=== PATIENT | female | born 1960 | race American Indian/Alaskan Native ===

== ENCOUNTER 2016-11-16 16:51 | Emergency (ER) | payer OTHER ==
--- NOTE | 2016-11-17 00:22 | Emergency Department Report ---
Chief Complaint: Neck Pain/Injury Stated Complaint: NECK PAIN Time Seen by Provider: 11/17/16 00:21 - HPI History of Present Illness: Patient here complaining of right-sided neck pain does radiate into the top of her head since then the. She said she took some Tylenol and she got some relief. Denies any nausea vomiting. She said when she woke up on Wednesday she noticed that her neck was hurting. Denies any visual disturbances. Patient said the pain is worse with movement. She said the pain in her right neck is 10 out of 10 and is radiating up to her right side of her head. She said if she does not move her neck there is no pain there. Denies any fever or chills. Denies any injury. Patient denies any medical problems. - ROS Review of Systems: All systems are negative unless stated in HPI above - Exam Vital Signs: Vital Signs 11/16/16 11/16/16 17:32 23:17 Temperature 97.4 F L 98.6 F Pulse Rate 100 H 109 H Respiratory 22 26 H Rate Blood Pressure 122/77 Blood Pressure 115/78 [Left] O2 Sat by Pulse 100 99 Oximetry Vital Signs 11/16/16 11/16/16 11/17/16 17:32 23:17 00:25 Temperature 97.4 F L 98.6 F Pulse Rate 100 H 109 H 84 Respiratory 22 26 H Rate Blood Pressure 122/77 Blood Pressure 115/78 [Left] O2 Sat by Pulse 100 99 Oximetry Physical Exam: General: This is a 55-year-old female, well-nourished well-developed in no acute distress. She is nontoxic in appearance. Head: Normocephalic atraumatic Mouth: Moist, no pharyngeal exudate or erythema. Uvula is midline and oral airway is patent. No gingival enlargement or dental tenderness. No facial swelling. No peritonsillar abscesses. Neck: Supple, no C-spine tenderness, no tracheal deviation. tender to palpate left neck muscle.. no adenopathy. Swelling noted to neck. Patient with full range of motion to neck. She reports pain on the left side when she moves her neck. Ears: Bilateral TMs pearly jack . .bilateral EAC without any redness swelling or drainage Eyes: Bilateral pupils equal and reactive to light, bilateral EOM intact. Bilateral sclera and conjunctiva without injection. Normal accommodation Nose: Normal mucosa. maxillary and frontal sinus non-tender to palpate. Lungs: Clear to auscultate bilaterally no rhonchi wheezes or rales. Normal work of breathing extremity; No CCE. +2 pulses. No neurovascular compromise Cardiovascular: S1-S2, regular rate rhythm. No murmurs. Skin: clean Dry and intact no rash no lesions Psych: Normal mood and behavior MSE screening note: Focused history and physical exam performed. Due to findings the following was ordered:TBD ED Disposition for MSE Condition: Stable
[2016-11-17] MEDS ORDERED: FLEXERIL PO ONE (00:43)
[2016-11-17] MEDS ORDERED: NORCO 5/325 PO ONE (00:43)
--- NOTE | 2016-11-17 01:35 | Emergency Department Report ---
ED Neck Pain/Injury HPI - General Chief Complaint: Neck Pain/Injury Stated Complaint: Neck Pain Time Seen by Provider: 11/17/16 00:21 Source: patient, family Mode of arrival: Ambulatory Limitations: No Limitations - History of Present Illness Initial Comments: Patient here complaining of right-sided neck pain does radiate into the top of her head since then the. She said she took some Tylenol and she got some relief. Denies any nausea vomiting. She said when she woke up on Wednesday she noticed that her neck was hurting. Denies any visual disturbances. Patient said the pain is worse with movement. She said the pain in her right neck is 10 out of 10 and is radiating up to her right side of her head. She said if she does not move her neck there is no pain there. Denies any fever or chills. Denies any injury. Patient denies any medical problems. MD Complaint: neck pain Onset/Timin -: days(s) Place: home Radiation: left lateral, head Severity: severe Severity scale (0 -10): 10 Quality: aching Consistency: intermittent Improves With: medication OTC/prescribe Worsens With: movement of neck Context: unknown Associated Symptoms: headache. denies: fever, numbness, tingling, weakness, vertigo, difficulty walking, swollen glands, difficulty swallowing, nausea, vomiting Treatments Prior to Arrival: Acetaminophen - Related Data Previous Rx's Medication Instructions Recorded Last Taken Type Cyclobenzaprine [Flexeril] 10 mg PO TID PRN #15 tablet 11/17/16 Unknown Rx Ibuprofen [Motrin] 600 mg PO Q8H PRN #15 tablet 11/17/16 Unknown Rx Allergies Allergy/AdvReac Type Severity Reaction Status Date / Time No Known Allergies Allergy Unverified 11/16/16 17:37 ED Review of Systems ROS: Stated complaint: SEVERE HEADACHE Other details as noted in HPI Comment: All other systems reviewed and negative Constitutional: denies: chills, fever Eyes: denies: eye pain, vision change ENT: denies: ear pain, throat pain, hearing loss, epistaxis, congestion Respiratory: no symptoms reported Cardiovascular: denies: chest pain, palpitations, edema, syncope Gastrointestinal: denies: abdominal pain, nausea, vomiting Musculoskeletal: arthralgia. denies: back pain, joint swelling Skin: denies: rash Neurological: headache. denies: weakness, numbness, paresthesias, confusion, abnormal gait, vertigo ED Past Medical Hx - Past Medical History Previous Medical History?: No - Surgical History Past Surgical History?: Yes Additional Surgical History: LEFT KNEE - Family History Family history: no significant - Social History Smoking Status: Never Smoker Substance Use Type: None - Medications Home Medications: Home Medications Medication Instructions Recorded Confirmed Last Taken Type Cyclobenzaprine [Flexeril] 10 mg PO TID PRN #15 tablet 11/17/16 Unknown Rx Ibuprofen [Motrin] 600 mg PO Q8H PRN #15 tablet 11/17/16 Unknown Rx ED Physical Exam - General Limitations: No Limitations General appearance: alert, in no apparent distress - Head Head exam: Present: atraumatic, normocephalic, normal inspection - Eye Eye exam: Present: normal appearance, PERRL, EOMI. Absent: nystagmus, periorbital swelling, periorbital tenderness Pupils: Present: normal accommodation - ENT ENT exam: Present: normal exam, normal orophraynx, mucous membranes moist, TM's normal bilaterally, normal external ear exam - Neck Neck exam: Present: normal inspection, full ROM. Absent: tenderness, lymphadenopathy - Expanded Neck Exam Expanded Neck exam: Absent: tenderness, midline deformity, anterior neck swelling, tracheal deviation - Respiratory Respiratory exam: Present: normal lung sounds bilaterally. Absent: respiratory distress, chest wall tenderness - Cardiovascular Cardiovascular Exam: Present: regular rate, normal rhythm, normal heart sounds - Extremities Exam Extremities exam: Present: normal inspection, full ROM, normal capillary refill. Absent: pedal edema - Back Exam Back exam: Present: normal inspection, full ROM. Absent: tenderness, CVA tenderness (R), CVA tenderness (L), muscle spasm, paraspinal tenderness, vertebral tenderness - Neurological Exam Neurological exam: Present: alert, oriented X3, normal gait - Psychiatric Psychiatric exam: Present: normal affect, normal mood - Skin Skin exam: Present: warm, dry, intact, normal color. Absent: rash ED Course Vital Signs 11/16/16 11/16/16 11/17/16 17:32 23:17 00:25 Temperature 97.4 F L 98.6 F Pulse Rate 100 H 109 H 84 Respiratory 22 26 H Rate Blood Pressure 122/77 Blood Pressure 115/78 [Left] O2 Sat by Pulse 100 99 Oximetry 11/17/16 00:55 Temperature Pulse Rate Respiratory 20 Rate Blood Pressure Blood Pressure [Left] O2 Sat by Pulse Oximetry - Reevaluation(s) Reevaluation #1: 11/17/16 01:42 Patient given Flexeril 10 mg and [place] 5/325 one tablet in emergency room and she voiced relief of her neck pain. ED Medical Decision Making - Medical Decision Making ED course: I discussed the patient based on my physical finding she has neck muscle strain. I discussed follow-up and treatment plan with her and she voiced understanding. Patient discharged home with discharge instruction for neck muscle strain and given prescription for Flexeril and Motrin Critical care attestation.: If time is entered above; I have spent that time in minutes in the direct care of this critically ill patient, excluding procedure time. ED Disposition Clinical Impression: Neck muscle strain Qualifiers: Encounter type: initial encounter Qualified Code(s): S16.1XXA - Strain of muscle, fascia and tendon at neck level, initial encounter Headache Qualifiers: Headache type: unspecified Headache chronicity pattern: acute headache Intractability: not intractable Qualified Code(s): R51 - Headache Disposition: DISCHARGED TO HOME OR SELFCARE Is pt being admited?: No Does the pt Need Aspirin: No Condition: Stable Instructions: Muscle Strain (ED), Acute Headache (ED) Prescriptions: Cyclobenzaprine [Flexeril] 10 mg PO TID PRN #15 tablet PRN Reason: Muscle Spasm Ibuprofen [Motrin] 600 mg PO Q8H PRN #15 tablet PRN Reason: Pain Referrals: [facility] [Outside] - 11/19/16 Forms: Accompanied Note, Work/School Release Form(ED)
[2016-11-17 01:55] VITALS: BP 120/77
== END 2016-11-17 02:01 | disposition home or self-care (01) ==
LOC: ED 16:51
DX: S16.1XXA Strain of muscle, fascia and tendon at neck level, initial encounter (principal); R51 Headache; X58.XXXA Exposure to other specified factors, initial encounter; Y93.89 Activity, other specified; Y99.9 Unspecified external cause status; Y92.89 Other specified places as the place of occurrence of the external cause
CPT/HCPCS: 99282

== ENCOUNTER 2016-11-20 06:41 | Inpatient (IN) | payer OTHER ==
--- NOTE | 2016-11-20 08:09 | Cat Scan Report ---
CT HEAD WITHOUT CONTRAST INDICATION: Headache. COMPARISON: None similar at this institution. FINDINGS: Noncontrast head CT demonstrates approximately 4 x 2 cm hypodense left frontal lobe white matter edema, axial image 27, series 2 around an approximately 2.5 cm possible mass as on axial image 30. Mild effacement/mass effect upon the left frontal horn also noted as on axial image 28, amongst others. Additional similar hypodense edema along the woodruff radiata extending to the vertex also noted bilaterally as on axial images 35-52 with subtle bilateral masses suspected as approximately 2 cm in the high left frontal lobe on image 45 and approximately 1.7 cm on the right, axial image 46, series 2. No significant midline shift or hydrocephalus. Minimal benign basal ganglia calcifications. No definite acute infarct or significant hemorrhage. No abnormal extra-axial masses or fluid collections. Normal posterior fossa with preserved basilar cisterns. Unremarkable eye globes. Clear paranasal sinuses and mastoid air cells. Normal calvarium and scalp. CONCLUSION: Multiple intracranial masses suspected metastatic with bilateral hypodense edema evident on CT, as detailed above. No significant midline shift. Further evaluation with MRI utilizing contrast recommended. I phoned the above results to Dr. Swain in the ER, 8 AM, 11/20/2016. Thank you for the opportunity to participate in this patient's care.
[2016-11-20 09:05] LABS: Anion Gap 17 mmol/L; Blood Urea Nitrogen 9 mg/dL (7-17); Calcium 8.9 mg/dL (8.4-10.2); Carbon Dioxide 23 mmol/L (22-30); Chloride 99.1 mmol/L (98-107); Glucose 91 mg/dL (65-100); Potassium 3.8 mmol/L (3.6-5.0); Sodium 135 mmol/L (137-145)
[2016-11-20 09:26] LABS: Hematocrit 31.2 % (30.3-42.9); Hemoglobin 9.8 gm/dl (10.1-14.3); Mean Corpuscular HGB Conc 31 % (30-34); Red Blood Count 4.97 M/mm3 (3.65-5.03); White Blood Count 4.6 K/mm3 (4.5-11.0)
--- NOTE | 2016-11-20 09:27 | Emergency Department Report ---
HPI - General Chief Complaint: Headache Time Seen by Provider: 11/20/16 08:29 - HPI HPI: Chief complaint: Headache HPI: Patient is a 55-year-old female with no previous medical history who states she's had a headache for the last week. Patient describes it as sharp and all over her entire head. Patient moved here from [facility] and July of last year and has been doing well. Patient denies any history of cancer or any weight loss. Patient was seen here several days ago and given medications for her headache and neck spasms which have not helped her so she has returned. Mode of arrival: private car Source: Patient and family member Began: One week ago Duration: Continuous Context: No previous history of this type of headache or any head trauma Quality: Sharp Severity: 10 out of 10 Improved with: Nothing Worsened with: Nothing Associated signs and symptoms: Denies fever, cough, cold, nausea, vomiting or diarrhea. ED Past Medical Hx - Past Medical History Previous Medical History?: No - Surgical History Past Surgical History?: Yes Additional Surgical History: LEFT KNEE - Social History Smoking Status: Never Smoker Substance Use Type: None - Medications Home Medications: Home Medications Medication Instructions Recorded Confirmed Last Taken Type Cyclobenzaprine [Flexeril] 10 mg PO TID PRN #15 tablet 11/17/16 Unknown Rx Ibuprofen [Motrin] 600 mg PO Q8H PRN #15 tablet 11/17/16 Unknown Rx ED Review of Systems ROS: Stated complaint: HEAD PAIN Other details as noted in HPI ROS Constitutional: No fever ENT: No uri symptoms Cardiovascular: No chest pain Respiratory: No sob or cough GI: No nausea vomiting or diarrhea : No dysuria frequency or urgency, Skin: No rash Neuro: No focal weakness or numbness Psych: No depression Kilo/lymph: No edema Physical Exam - Physical Exam Vital Signs: Vital Signs 11/20/16 06:45 Temperature 97.9 F Pulse Rate 91 H Respiratory 24 Rate Blood Pressure 112/70 O2 Sat by Pulse 99 Oximetry Physical Exam: GENERAL: The patient is well-developed well-nourished . HEENT: Normocephalic. Atraumatic. Extraocular motions are intact. Patient has moist mucous membranes. NECK: Supple. No meningitic signs are noted. There is no adenopathy noted. CHEST/LUNGS: Clear to auscultation. There is no respiratory distress noted. HEART/CARDIOVASCULAR: Regular. There is no tachycardia. There is no gallop rub or murmur. ABDOMEN: Abdomen is soft, nontender. Patient has normal bowel sounds. There is no abdominal distention. SKIN: There is no rash. There is no edema. There is no diaphoresis. NEURO: The patient is awake, alert, and oriented. The patient is cooperative. The patient has no focal neurologic deficits. The patient has normal speech. MUSCULOSKELETAL: There is no tenderness or deformity. There is no limitation range of motion. There is no evidence of acute injury. ED Course Vital Signs 11/20/16 06:45 Temperature 97.9 F Pulse Rate 91 H Respiratory 24 Rate Blood Pressure 112/70 O2 Sat by Pulse 99 Oximetry - Reevaluation(s) Reevaluation #1: 11/20/16 Patient medicated with morphine and Zofran and will be admitted to the hospitalist. ED Medical Decision Making - Lab Data Result diagrams: 11/20/16 08:37 11/20/16 08:37 - Radiology Data Radiology results: report reviewed (CT scan is sent with metastatic lesions. MR is also consistent with metastatic lesions.) Critical care attestation.: If time is entered above; I have spent that time in minutes in the direct care of this critically ill patient, excluding procedure time. ED Disposition Clinical Impression: Brain metastases Disposition: OP ADMITTED IP TO THIS HOSP Is pt being admited?: Yes Does the pt Need Aspirin: No Condition: Fair Time of Disposition: 12:44 (admitted to the hospitalist)
[2016-11-20] MEDS ORDERED: ZOFRAN IV ONE (09:30)
[2016-11-20] MEDS ORDERED: MORPHINE IV ONE (09:30)
[2016-11-20 09:31] LABS: Mean Corpuscular Hemoglobin 20 pg (28-32); Mean Corpuscular Volume 63 fl (79-97)
[2016-11-20 10:06] LABS: Basophils % (Manual) 0 % (0.0-1.8); Blastocytes % (Manual) 0 %
[2016-11-20 10:07] LABS: Hypochromasia 2+; Microcytosis 2+; Tear Drop Cells 1+
[2016-11-20 10:08] LABS: Anisocytosis 1+; Diff Status Complete; Ovalocytes 1+
[2016-11-20 10:09] LABS: Platelet Count 295 K/mm3 (140-440)
--- NOTE | 2016-11-20 12:20 | Magnetic Resonance Report ---
MRI BRAIN WITH AND WITHOUT CONTRAST: INDICATION: Headache. Abnormal head CT. COMPARISON: Head CT from earlier today. FINDINGS: Pre- and post contrast multiplanar and multisequence MRI of the brain performed utilizing 12 mL MultiHance intravenously. Multiple bilateral peripheral/rim enhancing mass lesions identified, as follows: 1. Multiple aggregated or lobulated lesions in the left frontal lobe anteriorly approximately 2.8 x 1.9 x 2.5 cm, axial image 19, series 12. 2. Another left posterior frontal lobe lesion at the vertex is approximately 1.2 x 1.4 x 1.9 cm, axial image 24, series 2. 3. Similar cluster of multiple peripherally enhancing lesions in the high right parietal lobe superiorly near the vertex as also some extending into the posterior aspect of the right frontal lobe measure approximately 4 x 3 x 3.6 cm in aggregate, axial image 22, series 12. Edema surrounding the above white matter lesions also noted, similar to the CT appearance with slight effacement/mass effect upon the left frontal horn. Above lesions also demonstrate restricted diffusion. Ventricles and sulci otherwise within normal limits. Mild periventricular and few white matter FLAIR and T2 weighted hyperintensities. No abnormal extra-axial masses or fluid collections. Normal major intracranial vascular flow voids. No significant midline shift. Approximately 9 mm hyperintense focus to the right of the fourth ventricle, axial image 9, series 12 felt related to coursing artifact, not confirmed on the coronal images or on other axial sequences. Preserved basilar cisterns. Symmetric seventh and eighth nerve complexes. Unremarkable eye globes. Mild maxillary sinus mucosal thickening inferiorly, left more than right. Slight bilateral ethmoid sinusitis as well. Clear remainder imaged paranasal sinuses and mastoid air cells. Approximately 2.5 x 1 cm adenoids may be directly visualized. Normal remainder midline structures without evidence of Chiari malformation. CONCLUSION: 1. Bilateral cerebral enhancing metastatic lesions with associated vasogenic edema, as detailed above. No significant midline shift at this time. 2. Few other incidental findings, including mild sinusitis. Thank you for the opportunity to participate in this patient's care.
--- NOTE | 2016-11-20 14:04 | Admit Criteria Form ---
Admission Criteria Documentation: HEADACHES Clinical Indications for Admission to Inpatient Care (Place 'X' for any and all applicable criteria): Admission is indicated for ANY ONE of the following(1)(2)(3)(4): [X]I. Inpatient admission required rather than observational care (Also use Headaches: Observation Care as appropriate) because of ANY ONE of the following: [X]a) Severe pain requiring acute inpatient management [ ]b) Altered mental status that is severe or persistent [ ]c) Vomiting or dehydration that is severe or persistent [ ]d) New-onset focal neurologic deficit that is severe or persistent [ ]e) Hypertension requiring inpatient treatment [ ]f) Severe (new) neurologic findings requiring inpatient care as indicated by ANY ONE of following(9)(10): [ ]1) Papilledema [ ]2) Cerebral edema [X]3) Mass effect on CT scan [ ]4) Cerebral bleeding, ischemia, or vasospasm(16) [ ]5) Hydrocephalus(17) [ ]6) Uncontrolled seizures [ ]g) IV infusion of anticoagulation, platelet inhibitors vasoactive, or antiarrhythmic medication. [ ]h) Cerebral bleeding, hydrocephalus, or vasospasm monitoring (16) [ ]i) Increased intracranial pressure or cerebral edema monitoring (17) [ ]j) Other condition, treatment or monitoring requiring inpatient admission [ ]II. Unruptured but threatening aneurysm or vascular malformation [ ]III. Venous sinus thrombosis [ ]IV. Increased intracranial pressure [ ]V. Cerebral spinal fluid leak with decreased intracranial pressure [ ]. Medication-overuse headache that has failed all outpatient management options [ ]VII. Vasculitis (eg, giant cell (temporal) arteritis, central nervous system vasculitis) requiring IV corticosteroids, IV antithrombotic therapy, or inpatient monitoring (eg, visual symptoms or findings, other ischemic manifestations)[A](10)(11) Extended stay beyond goal length of stay may be needed for (27): [ ]a) Intractable migraine [ ]b) Subarachnoid or intracranial hemorrhage [ ]c) Malignant hypertension [ ]d) Detoxification from drug withdrawal in medication-overuse headache (29) The original [facility] [employer] content created by [facility] [employer] has been revised. The portions of the content which have been revised are identified through the use of italic text or in bold, and [employer] has neither reviewed nor approved the modified material.All other unmodified content is copyright [facility]. Please see references footnoted in the original [facility] edition 2016 Admission Criteria Met: Yes
[2016-11-20] MEDS ORDERED: MILK OF MAGNESIA PO PRN (14:17)
[2016-11-20] MEDS ORDERED: DULCOLAX PR PRN (14:17)
[2016-11-20] MEDS ORDERED: TYLENOL PO PRN (14:17)
[2016-11-20] MEDS ORDERED: ZOFRAN IV PRN (14:17)
[2016-11-20] MEDS: DILAUDID IV PRN ×3 (15:25→23:11)
[2016-11-20] MEDS: D5/0.45NS 1,000 ML IV SCH (16:00)
--- NOTE | 2016-11-20 16:53 | Event Note ---
Date: 11/20/16 Severe Headache Brain Metastases
--- NOTE | 2016-11-20 20:09 | History and Physical Report ---
CHIEF COMPLAINT: Headache for 1 week. HISTORY OF PRESENT ILLNESS: A 55-year-old female, -Citizen Of [place], recently immigrated from [facility] comes in for severe headache of one week duration. The patient moved here from [facility] in July of last year and has been doing well. No history of any cancer. No fever. No chills. No weight loss. PAST MEDICAL HISTORY: None. PAST SURGICAL HISTORY: Has left knee surgery. SOCIAL HISTORY: Does not smoke. No alcohol, no recreational drugs. Lives with children. FAMILY HISTORY: No significant family history. CURRENT MEDICATIONS: Cyclobenzaprine and ibuprofen. REVIEW OF SYSTEMS: Significant for; CONSTITUTIONAL: No fever, no chills. No weight loss, no weight gain. HEENT: Severe headache, bitemporal. NECK: No neck stiffness or neck pain. CARDIOVASCULAR AND RESPIRATORY: No chest pain, no shortness of breath. No diaphoresis. No cough. GASTROINTESTINAL: No nausea, no vomiting, no diarrhea. GENITOURINARY: No dysuria. No flank pain. MUSCULOSKELETAL: No joint pains. No muscle pains. CENTRAL NERVOUS SYSTEM: No focal weakness or numbness. No seizures. No syncope. SKIN: No rashes. PSYCHIATRIC: No depression. HEMATOLOGY AND LYMPHATIC: No edema. PHYSICAL EXAMINATION: GENERAL: Middle-aged female lying in bed. Language barrier present. Daughter at bedside, who can communicate. VITAL SIGNS: Blood pressure is 112/70, temperature is 97.9, pulse is 91, respirations are 24, sats are 99%. HEENT: Unremarkable. Pupils equal and reactive. NECK: Supple, no lymphadenopathy, no thyromegaly. LUNGS: Clear to auscultation and percussion. Good air entry. CARDIOVASCULAR: S1, S2 heard. No gallop, no murmur, no rub. Apical impulse in left fifth intercostal space and midclavicular line. ABDOMEN: Soft and benign. No hepatosplenomegaly. No guarding, no rigidity. Hernial orifices are normal. EXTREMITIES: Good pedal pulses. No pedal edema. CENTRAL NERVOUS SYSTEM: Alert and oriented x 4. NEUROLOGIC: Nonfocal exam. SKIN: Normal. LABORATORY DATA: Reviewed. White count is 4600, H and H is 9.8 and 31.2, platelet count is 295,000. Sodium is 135, potassium is 3.8, chloride is 99, bicarbonate is 23, BUN and creatinine is 9 and 0.6, glucose is 91, calcium is 8.9. CT of the head shows multiple intracranial masses, suspected metastatic with bilateral hypodense edema. There is a 4 x 2 cm hypodense left frontal lobe white matter edema. Also, 2.5 cm possible mass on axial image. MRI shows multiple aggregated or lobulated lesions in the left frontal lobe anteriorly, approximately 2.8 x 1.9 x 2.5 cm. Also, anterior left posterior frontal lobe lesion approximately 1.2 x 1.4 x 1.9 cm. Similar cluster of multiple peripherally enhancing lesions in the right parietal lobe superiorly. Edema surrounding the above white matter lesions, consistent with bilateral cerebral enhancing metastatic lesions. ASSESSMENT AND PLAN: 1. Brain metastasis. The patient to be given IV Decadron for reducing the cerebral edema. Oncology consulted. Primary to be worked up. CT abdomen and pelvis and CT chest with contrast ordered for tomorrow morning. Oncology to follow. 2. Headache, symptomatic treatment. Headache probably secondary to the brain metastasis. Primary possibly from colon or lungs. Breasts examination was normal. DISCHARGE PLANNING ISSUES: The patient can be discharged once she is symptomatically better. Hopefully, Oncology to follow up as outpatient and treat appropriately as necessary. If not, the patient may have to be sent to a territory center. PROGNOSIS: Fair to poor. Discussed with the daughter about the diagnosis of brain metastasis and unknown primary. JOB# [id number] HILTON/JONATHON DOMINIQUE
[2016-11-20] MEDS ORDERED: DECADRON IV ONE (21:16)
[2016-11-20] MEDS ORDERED: NACL 0.9% IV ONE (21:16)
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
[2016-11-21 03:12] LABS: HIV-1 Antigen p24 Non React (Non React); HIVR-1/2 Ab Reactive (Non React)
[2016-11-21] MEDS: DECADRON IV SCH ×4 (03:49→22:50)
[2016-11-21] MEDS: DILAUDID IM PRN ×2 (03:49→13:30)
[2016-11-21] MEDS: D5/0.45NS 1,000 ML IV SCH ×2 (05:30→17:35)
[2016-11-21 05:50] LABS: Eosinophils % (Auto) 1.8 % (0.0-4.3); Hematocrit 28.4 % (30.3-42.9); Hemoglobin 8.8 gm/dl (10.1-14.3); Mean Corpuscular HGB Conc 31 % (30-34); Red Blood Count 4.45 M/mm3 (3.65-5.03); White Blood Count 4.6 K/mm3 (4.5-11.0)
[2016-11-21 06:06] LABS: Mean Corpuscular Hemoglobin 20 pg (28-32); Mean Corpuscular Volume 64 fl (79-97); Red Cell Distribution Width 20.1 % (13.2-15.2)
[2016-11-21 06:10] LABS: Alanine Aminotransferase 30 units/L (7-56); Albumin 3.7 g/dL (3.9-5); Albumin/Globulin Ratio 0.7 %; Alkaline Phosphatase 154 units/L (35-129); Bilirubin,Total 0.3 mg/dL (0.1-1.2); Blood Urea Nitrogen 10 mg/dL (7-17); Calcium 8.9 mg/dL (8.4-10.2); Carbon Dioxide 22 mmol/L (22-30); Chloride 99.2 mmol/L (98-107); Glucose 138 mg/dL (65-100); Potassium 4.3 mmol/L (3.6-5.0); Sodium 136 mmol/L (137-145); Total Protein 8.9 g/dL (6.3-8.2)
[2016-11-21 06:13] LABS: Anion Gap 19 mmol/L
[2016-11-21 07:58] LABS: Platelet Count 248 K/mm3 (140-440)
--- NOTE | 2016-11-21 09:40 | Progress Note ---
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 Right lower lobe hilar node metastasis Supportive care, pulmonary evaluation, oncology following --Headache; Secondary to brain metastasis, supportive care --[employer] metastases with vasogenic edema Continue IV steroids, supportive care, possible palliative radiation --HIV positive status ID evaluation, we'll order viral load CD4 count, hepatitis panel --DVT prophylaxis with Lovenox Closely monitor the patient and adjust management as needed History Interval history: Patient seen and evaluated medical records reviewed No new events reported by the nursing staff Multiple family members at the bedside admitted with metastatic brain lesions, workup is in progress Patient denies any chest pain shortness of breath, complains of mild headache Hospitalist Physical - Constitutional Vitals: Temp Pulse Resp BP Pulse Ox 98.9 F 75 18 108/65 97 11/21/16 07:45 11/21/16 07:45 11/21/16 07:45 11/21/16 07:45 11/21/16 07:45 General appearance: Present: no acute distress, well-nourished - EENT Eyes: Present: PERRL, EOM intact - Neck Neck: Present: supple, normal ROM - Respiratory Respiratory effort: normal Respiratory: bilateral: diminished, negative: rales, rhonchi, wheezing - Cardiovascular Rhythm: regular Heart Sounds: Present: S1 & S2 - Extremities Extremities: no ischemia, pulses intact, pulses symmetrical Peripheral Pulses: within normal limits - Abdominal General gastrointestinal: soft, non-tender, non-distended, normal bowel sounds - Integumentary Integumentary: Present: clear, warm - Psychiatric Psychiatric: appropriate mood/affect, cooperative - Neurologic Neurologic: CNII-XII intact, moves all extremities Results - Labs CBC & Chem 7: 11/21/16 05:04 11/21/16 05:04 Labs: Laboratory Last Values WBC 4.6 K/mm3 (4.5-11.0) 11/21/16 05:04 RBC 4.45 M/mm3 (3.65-5.03) 11/21/16 05:04 Hgb 8.8 gm/dl (10.1-14.3) L 11/21/16 05:04 Hct 28.4 % (30.3-42.9) L 11/21/16 05:04 MCV 64 fl (79-97) L 11/21/16 05:04 MCH 20 pg (28-32) L 11/21/16 05:04 MCHC 31 % (30-34) 11/21/16 05:04 RDW 20.1 % (13.2-15.2) H 11/21/16 05:04 Plt Count 248 K/mm3 (140-440) 11/21/16 05:04 Lymph % (Auto) 9.1 % (13.4-35.0) L 11/21/16 05:04 [place] % (Auto) 2.4 % (0.0-7.3) 11/21/16 05:04 Eos % (Auto) 1.8 % (0.0-4.3) 11/21/16 05:04 Baso % (Auto) 0.0 % (0.0-1.8) 11/21/16 05:04 Lymph # 0.4 K/mm3 (1.2-5.4) L 11/21/16 05:04 [place] # 0.1 K/mm3 (0.0-0.8) 11/21/16 05:04 Eos # 0.1 K/mm3 (0.0-0.4) 11/21/16 05:04 Baso # 0.0 K/mm3 (0.0-0.1) 11/21/16 05:04 Add Manual Diff Complete 11/20/16 08:37 Total Counted 100 11/20/16 08:37 Seg Neutrophils % 86.7 % (40.0-70.0) H 11/21/16 05:04 Seg Neuts % (Manual) 77.0 % (40.0-70.0) H 11/20/16 08:37 Band Neutrophils % 0 % 11/20/16 08:37 Lymphocytes % (Manual) 5.0 % (13.4-35.0) L 11/20/16 08:37 Reactive Lymphs % (Man) 0 % 11/20/16 08:37 Monocytes % (Manual) 8.0 % (0.0-7.3) H 11/20/16 08:37 Eosinophils % (Manual) 10.0 % (0.0-4.3) H 11/20/16 08:37 Basophils % (Manual) 0 % (0.0-1.8) 11/20/16 08:37 Metamyelocytes % 0 % 11/20/16 08:37 Myelocytes % 0 % 11/20/16 08:37 Promyelocytes % 0 % 11/20/16 08:37 Blast Cells % 0 % 11/20/16 08:37 Nucleated RBC % Not Reportable 11/20/16 08:37 Seg Neutrophils # 4.0 K/mm3 (1.8-7.7) 11/21/16 05:04 Seg Neutrophils # Man 3.5 K/mm3 (1.8-7.7) 11/20/16 08:37 Band Neutrophils # 0.0 K/mm3 11/20/16 08:37 Lymphocytes # (Manual) 0.2 K/mm3 (1.2-5.4) L 11/20/16 08:37 Abs React Lymphs (Man) 0.0 K/mm3 11/20/16 08:37 Monocytes # (Manual) 0.4 K/mm3 (0.0-0.8) 11/20/16 08:37 Eosinophils # (Manual) 0.5 K/mm3 (0.0-0.4) H 11/20/16 08:37 Basophils # (Manual) 0.0 K/mm3 (0.0-0.1) 11/20/16 08:37 Metamyelocytes # 0.0 K/mm3 11/20/16 08:37 Myelocytes # 0.0 K/mm3 11/20/16 08:37 Promyelocytes # 0.0 K/mm3 11/20/16 08:37 Blast Cells # 0.0 K/mm3 11/20/16 08:37 WBC Morphology Not Reportable 11/20/16 08:37 Hypersegmented Neuts Not Reportable 11/20/16 08:37 Hyposegmented Neuts Not Reportable 11/20/16 08:37 Hypogranular Neuts Not Reportable 11/20/16 08:37 Smudge Cells Not Reportable 11/20/16 08:37 Toxic Granulation Not Reportable 11/20/16 08:37 Toxic Vacuolation Not Reportable 11/20/16 08:37 Dohle Bodies Not Reportable 11/20/16 08:37 Pelger-Huet Anomaly Not Reportable 11/20/16 08:37 Jeremy Rods Not Reportable 11/20/16 08:37 Platelet Estimate Appears normal 11/20/16 08:37 Clumped Platelets Not Reportable 11/20/16 08:37 Plt Clumps, EDTA Not Reportable 11/20/16 08:37 Large Platelets Not Reportable 11/20/16 08:37 Giant Platelets Not Reportable 11/20/16 08:37 Platelet Satelliting Not Reportable 11/20/16 08:37 Plt Morphology Comment Not Reportable 11/20/16 08:37 RBC Morphology Not Reportable 11/20/16 08:37 Dimorphic RBCs Not Reportable 11/20/16 08:37 Polychromasia Not Reportable 11/20/16 08:37 Hypochromasia 2+ 11/20/16 08:37 Poikilocytosis Not Reportable 11/20/16 08:37 Anisocytosis 1+ 11/20/16 08:37 Microcytosis 2+ 11/20/16 08:37 Macrocytosis Not Reportable 11/20/16 08:37 Spherocytes Not Reportable 11/20/16 08:37 Pappenheimer Bodies Not Reportable 11/20/16 08:37 Sickle Cells Not Reportable 11/20/16 08:37 Target Cells Not Reportable 11/20/16 08:37 Tear Drop Cells 1+ 11/20/16 08:37 Ovalocytes 1+ 11/20/16 08:37 Helmet Cells Not Reportable 11/20/16 08:37 Polanco-[place] Bodies Not Reportable 11/20/16 08:37 [place] Rings Not Reportable 11/20/16 08:37 [place] Cells Not Reportable 11/20/16 08:37 Bite Cells Not Reportable 11/20/16 08:37 Crenated Cell Not Reportable 11/20/16 08:37 Elliptocytes Not Reportable 11/20/16 08:37 Acanthocytes (Spur) Not Reportable 11/20/16 08:37 Rouleaux Not Reportable 11/20/16 08:37 Hemoglobin C Crystals Not Reportable 11/20/16 08:37 Schistocytes Not Reportable 11/20/16 08:37 Malaria parasites Not Reportable 11/20/16 08:37 Douglas Bodies Not Reportable 11/20/16 08:37 Hem Pathologist Commnt No 11/20/16 08:37 Sodium 136 mmol/L (137-145) L 11/21/16 05:04 Potassium 4.3 mmol/L (3.6-5.0) 11/21/16 05:04 Chloride 99.2 mmol/L (98-107) 11/21/16 05:04 Carbon Dioxide 22 mmol/L (22-30) 11/21/16 05:04 Anion Gap 19 mmol/L 11/21/16 05:04 BUN 10 mg/dL (7-17) 11/21/16 05:04 Creatinine 0.5 mg/dL (0.7-1.2) L 11/21/16 05:04 Estimated GFR > 60 ml/min 11/21/16 05:04 BUN/Creatinine Ratio 20.00 % 11/21/16 05:04 Glucose 138 mg/dL (65-100) H 11/21/16 05:04 Calcium 8.9 mg/dL (8.4-10.2) 11/21/16 05:04 Total Bilirubin 0.3 mg/dL (0.1-1.2) 11/21/16 05:04 AST 48 units/L (5-40) H 11/21/16 05:04 ALT 30 units/L (7-56) 11/21/16 05:04 Alkaline Phosphatase 154 units/L (35-129) H 11/21/16 05:04 Total Protein 8.9 g/dL (6.3-8.2) H 11/21/16 05:04 Albumin 3.7 g/dL (3.9-5) L 11/21/16 05:04 Albumin/Globulin Ratio 0.7 % 11/21/16 05:04 HIV 1&2 Antibody Rapid Reactive (Non React) 11/21/16 00:48 HIV P24 Antigen Non react (Non React) 11/21/16 00:48
[2016-11-21] MEDS ORDERED: FLUARIX QUAD 2016-2017(36 MOS+) IM ONE (12:00)
[2016-11-21] MEDS ORDERED: NACL ONE (12:02)
--- NOTE | 2016-11-21 13:50 | Cat Scan Report ---
CT CHEST, ABDOMEN AND PELVIS WITH CONTRAST: 11/20/16 12:45:00 CLINICAL: Brain metastasis. COMPARISON: None. TECHNIQUE: Volumetric acquisition and 1.25 millimeter scan reconstructions after the uneventful intravenous injection of 100 cc of Omnipaque 300. Consent was obtained prior to the administration of the contrast. Oral contrast was also given. FINDINGS: Chest: An irregular right lower lobe superior segment lung mass contiguous to the pleura measures 2.6 x 1.6 x 2.0 cm. No other lung nodule or mass. However, a right hilar lymph node measures 2.3 x 2.0 cm. Additional smaller right hilar lymph nodes encase the right inferior pulmonary vein. No pleural effusion. No mediastinal lymphadenopathy. However, a 1 cm suspicious right subclavicular lymph node. Numerous bilateral axillary lymph nodes have central fat and benign morphology. The largest is on the right and measures 1.7 cm. Normal aorta, heart and pulmonary arteries. Normal esophagus and trachea. Abdomen: The liver is large with the right lobe measuring 19 cm in length. The portal veins are large. The intrahepatic IVC is normal but no hepatic veins are identified. No evidence of portal venous or hepatic venous thrombosis. Normal bladder and bile ducts. No liver mass identified. The stomach is relatively large and filled with contrast and air. Normal duodenum. The spleen is enlarged and measures 13.8 cm in length. Numerous splenic varices are identified. Normal aorta and inferior vena cava. Normal adrenal glands and kidneys. The renal collecting systems and ureters are nondilated. A celiac lymph node measures 1.7 x 1.4 cm. No para-aortic or pericaval lymphadenopathy. No ascites.Normal small bowel. Mild nonspecific wall thickening of the ascending colon. Normal transverse and descending colon. Normal appendix. Pelvis: Enlarged fibroid uterus with a dominant right-sided fibroid measuring 6.7 x 5.7 cm. Normal urinary bladder and rectum.Ovaries are not identified.. Bone windows demonstrate no suspicious bone lesion. IMPRESSION:1. 2.6 cm right lower lobe superior segment lung mass this is for primary bronchogenic carcinoma. 2. Right lower lobe hilar jamie metastasis. 3. Hepatosplenomegaly. 4. No evidence of hepatic metastasis. 5. 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 6. A single celiac lymph node suspicious for metastasis. 7. Large fibroid uterus.
--- NOTE | 2016-11-21 14:33 | Progress Note ---
Assessment and Plan - Patient Problems (1) Brain metastases Current Visit: Yes Status: Acute Plan to address problem: Imaging c/w lung primary, most likely adenocarcinoma. Patient is on dexamethasone and narcotics. Will consult Rad Onc. (2) HIV antibody positive Current Visit: Yes Status: Acute Plan to address problem: New finding. Recommend ID consult. Will request CD4, HIV viral load and genotyping. (3) Microcytic anemia Current Visit: Yes Status: Chronic Plan to address problem: Most likely iron deficiency in this woman with fibroids, r/o GI bleeding from portal HTN, r/o hemoglobinopathy. Will check Fe, TIBC, ferritin, OBS, Hgb electrophoresis. Subjective Date of service: 11/21/16 Interval history: Feels poorly. Unable to sit up or stand without assistance. Still having headaches. Denies N/V. Complains of constipation. CT chest shows right lung nodule and R hilar adenopathy c/w primary lung cancer. There is hepatosplenomegaly with non visualization of hepatic veins and with portal hypertension c/w Budd Chiari syndrome. HIV screen positive. CBC shows moderate microcytic anemia with high RDW. Objective - Constitutional Vitals: Vital Signs - 12hr 11/21/16 07:45 Temperature 98.9 F Pulse Rate [ 75 From Monitor] Respiratory 18 Rate Blood Pressure 108/65 [Right Arm] O2 Sat by Pulse 97 Oximetry General appearance: Present: mild distress, cachectic - EENT Eyes: PERRL, EOM intact ENT: clear oral mucosa - Neck Neck: supple, no masses or JVD - Respiratory Respiratory effort: normal Respiratory: bilateral: CTA - Cardiovascular Rhythm: regular Heart Sounds: Present: S1 & S2. Absent: gallop Extremities: pulses intact, No edema - Gastrointestinal General gastrointestinal: Present: soft, tender (RUQ), non-distended, normal bowel sounds, hepatomegaly Localized gastrointestinal: tender: RUQ - Musculoskeletal Musculoskeletal: generalized weakness - Labs CBC & Chem 7: 11/21/16 05:04 11/21/16 05:04 Labs: Abnormal lab results 11/21/16 11/21/16 Range/Units 05:04 05:04 Hgb 8.8 L (10.1-14.3) gm/dl Hct 28.4 L (30.3-42.9) % MCV 64 L (79-97) fl MCH 20 L (28-32) pg RDW 20.1 H (13.2-15.2) % Lymph % (Auto) 9.1 L (13.4-35.0) % Lymph # 0.4 L (1.2-5.4) K/mm3 Seg Neutrophils % 86.7 H (40.0-70.0) % Sodium 136 L (137-145) mmol/L Creatinine 0.5 L (0.7-1.2) mg/dL Glucose 138 H (65-100) mg/dL AST 48 H (5-40) units/L Alkaline Phosphatase 154 H (35-129) units/L Total Protein 8.9 H (6.3-8.2) g/dL Albumin 3.7 L (3.9-5) g/dL - Imaging and cardiology CT scan - abdomen: report reviewed CT scan - chest: report reviewed CT Scan - head: report reviewed MRI - head: report reviewed
[2016-11-21 16:25] LABS: Reticulocyte % 1.29 % (0.78-2.58)
[2016-11-21 16:31] LABS: Iron 21 ug/dL (37-170); Total Iron Binding Capacity 386 mcg/dL (250-450)
[2016-11-21] MEDS: PROTONIX PO SCH (17:35)
[2016-11-22] MEDS: DECADRON IV SCH ×4 (04:22→21:19)
[2016-11-22 09:03] LABS: Hematocrit 29.5 % (30.3-42.9); Hemoglobin 9.5 gm/dl (10.1-14.3); Mean Corpuscular HGB Conc 32 % (30-34); Mean Corpuscular Hemoglobin 20 pg (28-32); Mean Corpuscular Volume 63 fl (79-97); Red Blood Count 4.67 M/mm3 (3.65-5.03); Red Cell Distribution Width 19.9 % (13.2-15.2); White Blood Count 4.7 K/mm3 (4.5-11.0)
[2016-11-22 09:12] LABS: Blood Urea Nitrogen 11 mg/dL (7-17); Calcium 9.3 mg/dL (8.4-10.2); Carbon Dioxide 22 mmol/L (22-30); Chloride 98.7 mmol/L (98-107); Glucose 133 mg/dL (65-100); Potassium 3.9 mmol/L (3.6-5.0); Sodium 137 mmol/L (137-145)
[2016-11-22 09:21] LABS: Anion Gap 20 mmol/L
--- NOTE | 2016-11-22 09:43 | Progress Note ---
Assessment and Plan - Patient Problems (1) Brain metastases Current Visit: Yes Status: Acute Plan to address problem: Patient being followed by hematology oncology. The brain metastasis appears to come from the lung cancer is the primary. Awaiting further management per hematology oncology and radiation oncology. Continue steroids and narcotics (2) HIV antibody positive Current Visit: Yes Status: Acute Plan to address problem: Patient was found to be HIV positive. We will get infectious disease consult (3) Microcytic anemia Current Visit: Yes Status: Chronic Plan to address problem: H&H improved. We'll continue to follow it (4) Headache Current Visit: No Status: Acute Qualifiers: Headache type: unspecified Headache chronicity pattern: acute headache Intractability: not intractable Qualified Code(s): R51 - Headache Plan to address problem: Headaches as secondary to brain metastasis. Continue dexamethasone and narcotics (5) Lung cancer Current Visit: Yes Status: Acute Plan to address problem: Oncologist felt that the lung cancer is the primary source with metastasis to the brain History Interval history: Patient sitting in bed with daughter at bedside. Explained the diagnosis to them in detail Hospitalist Physical - Constitutional Vitals: Temp Pulse Resp BP Pulse Ox 97.5 F L 75 16 113/69 100 11/22/16 08:00 11/22/16 08:00 11/22/16 08:00 11/22/16 08:00 11/22/16 08:00 General appearance: Present: no acute distress, well-nourished - EENT Eyes: Present: PERRL, EOM intact ENT: hearing intact, clear oral mucosa - Neck Neck: Present: supple, normal ROM - Respiratory Respiratory effort: normal Respiratory: bilateral: rhonchi - Cardiovascular Rhythm: regular Heart Sounds: Present: S1 & S2 - Abdominal General gastrointestinal: soft, non-tender, non-distended, normal bowel sounds - Psychiatric Psychiatric: appropriate mood/affect, intact judgment & insight - Neurologic Neurologic: CNII-XII intact, moves all extremities Results - Labs CBC & Chem 7: 11/22/16 08:28 11/22/16 08:28 Labs: Laboratory Last Values WBC 4.7 K/mm3 (4.5-11.0) 11/22/16 08:28 RBC 4.67 M/mm3 (3.65-5.03) 11/22/16 08:28 Hgb 9.5 gm/dl (10.1-14.3) L 11/22/16 08:28 Hct 29.5 % (30.3-42.9) L 11/22/16 08:28 MCV 63 fl (79-97) L 11/22/16 08:28 MCH 20 pg (28-32) L 11/22/16 08:28 MCHC 32 % (30-34) 11/22/16 08:28 RDW 19.9 % (13.2-15.2) H 11/22/16 08:28 Plt Count 248 K/mm3 (140-440) 11/21/16 05:04 Lymph % (Auto) Product Architect 11/22/16 08:28 [place] % (Auto) Product Architect 11/22/16 08:28 Eos % (Auto) Product Architect 11/22/16 08:28 Baso % (Auto) Product Architect 11/22/16 08:28 Lymph # Product Architect 11/22/16 08:28 [place] # Product Architect 11/22/16 08:28 Eos # Product Architect 11/22/16 08:28 Baso # Product Architect 11/22/16 08:28 Add Manual Diff Complete 11/20/16 08:37 Total Counted 100 11/20/16 08:37 Seg Neutrophils % Product Architect 11/22/16 08:28 Seg Neuts % (Manual) 77.0 % (40.0-70.0) H 11/20/16 08:37 Band Neutrophils % 0 % 11/20/16 08:37 Lymphocytes % (Manual) 5.0 % (13.4-35.0) L 11/20/16 08:37 Reactive Lymphs % (Man) 0 % 11/20/16 08:37 Monocytes % (Manual) 8.0 % (0.0-7.3) H 11/20/16 08:37 Eosinophils % (Manual) 10.0 % (0.0-4.3) H 11/20/16 08:37 Basophils % (Manual) 0 % (0.0-1.8) 11/20/16 08:37 Metamyelocytes % 0 % 11/20/16 08:37 Myelocytes % 0 % 11/20/16 08:37 Promyelocytes % 0 % 11/20/16 08:37 Blast Cells % 0 % 11/20/16 08:37 Nucleated RBC % Not Reportable 11/20/16 08:37 Seg Neutrophils # Product Architect 11/22/16 08:28 Seg Neutrophils # Man 3.5 K/mm3 (1.8-7.7) 11/20/16 08:37 Band Neutrophils # 0.0 K/mm3 11/20/16 08:37 Lymphocytes # (Manual) 0.2 K/mm3 (1.2-5.4) L 11/20/16 08:37 Abs React Lymphs (Man) 0.0 K/mm3 11/20/16 08:37 Monocytes # (Manual) 0.4 K/mm3 (0.0-0.8) 11/20/16 08:37 Eosinophils # (Manual) 0.5 K/mm3 (0.0-0.4) H 11/20/16 08:37 Basophils # (Manual) 0.0 K/mm3 (0.0-0.1) 11/20/16 08:37 Metamyelocytes # 0.0 K/mm3 11/20/16 08:37 Myelocytes # 0.0 K/mm3 11/20/16 08:37 Promyelocytes # 0.0 K/mm3 11/20/16 08:37 Blast Cells # 0.0 K/mm3 11/20/16 08:37 WBC Morphology Not Reportable 11/20/16 08:37 Hypersegmented Neuts Not Reportable 11/20/16 08:37 Hyposegmented Neuts Not Reportable 11/20/16 08:37 Hypogranular Neuts Not Reportable 11/20/16 08:37 Smudge Cells Not Reportable 11/20/16 08:37 Toxic Granulation Not Reportable 11/20/16 08:37 Toxic Vacuolation Not Reportable 11/20/16 08:37 Dohle Bodies Not Reportable 11/20/16 08:37 Pelger-Huet Anomaly Not Reportable 11/20/16 08:37 Jeremy Rods Not Reportable 11/20/16 08:37 Platelet Estimate Appears normal 11/20/16 08:37 Clumped Platelets Not Reportable 11/20/16 08:37 Plt Clumps, EDTA Not Reportable 11/20/16 08:37 Large Platelets Not Reportable 11/20/16 08:37 Giant Platelets Not Reportable 11/20/16 08:37 Platelet Satelliting Not Reportable 11/20/16 08:37 Plt Morphology Comment Not Reportable 11/20/16 08:37 RBC Morphology Not Reportable 11/20/16 08:37 Dimorphic RBCs Not Reportable 11/20/16 08:37 Polychromasia Not Reportable 11/20/16 08:37 Hypochromasia 2+ 11/20/16 08:37 Poikilocytosis Not Reportable 11/20/16 08:37 Anisocytosis 1+ 11/20/16 08:37 Microcytosis 2+ 11/20/16 08:37 Macrocytosis Not Reportable 11/20/16 08:37 Spherocytes Not Reportable 11/20/16 08:37 Pappenheimer Bodies Not Reportable 11/20/16 08:37 Sickle Cells Not Reportable 11/20/16 08:37 Target Cells Not Reportable 11/20/16 08:37 Tear Drop Cells 1+ 11/20/16 08:37 Ovalocytes 1+ 11/20/16 08:37 Helmet Cells Not Reportable 11/20/16 08:37 Polanco-[place] Bodies Not Reportable 11/20/16 08:37 [place] Rings Not Reportable 11/20/16 08:37 [place] Cells Not Reportable 11/20/16 08:37 Bite Cells Not Reportable 11/20/16 08:37 Crenated Cell Not Reportable 11/20/16 08:37 Elliptocytes Not Reportable 11/20/16 08:37 Acanthocytes (Spur) Not Reportable 11/20/16 08:37 Rouleaux Not Reportable 11/20/16 08:37 Hemoglobin C Crystals Not Reportable 11/20/16 08:37 Schistocytes Not Reportable 11/20/16 08:37 Malaria parasites Not Reportable 11/20/16 08:37 Percent Retic 1.29 % (0.78-2.58) 11/21/16 15:46 [place] Bodies Not Reportable 11/20/16 08:37 Hem Pathologist Commnt No 11/20/16 08:37 Sodium 137 mmol/L (137-145) 11/22/16 08:28 Potassium 3.9 mmol/L (3.6-5.0) 11/22/16 08:28 Chloride 98.7 mmol/L (98-107) 11/22/16 08:28 Carbon Dioxide 22 mmol/L (22-30) 11/22/16 08:28 Anion Gap 20 mmol/L 11/22/16 08:28 BUN 11 mg/dL (7-17) 11/22/16 08:28 Creatinine 0.5 mg/dL (0.7-1.2) L 11/22/16 08:28 Estimated GFR > 60 ml/min 11/22/16 08:28 BUN/Creatinine Ratio 22.00 % 11/22/16 08:28 Glucose 133 mg/dL (65-100) H 11/22/16 08:28 Calcium 9.3 mg/dL (8.4-10.2) 11/22/16 08:28 Iron 21 ug/dL (37-170) L 11/21/16 15:46 TIBC 386 mcg/dL (250-450) 11/21/16 15:46 Ferritin 8.8 ng/mL (13.0-400.0) L 11/21/16 15:46 Total Bilirubin 0.3 mg/dL (0.1-1.2) 11/21/16 05:04 AST 48 units/L (5-40) H 11/21/16 05:04 ALT 30 units/L (7-56) 11/21/16 05:04 Alkaline Phosphatase 154 units/L (35-129) H 11/21/16 05:04 Total Protein 8.9 g/dL (6.3-8.2) H 11/21/16 05:04 Albumin 3.7 g/dL (3.9-5) L 11/21/16 05:04 Albumin/Globulin Ratio 0.7 % 11/21/16 05:04 Hepatitis A IgM Ab -1 (NonReactive) 11/21/16 17:50 Hep Bs Antigen Non-reactive (Negative) 11/21/16 17:50 Hep B Core IgM Ab Non-reactive (NonReactive) 11/21/16 17:50 Hepatitis C Antibody Non-reactive (NonReactive) 11/21/16 17:50 HIV 1&2 Antibody Rapid Reactive (Non React) 11/21/16 00:48 HIV P24 Antigen Non react (Non React) 11/21/16 00:48
[2016-11-22 10:45] LABS: Anisocytosis 1+; Basophils % (Manual) 0 % (0.0-1.8); Blastocytes % (Manual) 0 %; Diff Status Complete; Eosinophils % (Manual) 0 % (0.0-4.3); Platelet Estimate Consistent w Auto
[2016-11-22 10:49] LABS: Platelet Count 304 K/mm3 (140-440)
[2016-11-22] MEDS: PROTONIX PO SCH (12:36)
[2016-11-22] MEDS: D5/0.45NS 1,000 ML IV SCH (12:37)
--- NOTE | 2016-11-22 14:53 | Progress Note ---
Assessment and Plan - Patient Problems (1) Brain metastases Current Visit: Yes Status: Acute Plan to address problem: Imaging c/w lung primary, most likely adenocarcinoma. Patient is on dexamethasone and narcotics. Will consult Rad Onc. I called Rad Onc answering service 24 hs ago; patient has not been seen yet. Hopefully they will come tomorrow I explained percutaneous lung biopsy to patient and . We need to know the cell type and whether the cancer have actionable mutations, since those tumors are both more responsive to treatment and treatable with oral medications instead of IV chemo. Patient and daughter expressed understanding and verbalized consent. (2) HIV antibody positive Current Visit: Yes Status: Acute Plan to address problem: New finding. Recommend ID consult. Will request CD4, HIV viral load and genotyping. Awaiting above reports and ID consult (3) Microcytic anemia Current Visit: Yes Status: Chronic Plan to address problem: Most likely iron deficiency in this woman with fibroids, r/o GI bleeding from portal HTN, r/o hemoglobinopathy. Will check Fe, TIBC, ferritin, OBS, Hgb electrophoresis. Work up confirms iron deficiency. Hg EP pending. Start Fe supplementation (4) Physical deconditioning Current Visit: Yes Status: Chronic Plan to address problem: Start PT/OT. Subjective Date of service: 11/22/16 Interval history: Feels better, able to stand without assistance. Wants to walk. Decreased headaches. Denies N/V. Constipation ongoing. CT chest shows right lung nodule and R hilar adenopathy c/w primary lung cancer. CBC shows moderate microcytic anemia with high RDW. Iron studies consistent with iron deficiency. Objective - Constitutional Vitals: Vital Signs - 12hr 11/22/16 08:00 Temperature 97.5 F L Pulse Rate [ 75 Right Radial] Respiratory 16 Rate Blood Pressure 113/69 [Right Arm] O2 Sat by Pulse 100 Oximetry General appearance: Present: no acute distress, other (emaciated, chronically ill looking) - EENT Eyes: PERRL, no scleral icterus - Respiratory Respiratory: bilateral: CTA - Cardiovascular Rhythm: regular Heart Sounds: Present: S1 & S2. Absent: gallop Extremities: No edema - Gastrointestinal General gastrointestinal: Present: soft, non-distended, normal bowel sounds, hepatomegaly. Absent: splenomegaly Localized gastrointestinal: tender: RUQ - Musculoskeletal Musculoskeletal: generalized weakness - Labs CBC & Chem 7: 11/22/16 08:28 11/22/16 08:28 Labs: Abnormal lab results 11/21/16 11/21/16 11/22/16 Range/Units 15:46 15:46 08:28 Hgb 9.5 L (10.1-14.3) gm/dl Hct 29.5 L (30.3-42.9) % MCV 63 L (79-97) fl MCH 20 L (28-32) pg RDW 19.9 H (13.2-15.2) % Seg Neuts % (Manual) 81.0 H (40.0-70.0) % Lymphocytes # (Manual) 0.7 L (1.2-5.4) K/mm3 Creatinine (0.7-1.2) mg/dL Glucose (65-100) mg/dL Iron 21 L (37-170) ug/dL Ferritin 8.8 L (13.0-400.0) ng/mL 11/22/16 Range/Units 08:28 Hgb (10.1-14.3) gm/dl Hct (30.3-42.9) % MCV (79-97) fl MCH (28-32) pg RDW (13.2-15.2) % Seg Neuts % (Manual) (40.0-70.0) % Lymphocytes # (Manual) (1.2-5.4) K/mm3 Creatinine 0.5 L (0.7-1.2) mg/dL Glucose 133 H (65-100) mg/dL Iron (37-170) ug/dL Ferritin (13.0-400.0) ng/mL
[2016-11-22] MEDS: MIRALAX 3350 PO SCH (17:31)
--- NOTE | 2016-11-22 18:59 | Consultation ---
History of Present Illness Consult date: 11/22/16 Requesting physician: TAMMY CHAMBERS Reason for consult: lung mass History of present illness: 55 yo presents with headache, found to have brain and lung masses. Also HIV +. No chest pain, SOB, hemoptysis, wheezing. Has a dry cough. Nonsmoker. Active Medications Acetaminophen (Tylenol) 650 mg PO Q4H PRN PRN Reason: Pain MILD(1-3)/Fever >100.5/PEREZ Bisacodyl (Dulcolax) 10 mg [place] QDAY PRN PRN Reason: Constipation unrelieved by MOM Dexamethasone (Decadron) 4 mg IV Q6H [facility] Last Admin: 11/22/16 17:30 Dose: 4 mg Hydromorphone HCl (Dilaudid) 1 mg IM Q4H PRN PRN Reason: Pain , Severe (7-10) Last Admin: 11/21/16 13:30 Dose: 1 mg Dextrose/Sodium Chloride (D5/0.45ns) 1,000 mls @ 75 mls/hr IV DIRECT [facility] Last Admin: 11/22/16 12:37 Dose: 75 mls/hr Magnesium Hydroxide (Milk Of Magnesia) 30 ml PO Q4H PRN PRN Reason: Constipation Ondansetron HCl (Zofran) 4 mg IV Q3H PRN PRN Reason: N/V unrelieved by Reglan Oxycodone/Acetaminophen (Percocet 5/325) 1 tab PO Q6H PRN PRN Reason: Pain, Moderate (4-6) Pantoprazole (Protonix) 40 mg PO QDAY [facility] Last Admin: 11/22/16 12:36 Dose: 40 mg Polyethylene Glycol (Miralax 3350) 17 gm PO QDAY [facility] Last Admin: 11/22/16 17:31 Dose: 17 gm Past History Past Medical History: other (None) Social history: full code. denies: smoking, alcohol abuse, prescription drug abuse, IV drug use Family history: other (No pulm issues reported) Medications and Allergies Allergies Allergy/AdvReac Type Severity Reaction Status Date / Time No Known Allergies Allergy Unverified 11/16/16 17:37 Home Medications Medication Instructions Recorded Confirmed Last Taken Type Cyclobenzaprine [Flexeril] 10 mg PO TID PRN #15 tablet 11/17/16 11/20/16 Unknown Rx Ibuprofen [Motrin] 600 mg PO Q8H PRN #15 tablet 11/17/16 11/20/16 Unknown Rx Active Meds: Active Medications Acetaminophen (Tylenol) 650 mg PO Q4H PRN PRN Reason: Pain MILD(1-3)/Fever >100.5/PEREZ Bisacodyl (Dulcolax) 10 mg FL QDAY PRN PRN Reason: Constipation unrelieved by MOM Dexamethasone (Decadron) 4 mg IV Q6H [facility] Last Admin: 11/22/16 17:30 Dose: 4 mg Hydromorphone HCl (Dilaudid) 1 mg IM Q4H PRN PRN Reason: Pain , Severe (7-10) Last Admin: 11/21/16 13:30 Dose: 1 mg Dextrose/Sodium Chloride (D5/0.45ns) 1,000 mls @ 75 mls/hr IV DIRECT [facility] Last Admin: 11/22/16 12:37 Dose: 75 mls/hr Magnesium Hydroxide (Milk Of Magnesia) 30 ml PO Q4H PRN PRN Reason: Constipation Ondansetron HCl (Zofran) 4 mg IV Q3H PRN PRN Reason: N/V unrelieved by Reglan Oxycodone/Acetaminophen (Percocet 5/325) 1 tab PO Q6H PRN PRN Reason: Pain, Moderate (4-6) Pantoprazole (Protonix) 40 mg PO QDAY [facility] Last Admin: 11/22/16 12:36 Dose: 40 mg Polyethylene Glycol (Miralax 3350) 17 gm PO QDAY [facility] Last Admin: 11/22/16 17:31 Dose: 17 gm Review of Systems All systems: negative Physical Examination Vital signs: Vital Signs Temp Pulse Resp BP Pulse Ox 97.9 F 91 H 24 112/70 99 11/20/16 06:45 11/20/16 06:45 11/20/16 06:45 11/20/16 06:45 11/20/16 06:45 General appearance: no acute distress, alert Eyes: non-icteric Neck: supple Effort: normal Ascultation: Bilateral: clear Cardiovascular: regular rate and rhythm (no mrg) Gastrointestinal: normoactive bowel sounds, soft, non-tender, non-distended Integumentary: normal Extremities: no cyanosis, no edema, pink and warm Musculoskeletal: no deformities normal mental status, non-focal exam, pupils equal and round, CN II-XII normal mood appropriate, affect normal Results - Laboratory Findings CBC and BMP: 11/22/16 08:28 11/22/16 08:28 Abnormal lab findings: Abnormal Labs 11/21/16 11/21/16 11/21/16 05:04 05:04 15:46 Hgb 8.8 L Hct 28.4 L MCV 64 L MCH 20 L RDW 20.1 H Lymph % (Auto) 9.1 L Lymph # 0.4 L Seg Neutrophils % 86.7 H Seg Neuts % (Manual) Lymphocytes # (Manual) Sodium 136 L Creatinine 0.5 L Glucose 138 H Iron 21 L Ferritin AST 48 H Alkaline Phosphatase 154 H Total Protein 8.9 H Albumin 3.7 L 11/21/16 11/22/16 11/22/16 15:46 08:28 08:28 Hgb 9.5 L Hct 29.5 L MCV 63 L MCH 20 L RDW 19.9 H Lymph % (Auto) Lymph # Seg Neutrophils % Seg Neuts % (Manual) 81.0 H Lymphocytes # (Manual) 0.7 L Sodium Creatinine 0.5 L Glucose 133 H Iron Ferritin 8.8 L AST Alkaline Phosphatase Total Protein Albumin - Diagnostic Findings Chest x-ray: report reviewed, image reviewed CT scan - chest: report reviewed, image reviewed Assessment and Plan Imp: 1. Lung mass, likely NSCLC (risk for this is increased in HIV patients) 2. Brain mass, likely mets 3. Headache 2/2 #2 4. HIV disease Rec: 1. Agree w/ CT guided biopsy, already ordered by oncology 2. Will follow Plan of care reviewed w/ patient/family, they understand/agree Thanks for the consult. Will follow closely.
--- NOTE | 2016-11-22 19:24 | Consultation ---
History of Present Illness - Reason for Consult Consult date: 11/22/16 + HIV; metastatic cancer Requesting physician: REYNA GALINDO - History of Present Illness Alicia Pang is a 55-year-old female who moved to the [place] from [facility] in 07/2016 and was admitted to [facility] on 11/20/16 with a severe headache. MRI shows multiple brain lesions consistent with metastatic disease. Rapid HIV test is positive. She states that she had been tested and [facility] and was always told that she was "negative." The only infection she is unaware of having had in the past is typhoid fever. She is unsure whether she has any risk factors for HIV infection. According to her and her family she has not lost significant weight over the last several months. Review of systems General: No fevers or chills, no change in appetite, no weight change HEENT: no odynophagia, no dysphagia, no oral lesions, no vision changes CV: no chest pain, no palpitations Chest: no dyspnea, no cough GI: no abdominal pain, no N/V, no diarrhea : no change in urinary frequency, no dysuria, no hematuria Skin: no rashes; Ext: No muscle or joint pain , No edema Neuro: See HPI Endocrine: No history of diabetes. Psych: no anxiety, no depression Infectious diseases: No HIV risk factors, No history of STDs, No significant travel or animal contact history. Past History Past Medical History: other (None) Social history: full code. denies: smoking, alcohol abuse, prescription drug abuse, IV drug use Family history: other (No pulm issues reported) Medications and Allergies Allergies Allergy/AdvReac Type Severity Reaction Status Date / Time No Known Allergies Allergy Unverified 11/16/16 17:37 Home Medications Medication Instructions Recorded Confirmed Last Taken Type Cyclobenzaprine [Flexeril] 10 mg PO TID PRN #15 tablet 11/17/16 11/20/16 Unknown Rx Ibuprofen [Motrin] 600 mg PO Q8H PRN #15 tablet 11/17/16 11/20/16 Unknown Rx Active Meds: Active Medications Acetaminophen (Tylenol) 650 mg PO Q4H PRN PRN Reason: Pain MILD(1-3)/Fever >100.5/PEREZ Bisacodyl (Dulcolax) 10 mg [place] QDAY PRN PRN Reason: Constipation unrelieved by MOM Dexamethasone (Decadron) 4 mg IV Q6H [facility] Last Admin: 11/22/16 17:30 Dose: 4 mg Hydromorphone HCl (Dilaudid) 1 mg IM Q4H PRN PRN Reason: Pain , Severe (7-10) Last Admin: 11/21/16 13:30 Dose: 1 mg Dextrose/Sodium Chloride (D5/0.45ns) 1,000 mls @ 75 mls/hr IV DIRECT [facility] Last Admin: 11/22/16 12:37 Dose: 75 mls/hr Magnesium Hydroxide (Milk Of Magnesia) 30 ml PO Q4H PRN PRN Reason: Constipation Ondansetron HCl (Zofran) 4 mg IV Q3H PRN PRN Reason: N/V unrelieved by Reglan Oxycodone/Acetaminophen (Percocet 5/325) 1 tab PO Q6H PRN PRN Reason: Pain, Moderate (4-6) Pantoprazole (Protonix) 40 mg PO QDAY [facility] Last Admin: 11/22/16 12:36 Dose: 40 mg Polyethylene Glycol (Miralax 3350) 17 gm PO QDAY [facility] Last Admin: 11/22/16 17:31 Dose: 17 gm Physical Examination - Physical Exam Narrative exam: GENERAL: Well-developed, thin somewhat chronically ill appearing female who is alert and in no acute distress. HEAD: Normocephalic. No lesions seen. EYES: Pupils are equal reactive to light and accommodation. There is no scleral icterus. Optic fundi are not examined. EARS: External ears are normal. THROAT: Oropharynx is normal with no evidence of oral candidiasis or pharyngitis. NECK: Supple. No enlargement of the thyroid gland. No significant cervical lymphadenopathy. No jugular venous distention at 30. LUNGS: Clear with no adventitious sounds. HEART: Regular rate. S1 and S2 are normal. There are no murmurs, gallops, clicks or rubs heard. ABDOMEN: Soft and nontender. Liver edge is felt approximately 2 cm below the right costal margin and is smooth and nontender. Spleen tip is palpable with deep inspiration just under the left upper costal margin. No other palpable masses. No clinical ascites. Bowel sounds are normoactive. EXTREMITIES: No rash, peripheral lymphadenopathy, clubbing or edema. : Not examined NEUROLOGIC: No focal findings. - Constitutional Vitals: Vital Signs Temp Pulse Resp BP Pulse Ox 98.6 F 85 18 116/66 99 11/22/16 15:35 11/22/16 15:35 11/22/16 15:35 11/22/16 15:35 11/22/16 15:35 Temperature -Last 24 Hours Temperature 98.6 F Temperature 97.5 F Temperature 98.2 F Results - Labs CBC & Chem 7: 11/22/16 08:28 11/22/16 08:28 Labs: Abnormal lab results Laboratory Tests 11/21/16 11/21/16 00:48 17:50 Hep Bs Antigen Non-reactive Hep B Core IgM Ab Non-reactive Hepatitis C Antibody Non-reactive HIV 1&2 Antibody Rapid Reactive HIV P24 Antigen Non react Laboratory Tests 11/21/16 05:04 Alkaline Phosphatase 154 H Total Protein 8.9 H Imagin/28: Chest CT: 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 Right lower lobe hilar jamie metastasis. Hepatosplenomegaly. No evidence of hepatic metastases. 11/20: MRI brain: Lateral cerebral enhancing metastatic lesions with associated vasogenic edema. Assessment and Plan Current antibiotics: None Corticosteroids: Dexamethasone 10 mg IV 1 followed by 4 mg IV every 6 hours 11/20 --> ASSESSMENT: Alicia Pang is a 55-year-old female who moved to the [place] from [facility] in 07/2016 and was admitted to [facility] on 11/20/16 with a severe headache. MRI shows multiple brain lesions consistent with metastatic disease. Rapid HIV test is positive. Problem list: 1. Positive HIV rapid screen -Unclear whether confirmatory testing is being done as there is currently no one in the laboratory that can answer that question -Elevated total protein suggest that this may be a true positive 2. MRI showing multiple brain lesions consistent with metastatic disease -No radiologist is currently available to go over the studies but to my eyes the amount of surrounding edema is against this being cerebral toxoplasmosis -CT of the chest suggests that this may be metastatic lung cancer 3. Right-sided lung mass -Probable cancer 4. Elevated alkaline phosphatase 5. Hypochromic, normocytic anemia PLAN: 1. Will check with a laboratory in the morning to see if confirmatory HIV testing is in progress. If not will obtain. 2. Will review MRI with the radiologist 3. If this turns out to be a true acid of HIV Will obtain CD4 and viral load 4. Cancer workup as is being done. Thank you for this consultation. We will follow with you. Rom Hough MD [facility] Office: [phone]
[2016-11-22] MEDS: DILAUDID IM PRN (20:43)
[2016-11-23] MEDS: DECADRON IV SCH ×4 (04:25→22:07)
[2016-11-23] MEDS: D5/0.45NS 1,000 ML IV SCH (04:29)
[2016-11-23 05:53] LABS: Hematocrit 27.5 % (30.3-42.9); Hemoglobin 8.7 gm/dl (10.1-14.3); Mean Corpuscular HGB Conc 32 % (30-34); White Blood Count 5.3 K/mm3 (4.5-11.0)
[2016-11-23 05:56] LABS: Mean Corpuscular Hemoglobin 20 pg (28-32); Mean Corpuscular Volume 63 fl (79-97); Platelet Count 277 K/mm3 (140-440)
[2016-11-23 06:15] LABS: Alanine Aminotransferase 43 units/L (7-56); Albumin 3.4 g/dL (3.9-5); Albumin/Globulin Ratio 0.7 %; Alkaline Phosphatase 134 units/L (35-129); Anion Gap 18 mmol/L; Bilirubin,Total 0.3 mg/dL (0.1-1.2); Blood Urea Nitrogen 15 mg/dL (7-17); Calcium 8.8 mg/dL (8.4-10.2); Carbon Dioxide 23 mmol/L (22-30); Chloride 99.9 mmol/L (98-107); Glucose 111 mg/dL (65-100); Potassium 3.9 mmol/L (3.6-5.0); Sodium 137 mmol/L (137-145); Total Protein 8.5 g/dL (6.3-8.2)
[2016-11-23 06:47] LABS: Basophils % (Manual) 0 % (0.0-1.8); Blastocytes % (Manual) 0 %; Eosinophils % (Manual) 0 % (0.0-4.3)
[2016-11-23 06:48] LABS: Anisocytosis 1+; Elliptocytes Few; Hypochromasia 1+
[2016-11-23 06:49] LABS: Diff Status Complete; Platelet Estimate Consistent w Auto; Target Cells Few
--- NOTE | 2016-11-23 09:34 | Progress Note ---
Assessment and Plan Antibiotics: none Immunosuppressants: Decadron 4 mg IV every 6 hours Imp: 1. Lung mass, likely NSCLC (risk for this is increased in HIV patients) 2. Brain mass, likely mets 3. Headache 2/ #2 4. HIV disease Rec: 1. Await CT guided lung biopsy. 2. HIV studies pending 3. Discussed otherwise with patient's daughter. Subjective Date of service: 11/23/16 Interval history: No specific complaints. Awaits lung biopsy. Objective - Exam Narrative Exam: Thin female. No distress. HEENT: Pupils are equal reactive to light and accommodation. Conjunctiva clear. Oropharynx is normal with no evidence of oral candidiasis or pharyngitis. NECK: Supple. No enlargement of the thyroid gland. No significant cervical lymphadenopathy. No jugular venous distention at 30. LUNGS: Clear with no adventitious sounds. HEART: Regular rate. S1 and S2 are normal. There are no murmurs, gallops, clicks or rubs heard. ABDOMEN: Soft and nontender. Liver and spleen are not palpably enlarged or tender. No palpable masses. Bowel sounds are normoactive. EXTREMITIES: No rash, peripheral lymphadenopathy, clubbing or edema. SKIN: No other rash, ulcers or wounds. NEUROLOGIC: No focal findings. - Constitutional Vitals: Vital Signs Temp Pulse Resp BP Pulse Ox 98.3 F 73 14 108/67 99 11/23/16 08:25 11/23/16 08:25 11/23/16 08:25 11/23/16 08:25 11/23/16 08:25 Temperature -Last 24 Hours Temperature 98.3 F Temperature 97.5 F Temperature 98.6 F - Labs CBC & Chem 7: 11/23/16 05:04 11/23/16 05:04 Labs: Abnormal lab results 11/22/16 11/23/16 11/23/16 Range/Units 08:28 05:04 05:04 Hgb 8.7 L (10.1-14.3) gm/dl Hct 27.5 L (30.3-42.9) % MCV 63 L (79-97) fl MCH 20 L (28-32) pg RDW 20.0 H (13.2-15.2) % Seg Neuts % (Manual) 81.0 H 83.0 H (40.0-70.0) % Lymphocytes % (Manual) 8.0 L (13.4-35.0) % Lymphocytes # (Manual) 0.7 L 0.4 L (1.2-5.4) K/mm3 Creatinine 0.5 L (0.7-1.2) mg/dL Glucose 111 H (65-100) mg/dL AST 46 H (5-40) units/L Alkaline Phosphatase 134 H (35-129) units/L Total Protein 8.5 H (6.3-8.2) g/dL Albumin 3.4 L (3.9-5) g/dL
--- NOTE | 2016-11-23 09:43 | Progress Note ---
Assessment and Plan - Patient Problems (1) Brain metastases Current Visit: Yes Status: Acute Plan to address problem: Patient being followed by hematology oncology. The brain metastasis appears to come from the lung cancer is the primary. Awaiting further management per hematology oncology and radiation oncology. Continue steroids and narcotics (2) HIV antibody positive Current Visit: Yes Status: Acute Plan to address problem: Patient was found to be HIV positive. We will get infectious disease consult (3) Microcytic anemia Current Visit: Yes Status: Chronic Plan to address problem: H&H improved. We'll continue to follow it (4) Headache Current Visit: No Status: Acute Qualifiers: Headache type: unspecified Headache chronicity pattern: acute headache Intractability: not intractable Qualified Code(s): R51 - Headache Plan to address problem: Headaches as secondary to brain metastasis. Continue dexamethasone and narcotics (5) Lung cancer Current Visit: Yes Status: Acute Plan to address problem: Oncologist felt that the lung cancer is the primary source with metastasis to the brain History Interval history: Patient sitting in bed with daughter at bedside. Explained the diagnosis to them in detail Hospitalist Physical - Constitutional Vitals: Temp Pulse Resp BP Pulse Ox 98.3 F 73 14 108/67 99 11/23/16 08:25 11/23/16 08:25 11/23/16 08:25 11/23/16 08:25 11/23/16 08:25 General appearance: Present: no acute distress, other (emaciated, chronically ill looking) - EENT Eyes: Present: PERRL, EOM intact ENT: hearing intact, clear oral mucosa - Neck Neck: Present: supple, normal ROM - Respiratory Respiratory effort: normal Respiratory: bilateral: CTA - Cardiovascular Rhythm: regular Heart Sounds: Present: S1 & S2 - Abdominal General gastrointestinal: soft, non-tender, non-distended, normal bowel sounds - Psychiatric Psychiatric: appropriate mood/affect, intact judgment & insight - Neurologic Neurologic: CNII-XII intact, moves all extremities Results - Labs CBC & Chem 7: 11/23/16 05:04 11/23/16 05:04 Labs: Laboratory Last Values WBC 5.3 K/mm3 (4.5-11.0) 11/23/16 05:04 RBC 4.40 M/mm3 (3.65-5.03) 11/23/16 05:04 Hgb 8.7 gm/dl (10.1-14.3) L 11/23/16 05:04 Hct 27.5 % (30.3-42.9) L 11/23/16 05:04 MCV 63 fl (79-97) L 11/23/16 05:04 MCH 20 pg (28-32) L 11/23/16 05:04 MCHC 32 % (30-34) 11/23/16 05:04 RDW 20.0 % (13.2-15.2) H 11/23/16 05:04 Plt Count 277 K/mm3 (140-440) 11/23/16 05:04 Lymph % (Auto) Wax Molder 11/22/16 08:28 [place] % (Auto) Wax Molder 11/22/16 08:28 Eos % (Auto) Wax Molder 11/22/16 08:28 Baso % (Auto) Wax Molder 11/22/16 08:28 Lymph # Wax Molder 11/22/16 08:28 [place] # Wax Molder 11/22/16 08:28 Eos # Wax Molder 11/22/16 08:28 Baso # Wax Molder 11/22/16 08:28 Add Manual Diff Complete 11/23/16 05:04 Total Counted 100 11/23/16 05:04 Seg Neutrophils % Wax Molder 11/22/16 08:28 Seg Neuts % (Manual) 83.0 % (40.0-70.0) H 11/23/16 05:04 Band Neutrophils % 1.0 % 11/23/16 05:04 Lymphocytes % (Manual) 8.0 % (13.4-35.0) L 11/23/16 05:04 Reactive Lymphs % (Man) 0 % 11/23/16 05:04 Monocytes % (Manual) 6.0 % (0.0-7.3) 11/23/16 05:04 Eosinophils % (Manual) 0 % (0.0-4.3) 11/23/16 05:04 Basophils % (Manual) 0 % (0.0-1.8) 11/23/16 05:04 Metamyelocytes % 2.0 % 11/23/16 05:04 Myelocytes % 0 % 11/23/16 05:04 Promyelocytes % 0 % 11/23/16 05:04 Blast Cells % 0 % 11/23/16 05:04 Nucleated RBC % Not Reportable 11/23/16 05:04 Seg Neutrophils # Wax Molder 11/22/16 08:28 Seg Neutrophils # Man 4.4 K/mm3 (1.8-7.7) 11/23/16 05:04 Band Neutrophils # 0.1 K/mm3 11/23/16 05:04 Lymphocytes # (Manual) 0.4 K/mm3 (1.2-5.4) L 11/23/16 05:04 Abs React Lymphs (Man) 0.0 K/mm3 11/23/16 05:04 Monocytes # (Manual) 0.3 K/mm3 (0.0-0.8) 11/23/16 05:04 Eosinophils # (Manual) 0.0 K/mm3 (0.0-0.4) 11/23/16 05:04 Basophils # (Manual) 0.0 K/mm3 (0.0-0.1) 11/23/16 05:04 Metamyelocytes # 0.1 K/mm3 11/23/16 05:04 Myelocytes # 0.0 K/mm3 11/23/16 05:04 Promyelocytes # 0.0 K/mm3 11/23/16 05:04 Blast Cells # 0.0 K/mm3 11/23/16 05:04 WBC Morphology Not Reportable 11/23/16 05:04 Hypersegmented Neuts Not Reportable 11/23/16 05:04 Hyposegmented Neuts Not Reportable 11/23/16 05:04 Hypogranular Neuts Not Reportable 11/23/16 05:04 Smudge Cells Not Reportable 11/23/16 05:04 Toxic Granulation Not Reportable 11/23/16 05:04 Toxic Vacuolation Not Reportable 11/23/16 05:04 Dohle Bodies Not Reportable 11/23/16 05:04 Pelger-Huet Anomaly Not Reportable 11/23/16 05:04 Jeremy Rods Not Reportable 11/23/16 05:04 Platelet Estimate Consistent w auto 11/23/16 05:04 Clumped Platelets Not Reportable 11/23/16 05:04 Plt Clumps, EDTA Not Reportable 11/23/16 05:04 Large Platelets Not Reportable 11/23/16 05:04 Giant Platelets Not Reportable 11/23/16 05:04 Platelet Satelliting Not Reportable 11/23/16 05:04 Plt Morphology Comment Not Reportable 11/23/16 05:04 RBC Morphology Not Reportable 11/23/16 05:04 Dimorphic RBCs Not Reportable 11/23/16 05:04 Polychromasia Not Reportable 11/23/16 05:04 Hypochromasia 1+ 11/23/16 05:04 Poikilocytosis Not Reportable 11/23/16 05:04 Anisocytosis 1+ 11/23/16 05:04 Microcytosis Not Reportable 11/23/16 05:04 Macrocytosis Not Reportable 11/23/16 05:04 Spherocytes Not Reportable 11/23/16 05:04 Pappenheimer Bodies Not Reportable 11/23/16 05:04 Sickle Cells Not Reportable 11/23/16 05:04 Target Cells Few 11/23/16 05:04 Tear Drop Cells Not Reportable 11/23/16 05:04 Ovalocytes Not Reportable 11/23/16 05:04 Helmet Cells Not Reportable 11/23/16 05:04 [place] Bodies Not Reportable 11/23/16 05:04 [place] Rings Not Reportable 11/23/16 05:04 [place] Cells Not Reportable 11/23/16 05:04 Bite Cells Not Reportable 11/23/16 05:04 Crenated Cell Not Reportable 11/23/16 05:04 Elliptocytes Few 11/23/16 05:04 Acanthocytes (Spur) Not Reportable 11/23/16 05:04 Rouleaux Not Reportable 11/23/16 05:04 Hemoglobin C Crystals Not Reportable 11/23/16 05:04 Schistocytes Not Reportable 11/23/16 05:04 Malaria parasites Not Reportable 11/23/16 05:04 Percent Retic 1.29 % (0.78-2.58) 11/21/16 15:46 [place] Bodies Not Reportable 11/23/16 05:04 Hem Pathologist Commnt No 11/23/16 05:04 Sodium 137 mmol/L (137-145) 11/23/16 05:04 Potassium 3.9 mmol/L (3.6-5.0) 11/23/16 05:04 Chloride 99.9 mmol/L (98-107) 11/23/16 05:04 Carbon Dioxide 23 mmol/L (22-30) 11/23/16 05:04 Anion Gap 18 mmol/L 11/23/16 05:04 BUN 15 mg/dL (7-17) 11/23/16 05:04 Creatinine 0.5 mg/dL (0.7-1.2) L 11/23/16 05:04 Estimated GFR > 60 ml/min 11/23/16 05:04 BUN/Creatinine Ratio 30.00 % 11/23/16 05:04 Glucose 111 mg/dL (65-100) H 11/23/16 05:04 Calcium 8.8 mg/dL (8.4-10.2) 11/23/16 05:04 Iron 21 ug/dL (37-170) L 11/21/16 15:46 TIBC 386 mcg/dL (250-450) 11/21/16 15:46 Ferritin 8.8 ng/mL (13.0-400.0) L 11/21/16 15:46 Total Bilirubin 0.3 mg/dL (0.1-1.2) 11/23/16 05:04 AST 46 units/L (5-40) H 11/23/16 05:04 ALT 43 units/L (7-56) 11/23/16 05:04 Alkaline Phosphatase 134 units/L (35-129) H 11/23/16 05:04 Total Protein 8.5 g/dL (6.3-8.2) H 11/23/16 05:04 Albumin 3.4 g/dL (3.9-5) L 11/23/16 05:04 Albumin/Globulin Ratio 0.7 % 11/23/16 05:04 Hepatitis A IgM Ab -1 (NonReactive) 11/21/16 17:50 Hep Bs Antigen Non-reactive (Negative) 11/21/16 17:50 Hep B Core IgM Ab Non-reactive (NonReactive) 11/21/16 17:50 Hepatitis C Antibody Non-reactive (NonReactive) 11/21/16 17:50 HIV 1&2 Antibody Rapid Reactive (Non React) 11/21/16 00:48 HIV P24 Antigen Non react (Non React) 11/21/16 00:48
--- NOTE | 2016-11-23 11:06 | Consultation ---
CHIEF COMPLAINT: " PROFILE: This is a 55-year-old woman from [facility] presenting with probable metastatic disease to the brain, referred for whole brain radiation therapy. CONCLUSIONS: 1. Diagnosis having probable stage 4 metastatic lung cancer with multiple brain metastases, diagnosed on 11/20/2016. 2. History of human immunodeficiency virus positivity. 3. History of 20-pound weight loss over last 6 months. RECOMMENDATION: We agree with recommendation to proceed forward with bronchoscopy. A tissue diagnosis is made of malignancy. We will proceed forward with whole brain radiation therapy to a dose of 30 jack in 10 fractions using negative voltage radiation. ASSESSMENT: A very pleasant 55-year-old woman from [facility] who moved to [facility] in 07/2016, presented to [facility] with severe headaches. An MRI of the brain confirmed multiple brain lesions consistent with metastatic disease. These were involving the bilateral cerebral hemispheres. They were enhancing with associated vasogenic edema. No significant midline shift was noted. A CT scan of the chest, abdomen, and pelvis did reveal a 2.6 x 2 cm mass in the right lower lobe. There was a 2.3 x 2 cm right hilar lymph node that was suspicious. A 1 cm right supraclavicular lymph node was seen. This was suspicious for primary lung malignancy. There was no evidence of metastatic disease to the upper abdomen including the liver, adrenal glands. She is scheduled for bronchoscopy today, is now referred for whole brain radiation therapy. Clinically, the patient is doing reasonably well. She states her headaches have improved. She denies any visual changes, balance problems, expressive or receptive aphasia, or weakness. She denies any chest pain, hemoptysis, dyspnea. She does note 20 pound weight loss. PAST MEDICAL HISTORY: History of HIV positivity. SOCIAL HISTORY: Denies any smoking or alcohol. FAMILY HISTORY: Denies any cancer. MEDICATIONS: She is on Decadron, Flexeril, Dilaudid, oxycodone. ALLERGIES: None known. REVIEW OF SYSTEMS: CONSTITUTIONAL: A 20-pound weight loss, poor appetite. Denies any fever or chills. HEENT: Recent diagnosis of a probable brain metastasis. Denies any visual changes, hoarseness, otalgia, pharyngitis. RESPIRATORY: Denies any progressive cough, dyspnea, or hemoptysis. CARDIOVASCULAR: Denies any chest pain, angina, orthopnea. GASTROINTESTINAL: Denies any constipation, nausea, vomiting, diarrhea, rectal bleeding. GENITOURINARY: Denies any stress incontinence, dysuria, or hematuria. NEUROLOGIC: History of brain mets, probable. PHYSICAL EXAMINATION: GENERAL: She is anxious appearing woman in no acute distress. VITAL SIGNS: Blood pressure 128/89, pulse is 85, respirations 18, afebrile, pulse ox is 99. ECOG equals 1, pain equals 0/10. HEENT: Normocephalic, atraumatic. Eyes were clear. NECK: Supple. No adenopathy. No supraclavicular adenopathy appreciated. LUNGS: Show decreased breath sounds both lung [place]. No spinal or CVA tenderness. CARDIOVASCULAR: Regular rate and rhythm. No murmur, gallop, or bruit. ABDOMEN: Flat. No palpable masses or hepatosplenomegaly. Groin negative. EXTREMITIES: No clubbing, cyanosis, or edema. NEUROLOGIC: Her motor, sensory, and cerebellar exam are intact. Her speech is normal. She answers questions appropriately. Cranial nerves 2-12 are grossly intact. SKIN: No petechia, rashes, or ecchymosis. DISCUSSION: A very pleasant 55-year-old -[place] woman from [facility], who has multiple suspicious enhancing lesions on brain MRI with surrounding vasogenic edema. She also has a right lower lung mass on CT scan of the chest. We agree with recommendation to proceed forward with bronchoscopy to obtain a tissue diagnosis. If diagnosis is made of malignancy, we will proceed forward with whole brain radiation therapy. We will plan to deliver a dose of 30 Gy in 10 fractions using megavoltage radiation. Risks of radiation including fatigue, hair loss, cortical atrophy, memory changes, tinnitus was discussed with the patient and her daughter. A total of 62 minutes was spent in consultation with this very pleasant woman. We will follow up with her bronchoscopy findings and will keep you informed. JOB# [id number] GET/JONATHON DOMINIQUE
[2016-11-23] MEDS ORDERED: VERSED IV ONE ×2 (13:58→14:00)
[2016-11-23] MEDS ORDERED: SUBLIMAZE IV ONE (13:58)
[2016-11-23] MEDS ORDERED: SUBLIMAZE ONE (14:00)
[2016-11-23] MEDS: MIRALAX 3350 PO SCH (15:24)
[2016-11-23] MEDS: PERCOCET 5/325 PO PRN (15:25)
[2016-11-23] MEDS: PROTONIX PO SCH (15:25)
[2016-11-24 01:42] LABS: INR 1.11 (0.87-1.13)
[2016-11-24] MEDS: DECADRON IV SCH ×4 (04:08→22:08)
[2016-11-24 06:00] LABS: Basophils % (Auto) 0.3 % (0.0-1.8); Eosinophils % (Auto) 3.2 % (0.0-4.3); Hematocrit 31.6 % (30.3-42.9); Hemoglobin 9.8 gm/dl (10.1-14.3); Mean Corpuscular HGB Conc 31 % (30-34); Red Blood Count 4.99 M/mm3 (3.65-5.03); Red Cell Distribution Width 19.8 % (13.2-15.2); White Blood Count 6.2 K/mm3 (4.5-11.0)
[2016-11-24 06:02] LABS: Mean Corpuscular Hemoglobin 20 pg (28-32); Mean Corpuscular Volume 63 fl (79-97); Platelet Count 296 K/mm3 (140-440)
[2016-11-24 06:21] LABS: Alanine Aminotransferase 68 units/L (7-56); Albumin 3.6 g/dL (3.9-5); Albumin/Globulin Ratio 0.7 %; Alkaline Phosphatase 137 units/L (35-129); Anion Gap 17 mmol/L; Bilirubin,Total 0.4 mg/dL (0.1-1.2); Blood Urea Nitrogen 12 mg/dL (7-17); Calcium 8.9 mg/dL (8.4-10.2); Carbon Dioxide 24 mmol/L (22-30); Chloride 97.6 mmol/L (98-107); Glucose 83 mg/dL (65-100); Potassium 3.7 mmol/L (3.6-5.0); Sodium 135 mmol/L (137-145)
[2016-11-24] MEDS: DILAUDID IM PRN (09:07)
--- NOTE | 2016-11-24 09:53 | Progress Note ---
Assessment and Plan Assessment and Plan Antibiotics: none Immunosuppressants: Decadron 4 mg IV every 6 hours Imp: 1. Lung mass, likely NSCLC (risk for this is increased in HIV patients) 2. Brain mass, likely mets. R/O opportunistic infection 3. Headache / #2 4. HIV/AIDS Rec: 1. Await CT guided lung biopsy. 2. HIV studies pending to include lymphocyte count and HIV viral load as well as genotype. 3. CT scans reviewed and patient now ordered for toxoplasma antibodies, cryptococcal serum antigen and TB QuantiFERON assay 4. Discussed otherwise with patient's daughter. If we are not able to make a diagnosis with the present studies may need to consider a brain biopsy. Subjective Date of service: 11/24/16 Interval history: Patient complaining of generalized headache. Awaits CT-guided lung biopsy. Objective - Exam Narrative Exam: Thin female. No distress. HEENT: Pupils are equal reactive to light and accommodation. Conjunctiva clear. Oropharynx is normal with no evidence of oral candidiasis or pharyngitis. NECK: Supple. No enlargement of the thyroid gland. No significant cervical lymphadenopathy. No jugular venous distention at 30. LUNGS: Clear with no adventitious sounds. HEART: Regular rate. S1 and S2 are normal. There are no murmurs, gallops, clicks or rubs heard. ABDOMEN: Soft and nontender. Liver and spleen are not palpably enlarged or tender. No palpable masses. Bowel sounds are normoactive. EXTREMITIES: No rash, peripheral lymphadenopathy, clubbing or edema. SKIN: No other rash, ulcers or wounds. NEUROLOGIC: No focal findings. - Constitutional Vitals: Vital Signs Temp Pulse Resp BP Pulse Ox 98.1 F 83 18 97/63 98 11/24/16 07:30 11/24/16 07:30 11/24/16 07:30 11/24/16 07:30 11/24/16 08:41 Temperature -Last 24 Hours Temperature 98.1 F Temperature 98.3 F - Labs CBC & Chem 7: 11/24/16 05:23 11/24/16 05:23 Labs: Abnormal lab results 11/24/16 11/24/16 Range/Units 05:23 05:23 Hgb 9.8 L (10.1-14.3) gm/dl MCV 63 L (79-97) fl MCH 20 L (28-32) pg RDW 19.8 H (13.2-15.2) % Lymph % (Auto) 13.3 L (13.4-35.0) % [place] % (Auto) 10.4 H (0.0-7.3) % Lymph # 0.8 L (1.2-5.4) K/mm3 Seg Neutrophils % 72.8 H (40.0-70.0) % Sodium 135 L (137-145) mmol/L Chloride 97.6 L (98-107) mmol/L Creatinine 0.6 L (0.7-1.2) mg/dL AST 63 H (5-40) units/L ALT 68 H (7-56) units/L Alkaline Phosphatase 137 H (35-129) units/L Total Protein 9.0 H (6.3-8.2) g/dL Albumin 3.6 L (3.9-5) g/dL
[2016-11-24] MEDS: MIRALAX 3350 PO SCH (10:00)
[2016-11-24] MEDS: PROTONIX PO SCH (10:00)
--- NOTE | 2016-11-24 12:36 | Hem/Onc Progress Note ---
Assessment and Plan - Patient Problems (1) Brain metastases Current Visit: Yes Status: Acute Plan to address problem: Awaiting tissue diagnosis of malignancy prior to starting whole brain radiation Continue seizure prophylaxis Continue Decadron, expect to taper off during radiation (2) HIV antibody positive Current Visit: Yes Status: Acute Plan to address problem: Per ID who will r/o HIV defining illness in brain vs met dz from a lung cancer (3) Microcytic anemia Current Visit: Yes Status: Chronic Plan to address problem: Transfuse PRBC's if hgb<7.5 Subjective Interval history: Patient gone for CT guided bx Objective - Constitutional Vitals: Last Vital Signs Temp 98.1 F 11/24/16 07:30 Pulse 83 11/24/16 07:30 Resp 18 11/24/16 07:30 BP 97/63 11/24/16 07:30 Pulse Ox 98 11/24/16 08:41 - Labs Lab Results: Laboratory Results - last 24 hr 11/21/16 11/24/16 11/24/16 00:48 00:52 05:23 WBC 6.2 RBC 4.99 Hgb 9.8 L Hct 31.6 MCV 63 L MCH 20 L MCHC 31 RDW 19.8 H Plt Count 296 Lymph % (Auto) 13.3 L [place] % (Auto) 10.4 H Eos % (Auto) 3.2 Baso % (Auto) 0.3 Lymph # 0.8 L [place] # 0.6 Eos # 0.2 Baso # 0.0 Seg Neutrophils % 72.8 H Seg Neutrophils # 4.5 PT 14.2 INR 1.11 Sodium Potassium Chloride Carbon Dioxide Anion Gap BUN Creatinine Estimated GFR BUN/Creatinine Ratio Glucose Calcium Total Bilirubin AST ALT Alkaline Phosphatase Total Protein Albumin Albumin/Globulin Ratio CA 27-29 32 11/24/16 05:23 WBC RBC Hgb Hct MCV MCH MCHC RDW Plt Count Lymph % (Auto) [place] % (Auto) Eos % (Auto) Baso % (Auto) Lymph # [place] # Eos # Baso # Seg Neutrophils % Seg Neutrophils # PT INR Sodium 135 L Potassium 3.7 Chloride 97.6 L Carbon Dioxide 24 Anion Gap 17 BUN 12 Creatinine 0.6 L Estimated GFR > 60 BUN/Creatinine Ratio 20.00 Glucose 83 Calcium 8.9 Total Bilirubin 0.4 AST 63 H ALT 68 H Alkaline Phosphatase 137 H Total Protein 9.0 H Albumin 3.6 L Albumin/Globulin Ratio 0.7 CA 27-29
--- NOTE | 2016-11-24 12:39 | Progress Note ---
Assessment and Plan Assessment and plan: 1. Lung mass with brain lesions- awaiting CT guided lung biopsy; the possibility of NSCLC is strong as the risk if this is increased in HIV postive patients; f/u oncology / pulmonary; continue IV steroids and narcotics; radiation oncologist consult appreciated- awaiting tissue diagnosis to confirm cancer before proceeding with whole brain radiation; f/u ID for work up to r/o opportunistic infection; start seizure prophylaxis with keppra; cotn IV steroids and start GI prophylaxis 2. HIV positive- newly diagnosed- f/u ID for further recommendations; f/u work up for opportunistic infections 3. Iron deficiency anemia- start iron supplementation 4. DVT prophylaxis- heparin History Interval history: f/u lung mass and brain mets; HIV Patient seen at the bedside; daughter present; patient has blue cross shield which should start December 23; awaiting CT guided lung biopsy; has headache Hospitalist Physical - Constitutional Vitals: Temp Pulse Resp BP Pulse Ox 98.1 F 83 18 97/63 98 11/24/16 07:30 11/24/16 07:30 11/24/16 07:30 11/24/16 07:30 11/24/16 08:41 General appearance: Present: no acute distress, cachectic, other (sleeping( was just medicated with pain meds )) - EENT Eyes: Present: PERRL, EOM intact. Absent: scleral icterus, conjunctival injection ENT: hearing intact, clear oral mucosa, no oropharyngeal erythema, no poor dentition - Neck Neck: Present: supple, normal ROM. Absent: enlarged thyroid, masses or JVD - Respiratory Respiratory effort: normal Respiratory: bilateral: diminished, negative: rales, rhonchi, wheezing - Cardiovascular Rhythm: regular Heart Sounds: Present: S1 & S2. Absent: gallop - Extremities Extremities: no ischemia, pulses intact, pulses symmetrical, No edema Peripheral Pulses: within normal limits - Abdominal General gastrointestinal: soft, non-tender, non-distended, normal bowel sounds - Integumentary Integumentary: Present: clear - Psychiatric Psychiatric: other (unable to assess fully; drowy after after pain medication) - Neurologic Neurologic: moves all extremities, other (PERTL) Results - Labs CBC & Chem 7: 11/24/16 05:23 11/24/16 05:23 Labs: Laboratory Last Values WBC 6.2 K/mm3 (4.5-11.0) 11/24/16 05:23 RBC 4.99 M/mm3 (3.65-5.03) 11/24/16 05:23 Hgb 9.8 gm/dl (10.1-14.3) L 11/24/16 05:23 Hct 31.6 % (30.3-42.9) 11/24/16 05:23 MCV 63 fl (79-97) L 11/24/16 05:23 MCH 20 pg (28-32) L 11/24/16 05:23 MCHC 31 % (30-34) 11/24/16 05:23 RDW 19.8 % (13.2-15.2) H 11/24/16 05:23 Plt Count 296 K/mm3 (140-440) 11/24/16 05:23 Lymph % (Auto) 13.3 % (13.4-35.0) L 11/24/16 05:23 [place] % (Auto) 10.4 % (0.0-7.3) H 11/24/16 05:23 Eos % (Auto) 3.2 % (0.0-4.3) 11/24/16 05:23 Baso % (Auto) 0.3 % (0.0-1.8) 11/24/16 05:23 Lymph # 0.8 K/mm3 (1.2-5.4) L 11/24/16 05:23 [place] # 0.6 K/mm3 (0.0-0.8) 11/24/16 05:23 Eos # 0.2 K/mm3 (0.0-0.4) 11/24/16 05:23 Baso # 0.0 K/mm3 (0.0-0.1) 11/24/16 05:23 Add Manual Diff Complete 11/23/16 05:04 Total Counted 100 11/23/16 05:04 Seg Neutrophils % 72.8 % (40.0-70.0) H 11/24/16 05:23 Seg Neuts % (Manual) 83.0 % (40.0-70.0) H 11/23/16 05:04 Band Neutrophils % 1.0 % 11/23/16 05:04 Lymphocytes % (Manual) 8.0 % (13.4-35.0) L 11/23/16 05:04 Reactive Lymphs % (Man) 0 % 11/23/16 05:04 Monocytes % (Manual) 6.0 % (0.0-7.3) 11/23/16 05:04 Eosinophils % (Manual) 0 % (0.0-4.3) 11/23/16 05:04 Basophils % (Manual) 0 % (0.0-1.8) 11/23/16 05:04 Metamyelocytes % 2.0 % 11/23/16 05:04 Myelocytes % 0 % 11/23/16 05:04 Promyelocytes % 0 % 11/23/16 05:04 Blast Cells % 0 % 11/23/16 05:04 Nucleated RBC % Not Reportable 11/23/16 05:04 Seg Neutrophils # 4.5 K/mm3 (1.8-7.7) 11/24/16 05:23 Seg Neutrophils # Man 4.4 K/mm3 (1.8-7.7) 11/23/16 05:04 Band Neutrophils # 0.1 K/mm3 11/23/16 05:04 Lymphocytes # (Manual) 0.4 K/mm3 (1.2-5.4) L 11/23/16 05:04 Abs React Lymphs (Man) 0.0 K/mm3 11/23/16 05:04 Monocytes # (Manual) 0.3 K/mm3 (0.0-0.8) 11/23/16 05:04 Eosinophils # (Manual) 0.0 K/mm3 (0.0-0.4) 11/23/16 05:04 Basophils # (Manual) 0.0 K/mm3 (0.0-0.1) 11/23/16 05:04 Metamyelocytes # 0.1 K/mm3 11/23/16 05:04 Myelocytes # 0.0 K/mm3 11/23/16 05:04 Promyelocytes # 0.0 K/mm3 11/23/16 05:04 Blast Cells # 0.0 K/mm3 11/23/16 05:04 WBC Morphology Not Reportable 11/23/16 05:04 Hypersegmented Neuts Not Reportable 11/23/16 05:04 Hyposegmented Neuts Not Reportable 11/23/16 05:04 Hypogranular Neuts Not Reportable 11/23/16 05:04 Smudge Cells Not Reportable 11/23/16 05:04 Toxic Granulation Not Reportable 11/23/16 05:04 Toxic Vacuolation Not Reportable 11/23/16 05:04 Dohle Bodies Not Reportable 11/23/16 05:04 Pelger-Huet Anomaly Not Reportable 11/23/16 05:04 Jeremy Rods Not Reportable 11/23/16 05:04 Platelet Estimate Consistent w auto 11/23/16 05:04 Clumped Platelets Not Reportable 11/23/16 05:04 Plt Clumps, EDTA Not Reportable 11/23/16 05:04 Large Platelets Not Reportable 11/23/16 05:04 Giant Platelets Not Reportable 11/23/16 05:04 Platelet Satelliting Not Reportable 11/23/16 05:04 Plt Morphology Comment Not Reportable 11/23/16 05:04 RBC Morphology Not Reportable 11/23/16 05:04 Dimorphic RBCs Not Reportable 11/23/16 05:04 Polychromasia Not Reportable 11/23/16 05:04 Hypochromasia 1+ 11/23/16 05:04 Poikilocytosis Not Reportable 11/23/16 05:04 Anisocytosis 1+ 11/23/16 05:04 Microcytosis Not Reportable 11/23/16 05:04 Macrocytosis Not Reportable 11/23/16 05:04 Spherocytes Not Reportable 11/23/16 05:04 Pappenheimer Bodies Not Reportable 11/23/16 05:04 Sickle Cells Not Reportable 11/23/16 05:04 Target Cells Few 11/23/16 05:04 Tear Drop Cells Not Reportable 11/23/16 05:04 Ovalocytes Not Reportable 11/23/16 05:04 Helmet Cells Not Reportable 11/23/16 05:04 [place] Bodies Not Reportable 11/23/16 05:04 [place] Rings Not Reportable 11/23/16 05:04 [place] Cells Not Reportable 11/23/16 05:04 Bite Cells Not Reportable 11/23/16 05:04 Crenated Cell Not Reportable 11/23/16 05:04 Elliptocytes Few 11/23/16 05:04 Acanthocytes (Spur) Not Reportable 11/23/16 05:04 Rouleaux Not Reportable 11/23/16 05:04 Hemoglobin C Crystals Not Reportable 11/23/16 05:04 Schistocytes Not Reportable 11/23/16 05:04 Malaria parasites Not Reportable 11/23/16 05:04 Percent Retic 1.29 % (0.78-2.58) 11/21/16 15:46 [place] Bodies Not Reportable 11/23/16 05:04 Hem Pathologist Commnt No 11/23/16 05:04 PT 14.2 Sec. (12.2-14.9) 11/24/16 00:52 INR 1.11 (0.87-1.13) 11/24/16 00:52 Sodium 135 mmol/L (137-145) L 11/24/16 05:23 Potassium 3.7 mmol/L (3.6-5.0) 11/24/16 05:23 Chloride 97.6 mmol/L (98-107) L 11/24/16 05:23 Carbon Dioxide 24 mmol/L (22-30) 11/24/16 05:23 Anion Gap 17 mmol/L 11/24/16 05:23 BUN 12 mg/dL (7-17) 11/24/16 05:23 Creatinine 0.6 mg/dL (0.7-1.2) L 11/24/16 05:23 Estimated GFR > 60 ml/min 11/24/16 05:23 BUN/Creatinine Ratio 20.00 % 11/24/16 05:23 Glucose 83 mg/dL (65-100) 11/24/16 05:23 Calcium 8.9 mg/dL (8.4-10.2) 11/24/16 05:23 Iron 21 ug/dL (37-170) L 11/21/16 15:46 TIBC 386 mcg/dL (250-450) 11/21/16 15:46 Ferritin 8.8 ng/mL (13.0-400.0) L 11/21/16 15:46 Total Bilirubin 0.4 mg/dL (0.1-1.2) 11/24/16 05:23 AST 63 units/L (5-40) H 11/24/16 05:23 ALT 68 units/L (7-56) H 11/24/16 05:23 Alkaline Phosphatase 137 units/L (35-129) H 11/24/16 05:23 Total Protein 9.0 g/dL (6.3-8.2) H 11/24/16 05:23 Albumin 3.6 g/dL (3.9-5) L 11/24/16 05:23 Albumin/Globulin Ratio 0.7 % 11/24/16 05:23 CA 27-29 32 U/mL (<38) 11/21/16 00:48 Hepatitis A IgM Ab -1 (NonReactive) 11/21/16 17:50 Hep Bs Antigen Non-reactive (Negative) 11/21/16 17:50 Hep B Core IgM Ab Non-reactive (NonReactive) 11/21/16 17:50 Hepatitis C Antibody Non-reactive (NonReactive) 11/21/16 17:50 HIV 1&2 Antibody Rapid Reactive (Non React) 11/21/16 00:48 HIV P24 Antigen Non react (Non React) 11/21/16 00:48 Microbiology 11/23/16 13:02 Peripheral/Venous Blood Fungal Culture - Preliminary Culture in Progress 11/23/16 13:02 Peripheral/Venous Blood Fungal Culture - Preliminary Culture in Progress 11/23/16 Unknown Serum Cryptococcal Antigen - Final
[2016-11-24] MEDS ORDERED: VERSED IV ONE (12:44)
[2016-11-24] MEDS ORDERED: SUBLIMAZE ONE (12:44)
[2016-11-24] MEDS ORDERED: XYLOCAINE 1% 20 mL ONE (12:55)
--- NOTE | 2016-11-24 14:25 | Cat Scan Report ---
EXAM: CT-GUIDED LUNG BIOPSY CLINICAL INDICATION: PATIENT WITH A HISTORY OF NEWLY DIAGNOSED HIV, A 1.5 CM PERIPHERALLY BASED PULMONARY MASS, RIGHT HILAR ADENOPATHY, NO SMOKING HISTORY AND MULTIPLE RING-ENHANCING BRAIN LESIONS DATE: 11/24/2016 PROCEDURE: Following an explanation of the risks, benefits and alternatives; written informed consent was obtained. The patient was brought to the CT suite and placed in prone position on the examination table. Initial green chain marker images the chest were performed an appropriate site was chosen along the posterior right chest wall. 1% lidocaine was used for anesthesia. Using intermittent CT guidance, a 3.5 cm 20-gauge trocar needle was advanced to the margin of the lesion in the posterior right chest wall. A total of 3 core biopsies were obtained and handed off to the pathologist in attendance. The pathologist determined that at least one of the samples contained viable cells, a second sample contain necrotic tissue and a third sample was placed in formalin for further evaluation. The needle was removed and hemostasis achieved at the skin surface using manual compression. A sterile dressing was then applied. Post biopsy imaging demonstrated no pneumothorax. A post procedure chest x-ray was ordered 2 hours following the biopsy. The patient tolerated the procedure well. There were no immediate post procedure complications. Gentle sedation was performed under the guidance of radiologic nursing. Continuous cardiopulmonary monitoring was utilized. IMPRESSION: 1) CT-guided biopsy of right posterior pulmonary mass with 3 core samples obtained and handed off to pathologist in attendance.
[2016-11-24] MEDS: PERCOCET 5/325 PO PRN (14:50)
--- NOTE | 2016-11-24 16:35 | XRay Report ---
Single view chest: History: Post right lung biopsy. Findings: Normal cardiac mediastinal silhouette. Lung mass right inferior hilum. No pneumothorax identified. No consolidation. Impression: No evidence of pneumothorax.
[2016-11-24 18:09] LABS: HIV-1 RNA QN PCR 4.61 Log cps/mL (<1.30)
[2016-11-24] MEDS: LOVENOX SUB-Q SCH (18:20)
[2016-11-24] MEDS: KEPPRA PO SCH ×2 (18:20→22:07)
[2016-11-25] MEDS: DECADRON IV SCH ×4 (03:11→22:08)
--- NOTE | 2016-11-25 13:38 | Progress Note ---
Assessment and Plan - Patient Problems (1) Brain metastases Current Visit: Yes Status: Acute Plan to address problem: Still awaiting Rad Onc consult. Will call them today. Continue dexamethasone (2) HIV antibody positive Current Visit: Yes Status: Acute Plan to address problem: ID notes reviewed and appreciated. CD4 count 80. Management per ID (3) Microcytic anemia Current Visit: Yes Status: Chronic Plan to address problem: Start iron supplementation for anemia of iron deficiency (4) Physical deconditioning Current Visit: Yes Status: Chronic Subjective Date of service: 11/25/16 Interval history: Patient underwent CT guided core biopsy of lung mass yesterday. Path pending. No complications. No new events. No documentation of Rad Onc consult so far. Objective - Constitutional General appearance: Present: no acute distress - EENT Eyes: PERRL, no scleral icterus - Respiratory Respiratory effort: normal Respiratory: bilateral: CTA - Cardiovascular Rhythm: regular Heart Sounds: Present: S1 & S2. Absent: gallop - Gastrointestinal General gastrointestinal: Present: soft, non-tender, non-distended, normal bowel sounds. Absent: hepatomegaly, splenomegaly - Labs CBC & Chem 7: 11/24/16 05:23 11/24/16 05:23 Labs: Abnormal lab results 11/21/16 11/21/16 Range/Units 15:46 17:50 Abs Lymphs (Manual) 477 L (850-3900) cells/uL Lymph Enumerat CD4/CD8 0.26 L (0.86-5.00) Absolute CD3 Count 355 L (840-3060) cells/uL % CD4 Cells 16 L (30-61) % Absolute CD4 Count 80 L (490-1740) cells/uL % CD8 Cells 61 H (12-42) % Absolute CD19 Count 80 L (110-660) cells/uL HIV-1 RNA PCR copies/ml 60042 H (<20) copies/mL HIV-1 RNA (PCR) log 4.61 H (<1.30) Log cps/mL
[2016-11-25] MEDS: KEPPRA PO SCH ×2 (14:08→22:08)
[2016-11-25] MEDS: LOVENOX SUB-Q SCH (14:08)
[2016-11-25] MEDS: MIRALAX 3350 PO SCH (14:09)
[2016-11-25] MEDS: PROTONIX PO SCH (14:09)
[2016-11-25] MEDS: FEOSOL PO SCH (14:15)
--- NOTE | 2016-11-25 14:30 | Event Note ---
Date: 11/25/16 see progress note in paper chart; EMR was down
[2016-11-25] MEDS: DILAUDID IM PRN (18:29)
[2016-11-26] MEDS: DECADRON IV SCH ×4 (05:10→22:27)
[2016-11-26] MEDS: PROTONIX PO SCH (09:37)
[2016-11-26] MEDS: KEPPRA PO SCH ×2 (09:37→22:28)
[2016-11-26] MEDS: FEOSOL PO SCH (09:37)
[2016-11-26] MEDS: LOVENOX SUB-Q SCH (09:37)
[2016-11-26] MEDS: MIRALAX 3350 PO SCH (09:37)
--- NOTE | 2016-11-26 10:49 | Progress Note ---
Assessment and Plan Antibiotics: none Immunosuppressants: Decadron 4 mg IV every 6 hours Imp: 1. Lung mass, likely NSCLC (risk for this is increased in HIV patients) - Thin needle biopsy reported negative for Ca. Further studies pending ( cryptococcal antigen negative) 2. Brain mass, likely mets. R/O opportunistic infection 3. Headache 11/26 #2 4. HIV/AIDS Rec: 1. Await completion of lung biopsy findings.. 2. HIV studies pending to include lymphocyte count and HIV viral load as well as genotype. 3. Studies to include toxoplasma antibodies, and TB QuantiFERON assay pending. 4. Discussed otherwise with patient's daughter. If we are not able to make a diagnosis with the present studies may need to consider a brain biopsy. Subjective Date of service: 11/26/16 Interval history: More alert and interactive today. Denies headache, blurred vision, nausea or chest pain. Objective - Exam Narrative Exam: Thin female. No distress. HEENT: Pupils are equal reactive to light and accommodation. Conjunctiva clear. Oropharynx is normal with no evidence of oral candidiasis or pharyngitis. NECK: Supple. No enlargement of the thyroid gland. No significant cervical lymphadenopathy. No jugular venous distention at 30. LUNGS: Clear with no adventitious sounds. HEART: Regular rate. S1 and S2 are normal. There are no murmurs, gallops, clicks or rubs heard. ABDOMEN: Soft and nontender. Liver and spleen are not palpably enlarged or tender. No palpable masses. Bowel sounds are normoactive. EXTREMITIES: No rash, peripheral lymphadenopathy, clubbing or edema. SKIN: No other rash, ulcers or wounds. NEUROLOGIC: No focal findings. - Constitutional Vitals: Vital Signs Temp Pulse Resp BP Pulse Ox 98.5 F 75 18 115/71 98 11/26/16 07:35 11/26/16 07:35 11/26/16 07:35 11/26/16 07:35 11/26/16 07:35 Temperature -Last 24 Hours Temperature 98.5 F Temperature 98.3 F Temperature 98.3 F - Labs CBC & Chem 7: 11/24/16 05:23 11/24/16 05:23 Labs: Abnormal lab results 11/21/16 Range/Units 17:50 HIV-1 RNA PCR copies/ml 78314 H (<20) copies/mL HIV-1 RNA (PCR) log 4.61 H (<1.30) Log cps/mL
--- NOTE | 2016-11-26 11:26 | Progress Note ---
Assessment and Plan Assessment and plan: 1. Lung mass with brain lesions- awaiting CT guided lung biopsy result- ID follow up appreciated-no evidence of cancer so far but the specimen was small ; the possibility of NSCLC is strong as the risk if this is increased in HIV postive patients; f/u oncology / pulmonary; continue IV steroids and narcotics; radiation oncologist consult appreciated- awaiting tissue diagnosis to confirm cancer before proceeding with whole brain radiation; f/u ID for work up to r/o opportunistic infection; cont seizure prophylaxis with keppra; cotn IV steroids and GI prophylaxis; will consult Dr. Rm Feliciano for evaluation for brain biopsy 2. HIV positive- newly diagnosed- f/u ID for further recommendations; f/u work up for opportunistic infections 3. Iron deficiency anemia- iron supplementation 4. DVT prophylaxis- heparin family updated at the bedside History Interval history: f/u lung mass and brain mets; HIV Patient seen at the bedside; daughter present; no headache; eating well today Hospitalist Physical - Constitutional Vitals: Temp Pulse Resp BP Pulse Ox 98.5 F 75 18 115/71 98 11/26/16 07:35 11/26/16 07:35 11/26/16 07:35 11/26/16 07:35 11/26/16 07:35 General appearance: Present: no acute distress - EENT Eyes: Present: PERRL, EOM intact. Absent: scleral icterus, conjunctival injection ENT: hearing intact, clear oral mucosa, no oropharyngeal erythema, no poor dentition - Neck Neck: Present: supple, normal ROM. Absent: enlarged thyroid, masses or JVD - Respiratory Respiratory effort: normal Respiratory: bilateral: diminished, negative: rales, rhonchi, wheezing - Cardiovascular Rhythm: regular Heart Sounds: Present: S1 & S2. Absent: gallop - Extremities Extremities: no ischemia, pulses intact, pulses symmetrical, No edema, normal temperature Peripheral Pulses: within normal limits - Abdominal General gastrointestinal: soft, non-tender, non-distended - Integumentary Integumentary: Present: clear - Psychiatric Psychiatric: appropriate mood/affect, intact judgment & insight, cooperative - Neurologic Neurologic: CNII-XII intact, moves all extremities Results - Labs CBC & Chem 7: 11/24/16 05:23 11/24/16 05:23 Labs: Laboratory Last Values WBC 6.2 K/mm3 (4.5-11.0) 11/24/16 05:23 RBC 4.99 M/mm3 (3.65-5.03) 11/24/16 05:23 Hgb 9.8 gm/dl (10.1-14.3) L 11/24/16 05:23 Hct 31.6 % (30.3-42.9) 11/24/16 05:23 MCV 63 fl (79-97) L 11/24/16 05:23 MCH 20 pg (28-32) L 11/24/16 05:23 MCHC 31 % (30-34) 11/24/16 05:23 RDW 19.8 % (13.2-15.2) H 11/24/16 05:23 Plt Count 296 K/mm3 (140-440) 11/24/16 05:23 Lymph % (Auto) 13.3 % (13.4-35.0) L 11/24/16 05:23 [place] % (Auto) 10.4 % (0.0-7.3) H 11/24/16 05:23 Eos % (Auto) 3.2 % (0.0-4.3) 11/24/16 05:23 Baso % (Auto) 0.3 % (0.0-1.8) 11/24/16 05:23 Lymph # 0.8 K/mm3 (1.2-5.4) L 11/24/16 05:23 [place] # 0.6 K/mm3 (0.0-0.8) 11/24/16 05:23 Eos # 0.2 K/mm3 (0.0-0.4) 11/24/16 05:23 Baso # 0.0 K/mm3 (0.0-0.1) 11/24/16 05:23 Add Manual Diff Complete 11/23/16 05:04 Total Counted 100 11/23/16 05:04 Seg Neutrophils % 72.8 % (40.0-70.0) H 11/24/16 05:23 Seg Neuts % (Manual) 83.0 % (40.0-70.0) H 11/23/16 05:04 Band Neutrophils % 1.0 % 11/23/16 05:04 Lymphocytes % (Manual) 8.0 % (13.4-35.0) L 11/23/16 05:04 Reactive Lymphs % (Man) 0 % 11/23/16 05:04 Monocytes % (Manual) 6.0 % (0.0-7.3) 11/23/16 05:04 Eosinophils % (Manual) 0 % (0.0-4.3) 11/23/16 05:04 Basophils % (Manual) 0 % (0.0-1.8) 11/23/16 05:04 Metamyelocytes % 2.0 % 11/23/16 05:04 Myelocytes % 0 % 11/23/16 05:04 Promyelocytes % 0 % 11/23/16 05:04 Blast Cells % 0 % 11/23/16 05:04 Nucleated RBC % Not Reportable 11/23/16 05:04 Seg Neutrophils # 4.5 K/mm3 (1.8-7.7) 11/24/16 05:23 Seg Neutrophils # Man 4.4 K/mm3 (1.8-7.7) 11/23/16 05:04 Band Neutrophils # 0.1 K/mm3 11/23/16 05:04 Abs Lymphs (Manual) 477 cells/uL (850-3900) L 11/21/16 15:46 Lymphocytes # (Manual) 0.4 K/mm3 (1.2-5.4) L 11/23/16 05:04 Abs React Lymphs (Man) 0.0 K/mm3 11/23/16 05:04 Monocytes # (Manual) 0.3 K/mm3 (0.0-0.8) 11/23/16 05:04 Eosinophils # (Manual) 0.0 K/mm3 (0.0-0.4) 11/23/16 05:04 Basophils # (Manual) 0.0 K/mm3 (0.0-0.1) 11/23/16 05:04 Metamyelocytes # 0.1 K/mm3 11/23/16 05:04 Myelocytes # 0.0 K/mm3 11/23/16 05:04 Promyelocytes # 0.0 K/mm3 11/23/16 05:04 Blast Cells # 0.0 K/mm3 11/23/16 05:04 WBC Morphology Not Reportable 11/23/16 05:04 Hypersegmented Neuts Not Reportable 11/23/16 05:04 Hyposegmented Neuts Not Reportable 11/23/16 05:04 Hypogranular Neuts Not Reportable 11/23/16 05:04 Smudge Cells Not Reportable 11/23/16 05:04 Toxic Granulation Not Reportable 11/23/16 05:04 Toxic Vacuolation Not Reportable 11/23/16 05:04 Dohle Bodies Not Reportable 11/23/16 05:04 Pelger-Huet Anomaly Not Reportable 11/23/16 05:04 Jeremy Rods Not Reportable 11/23/16 05:04 Platelet Estimate Consistent w auto 11/23/16 05:04 Clumped Platelets Not Reportable 11/23/16 05:04 Plt Clumps, EDTA Not Reportable 11/23/16 05:04 Large Platelets Not Reportable 11/23/16 05:04 Giant Platelets Not Reportable 11/23/16 05:04 Platelet Satelliting Not Reportable 11/23/16 05:04 Plt Morphology Comment Not Reportable 11/23/16 05:04 RBC Morphology Not Reportable 11/23/16 05:04 Dimorphic RBCs Not Reportable 11/23/16 05:04 Polychromasia Not Reportable 11/23/16 05:04 Hypochromasia 1+ 11/23/16 05:04 Poikilocytosis Not Reportable 11/23/16 05:04 Anisocytosis 1+ 11/23/16 05:04 Microcytosis Not Reportable 11/23/16 05:04 Macrocytosis Not Reportable 11/23/16 05:04 Spherocytes Not Reportable 11/23/16 05:04 Pappenheimer Bodies Not Reportable 11/23/16 05:04 Sickle Cells Not Reportable 11/23/16 05:04 Target Cells Few 11/23/16 05:04 Tear Drop Cells Not Reportable 11/23/16 05:04 Ovalocytes Not Reportable 11/23/16 05:04 Helmet Cells Not Reportable 11/23/16 05:04 Polanco-Slaughters Bodies Not Reportable 11/23/16 05:04 [place] Rings Not Reportable 11/23/16 05:04 [place] Cells Not Reportable 11/23/16 05:04 Bite Cells Not Reportable 11/23/16 05:04 Crenated Cell Not Reportable 11/23/16 05:04 Elliptocytes Few 11/23/16 05:04 Acanthocytes (Spur) Not Reportable 11/23/16 05:04 Rouleaux Not Reportable 11/23/16 05:04 Hemoglobin C Crystals Not Reportable 11/23/16 05:04 Schistocytes Not Reportable 11/23/16 05:04 Malaria parasites Not Reportable 11/23/16 05:04 Percent Retic 1.29 % (0.78-2.58) 11/21/16 15:46 Douglas Bodies Not Reportable 11/23/16 05:04 Hem Pathologist Commnt No 11/23/16 05:04 PT 14.2 Sec. (12.2-14.9) 11/24/16 00:52 INR 1.11 (0.87-1.13) 11/24/16 00:52 Sodium 135 mmol/L (137-145) L 11/24/16 05:23 Potassium 3.7 mmol/L (3.6-5.0) 11/24/16 05:23 Chloride 97.6 mmol/L (98-107) L 11/24/16 05:23 Carbon Dioxide 24 mmol/L (22-30) 11/24/16 05:23 Anion Gap 17 mmol/L 11/24/16 05:23 BUN 12 mg/dL (7-17) 11/24/16 05:23 Creatinine 0.6 mg/dL (0.7-1.2) L 11/24/16 05:23 Estimated GFR > 60 ml/min 11/24/16 05:23 BUN/Creatinine Ratio 20.00 % 11/24/16 05:23 Glucose 83 mg/dL (65-100) 11/24/16 05:23 Calcium 8.9 mg/dL (8.4-10.2) 11/24/16 05:23 Iron 21 ug/dL (37-170) L 11/21/16 15:46 TIBC 386 mcg/dL (250-450) 11/21/16 15:46 Ferritin 8.8 ng/mL (13.0-400.0) L 11/21/16 15:46 Total Bilirubin 0.4 mg/dL (0.1-1.2) 11/24/16 05:23 AST 63 units/L (5-40) H 11/24/16 05:23 ALT 68 units/L (7-56) H 11/24/16 05:23 Alkaline Phosphatase 137 units/L (35-129) H 11/24/16 05:23 Total Protein 9.0 g/dL (6.3-8.2) H 11/24/16 05:23 Albumin 3.6 g/dL (3.9-5) L 11/24/16 05:23 Albumin/Globulin Ratio 0.7 % 11/24/16 05:23 CA 27-29 32 U/mL (<38) 11/21/16 00:48 Lymph Enumerat CD4/CD8 0.26 (0.86-5.00) L 11/21/16 15:46 % CD3 Cells 74 % (57-85) 11/21/16 15:46 Absolute CD3 Count 355 cells/uL (840-3060) L 11/21/16 15:46 % CD4 Cells 16 % (30-61) L 11/21/16 15:46 Absolute CD4 Count 80 cells/uL (490-1740) L 11/21/16 15:46 % CD8 Cells 61 % (12-42) H 11/21/16 15:46 Absolute CD8 Count 304 cells/uL (180-1170) 11/21/16 15:46 % CD19 Cells 18 % (6-29) 11/21/16 15:46 Absolute CD19 Count 80 cells/uL (110-660) L 11/21/16 15:46 Hepatitis A IgM Ab -1 (NonReactive) 11/21/16 17:50 Hep Bs Antigen Non-reactive (Negative) 11/21/16 17:50 Hep B Core IgM Ab Non-reactive (NonReactive) 11/21/16 17:50 Hepatitis C Antibody Non-reactive (NonReactive) 11/21/16 17:50 HIV-1 RNA PCR copies/ml 47226 copies/mL (<20) H 11/21/16 17:50 HIV-1 RNA (PCR) log 4.61 Log cps/mL (<1.30) H 11/21/16 17:50 HIV 1&2 Antibody Rapid Reactive (Non React) 11/21/16 00:48 HIV P24 Antigen Non react (Non React) 11/21/16 00:48
[2016-11-26] MEDS: DILAUDID IM PRN ×2 (13:30→22:36)
--- NOTE | 2016-11-27 00:26 | Physician Progress Note ---
SUBJECTIVE: The patient has no new complaints at the time of visit. She appears calm, talked to the nurse, she has just been given pain medication. She complains of no headache or pain at that moment. She did have a recent lung biopsy, results still pending. She continued to be on steroid for her suspected brain metastatic disease. She had no fever or chills at this moment. OBJECTIVE: GENERAL: The patient sitting in bed, appears comfortable, not in apparent pain. Respond appropriately. SKIN: No new bruises. No petechiae. HEENT: Pale conjunctivae. NECK: No adenopathy. CHEST: Normal breathing pattern. LUNGS: Clinically clear. No rales. No wheezing. HEART: Regular rate and rhythm. No S3 gallop. ABDOMEN: Soft, nontender. No palpable masses. EXTREMITIES: No calves tenderness. CENTRAL NERVOUS: No new acute CUTTER HELPER deficits. LABORATORY DATA: Most recent CBC, 11/24/2016, her hemoglobin 9.8, hematocrit 31.6. Lung biopsy done recently on 11/24/2016 results still pending. Most recent metabolic profile on 11/24/2016, BUN is 12, creatinine 0.6. AST 653, . Bilirubin 0.8. Known HIV, HIV-1 RNA PCR 4152. HIV RNA log 4.61. ASSESSMENT: 1. Recent CT scan of the chest, a 2.6 cm right lower lobe superior segment lung mass. This is consistent with primary bronchogenic carcinoma. Right lower lobe hilar jamie metastasis. Hepatosplenomegaly. No evidence of hepatitic metastasis. 2. Recent MRI of the brain, multiple lesions, consistent with metastatic disease, currently on steroid. 3. Post-lung biopsy, , results pending. 4. HIV antibody positive, followed by ID, management by ID. 5. Recent history of iron deficiency, started on iron supplement. PLAN: Review results of biopsy, further recommendations to follow depending on finding. JOB# [id number] ASA/NTS MTDD
[2016-11-27] MEDS: DECADRON IV SCH ×4 (07:31→22:26)
[2016-11-27] MEDS: DILAUDID IM PRN (09:40)
[2016-11-27] MEDS: MIRALAX 3350 PO SCH (09:49)
[2016-11-27] MEDS: KEPPRA PO SCH ×2 (09:50→22:26)
[2016-11-27] MEDS: LOVENOX SUB-Q SCH (09:51)
[2016-11-27] MEDS: FEOSOL PO SCH (09:51)
[2016-11-27] MEDS: PROTONIX PO SCH (09:55)
--- NOTE | 2016-11-27 10:31 | Progress Note ---
Assessment and Plan Antibiotics: none Immunosuppressants: Decadron 4 mg IV every 6 hours Imp: 1. Lung mass- ? Etiology - Thin needle biopsy reported negative for Ca. Further studies pending ( cryptococcal antigen negative) 2. Brain mass, R/O mets. R/O opportunistic infection 3. Headache 2/ #2 4. HIV/AIDS - CD4 Ct. 80; HIV VL 41,052 5. Toxoplasma IgG positive; await IgM. Rec: 1. Await completion of lung biopsy findings. 2. Studies to include toxoplasma IgM antibodies, and TB QuantiFERON assay pending. If toxoplasma IgM antibodies are positive then would initiate empiric toxo treatment with subsequent CT brain follow-up. 3. Suggest continued titration off steroids. 4. Start patient on prophylaxis for pneumocystis ( by mouth Bactrim), and MIKE ( weekly Azithromycin) 5. Initiation of HAART therapy will require determination of further HIV follow -up. 6. Discussed otherwise with patient's daughter. If we are not able to make a diagnosis with the present studies may need to consider a brain biopsy. Subjective Date of service: 11/27/16 Interval history: Presently headache is controlled with pain medication. Discussed with the patient's daughter issues regarding underlying HIV. The patient has marked immunosuppression with a CD4 count of 80. HIV viral load is 41,052. Still await final pathology reading in regards to recent lung biopsy. Objective - Exam Narrative Exam: Thin female. No distress. HEENT: Pupils are equal reactive to light and accommodation. Conjunctiva clear. Oropharynx is normal with no evidence of oral candidiasis or pharyngitis. NECK: Supple. No enlargement of the thyroid gland. No significant cervical lymphadenopathy. No jugular venous distention at 30. LUNGS: Clear with no adventitious sounds. HEART: Regular rate. S1 and S2 are normal. There are no murmurs, gallops, clicks or rubs heard. ABDOMEN: Soft and nontender. Liver and spleen are not palpably enlarged or tender. No palpable masses. Bowel sounds are normoactive. EXTREMITIES: No rash, peripheral lymphadenopathy, clubbing or edema. SKIN: No other rash, ulcers or wounds. NEUROLOGIC: No focal findings. - Constitutional Vitals: Vital Signs Temp Pulse Resp BP Pulse Ox 98.0 F 65 20 117/69 96 11/27/16 08:00 11/27/16 08:00 11/27/16 08:00 11/27/16 08:00 11/27/16 08:00 Temperature -Last 24 Hours Temperature 98.0 F Temperature 98.0 F Temperature 98.0 F - Labs CBC & Chem 7: 11/24/16 05:23 11/24/16 05:23 Labs: Abnormal lab results 11/24/16 Range/Units 10:03 Toxoplasma IgG Ab 2.25 H (<=0.90)
--- NOTE | 2016-11-27 11:50 | Hem/Onc Progress Note ---
Assessment and Plan - Patient Problems (1) Lesion of brain Current Visit: Yes Status: Acute Plan to address problem: Telcon with Dr. Casiano, Pathologist, regarding biopsy of lung - reactive, sclerosed cells. Appears to be acute bronchial reaction. Small core biopsy as lesion was small. CD56 negative for SCLC. No adenocarcinoma noted. Dr. Casiano will test for AFB (she doubts as no granulomas seen) and fungus. Informed her that pt is Toxo IgG pos. Telcon with Dr. Levi Quiroz, Rad Onc. Simulation for WBRT held until we have additional information regarding Toxo IgM and additional path tests. Appears to be opportunistic infection at this time.Will wean down decadron as suggested by ID. Await eval by Neurosurgery regarding possible brain biopsy. (2) HIV antibody positive Current Visit: Yes Status: Acute Plan to address problem: ID following. Await Toxo IgM. Supportive. Subjective Date of service: 11/27/16 Interval history: Patient denies headaches, dizziness. No pain at lung biopsy site. No abdominal pain. Objective - Constitutional Vitals: Last Vital Signs Temp 98.0 F 11/27/16 08:00 Pulse 65 11/27/16 08:00 Resp 20 11/27/16 08:00 BP 117/69 11/27/16 08:00 Pulse Ox 96 11/27/16 08:00 Pain Intensity (0-10): denies any pain General appearance: no acute distress Performance status: 3-limited selfcare - EENT Eyes: PERRL ENT: hearing intact - Neck Neck: supple - Respiratory Respiratory effort: Positive: normal Respiratory: bilateral: CTA - Cardiovascular Rhythm: regular Heart Sounds: Present: S1 & S2 Extremities: no ischemia, pulses intact, pulses symmetrical, No edema, normal temperature, normal color, Full ROM - Gastrointestinal General gastrointestinal: Present: soft, non-tender, normal bowel sounds Rectal Exam: deferred - Genitourinary Female genitourinary: Present: deferred - Integumentary Integumentary: clear, warm, dry - Musculoskeletal Musculoskeletal: strength equal bilaterally - Neurologic Neurologic: moves all extremities - Psychiatric Psychiatric: cooperative - Labs Lab Results: Laboratory Results - last 24 hr 11/24/16 10:03 Toxoplasma IgG Ab 2.25 H
[2016-11-27] MEDS: BACTRIM DS PO SCH (13:28)
--- NOTE | 2016-11-27 13:30 | Progress Note ---
Assessment and Plan Assessment and plan: 1. Lung mass with brain lesions- -pathology from lung biopsy reactive, sclerosed cells. Appears to be acute bronchial reaction. Small core biopsy as lesion was small. CD56 negative for SCLC. No adenocarcinoma; continue to taper IV steroids as per oncology; f/u ID for work up to r/o opportunistic infection-toxo IgG positive. Awaiting IgM; cont seizure prophylaxis with keppra ; awaiting consult with Dr. Rm Feliciano for evaluation for brain biopsy 2. HIV positive- newly diagnosed- f/u ID for further recommendations; f/u work up for opportunistic infections 3. Iron deficiency anemia- iron supplementation 4. DVT prophylaxis- heparin family updated at the bedside History Interval history: f/u lung mass and brain mets; HIV Patient seen at the bedside; daughter present; has headache when pain medication wears off Hospitalist Physical - Constitutional Vitals: Temp Pulse Resp BP Pulse Ox 98.0 F 65 20 117/69 96 11/27/16 08:00 11/27/16 08:00 11/27/16 08:00 11/27/16 08:00 11/27/16 08:00 General appearance: Present: no acute distress, cachectic - EENT Eyes: Present: PERRL, EOM intact. Absent: scleral icterus, conjunctival injection ENT: hearing intact, no oropharyngeal erythema, no poor dentition - Neck Neck: Present: supple, normal ROM. Absent: enlarged thyroid, masses or JVD - Respiratory Respiratory effort: normal Respiratory: negative: diminished, rales, rhonchi, wheezing - Cardiovascular Rhythm: regular Heart Sounds: Present: S1 & S2. Absent: gallop - Extremities Extremities: no ischemia, pulses intact, pulses symmetrical, No edema Peripheral Pulses: within normal limits - Abdominal General gastrointestinal: soft, non-tender, non-distended - Psychiatric Psychiatric: appropriate mood/affect, intact judgment & insight - Neurologic Neurologic: CNII-XII intact, moves all extremities Results - Labs CBC & Chem 7: 11/24/16 05:23 11/24/16 05:23 Labs: Laboratory Last Values WBC 6.2 K/mm3 (4.5-11.0) 11/24/16 05:23 RBC 4.99 M/mm3 (3.65-5.03) 11/24/16 05:23 Hgb 9.8 gm/dl (10.1-14.3) L 11/24/16 05:23 Hct 31.6 % (30.3-42.9) 11/24/16 05:23 MCV 63 fl (79-97) L 11/24/16 05:23 MCH 20 pg (28-32) L 11/24/16 05:23 MCHC 31 % (30-34) 11/24/16 05:23 RDW 19.8 % (13.2-15.2) H 11/24/16 05:23 Plt Count 296 K/mm3 (140-440) 11/24/16 05:23 Lymph % (Auto) 13.3 % (13.4-35.0) L 11/24/16 05:23 [place] % (Auto) 10.4 % (0.0-7.3) H 11/24/16 05:23 Eos % (Auto) 3.2 % (0.0-4.3) 11/24/16 05:23 Baso % (Auto) 0.3 % (0.0-1.8) 11/24/16 05:23 Lymph # 0.8 K/mm3 (1.2-5.4) L 11/24/16 05:23 [place] # 0.6 K/mm3 (0.0-0.8) 11/24/16 05:23 Eos # 0.2 K/mm3 (0.0-0.4) 11/24/16 05:23 Baso # 0.0 K/mm3 (0.0-0.1) 11/24/16 05:23 Add Manual Diff Complete 11/23/16 05:04 Total Counted 100 11/23/16 05:04 Seg Neutrophils % 72.8 % (40.0-70.0) H 11/24/16 05:23 Seg Neuts % (Manual) 83.0 % (40.0-70.0) H 11/23/16 05:04 Band Neutrophils % 1.0 % 11/23/16 05:04 Lymphocytes % (Manual) 8.0 % (13.4-35.0) L 11/23/16 05:04 Reactive Lymphs % (Man) 0 % 11/23/16 05:04 Monocytes % (Manual) 6.0 % (0.0-7.3) 11/23/16 05:04 Eosinophils % (Manual) 0 % (0.0-4.3) 11/23/16 05:04 Basophils % (Manual) 0 % (0.0-1.8) 11/23/16 05:04 Metamyelocytes % 2.0 % 11/23/16 05:04 Myelocytes % 0 % 11/23/16 05:04 Promyelocytes % 0 % 11/23/16 05:04 Blast Cells % 0 % 11/23/16 05:04 Nucleated RBC % Not Reportable 11/23/16 05:04 Seg Neutrophils # 4.5 K/mm3 (1.8-7.7) 11/24/16 05:23 Seg Neutrophils # Man 4.4 K/mm3 (1.8-7.7) 11/23/16 05:04 Band Neutrophils # 0.1 K/mm3 11/23/16 05:04 Abs Lymphs (Manual) 477 cells/uL (850-3900) L 11/21/16 15:46 Lymphocytes # (Manual) 0.4 K/mm3 (1.2-5.4) L 11/23/16 05:04 Abs React Lymphs (Man) 0.0 K/mm3 11/23/16 05:04 Monocytes # (Manual) 0.3 K/mm3 (0.0-0.8) 11/23/16 05:04 Eosinophils # (Manual) 0.0 K/mm3 (0.0-0.4) 11/23/16 05:04 Basophils # (Manual) 0.0 K/mm3 (0.0-0.1) 11/23/16 05:04 Metamyelocytes # 0.1 K/mm3 11/23/16 05:04 Myelocytes # 0.0 K/mm3 11/23/16 05:04 Promyelocytes # 0.0 K/mm3 11/23/16 05:04 Blast Cells # 0.0 K/mm3 11/23/16 05:04 WBC Morphology Not Reportable 11/23/16 05:04 Hypersegmented Neuts Not Reportable 11/23/16 05:04 Hyposegmented Neuts Not Reportable 11/23/16 05:04 Hypogranular Neuts Not Reportable 11/23/16 05:04 Smudge Cells Not Reportable 11/23/16 05:04 Toxic Granulation Not Reportable 11/23/16 05:04 Toxic Vacuolation Not Reportable 11/23/16 05:04 Dohle Bodies Not Reportable 11/23/16 05:04 Pelger-Huet Anomaly Not Reportable 11/23/16 05:04 Jeremy Rods Not Reportable 11/23/16 05:04 Platelet Estimate Consistent w auto 11/23/16 05:04 Clumped Platelets Not Reportable 11/23/16 05:04 Plt Clumps, EDTA Not Reportable 11/23/16 05:04 Large Platelets Not Reportable 11/23/16 05:04 Giant Platelets Not Reportable 11/23/16 05:04 Platelet Satelliting Not Reportable 11/23/16 05:04 Plt Morphology Comment Not Reportable 11/23/16 05:04 RBC Morphology Not Reportable 11/23/16 05:04 Dimorphic RBCs Not Reportable 11/23/16 05:04 Polychromasia Not Reportable 11/23/16 05:04 Hypochromasia 1+ 11/23/16 05:04 Poikilocytosis Not Reportable 11/23/16 05:04 Anisocytosis 1+ 11/23/16 05:04 Microcytosis Not Reportable 11/23/16 05:04 Macrocytosis Not Reportable 11/23/16 05:04 Spherocytes Not Reportable 11/23/16 05:04 Pappenheimer Bodies Not Reportable 11/23/16 05:04 Sickle Cells Not Reportable 11/23/16 05:04 Target Cells Few 11/23/16 05:04 Tear Drop Cells Not Reportable 11/23/16 05:04 Ovalocytes Not Reportable 11/23/16 05:04 Helmet Cells Not Reportable 11/23/16 05:04 Polanco-Cogdell Bodies Not Reportable 11/23/16 05:04 [place] Rings Not Reportable 11/23/16 05:04 [place] Cells Not Reportable 11/23/16 05:04 Bite Cells Not Reportable 11/23/16 05:04 Crenated Cell Not Reportable 11/23/16 05:04 Elliptocytes Few 11/23/16 05:04 Acanthocytes (Spur) Not Reportable 11/23/16 05:04 Rouleaux Not Reportable 11/23/16 05:04 Hemoglobin C Crystals Not Reportable 11/23/16 05:04 Schistocytes Not Reportable 11/23/16 05:04 Malaria parasites Not Reportable 11/23/16 05:04 Percent Retic 1.29 % (0.78-2.58) 11/21/16 15:46 Douglas Bodies Not Reportable 11/23/16 05:04 Hem Pathologist Commnt No 11/23/16 05:04 PT 14.2 Sec. (12.2-14.9) 11/24/16 00:52 INR 1.11 (0.87-1.13) 11/24/16 00:52 Sodium 135 mmol/L (137-145) L 11/24/16 05:23 Potassium 3.7 mmol/L (3.6-5.0) 11/24/16 05:23 Chloride 97.6 mmol/L (98-107) L 11/24/16 05:23 Carbon Dioxide 24 mmol/L (22-30) 11/24/16 05:23 Anion Gap 17 mmol/L 11/24/16 05:23 BUN 12 mg/dL (7-17) 11/24/16 05:23 Creatinine 0.6 mg/dL (0.7-1.2) L 11/24/16 05:23 Estimated GFR > 60 ml/min 11/24/16 05:23 BUN/Creatinine Ratio 20.00 % 11/24/16 05:23 Glucose 83 mg/dL (65-100) 11/24/16 05:23 Calcium 8.9 mg/dL (8.4-10.2) 11/24/16 05:23 Iron 21 ug/dL (37-170) L 11/21/16 15:46 TIBC 386 mcg/dL (250-450) 11/21/16 15:46 Ferritin 8.8 ng/mL (13.0-400.0) L 11/21/16 15:46 Total Bilirubin 0.4 mg/dL (0.1-1.2) 11/24/16 05:23 AST 63 units/L (5-40) H 11/24/16 05:23 ALT 68 units/L (7-56) H 11/24/16 05:23 Alkaline Phosphatase 137 units/L (35-129) H 11/24/16 05:23 Total Protein 9.0 g/dL (6.3-8.2) H 11/24/16 05:23 Albumin 3.6 g/dL (3.9-5) L 11/24/16 05:23 Albumin/Globulin Ratio 0.7 % 11/24/16 05:23 CA 27-29 32 U/mL (<38) 11/21/16 00:48 Lymph Enumerat CD4/CD8 0.26 (0.86-5.00) L 11/21/16 15:46 % CD3 Cells 74 % (57-85) 11/21/16 15:46 Absolute CD3 Count 355 cells/uL (840-3060) L 11/21/16 15:46 % CD4 Cells 16 % (30-61) L 11/21/16 15:46 Absolute CD4 Count 80 cells/uL (490-1740) L 11/21/16 15:46 % CD8 Cells 61 % (12-42) H 11/21/16 15:46 Absolute CD8 Count 304 cells/uL (180-1170) 11/21/16 15:46 % CD19 Cells 18 % (6-29) 11/21/16 15:46 Absolute CD19 Count 80 cells/uL (110-660) L 11/21/16 15:46 Hepatitis A IgM Ab -1 (NonReactive) 11/21/16 17:50 Hep Bs Antigen Non-reactive (Negative) 11/21/16 17:50 Hep B Core IgM Ab Non-reactive (NonReactive) 11/21/16 17:50 Hepatitis C Antibody Non-reactive (NonReactive) 11/21/16 17:50 HIV-1 RNA PCR copies/ml 34472 copies/mL (<20) H 11/21/16 17:50 HIV-1 RNA (PCR) log 4.61 Log cps/mL (<1.30) H 11/21/16 17:50 HIV 1&2 Antibody Rapid Reactive (Non React) 11/21/16 00:48 HIV P24 Antigen Non react (Non React) 11/21/16 00:48 Toxoplasma IgG Ab 2.25 (<=0.90) H 11/24/16 10:03
[2016-11-27] MEDS: ZITHROMAX PO SCH (13:36)
[2016-11-27] MEDS: PERCOCET 5/325 PO PRN (22:27)
[2016-11-28] MEDS: DECADRON IV SCH ×2 (05:40→21:29)
[2016-11-28] MEDS: PERCOCET 5/325 PO PRN ×2 (05:48→20:05)
[2016-11-28] MEDS: MIRALAX 3350 PO SCH (10:44)
[2016-11-28] MEDS: LOVENOX SUB-Q SCH (10:45)
[2016-11-28] MEDS: PROTONIX PO SCH (10:46)
[2016-11-28] MEDS: FEOSOL PO SCH (10:46)
[2016-11-28] MEDS: KEPPRA PO SCH ×2 (10:46→21:29)
[2016-11-28] MEDS: BACTRIM DS PO SCH (10:46)
[2016-11-28] MEDS: DILAUDID IM PRN (10:46)
--- NOTE | 2016-11-28 12:23 | Progress Note ---
Assessment and Plan Assessment and plan: 1. Brain lesions- -continue to taper IV steroids as per oncology; f/u ID for work up to r/o opportunistic infection-toxo IgG positive, IgM-negative; cont seizure prophylaxis with keppra; awaiting consult with Dr. Rm Feliciano for evaluation for brain biopsy 2. HIV positive- newly diagnosed- f/u ID for further recommendations; f/u work up for opportunistic infections 3. Iron deficiency anemia- iron supplementation 4. DVT prophylaxis- heparin family updated at the bedside History Interval history: f/u lung mass and brain mets; HIV Patient seen at the bedside; daughter present; no new complaints today Hospitalist Physical - Constitutional Vitals: Temp Pulse Resp BP Pulse Ox 98.7 F 76 16 110/74 98 11/28/16 00:00 11/28/16 00:00 11/28/16 00:00 11/28/16 00:00 11/28/16 00:00 General appearance: Present: no acute distress, cachectic - EENT Eyes: Present: PERRL, EOM intact. Absent: scleral icterus, conjunctival injection ENT: hearing intact, clear oral mucosa, no oropharyngeal erythema, no poor dentition - Neck Neck: Present: supple, normal ROM. Absent: enlarged thyroid, masses or JVD - Respiratory Respiratory effort: normal Respiratory: negative: diminished, rales, rhonchi, wheezing - Cardiovascular Rhythm: regular Heart Sounds: Present: S1 & S2. Absent: gallop - Extremities Extremities: no ischemia, pulses intact, pulses symmetrical, No edema Peripheral Pulses: within normal limits - Abdominal General gastrointestinal: soft, non-tender, non-distended, normal bowel sounds - Integumentary Integumentary: Present: clear - Psychiatric Psychiatric: appropriate mood/affect, cooperative - Neurologic Neurologic: CNII-XII intact, moves all extremities Results - Labs CBC & Chem 7: 11/24/16 05:23 11/24/16 05:23 Labs: Laboratory Last Values WBC 6.2 K/mm3 (4.5-11.0) 11/24/16 05:23 RBC 4.99 M/mm3 (3.65-5.03) 11/24/16 05:23 Hgb 9.8 gm/dl (10.1-14.3) L 11/24/16 05:23 Hct 31.6 % (30.3-42.9) 11/24/16 05:23 MCV 63 fl (79-97) L 11/24/16 05:23 MCH 20 pg (28-32) L 11/24/16 05:23 MCHC 31 % (30-34) 11/24/16 05:23 RDW 19.8 % (13.2-15.2) H 11/24/16 05:23 Plt Count 296 K/mm3 (140-440) 11/24/16 05:23 Lymph % (Auto) 13.3 % (13.4-35.0) L 11/24/16 05:23 [place] % (Auto) 10.4 % (0.0-7.3) H 11/24/16 05:23 Eos % (Auto) 3.2 % (0.0-4.3) 11/24/16 05:23 Baso % (Auto) 0.3 % (0.0-1.8) 11/24/16 05:23 Lymph # 0.8 K/mm3 (1.2-5.4) L 11/24/16 05:23 [place] # 0.6 K/mm3 (0.0-0.8) 11/24/16 05:23 Eos # 0.2 K/mm3 (0.0-0.4) 11/24/16 05:23 Baso # 0.0 K/mm3 (0.0-0.1) 11/24/16 05:23 Add Manual Diff Complete 11/23/16 05:04 Total Counted 100 11/23/16 05:04 Seg Neutrophils % 72.8 % (40.0-70.0) H 11/24/16 05:23 Seg Neuts % (Manual) 83.0 % (40.0-70.0) H 11/23/16 05:04 Band Neutrophils % 1.0 % 11/23/16 05:04 Lymphocytes % (Manual) 8.0 % (13.4-35.0) L 11/23/16 05:04 Reactive Lymphs % (Man) 0 % 11/23/16 05:04 Monocytes % (Manual) 6.0 % (0.0-7.3) 11/23/16 05:04 Eosinophils % (Manual) 0 % (0.0-4.3) 11/23/16 05:04 Basophils % (Manual) 0 % (0.0-1.8) 11/23/16 05:04 Metamyelocytes % 2.0 % 11/23/16 05:04 Myelocytes % 0 % 11/23/16 05:04 Promyelocytes % 0 % 11/23/16 05:04 Blast Cells % 0 % 11/23/16 05:04 Nucleated RBC % Not Reportable 11/23/16 05:04 Seg Neutrophils # 4.5 K/mm3 (1.8-7.7) 11/24/16 05:23 Seg Neutrophils # Man 4.4 K/mm3 (1.8-7.7) 11/23/16 05:04 Band Neutrophils # 0.1 K/mm3 11/23/16 05:04 Abs Lymphs (Manual) 477 cells/uL (850-3900) L 11/21/16 15:46 Lymphocytes # (Manual) 0.4 K/mm3 (1.2-5.4) L 11/23/16 05:04 Abs React Lymphs (Man) 0.0 K/mm3 11/23/16 05:04 Monocytes # (Manual) 0.3 K/mm3 (0.0-0.8) 11/23/16 05:04 Eosinophils # (Manual) 0.0 K/mm3 (0.0-0.4) 11/23/16 05:04 Basophils # (Manual) 0.0 K/mm3 (0.0-0.1) 11/23/16 05:04 Metamyelocytes # 0.1 K/mm3 11/23/16 05:04 Myelocytes # 0.0 K/mm3 11/23/16 05:04 Promyelocytes # 0.0 K/mm3 11/23/16 05:04 Blast Cells # 0.0 K/mm3 11/23/16 05:04 WBC Morphology Not Reportable 11/23/16 05:04 Hypersegmented Neuts Not Reportable 11/23/16 05:04 Hyposegmented Neuts Not Reportable 11/23/16 05:04 Hypogranular Neuts Not Reportable 11/23/16 05:04 Smudge Cells Not Reportable 11/23/16 05:04 Toxic Granulation Not Reportable 11/23/16 05:04 Toxic Vacuolation Not Reportable 11/23/16 05:04 Dohle Bodies Not Reportable 11/23/16 05:04 Pelger-Huet Anomaly Not Reportable 11/23/16 05:04 Jeremy Rods Not Reportable 11/23/16 05:04 Platelet Estimate Consistent w auto 11/23/16 05:04 Clumped Platelets Not Reportable 11/23/16 05:04 Plt Clumps, EDTA Not Reportable 11/23/16 05:04 Large Platelets Not Reportable 11/23/16 05:04 Giant Platelets Not Reportable 11/23/16 05:04 Platelet Satelliting Not Reportable 11/23/16 05:04 Plt Morphology Comment Not Reportable 11/23/16 05:04 RBC Morphology Not Reportable 11/23/16 05:04 Dimorphic RBCs Not Reportable 11/23/16 05:04 Polychromasia Not Reportable 11/23/16 05:04 Hypochromasia 1+ 11/23/16 05:04 Poikilocytosis Not Reportable 11/23/16 05:04 Anisocytosis 1+ 11/23/16 05:04 Microcytosis Not Reportable 11/23/16 05:04 Macrocytosis Not Reportable 11/23/16 05:04 Spherocytes Not Reportable 11/23/16 05:04 Pappenheimer Bodies Not Reportable 11/23/16 05:04 Sickle Cells Not Reportable 11/23/16 05:04 Target Cells Few 11/23/16 05:04 Tear Drop Cells Not Reportable 11/23/16 05:04 Ovalocytes Not Reportable 11/23/16 05:04 Helmet Cells Not Reportable 11/23/16 05:04 Polanco-[place] Bodies Not Reportable 11/23/16 05:04 [place] Rings Not Reportable 11/23/16 05:04 [place] Cells Not Reportable 11/23/16 05:04 Bite Cells Not Reportable 11/23/16 05:04 Crenated Cell Not Reportable 11/23/16 05:04 Elliptocytes Few 11/23/16 05:04 Acanthocytes (Spur) Not Reportable 11/23/16 05:04 Rouleaux Not Reportable 11/23/16 05:04 Hemoglobin C Crystals Not Reportable 11/23/16 05:04 Schistocytes Not Reportable 11/23/16 05:04 Malaria parasites Not Reportable 11/23/16 05:04 Percent Retic 1.29 % (0.78-2.58) 11/21/16 15:46 Douglas Bodies Not Reportable 11/23/16 05:04 Hem Pathologist Commnt No 11/23/16 05:04 PT 14.2 Sec. (12.2-14.9) 11/24/16 00:52 INR 1.11 (0.87-1.13) 11/24/16 00:52 Sodium 135 mmol/L (137-145) L 11/24/16 05:23 Potassium 3.7 mmol/L (3.6-5.0) 11/24/16 05:23 Chloride 97.6 mmol/L (98-107) L 11/24/16 05:23 Carbon Dioxide 24 mmol/L (22-30) 11/24/16 05:23 Anion Gap 17 mmol/L 11/24/16 05:23 BUN 12 mg/dL (7-17) 11/24/16 05:23 Creatinine 0.6 mg/dL (0.7-1.2) L 11/24/16 05:23 Estimated GFR > 60 ml/min 11/24/16 05:23 BUN/Creatinine Ratio 20.00 % 11/24/16 05:23 Glucose 83 mg/dL (65-100) 11/24/16 05:23 Calcium 8.9 mg/dL (8.4-10.2) 11/24/16 05:23 Iron 21 ug/dL (37-170) L 11/21/16 15:46 TIBC 386 mcg/dL (250-450) 11/21/16 15:46 Ferritin 8.8 ng/mL (13.0-400.0) L 11/21/16 15:46 Total Bilirubin 0.4 mg/dL (0.1-1.2) 11/24/16 05:23 AST 63 units/L (5-40) H 11/24/16 05:23 ALT 68 units/L (7-56) H 11/24/16 05:23 Alkaline Phosphatase 137 units/L (35-129) H 11/24/16 05:23 Total Protein 9.0 g/dL (6.3-8.2) H 11/24/16 05:23 Albumin 3.6 g/dL (3.9-5) L 11/24/16 05:23 Albumin/Globulin Ratio 0.7 % 11/24/16 05:23 CA 27-29 32 U/mL (<38) 11/21/16 00:48 Lymph Enumerat CD4/CD8 0.26 (0.86-5.00) L 11/21/16 15:46 % CD3 Cells 74 % (57-85) 11/21/16 15:46 Absolute CD3 Count 355 cells/uL (840-3060) L 11/21/16 15:46 % CD4 Cells 16 % (30-61) L 11/21/16 15:46 Absolute CD4 Count 80 cells/uL (490-1740) L 11/21/16 15:46 % CD8 Cells 61 % (12-42) H 11/21/16 15:46 Absolute CD8 Count 304 cells/uL (180-1170) 11/21/16 15:46 % CD19 Cells 18 % (6-29) 11/21/16 15:46 Absolute CD19 Count 80 cells/uL (110-660) L 11/21/16 15:46 Hepatitis A IgM Ab -1 (NonReactive) 11/21/16 17:50 Hep Bs Antigen Non-reactive (Negative) 11/21/16 17:50 Hep B Core IgM Ab Non-reactive (NonReactive) 11/21/16 17:50 Hepatitis C Antibody Non-reactive (NonReactive) 11/21/16 17:50 HIV-1 RNA PCR copies/ml 46106 copies/mL (<20) H 11/21/16 17:50 HIV-1 RNA (PCR) log 4.61 Log cps/mL (<1.30) H 11/21/16 17:50 HIV 1&2 Antibody Rapid Reactive (Non React) 11/21/16 00:48 HIV P24 Antigen Non react (Non React) 11/21/16 00:48 Toxoplasma IgG Ab 2.25 (<=0.90) H 11/24/16 10:03 Toxoplasma IgM Ab Negative (Negative) 11/24/16 10:03 TB (QFT) Gold In Tube Negative (Negative) 11/25/16 04:26 TB Test (QFT) Nil 0.07 IU/mL 11/25/16 04:26 TB Test Mitogen - Nil 1.83 IU/mL 11/25/16 04:26 TB Test Antigen - Nil <0.00 IU/mL 11/25/16 04:26 Microbiology 11/23/16 13:02 Peripheral/Venous Blood Fungal Culture - Preliminary Culture in Progress 11/23/16 13:02 Peripheral/Venous Blood Fungal Culture - Preliminary Culture in Progress 11/23/16 Unknown Serum Cryptococcal Antigen - Final
--- NOTE | 2016-11-28 13:06 | Progress Note ---
Subjective Date of service: 11/28/16 Interval history: Patient Name: IZABELA VEALRDE Date of : 58 Patient Status: Inpatient Attending Provider: FELICITA ANGEL Date: 11/28/16 13.02 Initialization Date: 11/28/16 12:21 [place] cancer- Oncology note Assessment and Plan 1. Brain lesions- -path reviewed . lung bx reactive. no malinancy per pathology. so Infectious? drug induced? autoimmune? Others? continue to taper IV steroids ; f/u ID for work up to r/o opportunistic infection- cont seizure prophylaxis with keppra; Awaiting consult with Dr. Rm Feliciano for evaluation for brain biopsy. still malignancy such as lymphoma not completely ruled out 2. HIV newly diagnosed- CD4- 80. Poor risk. f/u ID for further recommendations ; f/u work up for opportunistic infections 3. Iron deficiency anemia- iron supplementation to be continued,.ferritn 8. tolerating ok. hgb 8.7. if intolerant or ineffective will consider IV iron. no hemolysis noted 4. DVT prophylaxis- heparin to be continued History Interval history: f/u lung mass and brain mets; HIV Patient seen at the bedside . fatigue+ no emesis. no diarrhea. no melena. no headache. Physical - Constitutional Vitals: Temp Pulse Resp BP Pulse Ox 98.7 F 76 16 110/74 98 11/28/16 00:00 11/28/16 00:00 11/28/16 00:00 11/28/16 00:00 11/28/16 00:00 General appearance: Present: no acute distress, cachectic - EENT Eyes: Present: PERRL, EOM intact. Absent: scleral icterus, conjunctival injection ENT: hearing intact, clear oral mucosa, no oropharyngeal erythema, no poor dentition - Neck Neck: Present: supple, normal ROM. Absent: enlarged thyroid, masses or JVD - Respiratory Respiratory effort: normal Respiratory: negative: diminished, rales, rhonchi, wheezing - Cardiovascular Rhythm: regular Heart Sounds: Present: S1 & S2. Absent: gallop - Extremities Extremities: no ischemia, pulses intact, pulses symmetrical, No edema Peripheral Pulses: within normal limits - Abdominal General gastrointestinal: soft, non-tender, non-distended, normal bowel sounds - Integumentary Integumentary: Present: clear - Psychiatric Psychiatric: appropriate mood/affect, cooperative - Neurologic Neurologic: CNII-XII intact, moves all extremities Results - Labs CBC & Chem 7: 11/24/16 05:23 11/24/16 05:23 Labs: Laboratory Last Values WBC 6.2 K/mm3 (4.5-11.0) 11/24/16 05:23 RBC 4.99 M/mm3 (3.65-5.03) 11/24/16 05:23 Hgb 9.8 gm/dl (10.1-14.3) L 11/24/16 05:23 Hct 31.6 % (30.3-42.9) 11/24/16 05:23 MCV 63 fl (79-97) L 11/24/16 05:23 MCH 20 pg (28-32) L 11/24/16 05:23 MCHC 31 % (30-34) 11/24/16 05:23 RDW 19.8 % (13.2-15.2) H 11/24/16 05:23 Plt Count 296 K/mm3 (140-440) 11/24/16 05:23 Lymph % (Auto) 13.3 % (13.4-35.0) L 11/24/16 05:23 [place] % (Auto) 10.4 % (0.0-7.3) H 11/24/16 05:23 Eos % (Auto) 3.2 % (0.0-4.3) 11/24/16 05:23 Baso % (Auto) 0.3 % (0.0-1.8) 11/24/16 05:23 Lymph # 0.8 K/mm3 (1.2-5.4) L 11/24/16 05:23 [place] # 0.6 K/mm3 (0.0-0.8) 11/24/16 05:23 Eos # 0.2 K/mm3 (0.0-0.4) 11/24/16 05:23 Baso # 0.0 K/mm3 (0.0-0.1) 11/24/16 05:23 Add Manual Diff Complete 11/23/16 05:04 Total Counted 100 11/23/16 05:04 Seg Neutrophils % 72.8 % (40.0-70.0) H 11/24/16 05:23 Seg Neuts % (Manual) 83.0 % (40.0-70.0) H 11/23/16 05:04 Band Neutrophils % 1.0 % 11/23/16 05:04 Lymphocytes % (Manual) 8.0 % (13.4-35.0) L 11/23/16 05:04 Reactive Lymphs % (Man) 0 % 11/23/16 05:04 Monocytes % (Manual) 6.0 % (0.0-7.3) 11/23/16 05:04 Eosinophils % (Manual) 0 % (0.0-4.3) 11/23/16 05:04 Basophils % (Manual) 0 % (0.0-1.8) 11/23/16 05:04 Metamyelocytes % 2.0 % 11/23/16 05:04 Myelocytes % 0 % 11/23/16 05:04 Promyelocytes % 0 % 11/23/16 05:04 Blast Cells % 0 % 11/23/16 05:04 Nucleated RBC % Not Reportable 11/23/16 05:04 Seg Neutrophils # 4.5 K/mm3 (1.8-7.7) 11/24/16 05:23 Seg Neutrophils # Man 4.4 K/mm3 (1.8-7.7) 11/23/16 05:04 Band Neutrophils # 0.1 K/mm3 11/23/16 05:04 Abs Lymphs (Manual) 477 cells/uL (850-3900) L 11/21/16 15:46 Lymphocytes # (Manual) 0.4 K/mm3 (1.2-5.4) L 11/23/16 05:04 Abs React Lymphs (Man) 0.0 K/mm3 11/23/16 05:04 Monocytes # (Manual) 0.3 K/mm3 (0.0-0.8) 11/23/16 05:04 Eosinophils # (Manual) 0.0 K/mm3 (0.0-0.4) 11/23/16 05:04 Basophils # (Manual) 0.0 K/mm3 (0.0-0.1) 11/23/16 05:04 Metamyelocytes # 0.1 K/mm3 11/23/16 05:04 Myelocytes # 0.0 K/mm3 11/23/16 05:04 Promyelocytes # 0.0 K/mm3 11/23/16 05:04 Blast Cells # 0.0 K/mm3 11/23/16 05:04 WBC Morphology Not Reportable 11/23/16 05:04 Hypersegmented Neuts Not Reportable 11/23/16 05:04 Hyposegmented Neuts Not Reportable 11/23/16 05:04 Hypogranular Neuts Not Reportable 11/23/16 05:04 Smudge Cells Not Reportable 11/23/16 05:04 Toxic Granulation Not Reportable 11/23/16 05:04 Toxic Vacuolation Not Reportable 11/23/16 05:04 Dohle Bodies Not Reportable 11/23/16 05:04 Pelger-Huet Anomaly Not Reportable 11/23/16 05:04 Jeremy Rods Not Reportable 11/23/16 05:04 Platelet Estimate Consistent w auto 11/23/16 05:04 Clumped Platelets Not Reportable 11/23/16 05:04 Plt Clumps, EDTA Not Reportable 11/23/16 05:04 Large Platelets Not Reportable 11/23/16 05:04 Giant Platelets Not Reportable 11/23/16 05:04 Platelet Satelliting Not Reportable 11/23/16 05:04 Plt Morphology Comment Not Reportable 11/23/16 05:04 RBC Morphology Not Reportable 11/23/16 05:04 Dimorphic RBCs Not Reportable 11/23/16 05:04 Polychromasia Not Reportable 11/23/16 05:04 Hypochromasia 1+ 11/23/16 05:04 Poikilocytosis Not Reportable 11/23/16 05:04 Anisocytosis 1+ 11/23/16 05:04 Microcytosis Not Reportable 11/23/16 05:04 Macrocytosis Not Reportable 11/23/16 05:04 Spherocytes Not Reportable 11/23/16 05:04 Pappenheimer Bodies Not Reportable 11/23/16 05:04 Sickle Cells Not Reportable 11/23/16 05:04 Target Cells Few 11/23/16 05:04 Tear Drop Cells Not Reportable 11/23/16 05:04 Ovalocytes Not Reportable 11/23/16 05:04 Helmet Cells Not Reportable 11/23/16 05:04 Polanco-[place] Bodies Not Reportable 11/23/16 05:04 [place] Rings Not Reportable 11/23/16 05:04 [place] Cells Not Reportable 11/23/16 05:04 Bite Cells Not Reportable 11/23/16 05:04 Crenated Cell Not Reportable 11/23/16 05:04 Elliptocytes Few 11/23/16 05:04 Acanthocytes (Spur) Not Reportable 11/23/16 05:04 Rouleaux Not Reportable 11/23/16 05:04 Hemoglobin C Crystals Not Reportable 11/23/16 05:04 Schistocytes Not Reportable 11/23/16 05:04 Malaria parasites Not Reportable 11/23/16 05:04 Percent Retic 1.29 % (0.78-2.58) 11/21/16 15:46 Douglas Bodies Not Reportable 11/23/16 05:04 Hem Pathologist Commnt No 11/23/16 05:04 PT 14.2 Sec. (12.2-14.9) 11/24/16 00:52 INR 1.11 (0.87-1.13) 11/24/16 00:52 Sodium 135 mmol/L (137-145) L 11/24/16 05:23 Potassium 3.7 mmol/L (3.6-5.0) 11/24/16 05:23 Chloride 97.6 mmol/L (98-107) L 11/24/16 05:23 Carbon Dioxide 24 mmol/L (22-30) 11/24/16 05:23 Anion Gap 17 mmol/L 11/24/16 05:23 BUN 12 mg/dL (7-17) 11/24/16 05:23 Creatinine 0.6 mg/dL (0.7-1.2) L 11/24/16 05:23 Estimated GFR > 60 ml/min 11/24/16 05:23 BUN/Creatinine Ratio 20.00 % 11/24/16 05:23 Glucose 83 mg/dL (65-100) 11/24/16 05:23 Calcium 8.9 mg/dL (8.4-10.2) 11/24/16 05:23 Iron 21 ug/dL (37-170) L 11/21/16 15:46 TIBC 386 mcg/dL (250-450) 11/21/16 15:46 Ferritin 8.8 ng/mL (13.0-400.0) L 11/21/16 15:46 Total Bilirubin 0.4 mg/dL (0.1-1.2) 11/24/16 05:23 AST 63 units/L (5-40) H 11/24/16 05:23 ALT 68 units/L (7-56) H 11/24/16 05:23 Alkaline Phosphatase 137 units/L (35-129) H 11/24/16 05:23 Total Protein 9.0 g/dL (6.3-8.2) H 11/24/16 05:23 Albumin 3.6 g/dL (3.9-5) L 11/24/16 05:23 Albumin/Globulin Ratio 0.7 % 11/24/16 05:23 CA 27-29 32 U/mL (<38) 11/21/16 00:48 Lymph Enumerat CD4/CD8 0.26 (0.86-5.00) L 11/21/16 15:46 % CD3 Cells 74 % (57-85) 11/21/16 15:46 Absolute CD3 Count 355 cells/uL (840-3060) L 11/21/16 15:46 % CD4 Cells 16 % (30-61) L 11/21/16 15:46 Absolute CD4 Count 80 cells/uL (490-1740) L 11/21/16 15:46 % CD8 Cells 61 % (12-42) H 11/21/16 15:46 Absolute CD8 Count 304 cells/uL (180-1170) 11/21/16 15:46 % CD19 Cells 18 % (6-29) 11/21/16 15:46 Absolute CD19 Count 80 cells/uL (110-660) L 11/21/16 15:46 Hepatitis A IgM Ab -1 (NonReactive) 11/21/16 17:50 Hep Bs Antigen Non-reactive (Negative) 11/21/16 17:50 Hep B Core IgM Ab Non-reactive (NonReactive) 11/21/16 17:50 Hepatitis C Antibody Non-reactive (NonReactive) 11/21/16 17:50 HIV-1 RNA PCR copies/ml 24922 copies/mL (<20) H 11/21/16 17:50 HIV-1 RNA (PCR) log 4.61 Log cps/mL (<1.30) H 11/21/16 17:50 HIV 1&2 Antibody Rapid Reactive (Non React) 11/21/16 00:48 HIV P24 Antigen Non react (Non React) 11/21/16 00:48 Toxoplasma IgG Ab 2.25 (<=0.90) H 11/24/16 10:03 Toxoplasma IgM Ab Negative (Negative) 11/24/16 10:03 TB (QFT) Gold In Tube Negative (Negative) 11/25/16 04:26 TB Test (QFT) Nil 0.07 IU/mL 11/25/16 04:26 TB Test Mitogen - Nil 1.83 IU/mL 11/25/16 04:26 TB Test Antigen - Nil <0.00 IU/mL 11/25/16 04:26 Microbiology 11/23/16 13:02 Peripheral/Venous Blood Fungal Culture - Preliminary Culture in Progress 11/23/16 13:02 Peripheral/Venous Blood Fungal Culture - Preliminary Culture in Progress 11/23/16 Unknown Serum Cryptococcal Antigen - Final Objective - Labs CBC & Chem 7: 11/24/16 05:23 11/24/16 05:23
[2016-11-29] MEDS: PERCOCET 5/325 PO PRN ×2 (05:23→16:38)
[2016-11-29] MEDS: BACTRIM DS PO SCH (09:49)
[2016-11-29] MEDS ORDERED: DIFLUCAN PO ONE ×2 (09:49→15:00)
[2016-11-29] MEDS: FEOSOL PO SCH (09:49)
[2016-11-29] MEDS: KEPPRA PO SCH ×2 (09:49→22:04)
[2016-11-29] MEDS: DECADRON IV SCH ×2 (09:50→22:04)
[2016-11-29] MEDS: MIRALAX 3350 PO SCH (09:50)
[2016-11-29] MEDS: PROTONIX PO SCH (09:50)
[2016-11-29] MEDS: LOVENOX SUB-Q SCH (09:50)
--- NOTE | 2016-11-29 10:34 | Progress Note ---
Assessment and Plan Assessment and plan: 1. Brain lesions- -continue to taper IV steroids; f/u ID for work up to r/o opportunistic infection-toxo IgG positive, IgM-negative; cont seizure prophylaxis with keppra; awaiting consult with Dr. Rm Feliciano for evaluation of brain lesions. If consult lites done today will attempt to transfer patient tomorrow to the facility where she can have a brain biopsy 2. HIV positive AIDS- newly diagnosed- f/u ID for further recommendations; f/ u work up for opportunistic infections; ED for count is 80,000 3. Iron deficiency anemia- iron supplementation 4. Oral candidiasis with possible esophageal candidiasis-we'll start fluconazole DVT prophylaxis- heparin family updated at the bedside History Interval history: f/u lung mass and brain mets; HIV Patient seen at the bedside; daughter present; to reports that she keeps holding saliva in her mouth patient reports some difficulty swallowing Hospitalist Physical - Constitutional Vitals: Temp Pulse Resp BP Pulse Ox 97.7 F 90 20 113/63 99 11/29/16 10:12 11/29/16 10:12 11/29/16 10:12 11/29/16 10:12 11/29/16 10:12 General appearance: Present: no acute distress, cachectic - EENT Eyes: Present: PERRL, EOM intact. Absent: scleral icterus, conjunctival injection, exopthalmos ENT: hearing intact, clear oral mucosa, other (oral thrush), no oropharyngeal erythema, no poor dentition - Neck Neck: Present: supple, normal ROM. Absent: enlarged thyroid, masses or JVD - Respiratory Respiratory effort: normal Respiratory: negative: diminished, rales, rhonchi - Cardiovascular Rhythm: regular Heart Sounds: Present: S1 & S2. Absent: gallop - Extremities Extremities: no ischemia, pulses intact, pulses symmetrical, No edema Peripheral Pulses: within normal limits - Abdominal General gastrointestinal: soft, non-tender, non-distended - Integumentary Integumentary: Present: clear - Psychiatric Psychiatric: appropriate mood/affect, intact judgment & insight, cooperative - Neurologic Neurologic: CNII-XII intact, moves all extremities Results - Labs CBC & Chem 7: 11/24/16 05:23 11/24/16 05:23 Labs: Laboratory Last Values WBC 6.2 K/mm3 (4.5-11.0) 11/24/16 05:23 RBC 4.99 M/mm3 (3.65-5.03) 11/24/16 05:23 Hgb 9.8 gm/dl (10.1-14.3) L 11/24/16 05:23 Hct 31.6 % (30.3-42.9) 11/24/16 05:23 MCV 63 fl (79-97) L 11/24/16 05:23 MCH 20 pg (28-32) L 11/24/16 05:23 MCHC 31 % (30-34) 11/24/16 05:23 RDW 19.8 % (13.2-15.2) H 11/24/16 05:23 Plt Count 296 K/mm3 (140-440) 11/24/16 05:23 Lymph % (Auto) 13.3 % (13.4-35.0) L 11/24/16 05:23 [place] % (Auto) 10.4 % (0.0-7.3) H 11/24/16 05:23 Eos % (Auto) 3.2 % (0.0-4.3) 11/24/16 05:23 Baso % (Auto) 0.3 % (0.0-1.8) 11/24/16 05:23 Lymph # 0.8 K/mm3 (1.2-5.4) L 11/24/16 05:23 Morris # 0.6 K/mm3 (0.0-0.8) 11/24/16 05:23 Eos # 0.2 K/mm3 (0.0-0.4) 11/24/16 05:23 Baso # 0.0 K/mm3 (0.0-0.1) 11/24/16 05:23 Add Manual Diff Complete 11/23/16 05:04 Total Counted 100 11/23/16 05:04 Seg Neutrophils % 72.8 % (40.0-70.0) H 11/24/16 05:23 Seg Neuts % (Manual) 83.0 % (40.0-70.0) H 11/23/16 05:04 Band Neutrophils % 1.0 % 11/23/16 05:04 Lymphocytes % (Manual) 8.0 % (13.4-35.0) L 11/23/16 05:04 Reactive Lymphs % (Man) 0 % 11/23/16 05:04 Monocytes % (Manual) 6.0 % (0.0-7.3) 11/23/16 05:04 Eosinophils % (Manual) 0 % (0.0-4.3) 11/23/16 05:04 Basophils % (Manual) 0 % (0.0-1.8) 11/23/16 05:04 Metamyelocytes % 2.0 % 11/23/16 05:04 Myelocytes % 0 % 11/23/16 05:04 Promyelocytes % 0 % 11/23/16 05:04 Blast Cells % 0 % 11/23/16 05:04 Nucleated RBC % Not Reportable 11/23/16 05:04 Seg Neutrophils # 4.5 K/mm3 (1.8-7.7) 11/24/16 05:23 Seg Neutrophils # Man 4.4 K/mm3 (1.8-7.7) 11/23/16 05:04 Band Neutrophils # 0.1 K/mm3 11/23/16 05:04 Abs Lymphs (Manual) 477 cells/uL (850-3900) L 11/21/16 15:46 Lymphocytes # (Manual) 0.4 K/mm3 (1.2-5.4) L 11/23/16 05:04 Abs React Lymphs (Man) 0.0 K/mm3 11/23/16 05:04 Monocytes # (Manual) 0.3 K/mm3 (0.0-0.8) 11/23/16 05:04 Eosinophils # (Manual) 0.0 K/mm3 (0.0-0.4) 11/23/16 05:04 Basophils # (Manual) 0.0 K/mm3 (0.0-0.1) 11/23/16 05:04 Metamyelocytes # 0.1 K/mm3 11/23/16 05:04 Myelocytes # 0.0 K/mm3 11/23/16 05:04 Promyelocytes # 0.0 K/mm3 11/23/16 05:04 Blast Cells # 0.0 K/mm3 11/23/16 05:04 WBC Morphology Not Reportable 11/23/16 05:04 Hypersegmented Neuts Not Reportable 11/23/16 05:04 Hyposegmented Neuts Not Reportable 11/23/16 05:04 Hypogranular Neuts Not Reportable 11/23/16 05:04 Smudge Cells Not Reportable 11/23/16 05:04 Toxic Granulation Not Reportable 11/23/16 05:04 Toxic Vacuolation Not Reportable 11/23/16 05:04 Dohle Bodies Not Reportable 11/23/16 05:04 Pelger-Huet Anomaly Not Reportable 11/23/16 05:04 Jeremy Rods Not Reportable 11/23/16 05:04 Platelet Estimate Consistent w auto 11/23/16 05:04 Clumped Platelets Not Reportable 11/23/16 05:04 Plt Clumps, EDTA Not Reportable 11/23/16 05:04 Large Platelets Not Reportable 11/23/16 05:04 Giant Platelets Not Reportable 11/23/16 05:04 Platelet Satelliting Not Reportable 11/23/16 05:04 Plt Morphology Comment Not Reportable 11/23/16 05:04 RBC Morphology Not Reportable 11/23/16 05:04 Dimorphic RBCs Not Reportable 11/23/16 05:04 Polychromasia Not Reportable 11/23/16 05:04 Hypochromasia 1+ 11/23/16 05:04 Poikilocytosis Not Reportable 11/23/16 05:04 Anisocytosis 1+ 11/23/16 05:04 Microcytosis Not Reportable 11/23/16 05:04 Macrocytosis Not Reportable 11/23/16 05:04 Spherocytes Not Reportable 11/23/16 05:04 Pappenheimer Bodies Not Reportable 11/23/16 05:04 Sickle Cells Not Reportable 11/23/16 05:04 Target Cells Few 11/23/16 05:04 Tear Drop Cells Not Reportable 11/23/16 05:04 Ovalocytes Not Reportable 11/23/16 05:04 Helmet Cells Not Reportable 11/23/16 05:04 Polanco-[place] Bodies Not Reportable 11/23/16 05:04 [place] Rings Not Reportable 11/23/16 05:04 [place] Cells Not Reportable 11/23/16 05:04 Bite Cells Not Reportable 11/23/16 05:04 Crenated Cell Not Reportable 11/23/16 05:04 Elliptocytes Few 11/23/16 05:04 Acanthocytes (Spur) Not Reportable 11/23/16 05:04 Rouleaux Not Reportable 11/23/16 05:04 Hemoglobin C Crystals Not Reportable 11/23/16 05:04 Schistocytes Not Reportable 11/23/16 05:04 Malaria parasites Not Reportable 11/23/16 05:04 Percent Retic 1.29 % (0.78-2.58) 11/21/16 15:46 Douglas Bodies Not Reportable 11/23/16 05:04 Hem Pathologist Commnt No 11/23/16 05:04 PT 14.2 Sec. (12.2-14.9) 11/24/16 00:52 INR 1.11 (0.87-1.13) 11/24/16 00:52 Sodium 135 mmol/L (137-145) L 11/24/16 05:23 Potassium 3.7 mmol/L (3.6-5.0) 11/24/16 05:23 Chloride 97.6 mmol/L (98-107) L 11/24/16 05:23 Carbon Dioxide 24 mmol/L (22-30) 11/24/16 05:23 Anion Gap 17 mmol/L 11/24/16 05:23 BUN 12 mg/dL (7-17) 11/24/16 05:23 Creatinine 0.6 mg/dL (0.7-1.2) L 11/24/16 05:23 Estimated GFR > 60 ml/min 11/24/16 05:23 BUN/Creatinine Ratio 20.00 % 11/24/16 05:23 Glucose 83 mg/dL (65-100) 11/24/16 05:23 Calcium 8.9 mg/dL (8.4-10.2) 11/24/16 05:23 Iron 21 ug/dL (37-170) L 11/21/16 15:46 TIBC 386 mcg/dL (250-450) 11/21/16 15:46 Ferritin 8.8 ng/mL (13.0-400.0) L 11/21/16 15:46 Total Bilirubin 0.4 mg/dL (0.1-1.2) 11/24/16 05:23 AST 63 units/L (5-40) H 11/24/16 05:23 ALT 68 units/L (7-56) H 11/24/16 05:23 Alkaline Phosphatase 137 units/L (35-129) H 11/24/16 05:23 Total Protein 9.0 g/dL (6.3-8.2) H 11/24/16 05:23 Albumin 3.6 g/dL (3.9-5) L 11/24/16 05:23 Albumin/Globulin Ratio 0.7 % 11/24/16 05:23 CA 27-29 32 U/mL (<38) 11/21/16 00:48 Lymph Enumerat CD4/CD8 0.26 (0.86-5.00) L 11/21/16 15:46 % CD3 Cells 74 % (57-85) 11/21/16 15:46 Absolute CD3 Count 355 cells/uL (840-3060) L 11/21/16 15:46 % CD4 Cells 16 % (30-61) L 11/21/16 15:46 Absolute CD4 Count 80 cells/uL (490-1740) L 11/21/16 15:46 % CD8 Cells 61 % (12-42) H 11/21/16 15:46 Absolute CD8 Count 304 cells/uL (180-1170) 11/21/16 15:46 % CD19 Cells 18 % (6-29) 11/21/16 15:46 Absolute CD19 Count 80 cells/uL (110-660) L 11/21/16 15:46 Hepatitis A IgM Ab -1 (NonReactive) 11/21/16 17:50 Hep Bs Antigen Non-reactive (Negative) 11/21/16 17:50 Hep B Core IgM Ab Non-reactive (NonReactive) 11/21/16 17:50 Hepatitis C Antibody Non-reactive (NonReactive) 11/21/16 17:50 HIV-1 RNA PCR copies/ml 46304 copies/mL (<20) H 11/21/16 17:50 HIV-1 RNA (PCR) log 4.61 Log cps/mL (<1.30) H 11/21/16 17:50 HIV 1&2 Antibody Rapid Reactive (Non React) 11/21/16 00:48 HIV P24 Antigen Non react (Non React) 11/21/16 00:48 Toxoplasma IgG Ab 2.25 (<=0.90) H 11/24/16 10:03 Toxoplasma IgM Ab Negative (Negative) 11/24/16 10:03 TB (QFT) Gold In Tube Negative (Negative) 11/25/16 04:26 TB Test (QFT) Nil 0.07 IU/mL 11/25/16 04:26 TB Test Mitogen - Nil 1.83 IU/mL 11/25/16 04:26 TB Test Antigen - Nil <0.00 IU/mL 11/25/16 04:26 Microbiology 11/23/16 13:02 Peripheral/Venous Blood Fungal Culture - Preliminary Culture in Progress 11/23/16 13:02 Peripheral/Venous Blood Fungal Culture - Preliminary Culture in Progress 11/23/16 Unknown Serum Cryptococcal Antigen - Final
--- NOTE | 2016-11-29 12:55 | Progress Note ---
Subjective Date of service: 11/29/16 Interval history: Assessment and Plan 1. Brain lesions- -continue to taper IV steroids; f/u ID for work up to r/o opportunistic infection-toxo IgG positive, IgM-negative; cont seizure prophylaxis with keppra; awaiting consult with Dr. Rm Feliciano for evaluation of brain lesions. transfer patient tomorrow to the facility where she can have a brain biopsy if neurosurgeon not available here tomorrow. 2. HIV positive AIDS- newly diagnosed- f/u ID for further recommendations; f/ u work up for opportunistic infections; CD4 for count is 80,000 3. Iron deficiency anemia- iron supplementation to continue 4. Oral candidiasis with possible esophageal candidiasis- fluconazole. if no response then EGD /GI consult DVT prophylaxis- heparin 5) lung lesion bx benign- infectious? will need repeat CT chest in 6-8 weeks family updated at the bedside History Interval history: fatigue+. no melena. discussed the lung path results- test limitations and next steps etc questions answered f/u lung mass and brain mets; HIV Patient seen at the bedside; daughter present; to reports that she keeps holding saliva in her mouth patient reports some difficulty swallowing Hospitalist Physical - Constitutional Vitals: Temp Pulse Resp BP Pulse Ox 97.7 F 90 20 113/63 99 11/29/16 10:12 11/29/16 10:12 11/29/16 10:12 11/29/16 10:12 11/29/16 10:12 General appearance: Present: no acute distress, cachectic - EENT Eyes: Present: PERRL, EOM intact. Absent: scleral icterus, conjunctival injection, exopthalmos ENT: hearing intact, clear oral mucosa, other (oral thrush), no oropharyngeal erythema, no poor dentition - Neck Neck: Present: supple, normal ROM. Absent: enlarged thyroid, masses or JVD - Respiratory Respiratory effort: normal Respiratory: negative: diminished, rales, rhonchi - Cardiovascular Rhythm: regular Heart Sounds: Present: S1 & S2. Absent: gallop - Extremities Extremities: no ischemia, pulses intact, pulses symmetrical, No edema Peripheral Pulses: within normal limits - Abdominal General gastrointestinal: soft, non-tender, non-distended - Integumentary Integumentary: Present: clear - Psychiatric Psychiatric: appropriate mood/affect, intact judgment & insight, cooperative - Neurologic Neurologic: CNII-XII intact, moves all extremities Results - Labs CBC & Chem 7: 11/24/16 05:23 11/24/16 05:23 Labs: Laboratory Last Values WBC 6.2 K/mm3 (4.5-11.0) 11/24/16 05:23 RBC 4.99 M/mm3 (3.65-5.03) 11/24/16 05:23 Hgb 9.8 gm/dl (10.1-14.3) L 11/24/16 05:23 Hct 31.6 % (30.3-42.9) 11/24/16 05:23 MCV 63 fl (79-97) L 11/24/16 05:23 MCH 20 pg (28-32) L 11/24/16 05:23 MCHC 31 % (30-34) 11/24/16 05:23 RDW 19.8 % (13.2-15.2) H 11/24/16 05:23 Plt Count 296 K/mm3 (140-440) 11/24/16 05:23 Lymph % (Auto) 13.3 % (13.4-35.0) L 11/24/16 05:23 [place] % (Auto) 10.4 % (0.0-7.3) H 11/24/16 05:23 Eos % (Auto) 3.2 % (0.0-4.3) 11/24/16 05:23 Baso % (Auto) 0.3 % (0.0-1.8) 11/24/16 05:23 Lymph # 0.8 K/mm3 (1.2-5.4) L 11/24/16 05:23 [place] # 0.6 K/mm3 (0.0-0.8) 11/24/16 05:23 Eos # 0.2 K/mm3 (0.0-0.4) 11/24/16 05:23 Baso # 0.0 K/mm3 (0.0-0.1) 11/24/16 05:23 Add Manual Diff Complete 11/23/16 05:04 Total Counted 100 11/23/16 05:04 Seg Neutrophils % 72.8 % (40.0-70.0) H 11/24/16 05:23 Seg Neuts % (Manual) 83.0 % (40.0-70.0) H 11/23/16 05:04 Band Neutrophils % 1.0 % 11/23/16 05:04 Lymphocytes % (Manual) 8.0 % (13.4-35.0) L 11/23/16 05:04 Reactive Lymphs % (Man) 0 % 11/23/16 05:04 Monocytes % (Manual) 6.0 % (0.0-7.3) 11/23/16 05:04 Eosinophils % (Manual) 0 % (0.0-4.3) 11/23/16 05:04 Basophils % (Manual) 0 % (0.0-1.8) 11/23/16 05:04 Metamyelocytes % 2.0 % 11/23/16 05:04 Myelocytes % 0 % 11/23/16 05:04 Promyelocytes % 0 % 11/23/16 05:04 Blast Cells % 0 % 11/23/16 05:04 Nucleated RBC % Not Reportable 11/23/16 05:04 Seg Neutrophils # 4.5 K/mm3 (1.8-7.7) 11/24/16 05:23 Seg Neutrophils # Man 4.4 K/mm3 (1.8-7.7) 11/23/16 05:04 Band Neutrophils # 0.1 K/mm3 11/23/16 05:04 Abs Lymphs (Manual) 477 cells/uL (850-3900) L 11/21/16 15:46 Lymphocytes # (Manual) 0.4 K/mm3 (1.2-5.4) L 11/23/16 05:04 Abs React Lymphs (Man) 0.0 K/mm3 11/23/16 05:04 Monocytes # (Manual) 0.3 K/mm3 (0.0-0.8) 11/23/16 05:04 Eosinophils # (Manual) 0.0 K/mm3 (0.0-0.4) 11/23/16 05:04 Basophils # (Manual) 0.0 K/mm3 (0.0-0.1) 11/23/16 05:04 Metamyelocytes # 0.1 K/mm3 11/23/16 05:04 Myelocytes # 0.0 K/mm3 11/23/16 05:04 Promyelocytes # 0.0 K/mm3 11/23/16 05:04 Blast Cells # 0.0 K/mm3 11/23/16 05:04 WBC Morphology Not Reportable 11/23/16 05:04 Hypersegmented Neuts Not Reportable 11/23/16 05:04 Hyposegmented Neuts Not Reportable 11/23/16 05:04 Hypogranular Neuts Not Reportable 11/23/16 05:04 Smudge Cells Not Reportable 11/23/16 05:04 Toxic Granulation Not Reportable 11/23/16 05:04 Toxic Vacuolation Not Reportable 11/23/16 05:04 Dohle Bodies Not Reportable 11/23/16 05:04 Pelger-Huet Anomaly Not Reportable 11/23/16 05:04 Jeremy Rods Not Reportable 11/23/16 05:04 Platelet Estimate Consistent w auto 11/23/16 05:04 Clumped Platelets Not Reportable 11/23/16 05:04 Plt Clumps, EDTA Not Reportable 11/23/16 05:04 Large Platelets Not Reportable 11/23/16 05:04 Giant Platelets Not Reportable 11/23/16 05:04 Platelet Satelliting Not Reportable 11/23/16 05:04 Plt Morphology Comment Not Reportable 11/23/16 05:04 RBC Morphology Not Reportable 11/23/16 05:04 Dimorphic RBCs Not Reportable 11/23/16 05:04 Polychromasia Not Reportable 11/23/16 05:04 Hypochromasia 1+ 11/23/16 05:04 Poikilocytosis Not Reportable 11/23/16 05:04 Anisocytosis 1+ 11/23/16 05:04 Microcytosis Not Reportable 11/23/16 05:04 Macrocytosis Not Reportable 11/23/16 05:04 Spherocytes Not Reportable 11/23/16 05:04 Pappenheimer Bodies Not Reportable 11/23/16 05:04 Sickle Cells Not Reportable 11/23/16 05:04 Target Cells Few 11/23/16 05:04 Tear Drop Cells Not Reportable 11/23/16 05:04 Ovalocytes Not Reportable 11/23/16 05:04 Helmet Cells Not Reportable 11/23/16 05:04 Polanco-[place] Bodies Not Reportable 11/23/16 05:04 [place] Rings Not Reportable 11/23/16 05:04 [place] Cells Not Reportable 11/23/16 05:04 Bite Cells Not Reportable 11/23/16 05:04 Crenated Cell Not Reportable 11/23/16 05:04 Elliptocytes Few 11/23/16 05:04 Acanthocytes (Spur) Not Reportable 11/23/16 05:04 Rouleaux Not Reportable 11/23/16 05:04 Hemoglobin C Crystals Not Reportable 11/23/16 05:04 Schistocytes Not Reportable 11/23/16 05:04 Malaria parasites Not Reportable 11/23/16 05:04 Percent Retic 1.29 % (0.78-2.58) 11/21/16 15:46 Douglas Bodies Not Reportable 11/23/16 05:04 Hem Pathologist Commnt No 11/23/16 05:04 PT 14.2 Sec. (12.2-14.9) 11/24/16 00:52 INR 1.11 (0.87-1.13) 11/24/16 00:52 Sodium 135 mmol/L (137-145) L 11/24/16 05:23 Potassium 3.7 mmol/L (3.6-5.0) 11/24/16 05:23 Chloride 97.6 mmol/L (98-107) L 11/24/16 05:23 Carbon Dioxide 24 mmol/L (22-30) 11/24/16 05:23 Anion Gap 17 mmol/L 11/24/16 05:23 BUN 12 mg/dL (7-17) 11/24/16 05:23 Creatinine 0.6 mg/dL (0.7-1.2) L 11/24/16 05:23 Estimated GFR > 60 ml/min 11/24/16 05:23 BUN/Creatinine Ratio 20.00 % 11/24/16 05:23 Glucose 83 mg/dL (65-100) 11/24/16 05:23 Calcium 8.9 mg/dL (8.4-10.2) 11/24/16 05:23 Iron 21 ug/dL (37-170) L 11/21/16 15:46 TIBC 386 mcg/dL (250-450) 11/21/16 15:46 Ferritin 8.8 ng/mL (13.0-400.0) L 11/21/16 15:46 Total Bilirubin 0.4 mg/dL (0.1-1.2) 11/24/16 05:23 AST 63 units/L (5-40) H 11/24/16 05:23 ALT 68 units/L (7-56) H 11/24/16 05:23 Alkaline Phosphatase 137 units/L (35-129) H 11/24/16 05:23 Total Protein 9.0 g/dL (6.3-8.2) H 11/24/16 05:23 Albumin 3.6 g/dL (3.9-5) L 11/24/16 05:23 Albumin/Globulin Ratio 0.7 % 11/24/16 05:23 CA 27-29 32 U/mL (<38) 11/21/16 00:48 Lymph Enumerat CD4/CD8 0.26 (0.86-5.00) L 11/21/16 15:46 % CD3 Cells 74 % (57-85) 11/21/16 15:46 Absolute CD3 Count 355 cells/uL (840-3060) L 11/21/16 15:46 % CD4 Cells 16 % (30-61) L 11/21/16 15:46 Absolute CD4 Count 80 cells/uL (490-1740) L 11/21/16 15:46 % CD8 Cells 61 % (12-42) H 11/21/16 15:46 Absolute CD8 Count 304 cells/uL (180-1170) 11/21/16 15:46 % CD19 Cells 18 % (6-29) 11/21/16 15:46 Absolute CD19 Count 80 cells/uL (110-660) L 11/21/16 15:46 Hepatitis A IgM Ab -1 (NonReactive) 11/21/16 17:50 Hep Bs Antigen Non-reactive (Negative) 11/21/16 17:50 Hep B Core IgM Ab Non-reactive (NonReactive) 11/21/16 17:50 Hepatitis C Antibody Non-reactive (NonReactive) 11/21/16 17:50 HIV-1 RNA PCR copies/ml 97230 copies/mL (<20) H 11/21/16 17:50 HIV-1 RNA (PCR) log 4.61 Log cps/mL (<1.30) H 11/21/16 17:50 HIV 1&2 Antibody Rapid Reactive (Non React) 11/21/16 00:48 HIV P24 Antigen Non react (Non React) 11/21/16 00:48 Toxoplasma IgG Ab 2.25 (<=0.90) H 11/24/16 10:03 Toxoplasma IgM Ab Negative (Negative) 11/24/16 10:03 TB (QFT) Gold In Tube Negative (Negative) 11/25/16 04:26 TB Test (QFT) Nil 0.07 IU/mL 11/25/16 04:26 TB Test Mitogen - Nil 1.83 IU/mL 11/25/16 04:26 TB Test Antigen - Nil <0.00 IU/mL 11/25/16 04:26 Microbiology 11/23/16 13:02 Peripheral/Venous Blood Fungal Culture - Preliminary Culture in Progress 11/23/16 13:02 Peripheral/Venous Blood Fungal Culture - Preliminary Culture in Progress 11/23/16 Unknown Serum Cryptococcal Antigen - Final Objective - Constitutional Vitals: Vital Signs - 12hr 11/29/16 11/29/16 11/29/16 05:23 07:15 10:12 Temperature 97.7 F Pulse Rate [ 90 Right] Respiratory 18 16 20 Rate Blood Pressure 113/63 [Right Arm] O2 Sat by Pulse 99 Oximetry - Labs CBC & Chem 7: 11/24/16 05:23 11/24/16 05:23
--- NOTE | 2016-11-29 15:46 | Progress Note ---
Assessment and Plan Antibiotics: none Prophylaxis: 1) bactrim DS daily 2) zithromax 1200mg Qweek 3) fluconazole 150mg daily Immunosuppressants: Decadron 4 mg IV every 6 hours Imp: 1. Lung mass- ? Etiology - Thin needle biopsy reported negative for Ca. Further studies pending ( cryptococcal antigen negative) -the clinical picture of lung mass with brain lesions is suspicious of malignancy. I believe the lung biopsy might not have been adequate -Patient will need a definitive diagnosis, I am inclined to believe this is a malignant process in an immunocompromised patient 2. Brain mass, R/O mets. R/O opportunistic infection --toxoplasma Igm negative, IGG only indicates old exposure -obtain histoplasma and blastomyces antibodies -doubt nocardia, patient would be clinically ill 3. Headache 2/ #2 4. HIV/AIDS - CD4 Ct. 80; HIV VL 41,052 Rec: 1. obtain histoplasma and blastomyces serology 2. Will need to consider brain biopsy, lung biopsy not helpful 3. continue bactrim, zithromax prophylaxis 4. reconstitution of immune-system will be important in this patient, 5) Hiv genotype if not done already Subjective Date of service: 11/29/16 Principal diagnosis: HIV, lung mass, brain mets Interval history: Patient complains of headaches. Nurse noted that patient has ataxic gait Objective - Constitutional Vitals: Selected Entries 11/29/16 10:12 Temperature 97.7 F Pulse Rate [ 90 Right] Respiratory 20 Rate O2 Sat by Pulse 99 Oximetry Blood Pressure 113/63 [Right Arm] Blood Pressure 79 Mean [Right Arm ] General appearance: Present: no acute distress, cachectic - EENT Eyes: PERRL, EOM intact, no scleral icterus, no conjunctival injection ENT: hearing intact, clear oral mucosa, poor dentition - Neck Neck: supple, normal ROM, no enlarged thyroid, no masses or JVD - Respiratory Respiratory effort: normal Respiratory: bilateral: CTA - Breasts Breasts: deferred - Cardiovascular Rhythm: regular Heart Sounds: Present: S1 & S2 Extremities: no ischemia, normal temperature - Gastrointestinal General gastrointestinal: Present: soft, non-tender, normal bowel sounds Rectal Exam: deferred - Genitourinary Female genitourinary: deferred - Integumentary Integumentary: clear, warm, dry - Musculoskeletal Musculoskeletal: left sided weakness, generalized weakness - Psychiatric Psychiatric: cooperative, other (flat affect) - Labs CBC & Chem 7: 11/24/16 05:23 11/24/16 05:23 Labs: Microbiology 11/23/16 Unknown Serum Cryptococcal Antigen - Final 11/23/16 13:02 Peripheral/Venous Blood Fungal Culture - Preliminary Culture in Progress Laboratory Tests 11/21/16 11/21/16 11/24/16 15:46 17:50 05:23 WBC 6.2 Plt Count 296 Creatinine AST ALT Alkaline Phosphatase Absolute CD4 Count 80 L HIV-1 RNA PCR copies/ml 22307 H HIV-1 RNA (PCR) log 4.61 H Toxoplasma IgG Ab Toxoplasma IgM Ab 11/24/16 11/24/16 11/24/16 05:23 10:03 10:03 WBC Plt Count Creatinine 0.6 L AST 63 H ALT 68 H Alkaline Phosphatase 137 H Absolute CD4 Count HIV-1 RNA PCR copies/ml HIV-1 RNA (PCR) log Toxoplasma IgG Ab 2.25 H Toxoplasma IgM Ab Negative
[2016-11-29] MEDS: DILAUDID IM PRN (22:08)
[2016-11-30] MEDS: MIRALAX 3350 PO SCH (10:31)
[2016-11-30] MEDS: DECADRON IV SCH ×2 (10:32→23:49)
[2016-11-30] MEDS: PROTONIX PO SCH (10:32)
[2016-11-30] MEDS: DIFLUCAN PO SCH (10:32)
[2016-11-30] MEDS: KEPPRA PO SCH ×2 (10:32→23:49)
[2016-11-30] MEDS: FEOSOL PO SCH (10:32)
[2016-11-30] MEDS: BACTRIM DS PO SCH (10:32)
[2016-11-30] MEDS: LOVENOX SUB-Q SCH (10:33)
--- NOTE | 2016-11-30 10:41 | Progress Note ---
Assessment and Plan Antibiotics: none Prophylaxis: 1) bactrim DS daily 2) zithromax 1200mg Qweek 3) fluconazole 150mg daily Immunosuppressants: Decadron 4 mg IV every 6 hours Imp: 1. Lung mass- ? Etiology - Thin needle biopsy reported negative for Ca. Further studies pending ( cryptococcal antigen negative) -the clinical picture of lung mass with brain lesions is suspicious of malignancy. I believe the lung biopsy might not have been adequate -Patient will need a definitive diagnosis, I am inclined to believe this is a malignant process in an immunocompromised patient -need tissue, the lung tissue did not provide adequate data, possibly need a second biopsy or brain biopsy 2. Brain mass, R/O mets. R/O opportunistic infection --toxoplasma Igm negative, IGG only indicates old exposure -obtain histoplasma and blastomyces antibodies -doubt nocardia, patient would be clinically ill -need tissue to guide treatment 3. Headache 2/ #2 4. HIV/AIDS - CD4 Ct. 80; HIV VL 41,052 Rec: 1. follow up fungal serologies 2. Will need to consider brain biopsy, lung biopsy not helpful 3. continue bactrim, zithromax prophylaxis 4. reconstitution of immune-system will be important in this patient, 5) follow up HIV genotype 6) if biopsy can't be done here for adequate tissue, please transfer patient to a facility that can obtain adequate tissue for diagnosis Subjective Date of service: 11/30/16 Principal diagnosis: HIV, lung mass, brain mets Interval history: Patient seen in bed comfortable, she does complain of Objective - Exam Narrative Exam: Selected Entries 11/30/16 08:25 Temperature 97.7 F Pulse Rate [ 86 Right] Respiratory 20 Rate O2 Sat by Pulse 97 Oximetry Blood Pressure 119/80 [Right Arm] Blood Pressure 93 Mean [Right Arm ] - Constitutional General appearance: Present: no acute distress, cachectic - EENT Eyes: PERRL, EOM intact, no scleral icterus, no conjunctival injection - Neck Neck: supple, normal ROM, no enlarged thyroid, no masses or JVD - Respiratory Respiratory: bilateral: CTA - Breasts Breasts: deferred - Cardiovascular Rhythm: regular Heart Sounds: Present: S1 & S2 Extremities: no ischemia, No edema - Gastrointestinal General gastrointestinal: Present: soft, non-tender, normal bowel sounds - Musculoskeletal Musculoskeletal: left sided weakness - Neurologic Neurologic: moves all extremities - Psychiatric Psychiatric: cooperative - Labs CBC & Chem 7: 11/24/16 05:23 11/24/16 05:23
--- NOTE | 2016-11-30 10:41 | Progress Note ---
Assessment and Plan Assessment and plan: 1. Brain lesions- -continue to taper IV steroids; f/u ID for work up to r/o opportunistic infection-toxo IgG positive, IgM-negative; cont seizure prophylaxis with keppra; Contacted [facility] for possible transfer- I was told that they will called the floor to get the face sheet and will give me a call back. 2. HIV positive AIDS- newly diagnosed- f/u ID for further recommendations; f/ u work up for opportunistic infections; CD4 count 80,000 3. Iron deficiency anemia- iron supplementation 4. Oral candidiasis with possible esophageal candidiasis-cotn fluconazole 5.DVT prophylaxis- heparin History Interval history: f/u lung mass and brain mets; HIV Patient seen at the bedside; no complaints today, headache persists Hospitalist Physical - Constitutional Vitals: Temp Pulse Resp BP Pulse Ox 97.7 F 86 20 119/80 97 11/30/16 08:25 11/30/16 08:25 11/30/16 08:25 11/30/16 08:25 11/30/16 08:25 General appearance: Present: no acute distress, cachectic - EENT Eyes: Present: PERRL, EOM intact. Absent: scleral icterus, conjunctival injection ENT: hearing intact, thrush, other (oral thrush) - Neck Neck: Present: supple, normal ROM. Absent: enlarged thyroid, masses or JVD - Respiratory Respiratory effort: normal Respiratory: bilateral: diminished, negative: rales, rhonchi, wheezing - Cardiovascular Rhythm: regular Heart Sounds: Present: S1 & S2. Absent: gallop - Extremities Extremities: no ischemia, pulses intact, pulses symmetrical, No edema Peripheral Pulses: within normal limits - Abdominal General gastrointestinal: soft, non-tender, non-distended, normal bowel sounds - Integumentary Integumentary: Present: clear - Psychiatric Psychiatric: appropriate mood/affect, intact judgment & insight, cooperative Results - Labs CBC & Chem 7: 11/24/16 05:23 11/24/16 05:23 Labs: Laboratory Last Values WBC 6.2 K/mm3 (4.5-11.0) 11/24/16 05:23 RBC 4.99 M/mm3 (3.65-5.03) 11/24/16 05:23 Hgb 9.8 gm/dl (10.1-14.3) L 11/24/16 05:23 Hct 31.6 % (30.3-42.9) 11/24/16 05:23 MCV 63 fl (79-97) L 11/24/16 05:23 MCH 20 pg (28-32) L 11/24/16 05:23 MCHC 31 % (30-34) 11/24/16 05:23 RDW 19.8 % (13.2-15.2) H 11/24/16 05:23 Plt Count 296 K/mm3 (140-440) 11/24/16 05:23 Lymph % (Auto) 13.3 % (13.4-35.0) L 11/24/16 05:23 [place] % (Auto) 10.4 % (0.0-7.3) H 11/24/16 05:23 Eos % (Auto) 3.2 % (0.0-4.3) 11/24/16 05:23 Baso % (Auto) 0.3 % (0.0-1.8) 11/24/16 05:23 Lymph # 0.8 K/mm3 (1.2-5.4) L 11/24/16 05:23 [place] # 0.6 K/mm3 (0.0-0.8) 11/24/16 05:23 Eos # 0.2 K/mm3 (0.0-0.4) 11/24/16 05:23 Baso # 0.0 K/mm3 (0.0-0.1) 11/24/16 05:23 Add Manual Diff Complete 11/23/16 05:04 Total Counted 100 11/23/16 05:04 Seg Neutrophils % 72.8 % (40.0-70.0) H 11/24/16 05:23 Seg Neuts % (Manual) 83.0 % (40.0-70.0) H 11/23/16 05:04 Band Neutrophils % 1.0 % 11/23/16 05:04 Lymphocytes % (Manual) 8.0 % (13.4-35.0) L 11/23/16 05:04 Reactive Lymphs % (Man) 0 % 11/23/16 05:04 Monocytes % (Manual) 6.0 % (0.0-7.3) 11/23/16 05:04 Eosinophils % (Manual) 0 % (0.0-4.3) 11/23/16 05:04 Basophils % (Manual) 0 % (0.0-1.8) 11/23/16 05:04 Metamyelocytes % 2.0 % 11/23/16 05:04 Myelocytes % 0 % 11/23/16 05:04 Promyelocytes % 0 % 11/23/16 05:04 Blast Cells % 0 % 11/23/16 05:04 Nucleated RBC % Not Reportable 11/23/16 05:04 Seg Neutrophils # 4.5 K/mm3 (1.8-7.7) 11/24/16 05:23 Seg Neutrophils # Man 4.4 K/mm3 (1.8-7.7) 11/23/16 05:04 Band Neutrophils # 0.1 K/mm3 11/23/16 05:04 Abs Lymphs (Manual) 477 cells/uL (850-3900) L 11/21/16 15:46 Lymphocytes # (Manual) 0.4 K/mm3 (1.2-5.4) L 11/23/16 05:04 Abs React Lymphs (Man) 0.0 K/mm3 11/23/16 05:04 Monocytes # (Manual) 0.3 K/mm3 (0.0-0.8) 11/23/16 05:04 Eosinophils # (Manual) 0.0 K/mm3 (0.0-0.4) 11/23/16 05:04 Basophils # (Manual) 0.0 K/mm3 (0.0-0.1) 11/23/16 05:04 Metamyelocytes # 0.1 K/mm3 11/23/16 05:04 Myelocytes # 0.0 K/mm3 11/23/16 05:04 Promyelocytes # 0.0 K/mm3 11/23/16 05:04 Blast Cells # 0.0 K/mm3 11/23/16 05:04 WBC Morphology Not Reportable 11/23/16 05:04 Hypersegmented Neuts Not Reportable 11/23/16 05:04 Hyposegmented Neuts Not Reportable 11/23/16 05:04 Hypogranular Neuts Not Reportable 11/23/16 05:04 Smudge Cells Not Reportable 11/23/16 05:04 Toxic Granulation Not Reportable 11/23/16 05:04 Toxic Vacuolation Not Reportable 11/23/16 05:04 Dohle Bodies Not Reportable 11/23/16 05:04 Pelger-Huet Anomaly Not Reportable 11/23/16 05:04 Jeremy Rods Not Reportable 11/23/16 05:04 Platelet Estimate Consistent w auto 11/23/16 05:04 Clumped Platelets Not Reportable 11/23/16 05:04 Plt Clumps, EDTA Not Reportable 11/23/16 05:04 Large Platelets Not Reportable 11/23/16 05:04 Giant Platelets Not Reportable 11/23/16 05:04 Platelet Satelliting Not Reportable 11/23/16 05:04 Plt Morphology Comment Not Reportable 11/23/16 05:04 RBC Morphology Not Reportable 11/23/16 05:04 Dimorphic RBCs Not Reportable 11/23/16 05:04 Polychromasia Not Reportable 11/23/16 05:04 Hypochromasia 1+ 11/23/16 05:04 Poikilocytosis Not Reportable 11/23/16 05:04 Anisocytosis 1+ 11/23/16 05:04 Microcytosis Not Reportable 11/23/16 05:04 Macrocytosis Not Reportable 11/23/16 05:04 Spherocytes Not Reportable 11/23/16 05:04 Pappenheimer Bodies Not Reportable 11/23/16 05:04 Sickle Cells Not Reportable 11/23/16 05:04 Target Cells Few 11/23/16 05:04 Tear Drop Cells Not Reportable 11/23/16 05:04 Ovalocytes Not Reportable 11/23/16 05:04 Helmet Cells Not Reportable 11/23/16 05:04 [place] Bodies Not Reportable 11/23/16 05:04 [place] Rings Not Reportable 11/23/16 05:04 [place] Cells Not Reportable 11/23/16 05:04 Bite Cells Not Reportable 11/23/16 05:04 Crenated Cell Not Reportable 11/23/16 05:04 Elliptocytes Few 11/23/16 05:04 Acanthocytes (Spur) Not Reportable 11/23/16 05:04 Rouleaux Not Reportable 11/23/16 05:04 Hemoglobin C Crystals Not Reportable 11/23/16 05:04 Schistocytes Not Reportable 11/23/16 05:04 Malaria parasites Not Reportable 11/23/16 05:04 Percent Retic 1.29 % (0.78-2.58) 11/21/16 15:46 Douglas Bodies Not Reportable 11/23/16 05:04 Hem Pathologist Commnt No 11/23/16 05:04 PT 14.2 Sec. (12.2-14.9) 11/24/16 00:52 INR 1.11 (0.87-1.13) 11/24/16 00:52 Sodium 135 mmol/L (137-145) L 11/24/16 05:23 Potassium 3.7 mmol/L (3.6-5.0) 11/24/16 05:23 Chloride 97.6 mmol/L (98-107) L 11/24/16 05:23 Carbon Dioxide 24 mmol/L (22-30) 11/24/16 05:23 Anion Gap 17 mmol/L 11/24/16 05:23 BUN 12 mg/dL (7-17) 11/24/16 05:23 Creatinine 0.6 mg/dL (0.7-1.2) L 11/24/16 05:23 Estimated GFR > 60 ml/min 11/24/16 05:23 BUN/Creatinine Ratio 20.00 % 11/24/16 05:23 Glucose 83 mg/dL (65-100) 11/24/16 05:23 Calcium 8.9 mg/dL (8.4-10.2) 11/24/16 05:23 Iron 21 ug/dL (37-170) L 11/21/16 15:46 TIBC 386 mcg/dL (250-450) 11/21/16 15:46 Ferritin 8.8 ng/mL (13.0-400.0) L 11/21/16 15:46 Total Bilirubin 0.4 mg/dL (0.1-1.2) 11/24/16 05:23 AST 63 units/L (5-40) H 11/24/16 05:23 ALT 68 units/L (7-56) H 11/24/16 05:23 Alkaline Phosphatase 137 units/L (35-129) H 11/24/16 05:23 Total Protein 9.0 g/dL (6.3-8.2) H 11/24/16 05:23 Albumin 3.6 g/dL (3.9-5) L 11/24/16 05:23 Albumin/Globulin Ratio 0.7 % 11/24/16 05:23 CA 27-29 32 U/mL (<38) 11/21/16 00:48 Lymph Enumerat CD4/CD8 0.26 (0.86-5.00) L 11/21/16 15:46 % CD3 Cells 74 % (57-85) 11/21/16 15:46 Absolute CD3 Count 355 cells/uL (840-3060) L 11/21/16 15:46 % CD4 Cells 16 % (30-61) L 11/21/16 15:46 Absolute CD4 Count 80 cells/uL (490-1740) L 11/21/16 15:46 % CD8 Cells 61 % (12-42) H 11/21/16 15:46 Absolute CD8 Count 304 cells/uL (180-1170) 11/21/16 15:46 % CD19 Cells 18 % (6-29) 11/21/16 15:46 Absolute CD19 Count 80 cells/uL (110-660) L 11/21/16 15:46 Hepatitis A IgM Ab -1 (NonReactive) 11/21/16 17:50 Hep Bs Antigen Non-reactive (Negative) 11/21/16 17:50 Hep B Core IgM Ab Non-reactive (NonReactive) 11/21/16 17:50 Hepatitis C Antibody Non-reactive (NonReactive) 11/21/16 17:50 HIV-1 RNA PCR copies/ml 87954 copies/mL (<20) H 11/21/16 17:50 HIV-1 RNA (PCR) log 4.61 Log cps/mL (<1.30) H 11/21/16 17:50 HIV 1&2 Antibody Rapid Reactive (Non React) 11/21/16 00:48 HIV P24 Antigen Non react (Non React) 11/21/16 00:48 Toxoplasma IgG Ab 2.25 (<=0.90) H 11/24/16 10:03 Toxoplasma IgM Ab Negative (Negative) 11/24/16 10:03 TB (QFT) Gold In Tube Negative (Negative) 11/25/16 04:26 TB Test (QFT) Nil 0.07 IU/mL 11/25/16 04:26 TB Test Mitogen - Nil 1.83 IU/mL 11/25/16 04:26 TB Test Antigen - Nil <0.00 IU/mL 11/25/16 04:26
[2016-11-30] MEDS: DILAUDID IM PRN ×2 (17:23→23:44)
--- NOTE | 2016-11-30 18:15 | Event Note ---
Date: 11/30/16 Patient not accepted by [facility]; spoke with neurosx at [facility] who recommended getting a large volume LP and sending it for flow cytometry; if this does not offer any diagnosis then he will be willing to accept her at [facility]; /wed with Dr. Mata - he is agreeable with the LP and he will order the exact tests that need to be done on the fluid; will consult IR for LP in the a.m; check coags
[2016-12-01 06:08] LABS: Basophils % (Auto) 0.2 % (0.0-1.8); Eosinophils % (Auto) 0.4 % (0.0-4.3); Hematocrit 33.6 % (30.3-42.9); Hemoglobin 10.8 gm/dl (10.1-14.3); Mean Corpuscular HGB Conc 32 % (30-34); Red Blood Count 5.37 M/mm3 (3.65-5.03); White Blood Count 8.5 K/mm3 (4.5-11.0)
[2016-12-01 06:18] LABS: INR 1.01 (0.87-1.13); Mean Corpuscular Hemoglobin 20 pg (28-32); Mean Corpuscular Volume 63 fl (79-97); Platelet Count 372 K/mm3 (140-440); Red Cell Distribution Width 20.5 % (13.2-15.2)
[2016-12-01 07:21] LABS: Anion Gap 20 mmol/L; Blood Urea Nitrogen 14 mg/dL (7-17); Calcium 9.3 mg/dL (8.4-10.2); Carbon Dioxide 22 mmol/L (22-30); Chloride 93.1 mmol/L (98-107); Glucose 134 mg/dL (65-100); Potassium 4.7 mmol/L (3.6-5.0); Sodium 130 mmol/L (137-145)
--- NOTE | 2016-12-01 09:57 | Progress Note ---
Assessment and Plan Antibiotics: none Prophylaxis: 1) bactrim DS daily 2) zithromax 1200mg Qweek 3) fluconazole 150mg daily Immunosuppressants: Decadron 4 mg IV every 6 hours Imp: 1. Lung mass- ? Etiology - Thin needle biopsy reported negative for Ca. Further studies pending ( cryptococcal antigen negative) -the clinical picture of lung mass with brain lesions is suspicious of malignancy. I believe the lung biopsy might not have been adequate -Patient will need a definitive diagnosis, I am inclined to believe this is a malignant process in an immunocompromised patient -need tissue --lumbar puncture was performed in an effort to obtain diagnosis 2. Brain mass, R/O mets. R/O opportunistic infection --toxoplasma Igm negative, IGG only indicates old exposure -obtain histoplasma and blastomyces antibodies -doubt nocardia, patient would be clinically ill -need tissue to guide treatment --lumbar puncture done today 3. Headache / #2 4. HIV/AIDS - CD4 Ct. 80; HIV VL [id number] Rec: 1. follow up fungal serologies 2. lumbar puncture done: Cell count, total protein, glucose, LDH, ADA ( adenosine deaminase),crypt antigen, AFB smear and culture, Ryland virus DNA PCR, and cytology 3. continue bactrim, zithromax prophylaxis 4. reconstitution of immune-system will be important in this patient, 5) follow up HIV genotype 6) If CSF is not diagnostic will need to get a biopsy Subjective Date of service: 12/01/16 Principal diagnosis: HIV, lung mass, brain mets Interval history: Patient seen in bed, she roports that she is feeling better. Her headache is improving Objective - Constitutional Vitals: Selected Entries 12/01/16 08:00 Temperature 98.1 F Pulse Rate [ 76 Right] Respiratory 18 Rate O2 Sat by Pulse 100 Oximetry General appearance: Present: no acute distress, well-nourished - EENT Eyes: PERRL, EOM intact, no scleral icterus, no conjunctival injection ENT: hearing intact, clear oral mucosa - Neck Neck: supple, normal ROM, no enlarged thyroid, no masses or JVD - Respiratory Respiratory effort: normal Respiratory: bilateral: CTA - Breasts Breasts: deferred - Cardiovascular Rhythm: regular Extremities: no ischemia, pulses intact, No edema, normal temperature - Gastrointestinal General gastrointestinal: Present: deferred Rectal Exam: deferred - Genitourinary Female genitourinary: deferred - Integumentary Integumentary: clear, warm, dry, no jaundice, no rash - Musculoskeletal Musculoskeletal: strength equal bilaterally - Psychiatric Psychiatric: depressed - Labs CBC & Chem 7: 12/01/16 05:53 12/01/16 05:53 Labs: Microbiology 11/23/16 Unknown Serum Cryptococcal Antigen - Final 11/23/16 13:02 Peripheral/Venous Blood Fungal Culture - Final 11/23/16 13:02 Peripheral/Venous Blood Fungal Culture - Preliminary No Fungus Isolated At 1 week Laboratory Tests 11/21/16 11/21/16 11/24/16 15:46 17:50 10:03 WBC Plt Count Creatinine Estimated GFR Absolute CD4 Count 80 L HIV-1 RNA PCR copies/ml 17395 H HIV-1 RNA (PCR) log 4.61 H Toxoplasma IgG Ab 2.25 H 12/01/16 12/01/16 05:53 05:53 WBC 8.5 Plt Count 372 Creatinine 0.5 L Estimated GFR > 60 Absolute CD4 Count HIV-1 RNA PCR copies/ml HIV-1 RNA (PCR) log Toxoplasma IgG Ab
[2016-12-01 10:09] LABS: Appearance,CSF Clear; White Blood Cell,CSF 35 /mm3 (1-10)
[2016-12-01 10:12] LABS: Basophils CSF 0 %
[2016-12-01] MEDS: KEPPRA PO SCH ×2 (10:30→22:35)
[2016-12-01] MEDS: DIFLUCAN PO SCH (10:30)
[2016-12-01] MEDS: BACTRIM DS PO SCH (10:30)
[2016-12-01] MEDS: PROTONIX PO SCH (10:30)
[2016-12-01] MEDS: FEOSOL PO SCH (10:30)
[2016-12-01] MEDS: MIRALAX 3350 PO SCH (10:31)
[2016-12-01] MEDS: DECADRON IV SCH ×2 (10:31→22:35)
[2016-12-01] MEDS: LOVENOX SUB-Q SCH (10:31)
[2016-12-01 11:20] LABS: LDH,Body Fluid 118
[2016-12-01 12:14] LABS: Glucose,CSF 77 mg/dL
--- NOTE | 2016-12-01 15:59 | Progress Note ---
Assessment and Plan Assessment and plan: Patient is a 55-year-old female who moved to the [facility] from [facility] in 07/2016 and was admitted to [facility] on 11/20/16 with a severe headache. MRI shows multiple brain lesions consistent with metastatic disease. Rapid HIV test is positive. She states that she had been tested and [facility] and was always told that she was "negative." The only infection she is unaware of having had in the past is typhoid fever. She is unsure whether she has any risk factors for HIV infection. According to her and her family she has not lost significant weight over the last several months. * Multiple brain lesions concerning for metastatic disease * Lung mass * HIV/AIDS * Hyponatremia * Oral candidiasis with possible esophageal candidiasis * Headache secondary to brain mass Plan * Multiple attempts to transfer the patient was unsuccessful as the plan and process for possible [place] transfer but they are requesting CSF studies done first. This has been done today, results pending including cytology * Continue seizure prophylaxis with Keppra * ID input appreciated. Her IgG was positive but IgM is negative * Continue fluconazole, , Bactrim DS, Zithromax Decadron 4 mg IV every 6 hours * The patient possibly will need a repeat biopsy possible VATS study get better sample of the long lesion but before this will repeat the chest CT to ensure this is not atalectasis * Incentive spirometer * Monitor sodium level * Discussed with Nursing staff about ambulating patient. * Blood cultures are negative so far. * dvt/gi prophy History Interval history: f/u lung mass and brain mets; HIV Patient seen and examined this morning in no acute distress except for reported headache, otherwise weak and lethargic appearing Denies any chest pain, nausea, vomiting, diarrhea No fever noted blood pressure controlled No adverse events reported to me by nursing staff Hospitalist Physical - Physical exam Narrative exam: VITAL SIGNS: Reviewed. GENERAL: The patient appeared well nourished and normally developed. Vital signs as documented. HEAD: No signs of head trauma. EYES: Pupils are equal. Extraocular motions intact. EARS: Hearing grossly intact. MOUTH: Oropharynx is normal. NECK: No adenopathy, no JVD. CHEST: Chest with clear breath sounds bilaterally. No wheezes, rales, or rhonchi. CARDIAC: Regular rate and rhythm. S1 and S2, without murmurs, gallops, or rubs. VASCULAR: No Edema. Peripheral pulses normal and equal in all extremities. ABDOMEN: Soft, without detectable tenderness. No sign of distention. No rebound or guarding, and no masses palpated. Bowel Sounds normal. MUSCULOSKELETAL: Left-sided weakness with decreased muscle strength. Otherwise good range of motion of all major joints. Extremities without clubbing, cyanosis or edema. NEUROLOGIC EXAM: Alert and oriented x 3. Left-sided weakness. Speech normal. Follows commands. PSYCHIATRIC: Mood normal. SKIN: No rash or lesions. - Constitutional Vitals: Temp Pulse Resp BP Pulse Ox 98.1 F 76 18 124/74 100 12/01/16 08:00 12/01/16 08:00 12/01/16 08:00 11/30/16 23:55 12/01/16 08:00 General appearance: Present: no acute distress, well-nourished Results - Labs CBC & Chem 7: 12/01/16 05:53 12/01/16 05:53 Labs: Laboratory Last Values WBC 8.5 K/mm3 (4.5-11.0) 12/01/16 05:53 RBC 5.37 M/mm3 (3.65-5.03) H 12/01/16 05:53 Hgb 10.8 gm/dl (10.1-14.3) 12/01/16 05:53 Hct 33.6 % (30.3-42.9) 12/01/16 05:53 MCV 63 fl (79-97) L 12/01/16 05:53 MCH 20 pg (28-32) L 12/01/16 05:53 MCHC 32 % (30-34) 12/01/16 05:53 RDW 20.5 % (13.2-15.2) H 12/01/16 05:53 Plt Count 372 K/mm3 (140-440) 12/01/16 05:53 Lymph % (Auto) 8.6 % (13.4-35.0) L 12/01/16 05:53 [place]bert % (Auto) 4.1 % (0.0-7.3) 12/01/16 05:53 Eos % (Auto) 0.4 % (0.0-4.3) 12/01/16 05:53 Baso % (Auto) 0.2 % (0.0-1.8) 12/01/16 05:53 Lymph # 0.7 K/mm3 (1.2-5.4) L 12/01/16 05:53 [place]bert # 0.3 K/mm3 (0.0-0.8) 12/01/16 05:53 Eos # 0.0 K/mm3 (0.0-0.4) 12/01/16 05:53 Baso # 0.0 K/mm3 (0.0-0.1) 12/01/16 05:53 Add Manual Diff Complete 11/23/16 05:04 Total Counted 100 11/23/16 05:04 Seg Neutrophils % 86.7 % (40.0-70.0) H 12/01/16 05:53 Seg Neuts % (Manual) 83.0 % (40.0-70.0) H 11/23/16 05:04 Band Neutrophils % 1.0 % 11/23/16 05:04 Lymphocytes % (Manual) 8.0 % (13.4-35.0) L 11/23/16 05:04 Reactive Lymphs % (Man) 0 % 11/23/16 05:04 Monocytes % (Manual) 6.0 % (0.0-7.3) 11/23/16 05:04 Eosinophils % (Manual) 0 % (0.0-4.3) 11/23/16 05:04 Basophils % (Manual) 0 % (0.0-1.8) 11/23/16 05:04 Metamyelocytes % 2.0 % 11/23/16 05:04 Myelocytes % 0 % 11/23/16 05:04 Promyelocytes % 0 % 11/23/16 05:04 Blast Cells % 0 % 11/23/16 05:04 Nucleated RBC % Not Reportable 11/23/16 05:04 Seg Neutrophils # 7.3 K/mm3 (1.8-7.7) 12/01/16 05:53 Seg Neutrophils # Man 4.4 K/mm3 (1.8-7.7) 11/23/16 05:04 Band Neutrophils # 0.1 K/mm3 11/23/16 05:04 Abs Lymphs (Manual) 477 cells/uL (850-3900) L 11/21/16 15:46 Lymphocytes # (Manual) 0.4 K/mm3 (1.2-5.4) L 11/23/16 05:04 Abs React Lymphs (Man) 0.0 K/mm3 11/23/16 05:04 Monocytes # (Manual) 0.3 K/mm3 (0.0-0.8) 11/23/16 05:04 Eosinophils # (Manual) 0.0 K/mm3 (0.0-0.4) 11/23/16 05:04 Basophils # (Manual) 0.0 K/mm3 (0.0-0.1) 11/23/16 05:04 Metamyelocytes # 0.1 K/mm3 11/23/16 05:04 Myelocytes # 0.0 K/mm3 11/23/16 05:04 Promyelocytes # 0.0 K/mm3 11/23/16 05:04 Blast Cells # 0.0 K/mm3 11/23/16 05:04 WBC Morphology Not Reportable 11/23/16 05:04 Hypersegmented Neuts Not Reportable 11/23/16 05:04 Hyposegmented Neuts Not Reportable 11/23/16 05:04 Hypogranular Neuts Not Reportable 11/23/16 05:04 Smudge Cells Not Reportable 11/23/16 05:04 Toxic Granulation Not Reportable 11/23/16 05:04 Toxic Vacuolation Not Reportable 11/23/16 05:04 Dohle Bodies Not Reportable 11/23/16 05:04 Pelger-Huet Anomaly Not Reportable 11/23/16 05:04 Jeremy Rods Not Reportable 11/23/16 05:04 Platelet Estimate Consistent w auto 11/23/16 05:04 Clumped Platelets Not Reportable 11/23/16 05:04 Plt Clumps, EDTA Not Reportable 11/23/16 05:04 Large Platelets Not Reportable 11/23/16 05:04 Giant Platelets Not Reportable 11/23/16 05:04 Platelet Satelliting Not Reportable 11/23/16 05:04 Plt Morphology Comment Not Reportable 11/23/16 05:04 RBC Morphology Not Reportable 11/23/16 05:04 Dimorphic RBCs Not Reportable 11/23/16 05:04 Polychromasia Not Reportable 11/23/16 05:04 Hypochromasia 1+ 11/23/16 05:04 Poikilocytosis Not Reportable 11/23/16 05:04 Anisocytosis 1+ 11/23/16 05:04 Microcytosis Not Reportable 11/23/16 05:04 Macrocytosis Not Reportable 11/23/16 05:04 Spherocytes Not Reportable 11/23/16 05:04 Pappenheimer Bodies Not Reportable 11/23/16 05:04 Sickle Cells Not Reportable 11/23/16 05:04 Target Cells Few 11/23/16 05:04 Tear Drop Cells Not Reportable 11/23/16 05:04 Ovalocytes Not Reportable 11/23/16 05:04 Helmet Cells Not Reportable 11/23/16 05:04 Polanco-[place] Bodies Not Reportable 11/23/16 05:04 [place] Rings Not Reportable 11/23/16 05:04 [place] Cells Not Reportable 11/23/16 05:04 Bite Cells Not Reportable 11/23/16 05:04 Crenated Cell Not Reportable 11/23/16 05:04 Elliptocytes Few 11/23/16 05:04 Acanthocytes (Spur) Not Reportable 11/23/16 05:04 Rouleaux Not Reportable 11/23/16 05:04 Hemoglobin C Crystals Not Reportable 11/23/16 05:04 Schistocytes Not Reportable 11/23/16 05:04 Malaria parasites Not Reportable 11/23/16 05:04 Percent Retic 1.29 % (0.78-2.58) 11/21/16 15:46 Douglas Bodies Not Reportable 11/23/16 05:04 Hem Pathologist Commnt No 11/23/16 05:04 PT 13.2 Sec. (12.2-14.9) 12/01/16 05:53 INR 1.01 (0.87-1.13) 12/01/16 05:53 APTT 31.0 Sec. (24.2-36.6) 12/01/16 05:53 Sodium 130 mmol/L (137-145) L 12/01/16 05:53 Potassium 4.7 mmol/L (3.6-5.0) 12/01/16 05:53 Chloride 93.1 mmol/L (98-107) L 12/01/16 05:53 Carbon Dioxide 22 mmol/L (22-30) 12/01/16 05:53 Anion Gap 20 mmol/L 12/01/16 05:53 BUN 14 mg/dL (7-17) 12/01/16 05:53 Creatinine 0.5 mg/dL (0.7-1.2) L 12/01/16 05:53 Estimated GFR > 60 ml/min 12/01/16 05:53 BUN/Creatinine Ratio 28.00 % 12/01/16 05:53 Glucose 134 mg/dL (65-100) H 12/01/16 05:53 Calcium 9.3 mg/dL (8.4-10.2) 12/01/16 05:53 Iron 21 ug/dL (37-170) L 11/21/16 15:46 TIBC 386 mcg/dL (250-450) 11/21/16 15:46 Ferritin 8.8 ng/mL (13.0-400.0) L 11/21/16 15:46 Total Bilirubin 0.4 mg/dL (0.1-1.2) 11/24/16 05:23 AST 63 units/L (5-40) H 11/24/16 05:23 ALT 68 units/L (7-56) H 11/24/16 05:23 Alkaline Phosphatase 137 units/L (35-129) H 11/24/16 05:23 Lactate Dehydrogenase 118 units/L (91-180) 12/01/16 05:50 Total Protein 9.0 g/dL (6.3-8.2) H 11/24/16 05:23 Albumin 3.6 g/dL (3.9-5) L 11/24/16 05:23 Albumin/Globulin Ratio 0.7 % 11/24/16 05:23 CA 27-29 32 U/mL (<38) 11/21/16 00:48 Fluid LDH 118 12/01/16 08:45 CSF Appearance Clear 12/01/16 08:45 CSF Color Colorless 12/01/16 08:45 CSF WBC 35 /mm3 (1-10) 12/01/16 08:45 CSF RBC 3 /mm3 (0-0) 12/01/16 08:45 CSF Seg Neutrophils 0 % (0-6) 12/01/16 08:45 CSF Lymphocytes % 90.0 % (40-80) 12/01/16 08:45 CSF Reactive Lymphs 2.0 % 12/01/16 08:45 CSF Monocytes % 8.0 % (15-45) 12/01/16 08:45 CSF Eosinophils % 0 % 12/01/16 08:45 CSF Basophils 0 % 12/01/16 08:45 CSF Comment See add'l comments 12/01/16 08:45 CSF Pathologist Review 12/01/16 08:45 CSF Glucose 77 mg/dL 12/01/16 08:45 CSF Total Protein 32 mg/dL 12/01/16 08:45 Lymph Enumerat CD4/CD8 0.26 (0.86-5.00) L 11/21/16 15:46 % CD3 Cells 74 % (57-85) 11/21/16 15:46 Absolute CD3 Count 355 cells/uL (840-3060) L 11/21/16 15:46 % CD4 Cells 16 % (30-61) L 11/21/16 15:46 Absolute CD4 Count 80 cells/uL (490-1740) L 11/21/16 15:46 % CD8 Cells 61 % (12-42) H 11/21/16 15:46 Absolute CD8 Count 304 cells/uL (180-1170) 11/21/16 15:46 % CD19 Cells 18 % (6-29) 11/21/16 15:46 Absolute CD19 Count 80 cells/uL (110-660) L 11/21/16 15:46 Hepatitis A IgM Ab -1 (NonReactive) 11/21/16 17:50 Hep Bs Antigen Non-reactive (Negative) 11/21/16 17:50 Hep B Core IgM Ab Non-reactive (NonReactive) 11/21/16 17:50 Hepatitis C Antibody Non-reactive (NonReactive) 11/21/16 17:50 HIV-1 RNA PCR copies/ml 95707 copies/mL (<20) H 11/21/16 17:50 HIV-1 RNA (PCR) log 4.61 Log cps/mL (<1.30) H 11/21/16 17:50 HIV-1 Genotyping see below 11/21/16 15:46 HIV 1&2 Antibody Rapid Reactive (Non React) 11/21/16 00:48 HIV P24 Antigen Non react (Non React) 11/21/16 00:48 Toxoplasma IgG Ab 2.25 (<=0.90) H 11/24/16 10:03 Toxoplasma IgM Ab Negative (Negative) 11/24/16 10:03 TB (QFT) Gold In Tube Negative (Negative) 11/25/16 04:26 TB Test (QFT) Nil 0.07 IU/mL 11/25/16 04: TB Test Mitogen - Nil 1.83 IU/mL 11/25/16 04: TB Test Antigen - Nil <0.00 IU/mL 11/25/16 04:26 Lumbar puncture CSF fluid was reviewed
[2016-12-01] MEDS: DILAUDID IM PRN (19:04)
[2016-12-02] MEDS: PERCOCET 5/325 PO PRN ×2 (08:23→14:11)
--- NOTE | 2016-12-02 08:30 | Fluoroscopy Report ---
FLUOROSCOPY LUMBAR PUNCTURE: HISTORY: Brain lesions, HIV. DESCRIPTION OF PROCEDURE: Informed consent was obtained. Sterile technique was utilized. 1% lidocaine for skin anesthesia. Using fluoroscopy guidance, a spinal needle was advanced into the L3-4 interspace. There was spontaneous return of clear CSF. Approximately 6 cc of CSF fluid was collected in 4 tubes. The samples were sent to the laboratory for analysis per the ordering physician's request. No complications. IMPRESSION: Successful lumbar puncture at L3-4, as described.
--- NOTE | 2016-12-02 09:23 | Progress Note ---
Assessment and Plan Antibiotics: none Prophylaxis: 1) bactrim DS daily 2) zithromax 1200mg Qweek 3) fluconazole 150mg daily Immunosuppressants: Decadron 4 mg IV every 6 hours Imp: 1. Lung mass- ? Etiology - Thin needle biopsy reported negative for Ca. Further studies pending ( cryptococcal antigen negative) -the clinical picture of lung mass with brain lesions is suspicious of malignancy. I believe the lung biopsy might not have been adequate -Patient will need a definitive diagnosis, I am inclined to believe this is a malignant process in an immunocompromised patient -lumbar punture cell count without significant findings, wbc 35 with 90% lymphs. --cytology was not done, I went to the laboratory and asked for the remaining sample to be submitted for cytolog 2. Brain mass, R/O mets. R/O opportunistic infection --toxoplasma Igm negative, IGG only indicates old exposure -obtain histoplasma and blastomyces antibodies -doubt nocardia, patient would be clinically ill -need tissue to guide treatment 3. Headache 2/ #2 4. HIV/AIDS - CD4 Ct. 80; HIV VL 41,052 -genotype without resistance, would like to start treatment but would like to know underlying diagnosis of lung and brain mass. Rec: 1. follow up fungal serologies 2. follow up cytology of CSF, discussed with lab today 3. follow up CSF AFB, ADA, RYAN virus 4. continue bactrim, zithromax prophylaxis 5. reconstitution of immune-system will be important in this patient, 6. will need biopsy (tissue) for diagnosis Subjective Date of service: 12/02/16 Principal diagnosis: HIV, lung mass, brain mets Interval history: Patient complains on continued headache, she does walk and drag her left side Objective - Constitutional Vitals: Selected Entries 12/01/16 12/01/16 16:00 23:16 Temperature 98.3 F Pulse Rate [ 78 From Monitor] Pulse Rate [ 95 H Right] Respiratory 18 Rate O2 Sat by Pulse 98 Oximetry Blood Pressure 116/77 [Left Arm] Blood Pressure 90 Mean [Left Arm] General appearance: Present: no acute distress, well-nourished - EENT Eyes: EOM intact, no scleral icterus, no conjunctival injection ENT: hearing intact, clear oral mucosa, poor dentition - Neck Neck: supple, normal ROM, no enlarged thyroid, no masses or JVD - Respiratory Respiratory effort: normal Respiratory: bilateral: CTA - Breasts Breasts: deferred - Cardiovascular Rhythm: regular Heart Sounds: Present: S1 & S2 Extremities: no ischemia, No edema - Gastrointestinal General gastrointestinal: Present: soft, non-tender Rectal Exam: deferred - Genitourinary Female genitourinary: deferred - Integumentary Integumentary: clear, warm, dry, no jaundice, no rash - Musculoskeletal Musculoskeletal: strength equal bilaterally (upper extremities), left sided weakness (lower extremity) - Neurologic Neurologic: other (abnormal gait, patient walk and drag her left leg) - Labs CBC & Chem 7: 12/01/16 05:53 12/01/16 05:53 Labs: Microbiology 12/01/16 Unknown Cerebral Spinal Fluid Cryptococcal Antigen - Final Laboratory Tests 11/25/16 12/01/16 12/01/16 04:26 05:53 08:45 WBC 8.5 Plt Count 372 CSF WBC 35 CSF RBC 3 CSF Lymphocytes % 90.0 CSF Glucose CSF Total Protein TB (QFT) Gold In Tube Negative 12/01/16 08:45 WBC Plt Count CSF WBC CSF RBC CSF Lymphocytes % CSF Glucose 77 CSF Total Protein 32 TB (QFT) Gold In Tube
--- NOTE | 2016-12-02 10:38 | Procedure Note ---
Date of procedure: 12/01/16 Pre-op diagnosis: altered mental status, brain mass vs infection Post-op diagnosis: same Procedure: Lumbar puncture under flouroscopy Anesthesia: local Surgeon: MARY JANE KAPADIA Estimated blood loss: none Pathology: list (4 tubes of CSF) Specimen disposition: to lab Condition: stable Disposition: floor
[2016-12-02] MEDS: FEOSOL PO SCH (11:32)
[2016-12-02] MEDS: DIFLUCAN PO SCH (11:32)
[2016-12-02] MEDS: KEPPRA PO SCH ×2 (11:32→21:55)
[2016-12-02] MEDS: ZITHROMAX PO SCH (11:32)
[2016-12-02] MEDS: DECADRON IV SCH ×2 (11:32→21:55)
[2016-12-02] MEDS: LOVENOX SUB-Q SCH (11:33)
[2016-12-02] MEDS: MIRALAX 3350 PO SCH (11:33)
[2016-12-02] MEDS: PROTONIX PO SCH (11:34)
--- NOTE | 2016-12-02 13:12 | Progress Note ---
Assessment and Plan Assessment and plan: Patient is a 55-year-old female who moved to the [facility] from [facility] in 07/2016 and was admitted to [facility] on 11/20/16 with a severe headache. MRI shows multiple brain lesions consistent with metastatic disease. Rapid HIV test is positive. She states that she had been tested and [facility] and was always told that she was "negative." The only infection she is unaware of having had in the past is typhoid fever. She is unsure whether she has any risk factors for HIV infection. According to her and her family she has not lost significant weight over the last several months. * Multiple brain lesions concerning for metastatic disease * Lung mass * HIV/AIDS * Hyponatremia * Oral candidiasis with possible esophageal candidiasis * Headache secondary to brain mass * Left hemiparesis-requiring assistance with ambulation Plan * CSF fluids not diagnostic at this point. Of place the call Dr. Sunny Hylton for transfer for definitive biopsy and diagnosis. * Multiple attempts to transfer the patient was unsuccessful as the plan and process for possible Sunny transfer but they are requesting CSF studies done first. results pending including cytology * Continue seizure prophylaxis with Keppra * ID input appreciated. Her IgG was positive but IgM is negative * Continue fluconazole, , Bactrim DS, Zithromax Decadron 4 mg IV every 6 hours * The patient possibly will need a repeat biopsy possible VATS study get better sample of the long lesion but before this will repeat the chest CT to ensure this is not atalectasis * Incentive spirometer * Monitor sodium level * Continue daily physical therapy. * Blood cultures are negative so far. * dvt/gi prophy * Discussed case with Dr. Delarosa History Interval history: f/u lung mass and brain mets; HIV Patient seen and examined this morning in no acute distress except for reported headache, otherwise weak and lethargic appearing, still requiring assistance with ambulation Denies any chest pain, nausea, vomiting, diarrhea No fever noted blood pressure controlled No adverse events reported to me by nursing staff Hospitalist Physical - Physical exam Narrative exam: VITAL SIGNS: Reviewed. GENERAL: The patient appeared well nourished and normally developed. Vital signs as documented. HEAD: No signs of head trauma. EYES: Pupils are equal. Extraocular motions intact. EARS: Hearing grossly intact. MOUTH: Oropharynx is normal. NECK: No adenopathy, no JVD. CHEST: Chest with clear breath sounds bilaterally. No wheezes, rales, or rhonchi. CARDIAC: Regular rate and rhythm. S1 and S2, without murmurs, gallops, or rubs. VASCULAR: No Edema. Peripheral pulses normal and equal in all extremities. ABDOMEN: Soft, without detectable tenderness. No sign of distention. No rebound or guarding, and no masses palpated. Bowel Sounds normal. MUSCULOSKELETAL: Left-sided weakness with decreased muscle strength. Otherwise good range of motion of all major joints. Extremities without clubbing, cyanosis or edema. NEUROLOGIC EXAM: Alert and oriented x 3. Left-sided weakness. Speech normal. Follows commands. PSYCHIATRIC: Mood normal. SKIN: No rash or lesions. - Constitutional Vitals: Temp Pulse Resp BP Pulse Ox 98 F 80 20 121/76 98 12/02/16 07:20 12/02/16 07:20 12/02/16 07:20 12/02/16 07:20 12/02/16 07:20 General appearance: Present: no acute distress, well-nourished Results - Labs CBC & Chem 7: 12/01/16 05:53 12/01/16 05:53 Labs: Laboratory Last Values WBC 8.5 K/mm3 (4.5-11.0) 12/01/16 05:53 RBC 5.37 M/mm3 (3.65-5.03) H 12/01/16 05:53 Hgb 10.8 gm/dl (10.1-14.3) 12/01/16 05:53 Hct 33.6 % (30.3-42.9) 12/01/16 05:53 MCV 63 fl (79-97) L 12/01/16 05:53 MCH 20 pg (28-32) L 12/01/16 05:53 MCHC 32 % (30-34) 12/01/16 05:53 RDW 20.5 % (13.2-15.2) H 12/01/16 05:53 Plt Count 372 K/mm3 (140-440) 12/01/16 05:53 Lymph % (Auto) 8.6 % (13.4-35.0) L 12/01/16 05:53 Williams % (Auto) 4.1 % (0.0-7.3) 12/01/16 05:53 Eos % (Auto) 0.4 % (0.0-4.3) 12/01/16 05:53 Baso % (Auto) 0.2 % (0.0-1.8) 12/01/16 05:53 Lymph # 0.7 K/mm3 (1.2-5.4) L 12/01/16 05:53 Williams # 0.3 K/mm3 (0.0-0.8) 12/01/16 05:53 Eos # 0.0 K/mm3 (0.0-0.4) 12/01/16 05:53 Baso # 0.0 K/mm3 (0.0-0.1) 12/01/16 05:53 Add Manual Diff Complete 11/23/16 05:04 Total Counted 100 11/23/16 05:04 Seg Neutrophils % 86.7 % (40.0-70.0) H 12/01/16 05:53 Seg Neuts % (Manual) 83.0 % (40.0-70.0) H 11/23/16 05:04 Band Neutrophils % 1.0 % 11/23/16 05:04 Lymphocytes % (Manual) 8.0 % (13.4-35.0) L 11/23/16 05:04 Reactive Lymphs % (Man) 0 % 11/23/16 05:04 Monocytes % (Manual) 6.0 % (0.0-7.3) 11/23/16 05:04 Eosinophils % (Manual) 0 % (0.0-4.3) 11/23/16 05:04 Basophils % (Manual) 0 % (0.0-1.8) 11/23/16 05:04 Metamyelocytes % 2.0 % 11/23/16 05:04 Myelocytes % 0 % 11/23/16 05:04 Promyelocytes % 0 % 11/23/16 05:04 Blast Cells % 0 % 11/23/16 05:04 Nucleated RBC % Not Reportable 11/23/16 05:04 Seg Neutrophils # 7.3 K/mm3 (1.8-7.7) 12/01/16 05:53 Seg Neutrophils # Man 4.4 K/mm3 (1.8-7.7) 11/23/16 05:04 Band Neutrophils # 0.1 K/mm3 11/23/16 05:04 Abs Lymphs (Manual) 477 cells/uL (850-3900) L 11/21/16 15:46 Lymphocytes # (Manual) 0.4 K/mm3 (1.2-5.4) L 11/23/16 05:04 Abs React Lymphs (Man) 0.0 K/mm3 11/23/16 05:04 Monocytes # (Manual) 0.3 K/mm3 (0.0-0.8) 11/23/16 05:04 Eosinophils # (Manual) 0.0 K/mm3 (0.0-0.4) 11/23/16 05:04 Basophils # (Manual) 0.0 K/mm3 (0.0-0.1) 11/23/16 05:04 Metamyelocytes # 0.1 K/mm3 11/23/16 05:04 Myelocytes # 0.0 K/mm3 11/23/16 05:04 Promyelocytes # 0.0 K/mm3 11/23/16 05:04 Blast Cells # 0.0 K/mm3 11/23/16 05:04 WBC Morphology Not Reportable 11/23/16 05:04 Hypersegmented Neuts Not Reportable 11/23/16 05:04 Hyposegmented Neuts Not Reportable 11/23/16 05:04 Hypogranular Neuts Not Reportable 11/23/16 05:04 Smudge Cells Not Reportable 11/23/16 05:04 Toxic Granulation Not Reportable 11/23/16 05:04 Toxic Vacuolation Not Reportable 11/23/16 05:04 Dohle Bodies Not Reportable 11/23/16 05:04 Pelger-Huet Anomaly Not Reportable 11/23/16 05:04 Jeremy Rods Not Reportable 11/23/16 05:04 Platelet Estimate Consistent w auto 11/23/16 05:04 Clumped Platelets Not Reportable 11/23/16 05:04 Plt Clumps, EDTA Not Reportable 11/23/16 05:04 Large Platelets Not Reportable 11/23/16 05:04 Giant Platelets Not Reportable 11/23/16 05:04 Platelet Satelliting Not Reportable 11/23/16 05:04 Plt Morphology Comment Not Reportable 11/23/16 05:04 RBC Morphology Not Reportable 11/23/16 05:04 Dimorphic RBCs Not Reportable 11/23/16 05:04 Polychromasia Not Reportable 11/23/16 05:04 Hypochromasia 1+ 11/23/16 05:04 Poikilocytosis Not Reportable 11/23/16 05:04 Anisocytosis 1+ 11/23/16 05:04 Microcytosis Not Reportable 11/23/16 05:04 Macrocytosis Not Reportable 11/23/16 05:04 Spherocytes Not Reportable 11/23/16 05:04 Pappenheimer Bodies Not Reportable 11/23/16 05:04 Sickle Cells Not Reportable 11/23/16 05:04 Target Cells Few 11/23/16 05:04 Tear Drop Cells Not Reportable 11/23/16 05:04 Ovalocytes Not Reportable 11/23/16 05:04 Helmet Cells Not Reportable 11/23/16 05:04 Polanco-Robeline Bodies Not Reportable 11/23/16 05:04 [place] Rings Not Reportable 11/23/16 05:04 Dawson Cells Not Reportable 11/23/16 05:04 Bite Cells Not Reportable 11/23/16 05:04 Crenated Cell Not Reportable 11/23/16 05:04 Elliptocytes Few 11/23/16 05:04 Acanthocytes (Spur) Not Reportable 11/23/16 05:04 Rouleaux Not Reportable 11/23/16 05:04 Hemoglobin C Crystals Not Reportable 11/23/16 05:04 Schistocytes Not Reportable 11/23/16 05:04 Malaria parasites Not Reportable 11/23/16 05:04 Percent Retic 1.29 % (0.78-2.58) 11/21/16 15:46 Douglas Bodies Not Reportable 11/23/16 05:04 Hem Pathologist Commnt No 11/23/16 05:04 PT 13.2 Sec. (12.2-14.9) 12/01/16 05:53 INR 1.01 (0.87-1.13) 12/01/16 05:53 APTT 31.0 Sec. (24.2-36.6) 12/01/16 05:53 Sodium 130 mmol/L (137-145) L 12/01/16 05:53 Potassium 4.7 mmol/L (3.6-5.0) 12/01/16 05:53 Chloride 93.1 mmol/L (98-107) L 12/01/16 05:53 Carbon Dioxide 22 mmol/L (22-30) 12/01/16 05:53 Anion Gap 20 mmol/L 12/01/16 05:53 BUN 14 mg/dL (7-17) 12/01/16 05:53 Creatinine 0.5 mg/dL (0.7-1.2) L 12/01/16 05:53 Estimated GFR > 60 ml/min 12/01/16 05:53 BUN/Creatinine Ratio 28.00 % 12/01/16 05:53 Glucose 134 mg/dL (65-100) H 12/01/16 05:53 Calcium 9.3 mg/dL (8.4-10.2) 12/01/16 05:53 Iron 21 ug/dL (37-170) L 11/21/16 15:46 TIBC 386 mcg/dL (250-450) 11/21/16 15:46 Ferritin 8.8 ng/mL (13.0-400.0) L 11/21/16 15:46 Total Bilirubin 0.4 mg/dL (0.1-1.2) 11/24/16 05:23 AST 63 units/L (5-40) H 11/24/16 05:23 ALT 68 units/L (7-56) H 11/24/16 05:23 Alkaline Phosphatase 137 units/L (35-129) H 11/24/16 05:23 Lactate Dehydrogenase 118 units/L (91-180) 12/01/16 05:50 Total Protein 9.0 g/dL (6.3-8.2) H 11/24/16 05:23 Albumin 3.6 g/dL (3.9-5) L 11/24/16 05:23 Albumin/Globulin Ratio 0.7 % 11/24/16 05:23 CA 27-29 32 U/mL (<38) 11/21/16 00:48 Fluid LDH 118 12/01/16 08:45 CSF Appearance Clear 12/01/16 08:45 CSF Color Colorless 12/01/16 08:45 CSF WBC 35 /mm3 (1-10) 12/01/16 08:45 CSF RBC 3 /mm3 (0-0) 12/01/16 08:45 CSF Seg Neutrophils 0 % (0-6) 12/01/16 08:45 CSF Lymphocytes % 90.0 % (40-80) 12/01/16 08:45 CSF Reactive Lymphs 2.0 % 12/01/16 08:45 CSF Monocytes % 8.0 % (15-45) 12/01/16 08:45 CSF Eosinophils % 0 % 12/01/16 08:45 CSF Basophils 0 % 12/01/16 08:45 CSF Comment See add'l comments 12/01/16 08:45 CSF Pathologist Review 12/01/16 08:45 CSF Glucose 77 mg/dL 12/01/16 08:45 CSF Total Protein 32 mg/dL 12/01/16 08:45 Lymph Enumerat CD4/CD8 0.26 (0.86-5.00) L 11/21/16 15:46 % CD3 Cells 74 % (57-85) 11/21/16 15:46 Absolute CD3 Count 355 cells/uL (840-3060) L 11/21/16 15:46 % CD4 Cells 16 % (30-61) L 11/21/16 15:46 Absolute CD4 Count 80 cells/uL (490-1740) L 11/21/16 15:46 % CD8 Cells 61 % (12-42) H 11/21/16 15:46 Absolute CD8 Count 304 cells/uL (180-1170) 11/21/16 15:46 % CD19 Cells 18 % (6-29) 11/21/16 15:46 Absolute CD19 Count 80 cells/uL (110-660) L 11/21/16 15:46 Hepatitis A IgM Ab -1 (NonReactive) 11/21/16 17:50 Hep Bs Antigen Non-reactive (Negative) 11/21/16 17:50 Hep B Core IgM Ab Non-reactive (NonReactive) 11/21/16 17:50 Hepatitis C Antibody Non-reactive (NonReactive) 11/21/16 17:50 HIV-1 RNA PCR copies/ml 93222 copies/mL (<20) H 11/21/16 17:50 HIV-1 RNA (PCR) log 4.61 Log cps/mL (<1.30) H 11/21/16 17:50 HIV-1 Genotyping see below 11/21/16 15:46 HIV 1&2 Antibody Rapid Reactive (Non React) 11/21/16 00:48 HIV P24 Antigen Non react (Non React) 11/21/16 00:48 Toxoplasma IgG Ab 2.25 (<=0.90) H 11/24/16 10:03 Toxoplasma IgM Ab Negative (Negative) 11/24/16 10:03 TB (QFT) Gold In Tube Negative (Negative) 11/25/16 04:26 TB Test (QFT) Nil 0.07 IU/mL 11/25/16 04:26 TB Test Mitogen - Nil 1.83 IU/mL 11/25/16 04:26 TB Test Antigen - Nil <0.00 IU/mL 11/25/16 04:26
[2016-12-02] MEDS: BACTRIM DS PO SCH (14:11)
[2016-12-02] MEDS: DILAUDID IM PRN (19:43)
[2016-12-03 06:42] LABS: Anion Gap 20 mmol/L; Blood Urea Nitrogen 19 mg/dL (7-17); Calcium 8.9 mg/dL (8.4-10.2); Carbon Dioxide 23 mmol/L (22-30); Chloride 90.6 mmol/L (98-107); Glucose 116 mg/dL (65-100); Potassium 4.1 mmol/L (3.6-5.0); Sodium 129 mmol/L (137-145)
[2016-12-03] MEDS: PERCOCET 5/325 PO PRN ×2 (08:49→20:46)
[2016-12-03] MEDS: LOVENOX SUB-Q SCH (09:01)
[2016-12-03] MEDS: DIFLUCAN PO SCH (09:01)
[2016-12-03] MEDS: BACTRIM DS PO SCH (09:01)
[2016-12-03] MEDS: PROTONIX PO SCH (09:01)
[2016-12-03] MEDS: KEPPRA PO SCH ×2 (09:01→21:01)
[2016-12-03] MEDS: FEOSOL PO SCH (09:01)
[2016-12-03] MEDS: DECADRON IV SCH ×2 (09:01→21:01)
[2016-12-03] MEDS: MIRALAX 3350 PO SCH (09:02)
--- NOTE | 2016-12-03 10:03 | Progress Note ---
Assessment and Plan Antibiotics: none Prophylaxis: 1) bactrim DS daily 2) zithromax 1200mg Qweek 3) fluconazole 150mg daily Immunosuppressants: Decadron 4 mg IV every 6 hours Imp: 1. Lung mass- Etiology remains unclear - Thin needle biopsy reported negative for Cancer -the clinical picture of lung mass with brain lesions is suspicious of malignancy. I believe the lung biopsy might not have been adequate -Patient will need a definitive surgical procedure to obtain adequate tissue either from the brain lesions or lung -lumbar punture cell count without significant findings, wbc 35 with 90% lymphs. --csf cytology with atypical cell, discussed with pathology. More CSF fluid needed to do flow cytometry 2. Brain mass, R/O mets. R/O opportunistic infection --toxoplasma Igm negative, IGG only indicates old exposure - histoplasma and blastomyces antibodies sent -doubt nocardia, doesnt fit the clinical picture -need tissue to guide treatment 3. Headache secondary to #2 4. HIV/AIDS - CD4 Ct. 80; HIV VL 41,052 -genotype without resistance, would like to start treatment but would like to know underlying diagnosis of lung and brain lesions Rec: 1. follow up fungal serologies 2. No new results available to aid with diagnosis 3. follow up CSF AFB, ADA, RYAN virus 4. continue bactrim, zithromax prophylaxis 5. reconstitution of immune-system will be important in this patient, 6. will need biopsy (tissue) for diagnosis Subjective Date of service: 12/03/16 Principal diagnosis: HIV, lung mass, brain mets Interval history: Patient reports that her headache is better today, her speech remains slow. Objective - Constitutional Vitals: Selected Entries 12/03/16 12/03/16 00:13 08:49 Temperature 98.7 F Pulse Rate [ 70 Right] Respiratory 18 Rate O2 Sat by Pulse 98 Oximetry Blood Pressure 109/73 [Right Arm] Blood Pressure 85 Mean [Right Arm ] General appearance: Present: no acute distress, cachectic - EENT Eyes: PERRL, EOM intact, no scleral icterus, no conjunctival injection ENT: hearing intact, clear oral mucosa, poor dentition - Neck Neck: supple, normal ROM, no enlarged thyroid, no masses or JVD - Respiratory Respiratory effort: normal Respiratory: bilateral: CTA - Breasts Breasts: deferred - Cardiovascular Rhythm: regular Heart Sounds: Present: S1 & S2 Extremities: no ischemia, pulses intact, normal temperature - Gastrointestinal General gastrointestinal: Present: soft, non-tender, normal bowel sounds Rectal Exam: deferred - Genitourinary Female genitourinary: deferred - Integumentary Integumentary: clear, warm, dry, no jaundice, no rash - Musculoskeletal Musculoskeletal: left sided weakness - Neurologic Neurologic: moves all extremities - Psychiatric Psychiatric: depressed, other (flat affect, slow speech) - Labs CBC & Chem 7: 12/01/16 05:53 12/04/16 05:12 Labs: Abnormal lab results 12/03/16 Range/Units 05:33 Sodium 129 L (137-145) mmol/L Chloride 90.6 L (98-107) mmol/L BUN 19 H (7-17) mg/dL Creatinine 0.4 L (0.7-1.2) mg/dL Glucose 116 H (65-100) mg/dL
--- NOTE | 2016-12-03 16:05 | Discharge Summary ---
Providers - Providers Date of Admission: 11/20/16 12:45 Date of discharge: 12/05/16 Attending physician: JAGDEEP TOUSSAINT MD 11/20/16 14:17 Consult to Physician [CONS] Routine Consulting Provider: BRANDI SKINNER Reason For Exam: Brain mets Place consult to:: DR. SKINNER Notified:: OFFICE Phone number called:: [phone] Was contact made?: Yes If yes, spoke with:: YADIRA Time called:: 15:47 11/21/16 07:30 Consult to Physician [CONS] Urgent Consulting Provider: BRANDI SKINNER Reason For Exam: Brain mass Place consult to:: Gabriella Notified:: Answering service Phone number called:: [phone] Was contact made?: Yes If yes, spoke with:: Tolu Time called:: 07:38 11/21/16 17:08 Consult to Physician [CONS] Routine Consulting Provider: LUZ AUGUSTINE Reason For Exam: positive HIV test/metastatic lung cancer Place consult to:: er. escamilla Notified:: answering service Phone number called:: Was contact made?: Yes If yes, spoke with:: jose angel Time called:: 18:00 11/22/16 15:09 Occupational Therapy Evaluate and Treat [CONS] Routine Comment: Reason For Exam: muscular deconditioning Physical Therapy Evaluation and Treat [CONS] Routine Comment: Reason For Exam: muscular deconditioning 11/22/16 15:11 Consult to Interventional Radiology [CONS] Routine Consulting Provider: WESTON MARRERO Reason For Exam: Lung mass, brain metastases, needs lung biopsy. Place consult to:: dr. marrero Notified:: answering service Phone number called:: Was contact made?: Yes If yes, spoke with:: madisyn Time called:: 15:27 Comment:: spoke with dr. garza follow up 11/26/16 11:16 Consult to Physician [CONS] Routine Consulting Provider: LEX GIPSON Reason For Exam: multiple brain lesions Place consult to:: DR. GIPSON Notified:: OFFICE Phone number called:: [phone] Was contact made?: Yes If yes, spoke with:: FRANCHESKA Time called:: 12:04 Comment:: NADIR NOTIFIED Primary care physician: SYNTHETIC FILAMENT SPINNER Hospitalization Reason for admission: severe headache, left sided weakness Condition: Fair Hospital course: Patient is a 55-year-old female who moved to the [place] from [facility] in 07/2016 and was admitted to [facility] on 11/20/16 with a severe headache. MRI shows multiple brain lesions consistent with metastatic disease. Rapid HIV test is positive. She states that she had been tested and [facility] and was always told that she was "negative." The only infection she is unaware of having had in the past is typhoid fever. She is unsure whether she has any risk factors for HIV infection. According to her and her family she has not lost significant weight over the last several months. patient on imaging has multiple mass in the brain, Lumbar pucture was unremarkable, unfortunately not enough sample for cytology. We did speak with [facility] again today and they were willing to accept the patient for Neurosurgical eval. The patient has continued on antibiotics while in house. Patient continued to receive physical therapy but requires 2 people assist. will transfer once bed available. A repeat lumbar puncture was done and cytology is pending at this time. The thoracic surgery was consulted and they agreed not while the patient is high risk for VATS that this will probably give low yield and neurosurgical services should be pursued first. We did discuss possibility of toxoplasmosis with ID and he felt that the patient's MRI presentation did not correspond with toxoplasmosis. Patient has noted below was started on prophylactic treatment. Also due to concern about follow- up antiretrovirals were started at this time. patient transfered to [facility] for Neurosurgical evaluation. While at our facility continued with daily PT/OT. and antibiotics. Infectious disease input is as noted below. Imp: 1. Lung mass- Etiology remains unclear - Thin needle biopsy reported negative for Cancer -the clinical picture of lung mass with brain lesions is suspicious of malignancy. I believe the lung biopsy might not have been adequate -Patient will need a definitive surgical procedure to obtain adequate tissue either from the brain lesions or lung -lumbar punture cell count without significant findings, wbc 35 with 90% lymphs. --cytology without guidance 2. Brain mass, R/O mets. R/O opportunistic infection --toxoplasma Igm negative, IGG only indicates old exposure - histoplasma and blastomyces antibodies sent -doubt nocardia, doesnt fit the clinical picture -need tissue to guide treatment 3. Headache secondary to #2 4. HIV/AIDS - CD4 Ct. 80; HIV VL 41,052 -genotype without resistance, would like to start treatment but would like to know underlying diagnosis of lung and brain lesions Prophylaxis: 1) bactrim DS daily 2) zithromax 1200mg Qweek 3) fluconazole 150mg daily Immunosuppressants: Decadron 4 mg IV every 6 hours Pending studies follow up CSF AFB, ADA, RYAN virus Discharge diagnosis * Multiple brain lesions concerning for metastatic disease, r/o opportunistic infection * Lung mass * HIV/AIDS * Hyponatremia * Oral candidiasis with possible esophageal candidiasis * Intractable Headache secondary to brain mass * Left hemiparesis Disposition: DC/TX SHORT-TERM GEN HOSP INPT Time spent for discharge: 35 mins Core Measure Documentation - Palliative Care Palliative Care/ Comfort Measures: Not Applicable - Core Measures Any of the following diagnoses?: none - VTE Discharge Requirements Deep Vein Thrombosis/Pulmonary Embolism Present on Admission: No Exam - Physical Exam Narrative exam: VITAL SIGNS: Reviewed. GENERAL: The patient appeared well nourished and normally developed. Vital signs as documented. HEAD: No signs of head trauma. EYES: Pupils are equal. Extraocular motions intact. EARS: Hearing grossly intact. MOUTH: Oropharynx is normal. NECK: No adenopathy, no JVD. CHEST: Chest with clear breath sounds bilaterally. No wheezes, rales, or rhonchi. CARDIAC: Regular rate and rhythm. S1 and S2, without murmurs, gallops, or rubs. VASCULAR: No Edema. Peripheral pulses normal and equal in all extremities. ABDOMEN: Soft, without detectable tenderness. No sign of distention. No rebound or guarding, and no masses palpated. Bowel Sounds normal. MUSCULOSKELETAL: Left-sided weakness with decreased muscle strength. Otherwise good range of motion of all major joints. Extremities without clubbing, cyanosis or edema. NEUROLOGIC EXAM: Alert and oriented x 3. Left-sided weakness. Speech normal. Follows commands. PSYCHIATRIC: Mood normal. SKIN: No rash or lesions. - Constitutional Vitals: Temp Pulse Resp BP Pulse Ox 98 F 90 16 118/78 98 12/03/16 08:00 12/03/16 08:00 12/03/16 15:31 12/03/16 08:00 12/03/16 08:00 Plan Activity: advance as tolerated, fall precautions Diet: regular Additional Instructions: Continue current meds on transfer Follow up with: PRIMARY CARE, [Primary Care Provider] - 3-5 Days
--- NOTE | 2016-12-03 18:18 | Progress Note ---
Assessment and Plan Assessment and plan: Patient is a 55-year-old female who moved to the [facility] from [facility] in 07/2016 and was admitted to [facility] on 11/20/16 with a severe headache. MRI shows multiple brain lesions consistent with metastatic disease. Rapid HIV test is positive. She states that she had been tested and [facility] and was always told that she was "negative." The only infection she is unaware of having had in the past is typhoid fever. She is unsure whether she has any risk factors for HIV infection. According to her and her family she has not lost significant weight over the last several months. Patient since hospitalization has been started on antibiotics with prophylactic medications for HIV including Bactrim DS, Zithromax, Decadron for immunosuppression. Patient seems to be stable although still unable to ambulate. * Multiple brain lesions concerning for metastatic disease * Lung mass- Biopsy not diagnostic * HIV/AIDS * Hyponatremia * Oral candidiasis with possible esophageal candidiasis * Headache secondary to brain mass * Left hemiparesis-requiring assistance with ambulation Plan * CSF fluids not diagnostic at this point. We'll repeat lumbar puncture for cytology for diagnostic purposes. I have also called [facility] and [facility] for transfer for definitive biopsy and diagnosis both had accepting neursurgeon but claim to be on diversion and therefore no bed available. * Multiple attempts to transfer the patient was unsuccessful as the plan and process for possible [facility] transfer but they are requesting CSF studies done first. Results pending including cytology * Continue seizure prophylaxis with Keppra * ID input appreciated. Her IgG was positive but IgM is negative * Continue Fluconazole, Bactrim DS, Zithromax Decadron 4 mg IV every 6 hours * The patient possibly will need a repeat biopsy possible VATS study get better sample of the long lesion but before this will repeat the chest CT to ensure this is not Atalectasis * Incentive Spirometer * Monitor sodium level * Continue daily physical therapy. * Blood cultures are negative so far. * Dvt/Gi prophy * Discussed case with Dr. Mata History Interval history: f/u lung mass and brain mets; HIV Patient seen and examined this morning in no acute distress except for reported headache, otherwise weak and lethargic appearing, still requiring assistance with ambulation Denies any chest pain, nausea, vomiting, diarrhea No fever noted blood pressure controlled No adverse events reported to me by nursing staff Hospitalist Physical - Physical exam Narrative exam: VITAL SIGNS: Reviewed. GENERAL: The patient appeared well nourished and normally developed. Vital signs as documented. HEAD: No signs of head trauma. EYES: Pupils are equal. Extraocular motions intact. EARS: Hearing grossly intact. MOUTH: Oropharynx is normal. NECK: No adenopathy, no JVD. CHEST: Chest with clear breath sounds bilaterally. No wheezes, rales, or rhonchi. CARDIAC: Regular rate and rhythm. S1 and S2, without murmurs, gallops, or rubs. VASCULAR: No Edema. Peripheral pulses normal and equal in all extremities. ABDOMEN: Soft, without detectable tenderness. No sign of distention. No rebound or guarding, and no masses palpated. Bowel Sounds normal. MUSCULOSKELETAL: Left-sided weakness with decreased muscle strength. Otherwise good range of motion of all major joints. Extremities without clubbing, cyanosis or edema. NEUROLOGIC EXAM: Alert and oriented x 3. Left-sided weakness. Speech normal. Follows commands. PSYCHIATRIC: Mood normal. SKIN: No rash or lesions. - Constitutional Vitals: Temp Pulse Resp BP Pulse Ox 98.5 F 84 20 112/70 96 12/03/16 16:00 12/03/16 16:00 12/03/16 16:00 12/03/16 16:00 12/03/16 16:00 General appearance: Present: no acute distress, cachectic Results - Labs CBC & Chem 7: 12/01/16 05:53 12/03/16 05:33 Labs: Laboratory Last Values WBC 8.5 K/mm3 (4.5-11.0) 12/01/16 05:53 RBC 5.37 M/mm3 (3.65-5.03) H 12/01/16 05:53 Hgb 10.8 gm/dl (10.1-14.3) 12/01/16 05:53 Hct 33.6 % (30.3-42.9) 12/01/16 05:53 MCV 63 fl (79-97) L 12/01/16 05:53 MCH 20 pg (28-32) L 12/01/16 05:53 MCHC 32 % (30-34) 12/01/16 05:53 RDW 20.5 % (13.2-15.2) H 12/01/16 05:53 Plt Count 372 K/mm3 (140-440) 12/01/16 05:53 Lymph % (Auto) 8.6 % (13.4-35.0) L 12/01/16 05:53 Kerr % (Auto) 4.1 % (0.0-7.3) 12/01/16 05:53 Eos % (Auto) 0.4 % (0.0-4.3) 12/01/16 05:53 Baso % (Auto) 0.2 % (0.0-1.8) 12/01/16 05:53 Lymph # 0.7 K/mm3 (1.2-5.4) L 12/01/16 05:53 Kerr # 0.3 K/mm3 (0.0-0.8) 12/01/16 05:53 Eos # 0.0 K/mm3 (0.0-0.4) 12/01/16 05:53 Baso # 0.0 K/mm3 (0.0-0.1) 12/01/16 05:53 Add Manual Diff Complete 11/23/16 05:04 Total Counted 100 11/23/16 05:04 Seg Neutrophils % 86.7 % (40.0-70.0) H 12/01/16 05:53 Seg Neuts % (Manual) 83.0 % (40.0-70.0) H 11/23/16 05:04 Band Neutrophils % 1.0 % 11/23/16 05:04 Lymphocytes % (Manual) 8.0 % (13.4-35.0) L 11/23/16 05:04 Reactive Lymphs % (Man) 0 % 11/23/16 05:04 Monocytes % (Manual) 6.0 % (0.0-7.3) 11/23/16 05:04 Eosinophils % (Manual) 0 % (0.0-4.3) 11/23/16 05:04 Basophils % (Manual) 0 % (0.0-1.8) 11/23/16 05:04 Metamyelocytes % 2.0 % 11/23/16 05:04 Myelocytes % 0 % 11/23/16 05:04 Promyelocytes % 0 % 11/23/16 05:04 Blast Cells % 0 % 11/23/16 05:04 Nucleated RBC % Not Reportable 11/23/16 05:04 Seg Neutrophils # 7.3 K/mm3 (1.8-7.7) 12/01/16 05:53 Seg Neutrophils # Man 4.4 K/mm3 (1.8-7.7) 11/23/16 05:04 Band Neutrophils # 0.1 K/mm3 11/23/16 05:04 Abs Lymphs (Manual) 477 cells/uL (850-3900) L 11/21/16 15:46 Lymphocytes # (Manual) 0.4 K/mm3 (1.2-5.4) L 11/23/16 05:04 Abs React Lymphs (Man) 0.0 K/mm3 11/23/16 05:04 Monocytes # (Manual) 0.3 K/mm3 (0.0-0.8) 11/23/16 05:04 Eosinophils # (Manual) 0.0 K/mm3 (0.0-0.4) 11/23/16 05:04 Basophils # (Manual) 0.0 K/mm3 (0.0-0.1) 11/23/16 05:04 Metamyelocytes # 0.1 K/mm3 11/23/16 05:04 Myelocytes # 0.0 K/mm3 11/23/16 05:04 Promyelocytes # 0.0 K/mm3 11/23/16 05:04 Blast Cells # 0.0 K/mm3 11/23/16 05:04 WBC Morphology Not Reportable 11/23/16 05:04 Hypersegmented Neuts Not Reportable 11/23/16 05:04 Hyposegmented Neuts Not Reportable 11/23/16 05:04 Hypogranular Neuts Not Reportable 11/23/16 05:04 Smudge Cells Not Reportable 11/23/16 05:04 Toxic Granulation Not Reportable 11/23/16 05:04 Toxic Vacuolation Not Reportable 11/23/16 05:04 Dohle Bodies Not Reportable 11/23/16 05:04 Pelger-Huet Anomaly Not Reportable 11/23/16 05:04 Jeremy Rods Not Reportable 11/23/16 05:04 Platelet Estimate Consistent w auto 11/23/16 05:04 Clumped Platelets Not Reportable 11/23/16 05:04 Plt Clumps, EDTA Not Reportable 11/23/16 05:04 Large Platelets Not Reportable 11/23/16 05:04 Giant Platelets Not Reportable 11/23/16 05:04 Platelet Satelliting Not Reportable 11/23/16 05:04 Plt Morphology Comment Not Reportable 11/23/16 05:04 RBC Morphology Not Reportable 11/23/16 05:04 Dimorphic RBCs Not Reportable 11/23/16 05:04 Polychromasia Not Reportable 11/23/16 05:04 Hypochromasia 1+ 11/23/16 05:04 Poikilocytosis Not Reportable 11/23/16 05:04 Anisocytosis 1+ 11/23/16 05:04 Microcytosis Not Reportable 11/23/16 05:04 Macrocytosis Not Reportable 11/23/16 05:04 Spherocytes Not Reportable 11/23/16 05:04 Pappenheimer Bodies Not Reportable 11/23/16 05:04 Sickle Cells Not Reportable 11/23/16 05:04 Target Cells Few 11/23/16 05:04 Tear Drop Cells Not Reportable 11/23/16 05:04 Ovalocytes Not Reportable 11/23/16 05:04 Helmet Cells Not Reportable 11/23/16 05:04 Polanco-[place] Bodies Not Reportable 11/23/16 05:04 [place] Rings Not Reportable 11/23/16 05:04 Dawson Cells Not Reportable 11/23/16 05:04 Bite Cells Not Reportable 11/23/16 05:04 Crenated Cell Not Reportable 11/23/16 05:04 Elliptocytes Few 11/23/16 05:04 Acanthocytes (Spur) Not Reportable 11/23/16 05:04 Rouleaux Not Reportable 11/23/16 05:04 Hemoglobin C Crystals Not Reportable 11/23/16 05:04 Schistocytes Not Reportable 11/23/16 05:04 Malaria parasites Not Reportable 11/23/16 05:04 Percent Retic 1.29 % (0.78-2.58) 11/21/16 15:46 Douglas Bodies Not Reportable 11/23/16 05:04 Hem Pathologist Commnt No 11/23/16 05:04 PT 13.2 Sec. (12.2-14.9) 12/01/16 05:53 INR 1.01 (0.87-1.13) 12/01/16 05:53 APTT 31.0 Sec. (24.2-36.6) 12/01/16 05:53 Sodium 129 mmol/L (137-145) L 12/03/16 05:33 Potassium 4.1 mmol/L (3.6-5.0) 12/03/16 05:33 Chloride 90.6 mmol/L (98-107) L 12/03/16 05:33 Carbon Dioxide 23 mmol/L (22-30) 12/03/16 05:33 Anion Gap 20 mmol/L 12/03/16 05:33 BUN 19 mg/dL (7-17) H 12/03/16 05:33 Creatinine 0.4 mg/dL (0.7-1.2) L 12/03/16 05:33 Estimated GFR > 60 ml/min 12/03/16 05:33 BUN/Creatinine Ratio 47.50 % 12/03/16 05:33 Glucose 116 mg/dL (65-100) H 12/03/16 05:33 Calcium 8.9 mg/dL (8.4-10.2) 12/03/16 05:33 Iron 21 ug/dL (37-170) L 11/21/16 15:46 TIBC 386 mcg/dL (250-450) 11/21/16 15:46 Ferritin 8.8 ng/mL (13.0-400.0) L 11/21/16 15:46 Total Bilirubin 0.4 mg/dL (0.1-1.2) 11/24/16 05:23 AST 63 units/L (5-40) H 11/24/16 05:23 ALT 68 units/L (7-56) H 11/24/16 05:23 Alkaline Phosphatase 137 units/L (35-129) H 11/24/16 05:23 Lactate Dehydrogenase 118 units/L (91-180) 12/01/16 05:50 Total Protein 9.0 g/dL (6.3-8.2) H 11/24/16 05:23 Albumin 3.6 g/dL (3.9-5) L 11/24/16 05:23 Albumin/Globulin Ratio 0.7 % 11/24/16 05:23 CA 27-29 32 U/mL (<38) 11/21/16 00:48 Fluid LDH 118 12/01/16 08:45 CSF Appearance Clear 12/01/16 08:45 CSF Color Colorless 12/01/16 08:45 CSF WBC 35 /mm3 (1-10) 12/01/16 08:45 CSF RBC 3 /mm3 (0-0) 12/01/16 08:45 CSF Seg Neutrophils 0 % (0-6) 12/01/16 08:45 CSF Lymphocytes % 90.0 % (40-80) 12/01/16 08:45 CSF Reactive Lymphs 2.0 % 12/01/16 08:45 CSF Monocytes % 8.0 % (15-45) 12/01/16 08:45 CSF Eosinophils % 0 % 12/01/16 08:45 CSF Basophils 0 % 12/01/16 08:45 CSF Comment See add'l comments 12/01/16 08:45 CSF Pathologist Review 12/01/16 08:45 CSF Glucose 77 mg/dL 12/01/16 08:45 CSF Total Protein 32 mg/dL 12/01/16 08:45 Lymph Enumerat CD4/CD8 0.26 (0.86-5.00) L 11/21/16 15:46 % CD3 Cells 74 % (57-85) 11/21/16 15:46 Absolute CD3 Count 355 cells/uL (840-3060) L 11/21/16 15:46 % CD4 Cells 16 % (30-61) L 11/21/16 15:46 Absolute CD4 Count 80 cells/uL (490-1740) L 11/21/16 15:46 % CD8 Cells 61 % (12-42) H 11/21/16 15:46 Absolute CD8 Count 304 cells/uL (180-1170) 11/21/16 15:46 % CD19 Cells 18 % (6-29) 11/21/16 15:46 Absolute CD19 Count 80 cells/uL (110-660) L 11/21/16 15:46 Hepatitis A IgM Ab -1 (NonReactive) 11/21/16 17:50 Hep Bs Antigen Non-reactive (Negative) 11/21/16 17:50 Hep B Core IgM Ab Non-reactive (NonReactive) 11/21/16 17:50 Hepatitis C Antibody Non-reactive (NonReactive) 11/21/16 17:50 HIV DNA Qual (PCR) See scanned report 11/21/16 15:46 HIV-1 Antibody See scanned report 11/21/16 00:48 HIV-1 RNA PCR copies/ml 16707 copies/mL (<20) H 11/21/16 17:50 HIV-1 RNA (PCR) log 4.61 Log cps/mL (<1.30) H 11/21/16 17:50 HIV-1 Genotyping see below 11/21/16 15:46 HIV-2 Ab (Immunoblot) See scanned report 11/21/16 00:48 HIV 1&2 Antibody Rapid Reactive (Non React) 11/21/16 00:48 HIV P24 Antigen Non react (Non React) 11/21/16 00:48 Toxoplasma IgG Ab 2.25 (<=0.90) H 11/24/16 10:03 Toxoplasma IgM Ab Negative (Negative) 11/24/16 10:03 TB (QFT) Gold In Tube Negative (Negative) 11/25/16 04:26 TB Test (QFT) Nil 0.07 IU/mL 11/25/16 04:26 TB Test Mitogen - Nil 1.83 IU/mL 11/25/16 04:26 TB Test Antigen - Nil <0.00 IU/mL 11/25/16 04:26 Miscellaneous Test Flexitest 1 12/01/16 Unknown
[2016-12-04] MEDS: DILAUDID IM PRN ×2 (03:44→19:52)
--- NOTE | 2016-12-04 04:23 | Physician Progress Note ---
SUBJECTIVE: The patient has no new complaints. Continued intermittent headache, with pain management. Transfer to [place] is still pending. So far, workup is negative, lumbar puncture done, my understanding there is no definite evidence of malignant cells. As noted before, she has HIV infection. ID is following her. CNC findings could be related to HIV-associated malignancy versus infectious etiology. biopsy pending, transfer to [place]. OBJECTIVE: VITAL SIGNS: Temperature 98.6, blood pressure 109/73, pulse 85, respirations 20. GENERAL: The patient is alert, not in apparent distress. Nonetheless, she appears chronically ill or debilitated. SKIN: No bruise, no petechiae. HEENT: Pale conjunctivae. NECK: No adenopathy. CHEST: Normal breathing pattern. LUNGS: Clear. HEART: Regular rate and rhythm, no murmur heard. ABDOMEN: Soft. No palpable liver or spleen. CENTRAL NERVOUS SYSTEM: No new acute [employer] deficits/focal since admission. EXTREMITIES: No calves tenderness. LABORATORY DATA: On 12/01/2016, hemoglobin 10.8, hematocrit 33.6. Platelets 372. Recent evaluation, toxoplasma IgG positive, but IgM is negative. Spinal fluid 90% lymphocytes, 2% reactive lymphocytes, 8% monocytes, glucose 77, and protein 32. ASSESSMENT: 1. Brain mass, rule out metastasis versus opportunistic infection. As noted, IgM is negative, though IgG is positive. Plan for brain biopsy, transfer to [place] is pending. Recent lumbar puncture nondiagnostic. 2. Headaches, secondary to brain mass. 3. Lung mass, etiology remained unclear, recent biopsy reported to be negative. 4. Human immunodeficiency virus/acquired immunodeficiency syndrome, followed by ID. Genotype study, no evidence of resistance. 5. Recent history of iron deficiency, iron supplement to be continued. PLAN: Transfer to [facility] in progress. Meanwhile, continue supportive treatment and management for underlying disease. JOB# [id number] ASA/NTS MTDD
[2016-12-04 05:57] LABS: Anion Gap 17 mmol/L; Blood Urea Nitrogen 19 mg/dL (7-17); Calcium 8.9 mg/dL (8.4-10.2); Carbon Dioxide 25 mmol/L (22-30); Chloride 92.5 mmol/L (98-107); Glucose 126 mg/dL (65-100); Potassium 4.5 mmol/L (3.6-5.0); Sodium 130 mmol/L (137-145)
--- NOTE | 2016-12-04 10:08 | Consultation ---
History of Present Illness - Reason for Consult Consult date: 12/04/16 lung mass - History of Present Illness this is a very complex case, this is a 55 year old female recently relocated from [facility], who is HIV positive with a CD4 80 (AIDS), viral count 40k, with extensive masses/lesions on both sides of the brain, small right lower lobe lesion/ s/p CT bx which only revealed inflam changes, minimal hilar adenopathy with one hilar node adjacent to pulm artery which is not amenable to VATS, no real impressive adenopathy in peritracheal location amenable to cervical medianstinoscopy. Pt has Tox ab positive. She was [facility] with [facility] and can not walk or stand at present. Past History Past Medical History: other (None) Past Surgical History: No surgical history Social history: no significant social history, full code. denies: smoking, alcohol abuse, prescription drug abuse, IV drug use Family history: other (No pulm issues reported) Medications and Allergies Allergies Allergy/AdvReac Type Severity Reaction Status Date / Time No Known Allergies Allergy Unverified 11/16/16 17:37 Home Medications Medication Instructions Recorded Confirmed Last Taken Type Cyclobenzaprine [Flexeril] 10 mg PO TID PRN #15 tablet 11/17/16 11/20/16 Unknown Rx Ibuprofen [Motrin] 600 mg PO Q8H PRN #15 tablet 11/17/16 11/20/16 Unknown Rx Active Meds: Active Medications Acetaminophen (Tylenol) 650 mg PO Q4H PRN PRN Reason: Pain MILD(1-3)/Fever >100.5/PEREZ Azithromycin (Zithromax) 1,200 mg PO Fr@1000 [facility] Last Admin: 12/02/16 11:32 Dose: 1,200 mg Bisacodyl (Dulcolax) 10 mg [place] QDAY PRN PRN Reason: Constipation unrelieved by MOM Dexamethasone (Decadron) 4 mg IV Q12HR [facility] Last Admin: 12/03/16 21:01 Dose: 4 mg Enoxaparin Sodium (Lovenox) 40 mg SUB-Q DAILY [facility] Last Admin: 12/03/16 09:01 Dose: 40 mg Ferrous Sulfate (Feosol) 325 mg PO QDAY [facility] Last Admin: 12/03/16 09:01 Dose: 325 mg Fluconazole (Diflucan) 150 mg PO DAILY [facility] Last Admin: 12/03/16 09:01 Dose: 150 mg Hydromorphone HCl (Dilaudid) 1 mg IM Q4H PRN PRN Reason: Pain , Severe (7-10) Last Admin: 12/04/16 03:44 Dose: 1 mg Levetiracetam (Keppra) 500 mg PO BID [facility] Last Admin: 12/03/16 21:01 Dose: 500 mg Magnesium Hydroxide (Milk Of Magnesia) 30 ml PO Q4H PRN PRN Reason: Constipation Ondansetron HCl (Zofran) 4 mg IV Q3H PRN PRN Reason: N/V unrelieved by Reglan Last Admin: 12/04/16 03:44 Dose: 4 mg Oxycodone/Acetaminophen (Percocet 5/325) 1 tab PO Q6H PRN PRN Reason: Pain, Moderate (4-6) Last Admin: 12/03/16 20:46 Dose: 1 tab Pantoprazole (Protonix) 40 mg PO QDAY [facility] Last Admin: 12/03/16 09:01 Dose: 40 mg Polyethylene Glycol (Miralax 3350) 17 gm PO QDAY [facility] Last Admin: 12/03/16 09:02 Dose: 17 gm Trimethoprim/Sulfamethoxazole (Bactrim Ds) 1 each PO Q24HR [facility] Last Admin: 12/03/16 09:01 Dose: 1 each Review of Systems Constitutional: other (seizures, inability to stand or walk) Exam - Constitutional Vitals: Temp Pulse Resp BP Pulse Ox 98.0 F 70 14 103/67 97 12/04/16 07:59 12/04/16 07:59 12/04/16 07:59 12/04/16 07:59 12/04/16 07:59 General appearance: Present: no acute distress - EENT Eyes: Present: PERRL - Neck Neck: Present: supple, normal ROM - Respiratory Respiratory effort: normal - Cardiovascular Heart Sounds: Present: S1 & S2. Absent: rub, click - Extremities Extremities: no ischemia Peripheral Pulses: within normal limits - Abdominal General gastrointestinal: Present: soft, non-tender, non-distended, normal bowel sounds, splenomegaly - Neurologic Neurologic: other (unable to stand or walk, bedridden) Results - Labs CBC & Chem 7: 12/01/16 05:53 12/04/16 05:12 Labs: Abnormal lab results 12/04/16 Range/Units 05:12 Sodium 130 L (137-145) mmol/L Chloride 92.5 L (98-107) mmol/L BUN 19 H (7-17) mg/dL Creatinine 0.5 L (0.7-1.2) mg/dL Glucose 126 H (65-100) mg/dL Assessment and Plan This is a very complex case, The main issue are the extensive lesion on both sides of the brain, The lung lesion is small and has been biopsied which revealed imflammatory changes and no cancer.(CT BX) the hilar adenopathy is really not impressive and I can not access it with VATS. 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 The patient really needs Neurosurgical evaluation prior to any further Thoracic intervention. If this is not available at this institution then patient should be sent to a Facility where it is. The patient can be discharged home with outpatient follow up from a purely Thoracic standpoint. VATS can be offered but only after appropriate evaluation by Neurosurgery. The patient at present is very high risk for VATS with lung bx, and I think the yield is low given the patient's present clinical situation. Another option is to repeat the CT bx of the lung lesion. The final decision at to whether patient is transfered or discharged is up to the Hospitalist.
[2016-12-04] MEDS: ZITHROMAX PO SCH (11:04)
[2016-12-04] MEDS: PROTONIX PO SCH (11:04)
[2016-12-04] MEDS: LOVENOX SUB-Q SCH (11:04)
[2016-12-04] MEDS: BACTRIM DS PO SCH (11:04)
[2016-12-04] MEDS: MIRALAX 3350 PO SCH (11:05)
[2016-12-04] MEDS: FEOSOL PO SCH (11:05)
[2016-12-04] MEDS: DECADRON IV SCH ×2 (11:05→23:47)
[2016-12-04] MEDS: KEPPRA PO SCH ×2 (11:05→23:46)
[2016-12-04] MEDS: DIFLUCAN PO SCH (11:05)
--- NOTE | 2016-12-04 12:19 | Progress Note ---
Assessment and Plan Current antibiotics: None Prophylactic antibiotics: Bactrim DS 1 tab PO daily Azithromycin 1200mg PO q week Fluconazole 100 mg PO daily Immunosuppressants: Decadron 4 mg IV every 6 hours Corticosteroids: Dexamethasone 10 mg IV 1 followed by 4 mg IV every 6 hours 11/20 --> ASSESSMENT: Alicia Pang is a 55-year-old female who moved to the [facility] from [facility] in 07/2016 and was admitted to [facility] on 11/20/16 with a severe headache. MRI shows multiple brain lesions consistent with metastatic disease. Rapid HIV test is positive. Problem list: 1. Lung mass- Etiology remains unclear - Thin needle biopsy reported negative for Cancer -the clinical picture of lung mass with brain lesions is suspicious of malignancy. I believe the lung biopsy might not have been adequate -Patient will need a definitive surgical procedure to obtain adequate tissue either from the brain lesions or lung -lumbar punture cell count without significant findings, wbc 35 with 90% lymphs. --csf cytology with atypical cell, discussed with pathology. More CSF fluid needed to do flow cytometry 2. Brain mass, R/O mets. R/O opportunistic infection --toxoplasma Igm negative, IGG only indicates old exposure - histoplasma and blastomyces antibodies sent -doubt nocardia, doesnt fit the clinical picture -need tissue to guide treatment 3. Headache secondary to #2 4. HIV/AIDS - CD4 Ct. 80; HIV VL 41,052 -genotype without resistance, would like to start treatment but would like to know underlying diagnosis of lung and brain lesions Rec: 1. follow up fungal serologies 2. No new results available to aid with diagnosis 3. follow up CSF AFB, ADA, RYAN virus 4. continue bactrim, zithromax prophylaxis 5. reconstitution of immune-system will be important in this patient but will need to get to established clinic where ARVs can be supplied. 6. will need biopsy (tissue) for diagnosis Rom Hough MD [facility] Office: [phone] Subjective Date of service: 12/04/16 Principal diagnosis: HIV, lung mass, brain mets Interval history: No new complaints. Mild headache but "improved." Objective - Exam Narrative Exam: GENERAL: Well-developed, thin somewhat chronically ill appearing female who is alert and in no acute distress. HEAD: Normocephalic. No lesions seen. EYES: Pupils are equal reactive to light and accommodation. There is no scleral icterus. Optic fundi are not examined. EARS: External ears are normal. THROAT: Oropharynx is normal with no evidence of oral candidiasis or pharyngitis. NECK: Supple. No enlargement of the thyroid gland. No significant cervical lymphadenopathy. No jugular venous distention at 30. LUNGS: Clear with no adventitious sounds. HEART: Regular rate. S1 and S2 are normal. There are no murmurs, gallops, clicks or rubs heard. ABDOMEN: Soft and nontender. Liver edge is felt approximately 2 cm below the right costal margin and is smooth and nontender. Spleen tip is palpable with deep inspiration just under the left upper costal margin. No other palpable masses. No clinical ascites. Bowel sounds are normoactive. EXTREMITIES: No rash, peripheral lymphadenopathy, clubbing or edema. : Not examined NEUROLOGIC: No focal findings. - Constitutional Vitals: Vital Signs Temp Pulse Resp BP Pulse Ox 98.0 F 70 14 103/67 97 12/04/16 07:59 12/04/16 07:59 12/04/16 07:59 12/04/16 07:59 12/04/16 07:59 Temperature -Last 24 Hours Temperature 98.0 F Temperature 99.0 F Temperature 98.5 F Temperature 98.5 F - Labs CBC & Chem 7: 12/01/16 05:53 12/04/16 05:12 Labs: Abnormal lab results Microbiology 12/01/16 08:45 Cerebral Spinal Fluid CSF Culture - Final 12/01/16 Unknown Cerebral Spinal Fluid Cryptococcal Antigen - Negative 11/23/16 13:02 Peripheral/Venous Blood Fungal Culture - Preliminary No Fungus Isolated At 1 week 11/23/16 13:02 Peripheral/Venous Blood Fungal Culture - No growth 11/23/16 Unknown Serum Cryptococcal Antigen - Negative Laboratory Tests 11/21/16 11/21/16 11/21/16 15:46 17:50 17:50 % CD4 Cells 16 L Absolute CD4 Count 80 L Hep Bs Antigen Non-reactive Hep B Core IgM Ab Non-reactive Hepatitis C Antibody Non-reactive HIV-1 RNA PCR copies/ml 49413 H Toxoplasma IgG Ab Toxoplasma IgM Ab TB (QFT) Gold In Tube 11/24/16 11/24/16 11/25/16 10:03 10:03 04:26 % CD4 Cells Absolute CD4 Count Hep Bs Antigen Hep B Core IgM Ab Hepatitis C Antibody HIV-1 RNA PCR copies/ml Toxoplasma IgG Ab 2.25 H Toxoplasma IgM Ab Negative TB (QFT) Gold In Tube Negative
--- NOTE | 2016-12-04 13:44 | Fluoroscopy Report ---
LUMBAR PUNCTURE History: Brain masses, cancer. Description of procedure: Informed consent was obtained. Sterile technique was utilized. 1% lidocaine for skin anesthesia. Using fluoroscopy guidance, a spinal needle was advanced into the L3-4 interspace. There was spontaneous return of clear CSF. 12 cc of CSF fluid was collected for cytology. No complications. Impression: Successful fluoroscopy guided lumbar puncture.
--- NOTE | 2016-12-04 15:44 | Progress Note ---
Assessment and Plan Assessment and plan: Patient is a 55-year-old female who moved to the [facility] from [facility] in 07/2016 and was admitted to [facility] on 11/20/16 with a severe headache. MRI shows multiple brain lesions consistent with metastatic disease. Rapid HIV test is positive. She states that she had been tested and [facility] and was always told that she was "negative." The only infection she is unaware of having had in the past is typhoid fever. She is unsure whether she has any risk factors for HIV infection. According to her and her family she has not lost significant weight over the last several months. Patient since hospitalization has been started on antibiotics with prophylactic medications for HIV including Bactrim DS, Zithromax, Decadron for immunosuppression. Patient seems to be stable although still unable to ambulate. * Multiple brain lesions concerning for metastatic disease * Lung mass- Biopsy not diagnostic * HIV/AIDS * Hyponatremia * Oral candidiasis with possible esophageal candidiasis * Headache secondary to brain mass * Left hemiparesis-requiring assistance with ambulation Plan * CSF fluids not diagnostic at this point. We'll repeat lumbar puncture for cytology for diagnostic purposes. I have also called [facility] and [facility] for transfer for definitive biopsy and diagnosis both had accepting neursurgeon but claim to be on diversion and therefore no bed available. * Multiple attempts to transfer the patient was unsuccessful as the plan and process for possible [facility] transfer but they are requesting CSF studies done first. Results pending including cytology * Continue seizure prophylaxis with Keppra * Discussed again [facility] where gracious enough and accepted the patient and will take the patient was admitted as available * ID input appreciated. Her IgG was positive but IgM is negative * Continue Fluconazole, Bactrim DS, Zithromax Decadron 4 mg IV every 6 hours * The patient possibly will need a repeat biopsy possible VATS study get better sample of the long lesion but before this will repeat the chest CT to ensure this is not Atalectasis * Incentive Spirometer * Monitor sodium level * Continue daily physical therapy. * Blood cultures are negative so far. * Dvt/Gi prophy * Discussed case with ID * Discussed case with the daughter History Interval history: f/u lung mass and brain mets; HIV Patient seen and examined this morning in no acute distress except for reported headache, otherwise weak and lethargic appearing, still requiring assistance with ambulation Denies any chest pain, nausea, vomiting, diarrhea No fever noted blood pressure controlled No adverse events reported to me by nursing staff Hospitalist Physical - Physical exam Narrative exam: VITAL SIGNS: Reviewed. GENERAL: The patient appeared well nourished and normally developed. Vital signs as documented. HEAD: No signs of head trauma. EYES: Pupils are equal. Extraocular motions intact. EARS: Hearing grossly intact. MOUTH: Oropharynx is normal. NECK: No adenopathy, no JVD. CHEST: Chest with clear breath sounds bilaterally. No wheezes, rales, or rhonchi. CARDIAC: Regular rate and rhythm. S1 and S2, without murmurs, gallops, or rubs. VASCULAR: No Edema. Peripheral pulses normal and equal in all extremities. ABDOMEN: Soft, without detectable tenderness. No sign of distention. No rebound or guarding, and no masses palpated. Bowel Sounds normal. MUSCULOSKELETAL: Left-sided weakness with decreased muscle strength. Otherwise good range of motion of all major joints. Extremities without clubbing, cyanosis or edema. NEUROLOGIC EXAM: Alert and oriented x 3. Left-sided weakness. Speech normal. Follows commands. PSYCHIATRIC: Mood normal. SKIN: No rash or lesions. - Constitutional Vitals: Temp Pulse Resp BP Pulse Ox 98.0 F 70 14 103/67 97 12/04/16 07:59 12/04/16 07:59 12/04/16 07:59 12/04/16 07:59 12/04/16 07:59 General appearance: Present: no acute distress Results - Labs CBC & Chem 7: 12/01/16 05:53 12/04/16 05:12 Labs: Laboratory Last Values WBC 8.5 K/mm3 (4.5-11.0) 12/01/16 05:53 RBC 5.37 M/mm3 (3.65-5.03) H 12/01/16 05:53 Hgb 10.8 gm/dl (10.1-14.3) 12/01/16 05:53 Hct 33.6 % (30.3-42.9) 12/01/16 05:53 MCV 63 fl (79-97) L 12/01/16 05:53 MCH 20 pg (28-32) L 12/01/16 05:53 MCHC 32 % (30-34) 12/01/16 05:53 RDW 20.5 % (13.2-15.2) H 12/01/16 05:53 Plt Count 372 K/mm3 (140-440) 12/01/16 05:53 Lymph % (Auto) 8.6 % (13.4-35.0) L 12/01/16 05:53 Daniels % (Auto) 4.1 % (0.0-7.3) 12/01/16 05:53 Eos % (Auto) 0.4 % (0.0-4.3) 12/01/16 05:53 Baso % (Auto) 0.2 % (0.0-1.8) 12/01/16 05:53 Lymph # 0.7 K/mm3 (1.2-5.4) L 12/01/16 05:53 Daniels # 0.3 K/mm3 (0.0-0.8) 12/01/16 05:53 Eos # 0.0 K/mm3 (0.0-0.4) 12/01/16 05:53 Baso # 0.0 K/mm3 (0.0-0.1) 12/01/16 05:53 Add Manual Diff Complete 11/23/16 05:04 Total Counted 100 11/23/16 05:04 Seg Neutrophils % 86.7 % (40.0-70.0) H 12/01/16 05:53 Seg Neuts % (Manual) 83.0 % (40.0-70.0) H 11/23/16 05:04 Band Neutrophils % 1.0 % 11/23/16 05:04 Lymphocytes % (Manual) 8.0 % (13.4-35.0) L 11/23/16 05:04 Reactive Lymphs % (Man) 0 % 11/23/16 05:04 Monocytes % (Manual) 6.0 % (0.0-7.3) 11/23/16 05:04 Eosinophils % (Manual) 0 % (0.0-4.3) 11/23/16 05:04 Basophils % (Manual) 0 % (0.0-1.8) 11/23/16 05:04 Metamyelocytes % 2.0 % 11/23/16 05:04 Myelocytes % 0 % 11/23/16 05:04 Promyelocytes % 0 % 11/23/16 05:04 Blast Cells % 0 % 11/23/16 05:04 Nucleated RBC % Not Reportable 11/23/16 05:04 Seg Neutrophils # 7.3 K/mm3 (1.8-7.7) 12/01/16 05:53 Seg Neutrophils # Man 4.4 K/mm3 (1.8-7.7) 11/23/16 05:04 Band Neutrophils # 0.1 K/mm3 11/23/16 05:04 Abs Lymphs (Manual) 477 cells/uL (850-3900) L 11/21/16 15:46 Lymphocytes # (Manual) 0.4 K/mm3 (1.2-5.4) L 11/23/16 05:04 Abs React Lymphs (Man) 0.0 K/mm3 11/23/16 05:04 Monocytes # (Manual) 0.3 K/mm3 (0.0-0.8) 11/23/16 05:04 Eosinophils # (Manual) 0.0 K/mm3 (0.0-0.4) 11/23/16 05:04 Basophils # (Manual) 0.0 K/mm3 (0.0-0.1) 11/23/16 05:04 Metamyelocytes # 0.1 K/mm3 11/23/16 05:04 Myelocytes # 0.0 K/mm3 11/23/16 05:04 Promyelocytes # 0.0 K/mm3 11/23/16 05:04 Blast Cells # 0.0 K/mm3 11/23/16 05:04 WBC Morphology Not Reportable 11/23/16 05:04 Hypersegmented Neuts Not Reportable 11/23/16 05:04 Hyposegmented Neuts Not Reportable 11/23/16 05:04 Hypogranular Neuts Not Reportable 11/23/16 05:04 Smudge Cells Not Reportable 11/23/16 05:04 Toxic Granulation Not Reportable 11/23/16 05:04 Toxic Vacuolation Not Reportable 11/23/16 05:04 Dohle Bodies Not Reportable 11/23/16 05:04 Pelger-Huet Anomaly Not Reportable 11/23/16 05:04 Jeremy Rods Not Reportable 11/23/16 05:04 Platelet Estimate Consistent w auto 11/23/16 05:04 Clumped Platelets Not Reportable 11/23/16 05:04 Plt Clumps, EDTA Not Reportable 11/23/16 05:04 Large Platelets Not Reportable 11/23/16 05:04 Giant Platelets Not Reportable 11/23/16 05:04 Platelet Satelliting Not Reportable 11/23/16 05:04 Plt Morphology Comment Not Reportable 11/23/16 05:04 RBC Morphology Not Reportable 11/23/16 05:04 Dimorphic RBCs Not Reportable 11/23/16 05:04 Polychromasia Not Reportable 11/23/16 05:04 Hypochromasia 1+ 11/23/16 05:04 Poikilocytosis Not Reportable 11/23/16 05:04 Anisocytosis 1+ 11/23/16 05:04 Microcytosis Not Reportable 11/23/16 05:04 Macrocytosis Not Reportable 11/23/16 05:04 Spherocytes Not Reportable 11/23/16 05:04 Pappenheimer Bodies Not Reportable 11/23/16 05:04 Sickle Cells Not Reportable 11/23/16 05:04 Target Cells Few 11/23/16 05:04 Tear Drop Cells Not Reportable 11/23/16 05:04 Ovalocytes Not Reportable 11/23/16 05:04 Helmet Cells Not Reportable 11/23/16 05:04 Polanco-Iantha Bodies Not Reportable 11/23/16 05:04 [place] Rings Not Reportable 11/23/16 05:04 Dawson Cells Not Reportable 11/23/16 05:04 Bite Cells Not Reportable 11/23/16 05:04 Crenated Cell Not Reportable 11/23/16 05:04 Elliptocytes Few 11/23/16 05:04 Acanthocytes (Spur) Not Reportable 11/23/16 05:04 Rouleaux Not Reportable 11/23/16 05:04 Hemoglobin C Crystals Not Reportable 11/23/16 05:04 Schistocytes Not Reportable 11/23/16 05:04 Malaria parasites Not Reportable 11/23/16 05:04 Percent Retic 1.29 % (0.78-2.58) 11/21/16 15:46 Douglas Bodies Not Reportable 11/23/16 05:04 Hem Pathologist Commnt No 11/23/16 05:04 PT 13.2 Sec. (12.2-14.9) 12/01/16 05:53 INR 1.01 (0.87-1.13) 12/01/16 05:53 APTT 31.0 Sec. (24.2-36.6) 12/01/16 05:53 Sodium 130 mmol/L (137-145) L 12/04/16 05:12 Potassium 4.5 mmol/L (3.6-5.0) 12/04/16 05:12 Chloride 92.5 mmol/L (98-107) L 12/04/16 05:12 Carbon Dioxide 25 mmol/L (22-30) 12/04/16 05:12 Anion Gap 17 mmol/L 12/04/16 05:12 BUN 19 mg/dL (7-17) H 12/04/16 05:12 Creatinine 0.5 mg/dL (0.7-1.2) L 12/04/16 05:12 Estimated GFR > 60 ml/min 12/04/16 05:12 BUN/Creatinine Ratio 38.00 % 12/04/16 05:12 Glucose 126 mg/dL (65-100) H 12/04/16 05:12 Calcium 8.9 mg/dL (8.4-10.2) 12/04/16 05:12 Iron 21 ug/dL (37-170) L 11/21/16 15:46 TIBC 386 mcg/dL (250-450) 11/21/16 15:46 Ferritin 8.8 ng/mL (13.0-400.0) L 11/21/16 15:46 Total Bilirubin 0.4 mg/dL (0.1-1.2) 11/24/16 05:23 AST 63 units/L (5-40) H 11/24/16 05:23 ALT 68 units/L (7-56) H 11/24/16 05:23 Alkaline Phosphatase 137 units/L (35-129) H 11/24/16 05:23 Lactate Dehydrogenase 118 units/L (91-180) 12/01/16 05:50 Total Protein 9.0 g/dL (6.3-8.2) H 11/24/16 05:23 Albumin 3.6 g/dL (3.9-5) L 11/24/16 05:23 Albumin/Globulin Ratio 0.7 % 11/24/16 05:23 CA 27-29 32 U/mL (<38) 11/21/16 00:48 Fluid LDH 118 12/01/16 08:45 CSF Appearance Clear 12/01/16 08:45 CSF Color Colorless 12/01/16 08:45 CSF WBC 35 /mm3 (1-10) 12/01/16 08:45 CSF RBC 3 /mm3 (0-0) 12/01/16 08:45 CSF Seg Neutrophils 0 % (0-6) 12/01/16 08:45 CSF Lymphocytes % 90.0 % (40-80) 12/01/16 08:45 CSF Reactive Lymphs 2.0 % 12/01/16 08:45 CSF Monocytes % 8.0 % (15-45) 12/01/16 08:45 CSF Eosinophils % 0 % 12/01/16 08:45 CSF Basophils 0 % 12/01/16 08:45 CSF Comment See add'l comments 12/01/16 08:45 CSF Pathologist Review 12/01/16 08:45 CSF Glucose 77 mg/dL 12/01/16 08:45 CSF Total Protein 32 mg/dL 12/01/16 08:45 Lymph Enumerat CD4/CD8 0.26 (0.86-5.00) L 11/21/16 15:46 % CD3 Cells 74 % (57-85) 11/21/16 15:46 Absolute CD3 Count 355 cells/uL (840-3060) L 11/21/16 15:46 % CD4 Cells 16 % (30-61) L 11/21/16 15:46 Absolute CD4 Count 80 cells/uL (490-1740) L 11/21/16 15:46 % CD8 Cells 61 % (12-42) H 11/21/16 15:46 Absolute CD8 Count 304 cells/uL (180-1170) 11/21/16 15:46 % CD19 Cells 18 % (6-29) 11/21/16 15:46 Absolute CD19 Count 80 cells/uL (110-660) L 11/21/16 15:46 Hepatitis A IgM Ab -1 (NonReactive) 11/21/16 17:50 Hep Bs Antigen Non-reactive (Negative) 11/21/16 17:50 Hep B Core IgM Ab Non-reactive (NonReactive) 11/21/16 17:50 Hepatitis C Antibody Non-reactive (NonReactive) 11/21/16 17:50 HIV DNA Qual (PCR) See scanned report 11/21/16 15:46 HIV-1 Antibody See scanned report 11/21/16 00:48 HIV-1 RNA PCR copies/ml 69670 copies/mL (<20) H 11/21/16 17:50 HIV-1 RNA (PCR) log 4.61 Log cps/mL (<1.30) H 11/21/16 17:50 HIV-1 Genotyping see below 11/21/16 15:46 HIV-2 Ab (Immunoblot) See scanned report 11/21/16 00:48 HIV 1&2 Antibody Rapid Reactive (Non React) 11/21/16 00:48 HIV P24 Antigen Non react (Non React) 11/21/16 00:48 Toxoplasma IgG Ab 2.25 (<=0.90) H 11/24/16 10:03 Toxoplasma IgM Ab Negative (Negative) 11/24/16 10:03 TB (QFT) Gold In Tube Negative (Negative) 11/25/16 04:26 TB Test (QFT) Nil 0.07 IU/mL 11/25/16 04:26 TB Test Mitogen - Nil 1.83 IU/mL 11/25/16 04:26 TB Test Antigen - Nil <0.00 IU/mL 11/25/16 04:26 Miscellaneous Test Flexitest 1 12/01/16 Unknown
[2016-12-04] MEDS: PERCOCET 5/325 PO PRN ×2 (17:47→23:47)
--- NOTE | 2016-12-04 19:45 | Hem/Onc Progress Note ---
Assessment and Plan - Patient Problems (1) Lesion of brain Current Visit: Yes Status: Acute Plan to address problem: IgM negative for Toxo. ID concerned that lung biopsy which was negative for malignancy, may not be truly diagnostic. [facility] has accepted pt. Await transfer for brain biopsy. Continue Keppra. Presently on Decadron. Monitor for discomfort as patient rarely will ask for help. RNs say that patient appears to have given up. (2) HIV antibody positive Current Visit: Yes Status: Acute Plan to address problem: Continue Bactrim. Follow up with ID. Subjective Date of service: 12/04/16 Interval history: Severe headache 06/03. Last time she had pain med was in early AM. No family in room. Objective - Constitutional Vitals: Last Vital Signs Temp 98.3 F 12/04/16 16:26 Pulse 82 12/04/16 16:26 Resp 14 12/04/16 16:26 BP 103/68 12/04/16 16:26 Pulse Ox 99 12/04/16 16:26 Pain Intensity (0-10): 06/03 General appearance: severe distress Performance status: 4-completely disabled - Neck Neck: supple - Respiratory Respiratory: bilateral: CTA - Cardiovascular Rhythm: regular Heart Sounds: Present: S1 & S2 Extremities: no ischemia, normal temperature, normal color - Gastrointestinal General gastrointestinal: Present: soft, non-tender, non-distended, normal bowel sounds - Genitourinary Female genitourinary: Present: deferred - Integumentary Integumentary: clear, warm, dry - Musculoskeletal Musculoskeletal: generalized weakness - Labs Lab Results: Laboratory Results - last 24 hr 12/01/16 12/04/16 Unknown 05:12 Sodium 130 L Potassium 4.5 Chloride 92.5 L Carbon Dioxide 25 Anion Gap 17 BUN 19 H Creatinine 0.5 L Estimated GFR > 60 BUN/Creatinine Ratio 38.00 Glucose 126 H Calcium 8.9 Miscellaneous Test Flexitest 1
--- NOTE | 2016-12-05 07:17 | Event Note ---
Date: 12/05/16 Plans to transfer to [facility] noted, I will sign off, please reconsult me if needed.
--- NOTE | 2016-12-05 11:43 | Progress Note ---
Assessment and Plan Current antibiotics: None Prophylactic antibiotics: Bactrim DS 1 tab PO daily Azithromycin 1200mg PO q week Fluconazole 100 mg PO daily Immunosuppressants: Decadron 4 mg IV every 6 hours Corticosteroids: Dexamethasone 10 mg IV 1 followed by 4 mg IV every 6 hours 11/20 --> ASSESSMENT: Alicia Pang is a 55-year-old female who moved to the [facility] from [facility] in 07/2016 and was admitted to [facility] on 11/20/16 with a severe headache. MRI shows multiple brain lesions consistent with metastatic disease. Rapid HIV test is positive. Problem list: 1. Lung mass- Etiology remains unclear - Thin needle biopsy reported negative for Cancer -the clinical picture of lung mass with brain lesions is suspicious of malignancy. I believe the lung biopsy might not have been adequate -Patient will need a definitive surgical procedure to obtain adequate tissue either from the brain lesions or lung -lumbar punture cell count without significant findings, wbc 35 with 90% lymphs. --csf cytology with atypical cell, discussed with pathology. More CSF fluid needed to do flow cytometry 2. Brain mass, R/O mets. R/O opportunistic infection --toxoplasma Igm negative, IGG only indicates old exposure - histoplasma and blastomyces antibodies sent -doubt nocardia, doesnt fit the clinical picture -need tissue to guide treatment 3. Headache secondary to #2 4. HIV/AIDS - CD4 Ct. 80; HIV VL 41,052 -genotype without resistance, would like to start treatment but would like to know underlying diagnosis of lung and brain lesions Rec: 1. follow up fungal serologies 2. No new results available to aid with diagnosis 3. follow up CSF AFB, ADA, RYAN virus 4. continue bactrim, zithromax prophylaxis 5. reconstitution of immune-system will be important in this patient but will need to get to established clinic where ARVs can be supplied. 6. will need biopsy (tissue) for diagnosis 7. patient pending discharge to [place] Subjective Date of service: 12/05/16 Principal diagnosis: HIV, lung mass, brain mets Interval history: Patient found sitting up in chair in room complaining of a headache and neck pain. RN was notified. Patient appears to be in no distress sitting upright. Objective - Exam Narrative Exam: GENERAL: Well-developed, thin somewhat chronically ill appearing female who is alert and in no acute distress. Patient is sitting upright in chair HEAD: Normocephalic. No lesions seen. EYES: Pupils are equal reactive to light and accommodation. There is no scleral icterus. Optic fundi are not examined. EARS: No evidence of external drainage THROAT: Oropharynx is normal with no evidence of oral candidiasis or pharyngitis. NECK: Supple. No enlargement of the thyroid gland. No significant cervical lymphadenopathy. No jugular venous distention at 60. LUNGS: Clear with no adventitious sounds. HEART: Regular rate. S1 and S2 are normal. There are no murmurs, gallops, clicks or rubs heard. ABDOMEN: Soft and nontender. Full exam limited with patient sitting upright EXTREMITIES: No rash, peripheral lymphadenopathy, clubbing or edema. NEUROLOGIC: No focal findings. - Constitutional Vitals: Vital Signs Temp Pulse Resp BP Pulse Ox 98.1 F 80 18 116/72 99 12/05/16 01:36 12/05/16 01:36 12/05/16 01:36 12/05/16 01:36 12/05/16 01:36 Temperature -Last 24 Hours Temperature 98.1 F Temperature 98.1 F Temperature 98.3 F - Labs CBC & Chem 7: 12/01/16 05:53 12/04/16 05:12
[2016-12-05] MEDS: BACTRIM DS PO SCH (12:07)
[2016-12-05] MEDS: DIFLUCAN PO SCH (12:07)
[2016-12-05] MEDS: FEOSOL PO SCH (12:07)
[2016-12-05] MEDS: DECADRON IV SCH ×2 (12:08→22:41)
[2016-12-05] MEDS: KEPPRA PO SCH ×2 (12:08→22:41)
[2016-12-05] MEDS: MIRALAX 3350 PO SCH (12:08)
[2016-12-05] MEDS: PROTONIX PO SCH (12:08)
[2016-12-05] MEDS: LOVENOX SUB-Q SCH (12:08)
[2016-12-05] MEDS: PERCOCET 5/325 PO PRN (12:23)
--- NOTE | 2016-12-05 15:08 | Progress Note ---
Assessment and Plan Assessment and plan: Patient is a 55-year-old female who moved to the [facility] from [facility] in 07/2016 and was admitted to [facility] on 11/20/16 with a severe headache. MRI shows multiple brain lesions consistent with metastatic disease. Rapid HIV test is positive. She states that she had been tested and [facility] and was always told that she was "negative." The only infection she is unaware of having had in the past is typhoid fever. She is unsure whether she has any risk factors for HIV infection. According to her and her family she has not lost significant weight over the last several months. Patient since hospitalization has been started on antibiotics with prophylactic medications for HIV including Bactrim DS, Zithromax, Decadron for immunosuppression. Patient seems to be stable although still unable to ambulate. * Multiple brain lesions concerning for metastatic disease * Lung mass- Biopsy not diagnostic * HIV/AIDS * Hyponatremia * Oral candidiasis with possible esophageal candidiasis * Headache secondary to brain mass * Left hemiparesis-requiring assistance with ambulation Plan * CSF fluids not diagnostic at this point. awaiting repeat lumber pucture result for cytology. Patient accepted at [facility] pending bed availability * Multiple attempts to transfer the patient was unsuccessful as the plan and process for possible [facility] transfer but they are requesting CSF studies done first. Results pending including cytology * PT/OT EVAL * Continue seizure prophylaxis with Keppra * ID input appreciated. Her IgG was positive but IgM is negative * Continue Fluconazole, Bactrim DS, Zithromax Decadron 4 mg IV every 6 hours * The patient possibly will need a repeat biopsy possible VATS study get better sample of the long lesion but before this will repeat the chest CT to ensure this is not Atalectasis * Incentive Spirometer * Monitor sodium level * Continue daily physical therapy. * Blood cultures are negative so far. * Dvt/Gi prophy * Discussed case with ID * Discussed case with the daughter History Interval history: f/u lung mass and brain mets; HIV Patient seen and examined this morning in no acute distress, still with for reported headache, otherwise weak and lethargic appearing, still requiring assistance with ambulation Denies any chest pain, nausea, vomiting, diarrhea No fever noted blood pressure controlled No adverse events reported to me by nursing staff Hospitalist Physical - Physical exam Narrative exam: VITAL SIGNS: Reviewed. GENERAL: The patient appeared well nourished and normally developed. Vital signs as documented. HEAD: No signs of head trauma. EYES: Pupils are equal. Extraocular motions intact. EARS: Hearing grossly intact. MOUTH: Oropharynx is normal. NECK: No adenopathy, no JVD. CHEST: Chest with clear breath sounds bilaterally. No wheezes, rales, or rhonchi. CARDIAC: Regular rate and rhythm. S1 and S2, without murmurs, gallops, or rubs. VASCULAR: No Edema. Peripheral pulses normal and equal in all extremities. ABDOMEN: Soft, without detectable tenderness. No sign of distention. No rebound or guarding, and no masses palpated. Bowel Sounds normal. MUSCULOSKELETAL: Left-sided weakness with decreased muscle strength. Otherwise good range of motion of all major joints. Extremities without clubbing, cyanosis or edema. NEUROLOGIC EXAM: Alert and oriented x 3. Left-sided weakness. Speech normal. Follows commands. PSYCHIATRIC: Mood normal. SKIN: No rash or lesions. - Constitutional Vitals: Temp Pulse Resp BP Pulse Ox 98.1 F 80 18 116/72 99 12/05/16 01:36 12/05/16 01:36 12/05/16 01:36 12/05/16 01:36 12/05/16 01:36 General appearance: Present: no acute distress Results - Labs CBC & Chem 7: 12/01/16 05:53 12/04/16 05:12 Labs: Laboratory Last Values WBC 8.5 K/mm3 (4.5-11.0) 12/01/16 05:53 RBC 5.37 M/mm3 (3.65-5.03) H 12/01/16 05:53 Hgb 10.8 gm/dl (10.1-14.3) 12/01/16 05:53 Hct 33.6 % (30.3-42.9) 12/01/16 05:53 MCV 63 fl (79-97) L 12/01/16 05:53 MCH 20 pg (28-32) L 12/01/16 05:53 MCHC 32 % (30-34) 12/01/16 05:53 RDW 20.5 % (13.2-15.2) H 12/01/16 05:53 Plt Count 372 K/mm3 (140-440) 12/01/16 05:53 Lymph % (Auto) 8.6 % (13.4-35.0) L 12/01/16 05:53 Jasper % (Auto) 4.1 % (0.0-7.3) 12/01/16 05:53 Eos % (Auto) 0.4 % (0.0-4.3) 12/01/16 05:53 Baso % (Auto) 0.2 % (0.0-1.8) 12/01/16 05:53 Lymph # 0.7 K/mm3 (1.2-5.4) L 12/01/16 05:53 Jasper # 0.3 K/mm3 (0.0-0.8) 12/01/16 05:53 Eos # 0.0 K/mm3 (0.0-0.4) 12/01/16 05:53 Baso # 0.0 K/mm3 (0.0-0.1) 12/01/16 05:53 Add Manual Diff Complete 11/23/16 05:04 Total Counted 100 11/23/16 05:04 Seg Neutrophils % 86.7 % (40.0-70.0) H 12/01/16 05:53 Seg Neuts % (Manual) 83.0 % (40.0-70.0) H 11/23/16 05:04 Band Neutrophils % 1.0 % 11/23/16 05:04 Lymphocytes % (Manual) 8.0 % (13.4-35.0) L 11/23/16 05:04 Reactive Lymphs % (Man) 0 % 11/23/16 05:04 Monocytes % (Manual) 6.0 % (0.0-7.3) 11/23/16 05:04 Eosinophils % (Manual) 0 % (0.0-4.3) 11/23/16 05:04 Basophils % (Manual) 0 % (0.0-1.8) 11/23/16 05:04 Metamyelocytes % 2.0 % 11/23/16 05:04 Myelocytes % 0 % 11/23/16 05:04 Promyelocytes % 0 % 11/23/16 05:04 Blast Cells % 0 % 11/23/16 05:04 Nucleated RBC % Not Reportable 11/23/16 05:04 Seg Neutrophils # 7.3 K/mm3 (1.8-7.7) 12/01/16 05:53 Seg Neutrophils # Man 4.4 K/mm3 (1.8-7.7) 11/23/16 05:04 Band Neutrophils # 0.1 K/mm3 11/23/16 05:04 Abs Lymphs (Manual) 477 cells/uL (850-3900) L 11/21/16 15:46 Lymphocytes # (Manual) 0.4 K/mm3 (1.2-5.4) L 11/23/16 05:04 Abs React Lymphs (Man) 0.0 K/mm3 11/23/16 05:04 Monocytes # (Manual) 0.3 K/mm3 (0.0-0.8) 11/23/16 05:04 Eosinophils # (Manual) 0.0 K/mm3 (0.0-0.4) 11/23/16 05:04 Basophils # (Manual) 0.0 K/mm3 (0.0-0.1) 11/23/16 05:04 Metamyelocytes # 0.1 K/mm3 11/23/16 05:04 Myelocytes # 0.0 K/mm3 11/23/16 05:04 Promyelocytes # 0.0 K/mm3 11/23/16 05:04 Blast Cells # 0.0 K/mm3 11/23/16 05:04 WBC Morphology Not Reportable 11/23/16 05:04 Hypersegmented Neuts Not Reportable 11/23/16 05:04 Hyposegmented Neuts Not Reportable 11/23/16 05:04 Hypogranular Neuts Not Reportable 11/23/16 05:04 Smudge Cells Not Reportable 11/23/16 05:04 Toxic Granulation Not Reportable 11/23/16 05:04 Toxic Vacuolation Not Reportable 11/23/16 05:04 Dohle Bodies Not Reportable 11/23/16 05:04 Pelger-Huet Anomaly Not Reportable 11/23/16 05:04 Jeremy Rods Not Reportable 11/23/16 05:04 Platelet Estimate Consistent w auto 11/23/16 05:04 Clumped Platelets Not Reportable 11/23/16 05:04 Plt Clumps, EDTA Not Reportable 11/23/16 05:04 Large Platelets Not Reportable 11/23/16 05:04 Giant Platelets Not Reportable 11/23/16 05:04 Platelet Satelliting Not Reportable 11/23/16 05:04 Plt Morphology Comment Not Reportable 11/23/16 05:04 RBC Morphology Not Reportable 11/23/16 05:04 Dimorphic RBCs Not Reportable 11/23/16 05:04 Polychromasia Not Reportable 11/23/16 05:04 Hypochromasia 1+ 11/23/16 05:04 Poikilocytosis Not Reportable 11/23/16 05:04 Anisocytosis 1+ 11/23/16 05:04 Microcytosis Not Reportable 11/23/16 05:04 Macrocytosis Not Reportable 11/23/16 05:04 Spherocytes Not Reportable 11/23/16 05:04 Pappenheimer Bodies Not Reportable 11/23/16 05:04 Sickle Cells Not Reportable 11/23/16 05:04 Target Cells Few 11/23/16 05:04 Tear Drop Cells Not Reportable 11/23/16 05:04 Ovalocytes Not Reportable 11/23/16 05:04 Helmet Cells Not Reportable 11/23/16 05:04 Polanco-[place] Bodies Not Reportable 11/23/16 05:04 [place] Rings Not Reportable 11/23/16 05:04 Dawson Cells Not Reportable 11/23/16 05:04 Bite Cells Not Reportable 11/23/16 05:04 Crenated Cell Not Reportable 11/23/16 05:04 Elliptocytes Few 11/23/16 05:04 Acanthocytes (Spur) Not Reportable 11/23/16 05:04 Rouleaux Not Reportable 11/23/16 05:04 Hemoglobin C Crystals Not Reportable 11/23/16 05:04 Schistocytes Not Reportable 11/23/16 05:04 Malaria parasites Not Reportable 11/23/16 05:04 Percent Retic 1.29 % (0.78-2.58) 11/21/16 15:46 Douglas Bodies Not Reportable 11/23/16 05:04 Hem Pathologist Commnt No 11/23/16 05:04 PT 13.2 Sec. (12.2-14.9) 12/01/16 05:53 INR 1.01 (0.87-1.13) 12/01/16 05:53 APTT 31.0 Sec. (24.2-36.6) 12/01/16 05:53 Sodium 130 mmol/L (137-145) L 12/04/16 05:12 Potassium 4.5 mmol/L (3.6-5.0) 12/04/16 05:12 Chloride 92.5 mmol/L (98-107) L 12/04/16 05:12 Carbon Dioxide 25 mmol/L (22-30) 12/04/16 05:12 Anion Gap 17 mmol/L 12/04/16 05:12 BUN 19 mg/dL (7-17) H 12/04/16 05:12 Creatinine 0.5 mg/dL (0.7-1.2) L 12/04/16 05:12 Estimated GFR > 60 ml/min 12/04/16 05:12 BUN/Creatinine Ratio 38.00 % 12/04/16 05:12 Glucose 126 mg/dL (65-100) H 12/04/16 05:12 Calcium 8.9 mg/dL (8.4-10.2) 12/04/16 05:12 Iron 21 ug/dL (37-170) L 11/21/16 15:46 TIBC 386 mcg/dL (250-450) 11/21/16 15:46 Ferritin 8.8 ng/mL (13.0-400.0) L 11/21/16 15:46 Total Bilirubin 0.4 mg/dL (0.1-1.2) 11/24/16 05:23 AST 63 units/L (5-40) H 11/24/16 05:23 ALT 68 units/L (7-56) H 11/24/16 05:23 Alkaline Phosphatase 137 units/L (35-129) H 11/24/16 05:23 Lactate Dehydrogenase 118 units/L (91-180) 12/01/16 05:50 Total Protein 9.0 g/dL (6.3-8.2) H 11/24/16 05:23 Albumin 3.6 g/dL (3.9-5) L 11/24/16 05:23 Albumin/Globulin Ratio 0.7 % 11/24/16 05:23 CA 27-29 32 U/mL (<38) 11/21/16 00:48 Fluid LDH 118 12/01/16 08:45 CSF Appearance Clear 12/01/16 08:45 CSF Color Colorless 12/01/16 08:45 CSF WBC 35 /mm3 (1-10) 12/01/16 08:45 CSF RBC 3 /mm3 (0-0) 12/01/16 08:45 CSF Seg Neutrophils 0 % (0-6) 12/01/16 08:45 CSF Lymphocytes % 90.0 % (40-80) 12/01/16 08:45 CSF Reactive Lymphs 2.0 % 12/01/16 08:45 CSF Monocytes % 8.0 % (15-45) 12/01/16 08:45 CSF Eosinophils % 0 % 12/01/16 08:45 CSF Basophils 0 % 12/01/16 08:45 CSF Comment See add'l comments 12/01/16 08:45 CSF Pathologist Review 12/01/16 08:45 CSF Glucose 77 mg/dL 12/01/16 08:45 CSF Total Protein 32 mg/dL 12/01/16 08:45 Lymph Enumerat CD4/CD8 0.26 (0.86-5.00) L 11/21/16 15:46 % CD3 Cells 74 % (57-85) 11/21/16 15:46 Absolute CD3 Count 355 cells/uL (840-3060) L 11/21/16 15:46 % CD4 Cells 16 % (30-61) L 11/21/16 15:46 Absolute CD4 Count 80 cells/uL (490-1740) L 11/21/16 15:46 % CD8 Cells 61 % (12-42) H 11/21/16 15:46 Absolute CD8 Count 304 cells/uL (180-1170) 11/21/16 15:46 % CD19 Cells 18 % (6-29) 11/21/16 15:46 Absolute CD19 Count 80 cells/uL (110-660) L 11/21/16 15:46 Hepatitis A IgM Ab -1 (NonReactive) 11/21/16 17:50 Hep Bs Antigen Non-reactive (Negative) 11/21/16 17:50 Hep B Core IgM Ab Non-reactive (NonReactive) 11/21/16 17:50 Hepatitis C Antibody Non-reactive (NonReactive) 11/21/16 17:50 HIV DNA Qual (PCR) See scanned report 11/21/16 15:46 HIV-1 Antibody See scanned report 11/21/16 00:48 HIV-1 RNA PCR copies/ml 14672 copies/mL (<20) H 11/21/16 17:50 HIV-1 RNA (PCR) log 4.61 Log cps/mL (<1.30) H 11/21/16 17:50 HIV-1 Genotyping see below 11/21/16 15:46 HIV-2 Ab (Immunoblot) See scanned report 11/21/16 00:48 HIV 1&2 Antibody Rapid Reactive (Non React) 11/21/16 00:48 HIV P24 Antigen Non react (Non React) 11/21/16 00:48 Toxoplasma IgG Ab 2.25 (<=0.90) H 11/24/16 10:03 Toxoplasma IgM Ab Negative (Negative) 11/24/16 10:03 TB (QFT) Gold In Tube Negative (Negative) 11/25/16 04:26 TB Test (QFT) Nil 0.07 IU/mL 11/25/16 04:26 TB Test Mitogen - Nil 1.83 IU/mL 11/25/16 04:26 TB Test Antigen - Nil <0.00 IU/mL 11/25/16 04:26 Miscellaneous Test Flexitest 1 12/01/16 Unknown
[2016-12-05] MEDS: DILAUDID IM PRN (16:07)
--- NOTE | 2016-12-06 08:40 | Physician Progress Note ---
SUBJECTIVE: The patient has no new complaints today. She continues to have headache, intermittently, and receives analgesics as needed. Her daughter is at bedside. Talking to the nurse,stated, [facility] has accepted the patient , and they called to take her. Then, they thought she was in isolation, the nurse told them no, she is not in isolation, they said they will call back and take the patient. This is work in progress. No fever, no chills. No other complaints presented by the patient. OBJECTIVE: VITAL SIGNS: Temperature 98.1, blood pressure 116/72, pulse 80, respirations 18. GENERAL: The patient in bed, appears comfortable, not in acute distress. Frail, appears to have lost significant amount of weight. SKIN: No new bruises, no petechiae. No evidence of recent fall or body trauma. HEENT: Normal sclera color. Pale conjunctivae. NECK: No neuropathy. CHEST: Normal breathing pattern. LUNGS: Clinically clear. No rales. No wheezing. HEART: Regular rate. No murmur. ABDOMEN: Soft, nontender. No palpable liver or spleen. CENTRAL NERVOUS SYSTEM: In spite of brain lesions, no acute focal PATROL COMMANDER deficits. EXTREMITIES: No calves tenderness. LABORATORY DATA: Followup CMP on 12/04/2016, yesterday, BUN 19, creatinine 0.5. ASSESSMENT: 1. Brain lesion. As noted before, IgM negative for toxoplasmosis. The patient has recent lung biopsy. It was negative for malignancy ?. The patient has been accepted at [facility] for brain biopsy. Transfer process in progress. As noted above, I talked to the nurse today, [facility] called, accepting the patient to be transferred today, last minute the nurse in [facility] in-charge of transfer, was under the impression the patient in isolation and she was told, no, the patient is in regular room. She stated she will call back. This is still pending. 2. Human immunodeficiency virus antibody positive, seen by Infectious Disease and followed by Infectious Disease. 3. Headaches secondary to brain mass, on analgesics as needed. 4. Lung mass. Etiology remains unclear, as stated above recent biopsy nondiagnostic. PLAN: As noted, the patient has been accepted to [facility]. Transfer expected ? today (see above). From a Oncology point of view, pending brain biopsy results, at this moment there is nothing to add. We will sign off. If the patient stays in the hospital and there is additional input required from Oncology, please do not hesitate to call, we will be glad to see the patient again. JOB# [id number] ASA/NTS CATINA
[2016-12-06] MEDS: PERCOCET 5/325 PO PRN ×2 (08:45→17:09)
[2016-12-06] MEDS: FEOSOL PO SCH (10:20)
[2016-12-06] MEDS: BACTRIM DS PO SCH (10:21)
[2016-12-06] MEDS: KEPPRA PO SCH ×2 (10:21→23:29)
[2016-12-06] MEDS: LOVENOX SUB-Q SCH (10:21)
[2016-12-06] MEDS: PROTONIX PO SCH (10:21)
[2016-12-06] MEDS: DECADRON IV SCH ×2 (10:21→23:29)
[2016-12-06] MEDS: MIRALAX 3350 PO SCH (10:24)
[2016-12-06] MEDS: DIFLUCAN PO SCH (10:24)
--- NOTE | 2016-12-06 12:03 | Progress Note ---
Assessment and Plan Assessment and plan: Patient is a 55-year-old female who moved to the [facility] from [facility] in 07/2016 and was admitted to [facility] on 11/20/16 with a severe headache. MRI shows multiple brain lesions consistent with metastatic disease. Rapid HIV test is positive. She states that she had been tested and [facility] and was always told that she was "negative." The only infection she is unaware of having had in the past is typhoid fever. She is unsure whether she has any risk factors for HIV infection. According to her and her family she has not lost significant weight over the last several months. Patient since hospitalization has been started on antibiotics with prophylactic medications for HIV including Bactrim DS, Zithromax, Decadron for immunosuppression. Patient seems to be stable although still unable to ambulate. * Multiple brain lesions concerning for metastatic disease * Lung mass- Biopsy not diagnostic * HIV/AIDS * Hyponatremia * Oral candidiasis with possible esophageal candidiasis * Headache secondary to brain mass * Left hemiparesis-requiring assistance with ambulation Plan * CSF fluids not diagnostic at this point. awaiting repeat lumber pucture result for cytology. Patient accepted at [facility] pending bed availability * Multiple attempts to transfer the patient was unsuccessful as the plan and process for possible [facility] transfer but they are requesting CSF studies done first. Results pending including cytology * PT/OT EVAL * Continue seizure prophylaxis with Keppra * ID input appreciated. Her IgG was positive but IgM is negative * Continue Fluconazole, Bactrim DS, Zithromax Decadron 4 mg IV every 6 hours * The patient possibly will need a repeat biopsy possible VATS study get better sample of the long lesion but before this will repeat the chest CT to ensure this is not Atalectasis * Incentive Spirometer * Monitor sodium level * Continue daily physical therapy. * Blood cultures are negative so far. * Dvt/Gi prophy * Discussed case with ID * Discussed case with the daughter * Per nursing staff, [facility] had called yesterday and said they will call back. History Interval history: f/u lung mass and brain mets; HIV Patient seen and examined this morning in no acute distress, reports improvement in headache but still weak and lethargic appearing, still requiring assistance with ambulation Denies any chest pain, nausea, vomiting, diarrhea No fever noted blood pressure controlled No adverse events reported to me by nursing staff Hospitalist Physical - Physical exam Narrative exam: VITAL SIGNS: Reviewed. GENERAL: The patient appeared well nourished and normally developed. Vital signs as documented. HEAD: No signs of head trauma. EYES: Pupils are equal. Extraocular motions intact. EARS: Hearing grossly intact. MOUTH: Oropharynx is normal. NECK: No adenopathy, no JVD. CHEST: Chest with clear breath sounds bilaterally. No wheezes, rales, or rhonchi. CARDIAC: Regular rate and rhythm. S1 and S2, without murmurs, gallops, or rubs. VASCULAR: No Edema. Peripheral pulses normal and equal in all extremities. ABDOMEN: Soft, without detectable tenderness. No sign of distention. No rebound or guarding, and no masses palpated. Bowel Sounds normal. MUSCULOSKELETAL: Left-sided weakness with decreased muscle strength. Otherwise good range of motion of all major joints. Extremities without clubbing, cyanosis or edema. NEUROLOGIC EXAM: Alert and oriented x 3. Left-sided weakness. Speech normal. Follows commands. PSYCHIATRIC: Mood normal. SKIN: No rash or lesions. - Constitutional Vitals: Temp Pulse Resp BP Pulse Ox 97.8 F 76 20 110/74 99 12/06/16 08:54 12/06/16 08:54 12/06/16 08:54 12/06/16 08:54 12/06/16 08:54 General appearance: Present: no acute distress Results - Labs CBC & Chem 7: 12/01/16 05:53 12/04/16 05:12 Labs: Laboratory Last Values WBC 8.5 K/mm3 (4.5-11.0) 12/01/16 05:53 RBC 5.37 M/mm3 (3.65-5.03) H 12/01/16 05:53 Hgb 10.8 gm/dl (10.1-14.3) 12/01/16 05:53 Hct 33.6 % (30.3-42.9) 12/01/16 05:53 MCV 63 fl (79-97) L 12/01/16 05:53 MCH 20 pg (28-32) L 12/01/16 05:53 MCHC 32 % (30-34) 12/01/16 05:53 RDW 20.5 % (13.2-15.2) H 12/01/16 05:53 Plt Count 372 K/mm3 (140-440) 12/01/16 05:53 Lymph % (Auto) 8.6 % (13.4-35.0) L 12/01/16 05:53 [place] % (Auto) 4.1 % (0.0-7.3) 12/01/16 05:53 Eos % (Auto) 0.4 % (0.0-4.3) 12/01/16 05:53 Baso % (Auto) 0.2 % (0.0-1.8) 12/01/16 05:53 Lymph # 0.7 K/mm3 (1.2-5.4) L 12/01/16 05:53 [place] # 0.3 K/mm3 (0.0-0.8) 12/01/16 05:53 Eos # 0.0 K/mm3 (0.0-0.4) 12/01/16 05:53 Baso # 0.0 K/mm3 (0.0-0.1) 12/01/16 05:53 Add Manual Diff Complete 11/23/16 05:04 Total Counted 100 11/23/16 05:04 Seg Neutrophils % 86.7 % (40.0-70.0) H 12/01/16 05:53 Seg Neuts % (Manual) 83.0 % (40.0-70.0) H 11/23/16 05:04 Band Neutrophils % 1.0 % 11/23/16 05:04 Lymphocytes % (Manual) 8.0 % (13.4-35.0) L 11/23/16 05:04 Reactive Lymphs % (Man) 0 % 11/23/16 05:04 Monocytes % (Manual) 6.0 % (0.0-7.3) 11/23/16 05:04 Eosinophils % (Manual) 0 % (0.0-4.3) 11/23/16 05:04 Basophils % (Manual) 0 % (0.0-1.8) 11/23/16 05:04 Metamyelocytes % 2.0 % 11/23/16 05:04 Myelocytes % 0 % 11/23/16 05:04 Promyelocytes % 0 % 11/23/16 05:04 Blast Cells % 0 % 11/23/16 05:04 Nucleated RBC % Not Reportable 11/23/16 05:04 Seg Neutrophils # 7.3 K/mm3 (1.8-7.7) 12/01/16 05:53 Seg Neutrophils # Man 4.4 K/mm3 (1.8-7.7) 11/23/16 05:04 Band Neutrophils # 0.1 K/mm3 11/23/16 05:04 Abs Lymphs (Manual) 477 cells/uL (850-3900) L 11/21/16 15:46 Lymphocytes # (Manual) 0.4 K/mm3 (1.2-5.4) L 11/23/16 05:04 Abs React Lymphs (Man) 0.0 K/mm3 11/23/16 05:04 Monocytes # (Manual) 0.3 K/mm3 (0.0-0.8) 11/23/16 05:04 Eosinophils # (Manual) 0.0 K/mm3 (0.0-0.4) 11/23/16 05:04 Basophils # (Manual) 0.0 K/mm3 (0.0-0.1) 11/23/16 05:04 Metamyelocytes # 0.1 K/mm3 11/23/16 05:04 Myelocytes # 0.0 K/mm3 11/23/16 05:04 Promyelocytes # 0.0 K/mm3 11/23/16 05:04 Blast Cells # 0.0 K/mm3 11/23/16 05:04 WBC Morphology Not Reportable 11/23/16 05:04 Hypersegmented Neuts Not Reportable 11/23/16 05:04 Hyposegmented Neuts Not Reportable 11/23/16 05:04 Hypogranular Neuts Not Reportable 11/23/16 05:04 Smudge Cells Not Reportable 11/23/16 05:04 Toxic Granulation Not Reportable 11/23/16 05:04 Toxic Vacuolation Not Reportable 11/23/16 05:04 Dohle Bodies Not Reportable 11/23/16 05:04 Pelger-Huet Anomaly Not Reportable 11/23/16 05:04 Jeremy Rods Not Reportable 11/23/16 05:04 Platelet Estimate Consistent w auto 11/23/16 05:04 Clumped Platelets Not Reportable 11/23/16 05:04 Plt Clumps, EDTA Not Reportable 11/23/16 05:04 Large Platelets Not Reportable 11/23/16 05:04 Giant Platelets Not Reportable 11/23/16 05:04 Platelet Satelliting Not Reportable 11/23/16 05:04 Plt Morphology Comment Not Reportable 11/23/16 05:04 RBC Morphology Not Reportable 11/23/16 05:04 Dimorphic RBCs Not Reportable 11/23/16 05:04 Polychromasia Not Reportable 11/23/16 05:04 Hypochromasia 1+ 11/23/16 05:04 Poikilocytosis Not Reportable 11/23/16 05:04 Anisocytosis 1+ 11/23/16 05:04 Microcytosis Not Reportable 11/23/16 05:04 Macrocytosis Not Reportable 11/23/16 05:04 Spherocytes Not Reportable 11/23/16 05:04 Pappenheimer Bodies Not Reportable 11/23/16 05:04 Sickle Cells Not Reportable 11/23/16 05:04 Target Cells Few 11/23/16 05:04 Tear Drop Cells Not Reportable 11/23/16 05:04 Ovalocytes Not Reportable 11/23/16 05:04 Helmet Cells Not Reportable 11/23/16 05:04 Polanco-Nyssa Bodies Not Reportable 11/23/16 05:04 Klemme Rings Not Reportable 11/23/16 05:04 Bristow Cells Not Reportable 11/23/16 05:04 Bite Cells Not Reportable 11/23/16 05:04 Crenated Cell Not Reportable 11/23/16 05:04 Elliptocytes Few 11/23/16 05:04 Acanthocytes (Spur) Not Reportable 11/23/16 05:04 Rouleaux Not Reportable 11/23/16 05:04 Hemoglobin C Crystals Not Reportable 11/23/16 05:04 Schistocytes Not Reportable 11/23/16 05:04 Malaria parasites Not Reportable 11/23/16 05:04 Percent Retic 1.29 % (0.78-2.58) 11/21/16 15:46 Douglas Bodies Not Reportable 11/23/16 05:04 Hem Pathologist Commnt No 11/23/16 05:04 PT 13.2 Sec. (12.2-14.9) 12/01/16 05:53 INR 1.01 (0.87-1.13) 12/01/16 05:53 APTT 31.0 Sec. (24.2-36.6) 12/01/16 05:53 Sodium 130 mmol/L (137-145) L 12/04/16 05:12 Potassium 4.5 mmol/L (3.6-5.0) 12/04/16 05:12 Chloride 92.5 mmol/L (98-107) L 12/04/16 05:12 Carbon Dioxide 25 mmol/L (22-30) 12/04/16 05:12 Anion Gap 17 mmol/L 12/04/16 05:12 BUN 19 mg/dL (7-17) H 12/04/16 05:12 Creatinine 0.5 mg/dL (0.7-1.2) L 12/04/16 05:12 Estimated GFR > 60 ml/min 12/04/16 05:12 BUN/Creatinine Ratio 38.00 % 12/04/16 05:12 Glucose 126 mg/dL (65-100) H 12/04/16 05:12 Calcium 8.9 mg/dL (8.4-10.2) 12/04/16 05:12 Iron 21 ug/dL (37-170) L 11/21/16 15:46 TIBC 386 mcg/dL (250-450) 11/21/16 15:46 Ferritin 8.8 ng/mL (13.0-400.0) L 11/21/16 15:46 Total Bilirubin 0.4 mg/dL (0.1-1.2) 11/24/16 05:23 AST 63 units/L (5-40) H 11/24/16 05:23 ALT 68 units/L (7-56) H 11/24/16 05:23 Alkaline Phosphatase 137 units/L (35-129) H 11/24/16 05:23 Lactate Dehydrogenase 118 units/L (91-180) 12/01/16 05:50 Total Protein 9.0 g/dL (6.3-8.2) H 11/24/16 05:23 Albumin 3.6 g/dL (3.9-5) L 11/24/16 05:23 Albumin/Globulin Ratio 0.7 % 11/24/16 05:23 CA 27-29 32 U/mL (<38) 11/21/16 00:48 Fluid LDH 118 12/01/16 08:45 CSF Appearance Clear 12/01/16 08:45 CSF Color Colorless 12/01/16 08:45 CSF WBC 35 /mm3 (1-10) 12/01/16 08:45 CSF RBC 3 /mm3 (0-0) 12/01/16 08:45 CSF Seg Neutrophils 0 % (0-6) 12/01/16 08:45 CSF Lymphocytes % 90.0 % (40-80) 12/01/16 08:45 CSF Reactive Lymphs 2.0 % 12/01/16 08:45 CSF Monocytes % 8.0 % (15-45) 12/01/16 08:45 CSF Eosinophils % 0 % 12/01/16 08:45 CSF Basophils 0 % 12/01/16 08:45 CSF Comment See add'l comments 12/01/16 08:45 CSF Pathologist Review 12/01/16 08:45 CSF Glucose 77 mg/dL 12/01/16 08:45 CSF Total Protein 32 mg/dL 12/01/16 08:45 Lymph Enumerat CD4/CD8 0.26 (0.86-5.00) L 11/21/16 15:46 % CD3 Cells 74 % (57-85) 11/21/16 15:46 Absolute CD3 Count 355 cells/uL (840-3060) L 11/21/16 15:46 % CD4 Cells 16 % (30-61) L 11/21/16 15:46 Absolute CD4 Count 80 cells/uL (490-1740) L 11/21/16 15:46 % CD8 Cells 61 % (12-42) H 11/21/16 15:46 Absolute CD8 Count 304 cells/uL (180-1170) 11/21/16 15:46 % CD19 Cells 18 % (6-29) 11/21/16 15:46 Absolute CD19 Count 80 cells/uL (110-660) L 11/21/16 15:46 Hepatitis A IgM Ab -1 (NonReactive) 11/21/16 17:50 Hep Bs Antigen Non-reactive (Negative) 11/21/16 17:50 Hep B Core IgM Ab Non-reactive (NonReactive) 11/21/16 17:50 Hepatitis C Antibody Non-reactive (NonReactive) 11/21/16 17:50 HIV DNA Qual (PCR) See scanned report 11/21/16 15:46 HIV-1 Antibody See scanned report 11/21/16 00:48 HIV-1 RNA PCR copies/ml 81038 copies/mL (<20) H 11/21/16 17:50 HIV-1 RNA (PCR) log 4.61 Log cps/mL (<1.30) H 11/21/16 17:50 HIV-1 Genotyping see below 11/21/16 15:46 HIV-2 Ab (Immunoblot) See scanned report 11/21/16 00:48 HIV 1&2 Antibody Rapid Reactive (Non React) 11/21/16 00:48 HIV P24 Antigen Non react (Non React) 11/21/16 00:48 Toxoplasma IgG Ab 2.25 (<=0.90) H 11/24/16 10:03 Toxoplasma IgM Ab Negative (Negative) 11/24/16 10:03 TB (QFT) Gold In Tube Negative (Negative) 11/25/16 04:26 TB Test (QFT) Nil 0.07 IU/mL 11/25/16 04:26 TB Test Mitogen - Nil 1.83 IU/mL 11/25/16 04:26 TB Test Antigen - Nil <0.00 IU/mL 11/25/16 04:26 Miscellaneous Test Flexitest 1 12/01/16 Unknown
[2016-12-07] MEDS: PERCOCET 5/325 PO PRN ×3 (06:41→21:25)
[2016-12-07] MEDS: DECADRON IV SCH ×2 (10:15→21:26)
[2016-12-07] MEDS: MIRALAX 3350 PO SCH (10:15)
[2016-12-07] MEDS: KEPPRA PO SCH ×2 (10:15→21:26)
[2016-12-07] MEDS: PROTONIX PO SCH (10:15)
[2016-12-07] MEDS: FEOSOL PO SCH (10:15)
[2016-12-07] MEDS: LOVENOX SUB-Q SCH (10:15)
[2016-12-07] MEDS: DIFLUCAN PO SCH (10:15)
[2016-12-07] MEDS: BACTRIM DS PO SCH (10:15)
--- NOTE | 2016-12-07 11:45 | Progress Note ---
Assessment and Plan Current antibiotics: None Prophylactic antibiotics: Bactrim DS 1 tab PO daily Azithromycin 1200mg PO q week Fluconazole 100 mg PO daily Immunosuppressants: Decadron 4 mg IV every 6 hours Corticosteroids: Dexamethasone 10 mg IV 1 followed by 4 mg IV every 6 hours 11/20 --> ASSESSMENT: Alicia Pang is a 55-year-old female who moved to the [place] from [facility] in 07/2016 and was admitted to [facility] on 11/20/16 with a severe headache. MRI shows multiple brain lesions consistent with metastatic disease. Rapid HIV test is positive. Problem list: 1. Lung mass- Etiology remains unclear - Thin needle biopsy reported negative for Cancer -the clinical picture of lung mass with brain lesions is suspicious of malignancy. I believe the lung biopsy might not have been adequate -Patient will need a definitive surgical procedure to obtain adequate tissue either from the brain lesions or lung -lumbar punture cell count without significant findings, wbc 35 with 90% lymphs. --csf cytology with atypical cell, discussed with pathology. More CSF fluid needed to do flow cytometry 2. Brain mass, R/O mets. R/O opportunistic infection --toxoplasma Igm negative, IGG only indicates old exposure - histoplasma and blastomyces antibodies sent -doubt nocardia, doesnt fit the clinical picture -need tissue to guide treatment 3. Headache secondary to #2 4. HIV/AIDS - CD4 Ct. 80; HIV VL 41,052 -genotype without resistance, would like to start treatment but would like to know underlying diagnosis of lung and brain lesions PLAN: 1. follow up fungal serologies 2. No new results available to aid with diagnosis 3. follow up CSF AFB, ADA, RYAN virus 4. continue bactrim, zithromax prophylaxis 5. reconstitution of immune-system will be important in this patient but will need to get to established clinic where ARVs can be supplied. 6. will need biopsy (tissue) for diagnosis 7. Awaits [facility] transfer Rom Hough MD [facility] Office: [phone] Subjective Date of service: 12/07/16 Principal diagnosis: HIV, lung mass, brain mets Interval history: No new complaints. Mild headache but "improved." awaits [facility] transfer. ROS: No subjective fever or chills. No nausea, vomiting or diarrhea. No shortness of breath, cough or pleuritic chest pain Objective - Exam Narrative Exam: GENERAL: Well-developed, thin somewhat chronically ill appearing female who is alert and in no acute distress. HEAD: Normocephalic. No lesions seen. EYES: Pupils are equal reactive to light and accommodation. There is no scleral icterus. Optic fundi are not examined. EARS: External ears are normal. THROAT: Oropharynx is normal with no evidence of oral candidiasis or pharyngitis. NECK: Supple. No enlargement of the thyroid gland. No significant cervical lymphadenopathy. No jugular venous distention at 30. LUNGS: Clear with no adventitious sounds. HEART: Regular rate. S1 and S2 are normal. There are no murmurs, gallops, clicks or rubs heard. ABDOMEN: Soft and nontender. Liver edge is felt approximately 2 cm below the right costal margin and is smooth and nontender. Spleen tip is palpable with deep inspiration just under the left upper costal margin. No other palpable masses. No clinical ascites. Bowel sounds are normoactive. EXTREMITIES: No rash, peripheral lymphadenopathy, clubbing or edema. : Not examined NEUROLOGIC: No focal findings. - Constitutional Vitals: Vital Signs Temp Pulse Resp BP Pulse Ox 98.4 F 58 L 16 103/72 98 12/07/16 08:16 12/07/16 08:16 12/07/16 08:16 12/07/16 08:16 12/07/16 08:16 Temperature -Last 24 Hours Temperature 98.4 F Temperature 98.3 F Temperature 98.3 F - Labs CBC & Chem 7: 12/01/16 05:53 12/04/16 05:12
--- NOTE | 2016-12-07 14:28 | Progress Note ---
Assessment and Plan Assessment and plan: Patient is a 55-year-old female who moved to the [facility] from [facility] in 07/2016 and [facility] with a severe headache. MRI shows multiple brain lesions consistent with metastatic disease. Rapid HIV test is positive. She states that she had been tested and [facility] and was always told that she was "negative." The only infection she is unaware of having had in the past is typhoid fever. She is unsure whether she has any risk factors for HIV infection. According to her and her family she has not lost significant weight over the last several months. Patient since hospitalization has been started on antibiotics with prophylactic medications for HIV including Bactrim DS, Zithromax, Decadron for immunosuppression. Patient seems to be stable although still unable to ambulate. * Multiple brain lesions concerning for metastatic disease * Lung mass- Biopsy not diagnostic * HIV/AIDS * Hyponatremia * Oral candidiasis with possible esophageal candidiasis * Headache secondary to brain mass * Left hemiparesis-requiring assistance with ambulation Plan * CSF fluids not diagnostic at this point. Repeat lumbar puncture preliminary report not showing any evidence of malignancy. Patient accepted at [facility] pending bed availability * Multiple attempts to transfer the patient was unsuccessful as the plan and process for possible [facility] transfer but they are requesting CSF studies done first. Results pending including cytology * PT/OT EVAL * Continue seizure prophylaxis with Keppra * ID input appreciated. Her IgG was positive but IgM is negative * Continue Fluconazole, Bactrim DS, Zithromax Decadron 4 mg IV every 6 hours * The patient possibly will need a repeat biopsy possible VATS study get better sample of the long lesion but before this will repeat the chest CT to ensure this is not Atalectasis * Incentive Spirometer * Monitor sodium level * Continue daily physical therapy. * Blood cultures are negative so far. * Dvt/Gi prophy * Discussed case with ID * Intermittent labs * Discussed case with the daughter * Per nursing staff, [facility] had called yesterday and said they will call back. History Interval history: f/u lung mass and brain mets; HIV Patient seen and examined this morning in no acute distress, continues to improve mobility and strength has not returned, still requiring assistance with ambulation Denies any chest pain, nausea, vomiting, diarrhea No fever noted blood pressure controlled No adverse events reported to me by nursing staff Hospitalist Physical - Physical exam Narrative exam: VITAL SIGNS: Reviewed. GENERAL: The patient appeared well nourished and normally developed. Vital signs as documented. HEAD: No signs of head trauma. EYES: Pupils are equal. Extraocular motions intact. EARS: Hearing grossly intact. MOUTH: Oropharynx is normal. NECK: No adenopathy, no JVD. CHEST: Chest with clear breath sounds bilaterally. No wheezes, rales, or rhonchi. CARDIAC: Regular rate and rhythm. S1 and S2, without murmurs, gallops, or rubs. VASCULAR: No Edema. Peripheral pulses normal and equal in all extremities. ABDOMEN: Soft, without detectable tenderness. No sign of distention. No rebound or guarding, and no masses palpated. Bowel Sounds normal. MUSCULOSKELETAL: Left-sided weakness with decreased muscle strength. Otherwise good range of motion of all major joints. Extremities without clubbing, cyanosis or edema. NEUROLOGIC EXAM: Alert and oriented x 3. Left-sided weakness. Speech normal. Follows commands. PSYCHIATRIC: Mood normal. SKIN: No rash or lesions. - Constitutional Vitals: Temp Pulse Resp BP Pulse Ox 98.4 F 58 L 16 103/72 98 12/07/16 08:16 12/07/16 08:16 12/07/16 08:16 12/07/16 08:16 12/07/16 08:16 General appearance: Present: no acute distress Results - Labs CBC & Chem 7: 12/01/16 05:53 12/04/16 05:12 Labs: Laboratory Last Values WBC 8.5 K/mm3 (4.5-11.0) 12/01/16 05:53 RBC 5.37 M/mm3 (3.65-5.03) H 12/01/16 05:53 Hgb 10.8 gm/dl (10.1-14.3) 12/01/16 05:53 Hct 33.6 % (30.3-42.9) 12/01/16 05:53 MCV 63 fl (79-97) L 12/01/16 05:53 MCH 20 pg (28-32) L 12/01/16 05:53 MCHC 32 % (30-34) 12/01/16 05:53 RDW 20.5 % (13.2-15.2) H 12/01/16 05:53 Plt Count 372 K/mm3 (140-440) 12/01/16 05:53 Lymph % (Auto) 8.6 % (13.4-35.0) L 12/01/16 05:53 Lamar % (Auto) 4.1 % (0.0-7.3) 12/01/16 05:53 Eos % (Auto) 0.4 % (0.0-4.3) 12/01/16 05:53 Baso % (Auto) 0.2 % (0.0-1.8) 12/01/16 05:53 Lymph # 0.7 K/mm3 (1.2-5.4) L 12/01/16 05:53 Lamar # 0.3 K/mm3 (0.0-0.8) 12/01/16 05:53 Eos # 0.0 K/mm3 (0.0-0.4) 12/01/16 05:53 Baso # 0.0 K/mm3 (0.0-0.1) 12/01/16 05:53 Add Manual Diff Complete 11/23/16 05:04 Total Counted 100 11/23/16 05:04 Seg Neutrophils % 86.7 % (40.0-70.0) H 12/01/16 05:53 Seg Neuts % (Manual) 83.0 % (40.0-70.0) H 11/23/16 05:04 Band Neutrophils % 1.0 % 11/23/16 05:04 Lymphocytes % (Manual) 8.0 % (13.4-35.0) L 11/23/16 05:04 Reactive Lymphs % (Man) 0 % 11/23/16 05:04 Monocytes % (Manual) 6.0 % (0.0-7.3) 11/23/16 05:04 Eosinophils % (Manual) 0 % (0.0-4.3) 11/23/16 05:04 Basophils % (Manual) 0 % (0.0-1.8) 11/23/16 05:04 Metamyelocytes % 2.0 % 11/23/16 05:04 Myelocytes % 0 % 11/23/16 05:04 Promyelocytes % 0 % 11/23/16 05:04 Blast Cells % 0 % 11/23/16 05:04 Nucleated RBC % Not Reportable 11/23/16 05:04 Seg Neutrophils # 7.3 K/mm3 (1.8-7.7) 12/01/16 05:53 Seg Neutrophils # Man 4.4 K/mm3 (1.8-7.7) 11/23/16 05:04 Band Neutrophils # 0.1 K/mm3 11/23/16 05:04 Abs Lymphs (Manual) 477 cells/uL (850-3900) L 11/21/16 15:46 Lymphocytes # (Manual) 0.4 K/mm3 (1.2-5.4) L 11/23/16 05:04 Abs React Lymphs (Man) 0.0 K/mm3 11/23/16 05:04 Monocytes # (Manual) 0.3 K/mm3 (0.0-0.8) 11/23/16 05:04 Eosinophils # (Manual) 0.0 K/mm3 (0.0-0.4) 11/23/16 05:04 Basophils # (Manual) 0.0 K/mm3 (0.0-0.1) 11/23/16 05:04 Metamyelocytes # 0.1 K/mm3 11/23/16 05:04 Myelocytes # 0.0 K/mm3 11/23/16 05:04 Promyelocytes # 0.0 K/mm3 11/23/16 05:04 Blast Cells # 0.0 K/mm3 11/23/16 05:04 WBC Morphology Not Reportable 11/23/16 05:04 Hypersegmented Neuts Not Reportable 11/23/16 05:04 Hyposegmented Neuts Not Reportable 11/23/16 05:04 Hypogranular Neuts Not Reportable 11/23/16 05:04 Smudge Cells Not Reportable 11/23/16 05:04 Toxic Granulation Not Reportable 11/23/16 05:04 Toxic Vacuolation Not Reportable 11/23/16 05:04 Dohle Bodies Not Reportable 11/23/16 05:04 Pelger-Huet Anomaly Not Reportable 11/23/16 05:04 Jeremy Rods Not Reportable 11/23/16 05:04 Platelet Estimate Consistent w auto 11/23/16 05:04 Clumped Platelets Not Reportable 11/23/16 05:04 Plt Clumps, EDTA Not Reportable 11/23/16 05:04 Large Platelets Not Reportable 11/23/16 05:04 Giant Platelets Not Reportable 11/23/16 05:04 Platelet Satelliting Not Reportable 11/23/16 05:04 Plt Morphology Comment Not Reportable 11/23/16 05:04 RBC Morphology Not Reportable 11/23/16 05:04 Dimorphic RBCs Not Reportable 11/23/16 05:04 Polychromasia Not Reportable 11/23/16 05:04 Hypochromasia 1+ 11/23/16 05:04 Poikilocytosis Not Reportable 11/23/16 05:04 Anisocytosis 1+ 11/23/16 05:04 Microcytosis Not Reportable 11/23/16 05:04 Macrocytosis Not Reportable 11/23/16 05:04 Spherocytes Not Reportable 11/23/16 05:04 Pappenheimer Bodies Not Reportable 11/23/16 05:04 Sickle Cells Not Reportable 11/23/16 05:04 Target Cells Few 11/23/16 05:04 Tear Drop Cells Not Reportable 11/23/16 05:04 Ovalocytes Not Reportable 11/23/16 05:04 Helmet Cells Not Reportable 11/23/16 05:04 Polanco-Zeb Bodies Not Reportable 11/23/16 05:04 Anahola Rings Not Reportable 11/23/16 05:04 Dawson Cells Not Reportable 11/23/16 05:04 Bite Cells Not Reportable 11/23/16 05:04 Crenated Cell Not Reportable 11/23/16 05:04 Elliptocytes Few 11/23/16 05:04 Acanthocytes (Spur) Not Reportable 11/23/16 05:04 Rouleaux Not Reportable 11/23/16 05:04 Hemoglobin C Crystals Not Reportable 11/23/16 05:04 Schistocytes Not Reportable 11/23/16 05:04 Malaria parasites Not Reportable 11/23/16 05:04 Percent Retic 1.29 % (0.78-2.58) 11/21/16 15:46 Douglas Bodies Not Reportable 11/23/16 05:04 Hem Pathologist Commnt No 11/23/16 05:04 PT 13.2 Sec. (12.2-14.9) 12/01/16 05:53 INR 1.01 (0.87-1.13) 12/01/16 05:53 APTT 31.0 Sec. (24.2-36.6) 12/01/16 05:53 Sodium 130 mmol/L (137-145) L 12/04/16 05:12 Potassium 4.5 mmol/L (3.6-5.0) 12/04/16 05:12 Chloride 92.5 mmol/L (98-107) L 12/04/16 05:12 Carbon Dioxide 25 mmol/L (22-30) 12/04/16 05:12 Anion Gap 17 mmol/L 12/04/16 05:12 BUN 19 mg/dL (7-17) H 12/04/16 05:12 Creatinine 0.5 mg/dL (0.7-1.2) L 12/04/16 05:12 Estimated GFR > 60 ml/min 12/04/16 05:12 BUN/Creatinine Ratio 38.00 % 12/04/16 05:12 Glucose 126 mg/dL (65-100) H 12/04/16 05:12 Calcium 8.9 mg/dL (8.4-10.2) 12/04/16 05:12 Iron 21 ug/dL (37-170) L 11/21/16 15:46 TIBC 386 mcg/dL (250-450) 11/21/16 15:46 Ferritin 8.8 ng/mL (13.0-400.0) L 11/21/16 15:46 Total Bilirubin 0.4 mg/dL (0.1-1.2) 11/24/16 05:23 AST 63 units/L (5-40) H 11/24/16 05:23 ALT 68 units/L (7-56) H 11/24/16 05:23 Alkaline Phosphatase 137 units/L (35-129) H 11/24/16 05:23 Lactate Dehydrogenase 118 units/L (91-180) 12/01/16 05:50 Total Protein 9.0 g/dL (6.3-8.2) H 11/24/16 05:23 Albumin 3.6 g/dL (3.9-5) L 11/24/16 05:23 Albumin/Globulin Ratio 0.7 % 11/24/16 05:23 CA 27-29 32 U/mL (<38) 11/21/16 00:48 Fluid LDH 118 12/01/16 08:45 CSF Appearance Clear 12/01/16 08:45 CSF Color Colorless 12/01/16 08:45 CSF WBC 35 /mm3 (1-10) 12/01/16 08:45 CSF RBC 3 /mm3 (0-0) 12/01/16 08:45 CSF Seg Neutrophils 0 % (0-6) 12/01/16 08:45 CSF Lymphocytes % 90.0 % (40-80) 12/01/16 08:45 CSF Reactive Lymphs 2.0 % 12/01/16 08:45 CSF Monocytes % 8.0 % (15-45) 12/01/16 08:45 CSF Eosinophils % 0 % 12/01/16 08:45 CSF Basophils 0 % 12/01/16 08:45 CSF Comment See add'l comments 12/01/16 08:45 CSF Pathologist Review 12/01/16 08:45 CSF Glucose 77 mg/dL 12/01/16 08:45 CSF Total Protein 32 mg/dL 12/01/16 08:45 Lymph Enumerat CD4/CD8 0.26 (0.86-5.00) L 11/21/16 15:46 % CD3 Cells 74 % (57-85) 11/21/16 15:46 Absolute CD3 Count 355 cells/uL (840-3060) L 11/21/16 15:46 % CD4 Cells 16 % (30-61) L 11/21/16 15:46 Absolute CD4 Count 80 cells/uL (490-1740) L 11/21/16 15:46 % CD8 Cells 61 % (12-42) H 11/21/16 15:46 Absolute CD8 Count 304 cells/uL (180-1170) 11/21/16 15:46 % CD19 Cells 18 % (6-29) 11/21/16 15:46 Absolute CD19 Count 80 cells/uL (110-660) L 11/21/16 15:46 Hepatitis A IgM Ab -1 (NonReactive) 11/21/16 17:50 Hep Bs Antigen Non-reactive (Negative) 11/21/16 17:50 Hep B Core IgM Ab Non-reactive (NonReactive) 11/21/16 17:50 Hepatitis C Antibody Non-reactive (NonReactive) 11/21/16 17:50 HIV DNA Qual (PCR) See scanned report 11/21/16 15:46 HIV-1 Antibody See scanned report 11/21/16 00:48 HIV-1 RNA PCR copies/ml 93195 copies/mL (<20) H 11/21/16 17:50 HIV-1 RNA (PCR) log 4.61 Log cps/mL (<1.30) H 11/21/16 17:50 HIV-1 Genotyping see below 11/21/16 15:46 HIV-2 Ab (Immunoblot) See scanned report 11/21/16 00:48 HIV 1&2 Antibody Rapid Reactive (Non React) 11/21/16 00:48 HIV P24 Antigen Non react (Non React) 11/21/16 00:48 Toxoplasma IgG Ab 2.25 (<=0.90) H 11/24/16 10:03 Toxoplasma IgM Ab Negative (Negative) 11/24/16 10:03 TB (QFT) Gold In Tube Negative (Negative) 11/25/16 04:26 TB Test (QFT) Nil 0.07 IU/mL 11/25/16 04:26 TB Test Mitogen - Nil 1.83 IU/mL 11/25/16 04:26 TB Test Antigen - Nil <0.00 IU/mL 11/25/16 04:26 Miscellaneous Test Flexitest 1 12/01/16 Unknown
[2016-12-08] MEDS: FEOSOL PO SCH (09:26)
[2016-12-08] MEDS: BACTRIM DS PO SCH (09:26)
[2016-12-08] MEDS: KEPPRA PO SCH ×2 (09:26→20:53)
[2016-12-08] MEDS: DIFLUCAN PO SCH (09:26)
[2016-12-08] MEDS: PERCOCET 5/325 PO PRN ×2 (09:26→20:54)
[2016-12-08] MEDS: PROTONIX PO SCH (09:27)
[2016-12-08] MEDS: MIRALAX 3350 PO SCH (09:27)
[2016-12-08] MEDS: LOVENOX SUB-Q SCH (09:27)
[2016-12-08] MEDS: DECADRON IV SCH ×2 (09:27→22:28)
--- NOTE | 2016-12-08 11:10 | Progress Note ---
Assessment and Plan Current antibiotics: None Prophylactic antibiotics: Bactrim DS 1 tab PO daily Azithromycin 1200mg PO q week Fluconazole 100 mg PO daily Immunosuppressants: Decadron 4 mg IV every 6 hours Corticosteroids: Dexamethasone 10 mg IV 1 followed by 4 mg IV every 6 hours 11/20 --> ASSESSMENT: Alicia Pang is a 55-year-old female who moved to the [facility] from [facility] in 07/2016 and was admitted to [facility] on 11/20/16 with a severe headache. MRI shows multiple brain lesions consistent with metastatic disease. Rapid HIV test is positive. Problem list: 1. Lung mass- Etiology remains unclear - Thin needle biopsy reported negative for Cancer -the clinical picture of lung mass with brain lesions is suspicious of malignancy. I believe the lung biopsy might not have been adequate -Patient will need a definitive surgical procedure to obtain adequate tissue either from the brain lesions or lung -lumbar punture cell count without significant findings, wbc 35 with 90% lymphs. --csf cytology with atypical cell, discussed with pathology. More CSF fluid needed to do flow cytometry 2. Brain mass, R/O mets. R/O opportunistic infection --toxoplasma Igm negative, IGG only indicates old exposure - histoplasma and blastomyces antibodies sent -doubt nocardia, doesnt fit the clinical picture -need tissue to guide treatment 3. Headache secondary to #2 4. HIV/AIDS - CD4 Ct. 80; HIV VL 41,052 -genotype without resistance, would like to start treatment but would like to know underlying diagnosis of lung and brain lesions PLAN: 1. follow up fungal serologies 2. No new results available to aid with diagnosis 3. follow up CSF AFB, ADA, RYAN virus 4. continue bactrim, zithromax prophylaxis 5. reconstitution of immune-system will be important in this patient but will need to get to established clinic where ARVs can be supplied. 6. will need biopsy (tissue) for diagnosis 7. Awaits [place] transfer Rom Hough MD [facility] Office: [phone] Subjective Date of service: 12/08/16 Principal diagnosis: HIV, lung mass, brain mets Interval history: No new complaints. Still with mild headache. Awaits [place] transfer. ROS: No subjective fever or chills. No nausea, vomiting or diarrhea. No shortness of breath, cough or pleuritic chest pain Objective - Exam Narrative Exam: GENERAL: Well-developed, thin somewhat chronically ill appearing female who is alert and in no acute distress. HEAD: Normocephalic. No lesions seen. EYES: Pupils are equal reactive to light and accommodation. There is no scleral icterus. Optic fundi are not examined. EARS: External ears are normal. THROAT: Oropharynx is normal with no evidence of oral candidiasis or pharyngitis. NECK: Supple. No enlargement of the thyroid gland. No significant cervical lymphadenopathy. No jugular venous distention at 30. LUNGS: Clear with no adventitious sounds. HEART: Regular rate. S1 and S2 are normal. There are no murmurs, gallops, clicks or rubs heard. ABDOMEN: Soft and nontender. Liver edge is felt approximately 2 cm below the right costal margin and is smooth and nontender. Spleen tip is palpable with deep inspiration just under the left upper costal margin. No other palpable masses. No clinical ascites. Bowel sounds are normoactive. EXTREMITIES: No rash, peripheral lymphadenopathy, clubbing or edema. : Not examined NEUROLOGIC: No focal findings. - Constitutional Vitals: Vital Signs Temp Pulse Resp BP Pulse Ox 98 F 78 18 112/72 98 12/08/16 08:00 12/08/16 08:00 12/08/16 08:00 12/08/16 08:00 12/08/16 08:00 Temperature -Last 24 Hours Temperature 98 F Temperature 98.0 F Temperature 98.6 F - Labs CBC & Chem 7: 12/01/16 05:53 12/04/16 05:12 Labs: Microbiology 12/01/16 08:45 Cerebral Spinal Fluid CSF Culture - Final 12/01/16 Unknown Cerebral Spinal Fluid Cryptococcal Antigen - Negative 11/23/16 13:02 Peripheral/Venous Blood Fungal Culture - Preliminary No Fungus Isolated At 1 week 11/23/16 13:02 Peripheral/Venous Blood Fungal Culture - No growth 11/23/16 Unknown Serum Cryptococcal Antigen - Negative Laboratory Tests 11/21/16 11/21/16 11/21/16 15:46 17:50 17:50 % CD4 Cells 16 L Absolute CD4 Count 80 L Hep Bs Antigen Non-reactive Hep B Core IgM Ab Non-reactive Hepatitis C Antibody Non-reactive HIV-1 RNA PCR copies/ml 09714 H Toxoplasma IgG Ab Toxoplasma IgM Ab TB (QFT) Gold In Tube 11/24/16 11/24/16 11/25/16 10:03 10:03 04:26 % CD4 Cells Absolute CD4 Count Hep Bs Antigen Hep B Core IgM Ab Hepatitis C Antibody HIV-1 RNA PCR copies/ml Toxoplasma IgG Ab 2.25 H Toxoplasma IgM Ab Negative TB (QFT) Gold In Tube Negative
--- NOTE | 2016-12-08 21:59 | Progress Note ---
Assessment and Plan Assessment and plan: Patient is a 55-year-old female who moved to the [place] from [facility] in 07/2016 and was admitted to [facility] on 11/20/16 with a severe headache. MRI shows multiple brain lesions consistent with metastatic disease. Rapid HIV test is positive. She states that she had been tested and [facility] and was always told that she was "negative." The only infection she is unaware of having had in the past is typhoid fever. She is unsure whether she has any risk factors for HIV infection. According to her and her family she has not lost significant weight over the last several months. Patient since hospitalization has been started on antibiotics with prophylactic medications for HIV including Bactrim DS, Zithromax, Decadron for immunosuppression. Patient seems to be stable although still unable to ambulate. * Multiple brain lesions concerning for metastatic disease * Lung mass- Biopsy not diagnostic * HIV/AIDS * Hyponatremia * Oral candidiasis with possible esophageal candidiasis * Headache secondary to brain mass * Left hemiparesis-requiring assistance with ambulation Plan * CSF fluids not diagnostic at this point. Repeat lumbar puncture preliminary report not showing any evidence of malignancy. Patient accepted at [place] pending bed availability * Ambulates with PT daily * Continue seizure prophylaxis with Keppra * ID input appreciated. Her IgG was positive but IgM is negative * Continue Fluconazole, Bactrim DS, Zithromax Decadron 4 mg IV every 6 hours * The patient possibly will need a repeat biopsy possible VATS study get better sample of the long lesion but before this will repeat the chest CT to ensure this is not Atalectasis * Incentive Spirometer * Monitor sodium level * Continue daily physical therapy. * Blood cultures are negative so far. * Dvt/Gi prophy * Discussed case with ID * Intermittent labs * Discussed case with the daughter * Per nursing staff, still awaiting calls from [facility].. History Interval history: f/u lung mass and brain mets; HIV Patient seen and examined this morning in no acute distress, still with intermittent headaches continues to improve mobility and strength has not returned, still requiring assistance with ambulation Denies any chest pain, nausea, vomiting, diarrhea No fever noted blood pressure controlled No adverse events reported to me by nursing staff Hospitalist Physical - Physical exam Narrative exam: VITAL SIGNS: Reviewed. GENERAL: The patient appeared well nourished and normally developed. Vital signs as documented. HEAD: No signs of head trauma. EYES: Pupils are equal. Extraocular motions intact. EARS: Hearing grossly intact. MOUTH: Oropharynx is normal. NECK: No adenopathy, no JVD. CHEST: Chest with clear breath sounds bilaterally. No wheezes, rales, or rhonchi. CARDIAC: Regular rate and rhythm. S1 and S2, without murmurs, gallops, or rubs. VASCULAR: No Edema. Peripheral pulses normal and equal in all extremities. ABDOMEN: Soft, without detectable tenderness. No sign of distention. No rebound or guarding, and no masses palpated. Bowel Sounds normal. MUSCULOSKELETAL: Left-sided weakness with decreased muscle strength. Otherwise good range of motion of all major joints. Extremities without clubbing, cyanosis or edema. NEUROLOGIC EXAM: Alert and oriented x 3. Left-sided weakness. Speech normal. Follows commands. PSYCHIATRIC: Mood normal. SKIN: No rash or lesions. - Constitutional Vitals: Temp Pulse Resp BP Pulse Ox 98.3 F 74 16 110/66 96 12/08/16 16:37 12/08/16 16:37 12/08/16 16:37 12/08/16 16:37 12/08/16 09:00 General appearance: Present: no acute distress Results - Labs CBC & Chem 7: 12/01/16 05:53 12/04/16 05:12 Labs: Laboratory Last Values WBC 8.5 K/mm3 (4.5-11.0) 12/01/16 05:53 RBC 5.37 M/mm3 (3.65-5.03) H 12/01/16 05:53 Hgb 10.8 gm/dl (10.1-14.3) 12/01/16 05:53 Hct 33.6 % (30.3-42.9) 12/01/16 05:53 MCV 63 fl (79-97) L 12/01/16 05:53 MCH 20 pg (28-32) L 12/01/16 05:53 MCHC 32 % (30-34) 12/01/16 05:53 RDW 20.5 % (13.2-15.2) H 12/01/16 05:53 Plt Count 372 K/mm3 (140-440) 12/01/16 05:53 Lymph % (Auto) 8.6 % (13.4-35.0) L 12/01/16 05:53 [place] % (Auto) 4.1 % (0.0-7.3) 12/01/16 05:53 Eos % (Auto) 0.4 % (0.0-4.3) 12/01/16 05:53 Baso % (Auto) 0.2 % (0.0-1.8) 12/01/16 05:53 Lymph # 0.7 K/mm3 (1.2-5.4) L 12/01/16 05:53 [place] # 0.3 K/mm3 (0.0-0.8) 12/01/16 05:53 Eos # 0.0 K/mm3 (0.0-0.4) 12/01/16 05:53 Baso # 0.0 K/mm3 (0.0-0.1) 12/01/16 05:53 Add Manual Diff Complete 11/23/16 05:04 Total Counted 100 11/23/16 05:04 Seg Neutrophils % 86.7 % (40.0-70.0) H 12/01/16 05:53 Seg Neuts % (Manual) 83.0 % (40.0-70.0) H 11/23/16 05:04 Band Neutrophils % 1.0 % 11/23/16 05:04 Lymphocytes % (Manual) 8.0 % (13.4-35.0) L 11/23/16 05:04 Reactive Lymphs % (Man) 0 % 11/23/16 05:04 Monocytes % (Manual) 6.0 % (0.0-7.3) 11/23/16 05:04 Eosinophils % (Manual) 0 % (0.0-4.3) 11/23/16 05:04 Basophils % (Manual) 0 % (0.0-1.8) 11/23/16 05:04 Metamyelocytes % 2.0 % 11/23/16 05:04 Myelocytes % 0 % 11/23/16 05:04 Promyelocytes % 0 % 11/23/16 05:04 Blast Cells % 0 % 11/23/16 05:04 Nucleated RBC % Not Reportable 11/23/16 05:04 Seg Neutrophils # 7.3 K/mm3 (1.8-7.7) 12/01/16 05:53 Seg Neutrophils # Man 4.4 K/mm3 (1.8-7.7) 11/23/16 05:04 Band Neutrophils # 0.1 K/mm3 11/23/16 05:04 Abs Lymphs (Manual) 477 cells/uL (850-3900) L 11/21/16 15:46 Lymphocytes # (Manual) 0.4 K/mm3 (1.2-5.4) L 11/23/16 05:04 Abs React Lymphs (Man) 0.0 K/mm3 11/23/16 05:04 Monocytes # (Manual) 0.3 K/mm3 (0.0-0.8) 11/23/16 05:04 Eosinophils # (Manual) 0.0 K/mm3 (0.0-0.4) 11/23/16 05:04 Basophils # (Manual) 0.0 K/mm3 (0.0-0.1) 11/23/16 05:04 Metamyelocytes # 0.1 K/mm3 11/23/16 05:04 Myelocytes # 0.0 K/mm3 11/23/16 05:04 Promyelocytes # 0.0 K/mm3 11/23/16 05:04 Blast Cells # 0.0 K/mm3 11/23/16 05:04 WBC Morphology Not Reportable 11/23/16 05:04 Hypersegmented Neuts Not Reportable 11/23/16 05:04 Hyposegmented Neuts Not Reportable 11/23/16 05:04 Hypogranular Neuts Not Reportable 11/23/16 05:04 Smudge Cells Not Reportable 11/23/16 05:04 Toxic Granulation Not Reportable 11/23/16 05:04 Toxic Vacuolation Not Reportable 11/23/16 05:04 Dohle Bodies Not Reportable 11/23/16 05:04 Pelger-Huet Anomaly Not Reportable 11/23/16 05:04 Jeremy Rods Not Reportable 11/23/16 05:04 Platelet Estimate Consistent w auto 11/23/16 05:04 Clumped Platelets Not Reportable 11/23/16 05:04 Plt Clumps, EDTA Not Reportable 11/23/16 05:04 Large Platelets Not Reportable 11/23/16 05:04 Giant Platelets Not Reportable 11/23/16 05:04 Platelet Satelliting Not Reportable 11/23/16 05:04 Plt Morphology Comment Not Reportable 11/23/16 05:04 RBC Morphology Not Reportable 11/23/16 05:04 Dimorphic RBCs Not Reportable 11/23/16 05:04 Polychromasia Not Reportable 11/23/16 05:04 Hypochromasia 1+ 11/23/16 05:04 Poikilocytosis Not Reportable 11/23/16 05:04 Anisocytosis 1+ 11/23/16 05:04 Microcytosis Not Reportable 11/23/16 05:04 Macrocytosis Not Reportable 11/23/16 05:04 Spherocytes Not Reportable 11/23/16 05:04 Pappenheimer Bodies Not Reportable 11/23/16 05:04 Sickle Cells Not Reportable 11/23/16 05:04 Target Cells Few 11/23/16 05:04 Tear Drop Cells Not Reportable 11/23/16 05:04 Ovalocytes Not Reportable 11/23/16 05:04 Helmet Cells Not Reportable 11/23/16 05:04 [place] Bodies Not Reportable 11/23/16 05:04 [place] Rings Not Reportable 11/23/16 05:04 [place] Cells Not Reportable 11/23/16 05:04 Bite Cells Not Reportable 11/23/16 05:04 Crenated Cell Not Reportable 11/23/16 05:04 Elliptocytes Few 11/23/16 05:04 Acanthocytes (Spur) Not Reportable 11/23/16 05:04 Rouleaux Not Reportable 11/23/16 05:04 Hemoglobin C Crystals Not Reportable 11/23/16 05:04 Schistocytes Not Reportable 11/23/16 05:04 Malaria parasites Not Reportable 11/23/16 05:04 Percent Retic 1.29 % (0.78-2.58) 11/21/16 15:46 Douglas Bodies Not Reportable 11/23/16 05:04 Hem Pathologist Commnt No 11/23/16 05:04 PT 13.2 Sec. (12.2-14.9) 12/01/16 05:53 INR 1.01 (0.87-1.13) 12/01/16 05:53 APTT 31.0 Sec. (24.2-36.6) 12/01/16 05:53 Sodium 130 mmol/L (137-145) L 02/10/17 05:12 Potassium 4.5 mmol/L (3.6-5.0) 12/04/16 05:12 Chloride 92.5 mmol/L (98-107) L 12/04/16 05:12 Carbon Dioxide 25 mmol/L (22-30) 12/04/16 05:12 Anion Gap 17 mmol/L 12/04/16 05:12 BUN 19 mg/dL (7-17) H 12/04/16 05:12 Creatinine 0.5 mg/dL (0.7-1.2) L 12/04/16 05:12 Estimated GFR > 60 ml/min 12/04/16 05:12 BUN/Creatinine Ratio 38.00 % 12/04/16 05:12 Glucose 126 mg/dL (65-100) H 12/04/16 05:12 Calcium 8.9 mg/dL (8.4-10.2) 12/04/16 05:12 Iron 21 ug/dL (37-170) L 11/21/16 15:46 TIBC 386 mcg/dL (250-450) 11/21/16 15:46 Ferritin 8.8 ng/mL (13.0-400.0) L 11/21/16 15:46 Total Bilirubin 0.4 mg/dL (0.1-1.2) 11/24/16 05:23 AST 63 units/L (5-40) H 11/24/16 05:23 ALT 68 units/L (7-56) H 11/24/16 05:23 Alkaline Phosphatase 137 units/L (35-129) H 11/24/16 05:23 Lactate Dehydrogenase 118 units/L (91-180) 12/01/16 05:50 Total Protein 9.0 g/dL (6.3-8.2) H 11/24/16 05:23 Albumin 3.6 g/dL (3.9-5) L 11/24/16 05:23 Albumin/Globulin Ratio 0.7 % 11/24/16 05:23 CA 27-29 32 U/mL (<38) 11/21/16 00:48 Fluid LDH 118 12/01/16 08:45 CSF Appearance Clear 12/01/16 08:45 CSF Color Colorless 12/01/16 08:45 CSF WBC 35 /mm3 (1-10) 12/01/16 08:45 CSF RBC 3 /mm3 (0-0) 12/01/16 08:45 CSF Seg Neutrophils 0 % (0-6) 12/01/16 08:45 CSF Lymphocytes % 90.0 % (40-80) 12/01/16 08:45 CSF Reactive Lymphs 2.0 % 12/01/16 08:45 CSF Monocytes % 8.0 % (15-45) 12/01/16 08:45 CSF Eosinophils % 0 % 12/01/16 08:45 CSF Basophils 0 % 12/01/16 08:45 CSF Comment See add'l comments 12/01/16 08:45 CSF Pathologist Review 12/01/16 08:45 CSF Glucose 77 mg/dL 12/01/16 08:45 CSF Total Protein 32 mg/dL 12/01/16 08:45 Lymph Enumerat CD4/CD8 0.26 (0.86-5.00) L 11/21/16 15:46 % CD3 Cells 74 % (57-85) 11/21/16 15:46 Absolute CD3 Count 355 cells/uL (840-3060) L 11/21/16 15:46 % CD4 Cells 16 % (30-61) L 11/21/16 15:46 Absolute CD4 Count 80 cells/uL (490-1740) L 11/21/16 15:46 % CD8 Cells 61 % (12-42) H 11/21/16 15:46 Absolute CD8 Count 304 cells/uL (180-1170) 11/21/16 15:46 % CD19 Cells 18 % (6-29) 11/21/16 15:46 Absolute CD19 Count 80 cells/uL (110-660) L 11/21/16 15:46 Hepatitis A IgM Ab -1 (NonReactive) 11/21/16 17:50 Hep Bs Antigen Non-reactive (Negative) 11/21/16 17:50 Hep B Core IgM Ab Non-reactive (NonReactive) 11/21/16 17:50 Hepatitis C Antibody Non-reactive (NonReactive) 11/21/16 17:50 HIV DNA Qual (PCR) See scanned report 11/21/16 15:46 HIV-1 Antibody See scanned report 11/21/16 00:48 HIV-1 RNA PCR copies/ml 26668 copies/mL (<20) H 11/21/16 17:50 HIV-1 RNA (PCR) log 4.61 Log cps/mL (<1.30) H 11/21/16 17:50 HIV-1 Genotyping see below 11/21/16 15:46 HIV-2 Ab (Immunoblot) See scanned report 11/21/16 00:48 HIV 1&2 Antibody Rapid Reactive (Non React) 11/21/16 00:48 HIV P24 Antigen Non react (Non React) 11/21/16 00:48 Toxoplasma IgG Ab 2.25 (<=0.90) H 11/24/16 10:03 Toxoplasma IgM Ab Negative (Negative) 11/24/16 10:03 TB (QFT) Gold In Tube Negative (Negative) 11/25/16 04:26 TB Test (QFT) Nil 0.07 IU/mL 11/25/16 04:26 TB Test Mitogen - Nil 1.83 IU/mL 11/25/16 04:26 TB Test Antigen - Nil <0.00 IU/mL 11/25/16 04:26 Miscellaneous Test Flexitest 1 12/01/16 Unknown
[2016-12-09] MEDS: PERCOCET 5/325 PO PRN ×3 (04:40→17:08)
--- NOTE | 2016-12-09 09:58 | Progress Note ---
Assessment and Plan Assessment and plan: Patient is a 55-year-old female who moved to the [facility] from [facility] in 07/2016 and was admitted to [facility] on 11/20/16 with a severe headache. MRI shows multiple brain lesions consistent with metastatic disease. Rapid HIV test is positive. She states that she had been tested and [facility] and was always told that she was "negative." The only infection she is unaware of having had in the past is typhoid fever. She is unsure whether she has any risk factors for HIV infection. According to her and her family she has not lost significant weight over the last several months. Patient since hospitalization has been started on antibiotics with prophylactic medications for HIV including Bactrim DS, Zithromax, Decadron for immunosuppression. Patient seems to be stable although still unable to ambulate. * Multiple brain lesions concerning for metastatic disease * Lung mass- Biopsy not diagnostic * HIV/AIDS * Hyponatremia * Oral candidiasis with possible esophageal candidiasis * Headache secondary to brain mass * Left hemiparesis-requiring assistance with ambulation Plan * CSF fluids not diagnostic at this point. Repeat lumbar puncture preliminary report not showing any evidence of malignancy. Patient accepted at [place] pending bed availability * Multiple attempts to transfer the patient was unsuccessful as the plan and process for possible [place] transfer but they are requesting CSF studies done first. Results pending including cytology * PT/OT EVAL * Continue seizure prophylaxis with Keppra * ID input appreciated. Her IgG was positive but IgM is negative * Continue Fluconazole, Bactrim DS, Zithromax Decadron 4 mg IV every 6 hours * The patient possibly will need a repeat biopsy possible VATS study get better sample of the long lesion but before this will repeat the chest CT to ensure this is not Atalectasis * Incentive Spirometer * Monitor sodium level * Continue daily physical therapy. * Blood cultures are negative so far. * Dvt/Gi prophy * Discussed case with ID * Intermittent labs * Discussed case with the daughter * Per nursing staff, still awaiting calls from [facility].. History Interval history: f/u lung mass and brain mets; HIV Patient seen and examined this morning in no acute distress, still with intermittent headaches continues to improve mobility and strength has not returned, still requiring assistance with ambulation Denies any chest pain, nausea, vomiting, diarrhea No fever noted blood pressure controlled No adverse events reported to me by nursing staff Hospitalist Physical - Physical exam Narrative exam: VITAL SIGNS: Reviewed. GENERAL: The patient appeared well nourished and normally developed. Vital signs as documented. HEAD: No signs of head trauma. EYES: Pupils are equal. Extraocular motions intact. EARS: Hearing grossly intact. MOUTH: Oropharynx is normal. NECK: No adenopathy, no JVD. CHEST: Chest with clear breath sounds bilaterally. No wheezes, rales, or rhonchi. CARDIAC: Regular rate and rhythm. S1 and S2, without murmurs, gallops, or rubs. VASCULAR: No Edema. Peripheral pulses normal and equal in all extremities. ABDOMEN: Soft, without detectable tenderness. No sign of distention. No rebound or guarding, and no masses palpated. Bowel Sounds normal. MUSCULOSKELETAL: Left-sided weakness with decreased muscle strength. Otherwise good range of motion of all major joints. Extremities without clubbing, cyanosis or edema. NEUROLOGIC EXAM: Alert and oriented x 3. Left-sided weakness. Speech normal. Follows commands. PSYCHIATRIC: Mood normal. SKIN: No rash or lesions. - Constitutional Vitals: Temp Pulse Resp BP Pulse Ox 98.5 F 74 18 122/70 98 12/09/16 08:00 12/09/16 08:00 12/09/16 08:00 12/09/16 08:00 12/09/16 08:00 General appearance: Present: no acute distress Results - Labs CBC & Chem 7: 12/01/16 05:53 12/04/16 05:12 Labs: Laboratory Last Values WBC 8.5 K/mm3 (4.5-11.0) 12/01/16 05:53 RBC 5.37 M/mm3 (3.65-5.03) H 12/01/16 05:53 Hgb 10.8 gm/dl (10.1-14.3) 12/01/16 05:53 Hct 33.6 % (30.3-42.9) 12/01/16 05:53 MCV 63 fl (79-97) L 12/01/16 05:53 MCH 20 pg (28-32) L 12/01/16 05:53 MCHC 32 % (30-34) 12/01/16 05:53 RDW 20.5 % (13.2-15.2) H 12/01/16 05:53 Plt Count 372 K/mm3 (140-440) 12/01/16 05:53 Lymph % (Auto) 8.6 % (13.4-35.0) L 12/01/16 05:53 [place] % (Auto) 4.1 % (0.0-7.3) 12/01/16 05:53 Eos % (Auto) 0.4 % (0.0-4.3) 12/01/16 05:53 Baso % (Auto) 0.2 % (0.0-1.8) 12/01/16 05:53 Lymph # 0.7 K/mm3 (1.2-5.4) L 12/01/16 05:53 [place] # 0.3 K/mm3 (0.0-0.8) 12/01/16 05:53 Eos # 0.0 K/mm3 (0.0-0.4) 12/01/16 05:53 Baso # 0.0 K/mm3 (0.0-0.1) 12/01/16 05:53 Add Manual Diff Complete 11/23/16 05:04 Total Counted 100 11/23/16 05:04 Seg Neutrophils % 86.7 % (40.0-70.0) H 12/01/16 05:53 Seg Neuts % (Manual) 83.0 % (40.0-70.0) H 11/23/16 05:04 Band Neutrophils % 1.0 % 11/23/16 05:04 Lymphocytes % (Manual) 8.0 % (13.4-35.0) L 11/23/16 05:04 Reactive Lymphs % (Man) 0 % 11/23/16 05:04 Monocytes % (Manual) 6.0 % (0.0-7.3) 11/23/16 05:04 Eosinophils % (Manual) 0 % (0.0-4.3) 11/23/16 05:04 Basophils % (Manual) 0 % (0.0-1.8) 11/23/16 05:04 Metamyelocytes % 2.0 % 11/23/16 05:04 Myelocytes % 0 % 11/23/16 05:04 Promyelocytes % 0 % 11/23/16 05:04 Blast Cells % 0 % 11/23/16 05:04 Nucleated RBC % Not Reportable 11/23/16 05:04 Seg Neutrophils # 7.3 K/mm3 (1.8-7.7) 12/01/16 05:53 Seg Neutrophils # Man 4.4 K/mm3 (1.8-7.7) 11/23/16 05:04 Band Neutrophils # 0.1 K/mm3 11/23/16 05:04 Abs Lymphs (Manual) 477 cells/uL (850-3900) L 11/21/16 15:46 Lymphocytes # (Manual) 0.4 K/mm3 (1.2-5.4) L 11/23/16 05:04 Abs React Lymphs (Man) 0.0 K/mm3 11/23/16 05:04 Monocytes # (Manual) 0.3 K/mm3 (0.0-0.8) 11/23/16 05:04 Eosinophils # (Manual) 0.0 K/mm3 (0.0-0.4) 11/23/16 05:04 Basophils # (Manual) 0.0 K/mm3 (0.0-0.1) 11/23/16 05:04 Metamyelocytes # 0.1 K/mm3 11/23/16 05:04 Myelocytes # 0.0 K/mm3 11/23/16 05:04 Promyelocytes # 0.0 K/mm3 11/23/16 05:04 Blast Cells # 0.0 K/mm3 11/23/16 05:04 WBC Morphology Not Reportable 11/23/16 05:04 Hypersegmented Neuts Not Reportable 11/23/16 05:04 Hyposegmented Neuts Not Reportable 11/23/16 05:04 Hypogranular Neuts Not Reportable 11/23/16 05:04 Smudge Cells Not Reportable 11/23/16 05:04 Toxic Granulation Not Reportable 11/23/16 05:04 Toxic Vacuolation Not Reportable 11/23/16 05:04 Dohle Bodies Not Reportable 11/23/16 05:04 Pelger-Huet Anomaly Not Reportable 11/23/16 05:04 Jeremy Rods Not Reportable 11/23/16 05:04 Platelet Estimate Consistent w auto 11/23/16 05:04 Clumped Platelets Not Reportable 11/23/16 05:04 Plt Clumps, EDTA Not Reportable 11/23/16 05:04 Large Platelets Not Reportable 11/23/16 05:04 Giant Platelets Not Reportable 11/23/16 05:04 Platelet Satelliting Not Reportable 11/23/16 05:04 Plt Morphology Comment Not Reportable 11/23/16 05:04 RBC Morphology Not Reportable 11/23/16 05:04 Dimorphic RBCs Not Reportable 11/23/16 05:04 Polychromasia Not Reportable 11/23/16 05:04 Hypochromasia 1+ 11/23/16 05:04 Poikilocytosis Not Reportable 11/23/16 05:04 Anisocytosis 1+ 11/23/16 05:04 Microcytosis Not Reportable 11/23/16 05:04 Macrocytosis Not Reportable 11/23/16 05:04 Spherocytes Not Reportable 11/23/16 05:04 Pappenheimer Bodies Not Reportable 11/23/16 05:04 Sickle Cells Not Reportable 11/23/16 05:04 Target Cells Few 11/23/16 05:04 Tear Drop Cells Not Reportable 11/23/16 05:04 Ovalocytes Not Reportable 11/23/16 05:04 Helmet Cells Not Reportable 11/23/16 05:04 Pol[place] Bodies Not Reportable 11/23/16 05:04 [place] Rings Not Reportable 11/23/16 05:04 [place] Cells Not Reportable 11/23/16 05:04 Bite Cells Not Reportable 11/23/16 05:04 Crenated Cell Not Reportable 11/23/16 05:04 Elliptocytes Few 11/23/16 05:04 Acanthocytes (Spur) Not Reportable 11/23/16 05:04 Rouleaux Not Reportable 11/23/16 05:04 Hemoglobin C Crystals Not Reportable 11/23/16 05:04 Schistocytes Not Reportable 11/23/16 05:04 Malaria parasites Not Reportable 11/23/16 05:04 Percent Retic 1.29 % (0.78-2.58) 11/21/16 15:46 [place] Bodies Not Reportable 11/23/16 05:04 Hem Pathologist Commnt No 11/23/16 05:04 PT 13.2 Sec. (12.2-14.9) 12/01/16 05:53 INR 1.01 (0.87-1.13) 12/01/16 05:53 APTT 31.0 Sec. (24.2-36.6) 12/01/16 05:53 Sodium 130 mmol/L (137-145) L 12/04/16 05:12 Potassium 4.5 mmol/L (3.6-5.0) 12/04/16 05:12 Chloride 92.5 mmol/L (98-107) L 12/04/16 05:12 Carbon Dioxide 25 mmol/L (22-30) 12/04/16 05:12 Anion Gap 17 mmol/L 12/04/16 05:12 BUN 19 mg/dL (7-17) H 12/04/16 05:12 Creatinine 0.5 mg/dL (0.7-1.2) L 12/04/16 05:12 Estimated GFR > 60 ml/min 12/04/16 05:12 BUN/Creatinine Ratio 38.00 % 12/04/16 05:12 Glucose 126 mg/dL (65-100) H 12/04/16 05:12 Calcium 8.9 mg/dL (8.4-10.2) 12/04/16 05:12 Iron 21 ug/dL (37-170) L 11/21/16 15:46 TIBC 386 mcg/dL (250-450) 11/21/16 15:46 Ferritin 8.8 ng/mL (13.0-400.0) L 11/21/16 15:46 Total Bilirubin 0.4 mg/dL (0.1-1.2) 11/24/16 05:23 AST 63 units/L (5-40) H 11/24/16 05:23 ALT 68 units/L (7-56) H 11/24/16 05:23 Alkaline Phosphatase 137 units/L (35-129) H 11/24/16 05:23 Lactate Dehydrogenase 118 units/L (91-180) 12/01/16 05:50 Total Protein 9.0 g/dL (6.3-8.2) H 11/24/16 05:23 Albumin 3.6 g/dL (3.9-5) L 11/24/16 05:23 Albumin/Globulin Ratio 0.7 % 11/24/16 05:23 CA 27-29 32 U/mL (<38) 11/21/16 00:48 Fluid LDH 118 12/01/16 08:45 CSF Appearance Clear 12/01/16 08:45 CSF Color Colorless 12/01/16 08:45 CSF WBC 35 /mm3 (1-10) 12/01/16 08:45 CSF RBC 3 /mm3 (0-0) 12/01/16 08:45 CSF Seg Neutrophils 0 % (0-6) 12/01/16 08:45 CSF Lymphocytes % 90.0 % (40-80) 12/01/16 08:45 CSF Reactive Lymphs 2.0 % 12/01/16 08:45 CSF Monocytes % 8.0 % (15-45) 12/01/16 08:45 CSF Eosinophils % 0 % 12/01/16 08:45 CSF Basophils 0 % 12/01/16 08:45 CSF Comment See add'l comments 12/01/16 08:45 CSF Pathologist Review 12/01/16 08:45 CSF Glucose 77 mg/dL 12/01/16 08:45 CSF Total Protein 32 mg/dL 12/01/16 08:45 Lymph Enumerat CD4/CD8 0.26 (0.86-5.00) L 11/21/16 15:46 % CD3 Cells 74 % (57-85) 11/21/16 15:46 Absolute CD3 Count 355 cells/uL (840-3060) L 11/21/16 15:46 % CD4 Cells 16 % (30-61) L 11/21/16 15:46 Absolute CD4 Count 80 cells/uL (490-1740) L 11/21/16 15:46 % CD8 Cells 61 % (12-42) H 11/21/16 15:46 Absolute CD8 Count 304 cells/uL (180-1170) 11/21/16 15:46 % CD19 Cells 18 % (6-29) 11/21/16 15:46 Absolute CD19 Count 80 cells/uL (110-660) L 11/21/16 15:46 Hepatitis A IgM Ab -1 (NonReactive) 11/21/16 17:50 Hep Bs Antigen Non-reactive (Negative) 11/21/16 17:50 Hep B Core IgM Ab Non-reactive (NonReactive) 11/21/16 17:50 Hepatitis C Antibody Non-reactive (NonReactive) 11/21/16 17:50 HIV DNA Qual (PCR) See scanned report 11/21/16 15:46 HIV-1 Antibody See scanned report 11/21/16 00:48 HIV-1 RNA PCR copies/ml 41036 copies/mL (<20) H 11/21/16 17:50 HIV-1 RNA (PCR) log 4.61 Log cps/mL (<1.30) H 11/21/16 17:50 HIV-1 Genotyping see below 11/21/16 15:46 HIV-2 Ab (Immunoblot) See scanned report 11/21/16 00:48 HIV 1&2 Antibody Rapid Reactive (Non React) 11/21/16 00:48 HIV P24 Antigen Non react (Non React) 11/21/16 00:48 Toxoplasma IgG Ab 2.25 (<=0.90) H 11/24/16 10:03 Toxoplasma IgM Ab Negative (Negative) 11/24/16 10:03 TB (QFT) Gold In Tube Negative (Negative) 11/25/16 04:26 TB Test (QFT) Nil 0.07 IU/mL 11/25/16 04:26 TB Test Mitogen - Nil 1.83 IU/mL 11/25/16 04:26 TB Test Antigen - Nil <0.00 IU/mL 11/25/16 04:26 Miscellaneous Test Flexitest 1 12/01/16 Unknown
[2016-12-09] MEDS: LOVENOX SUB-Q SCH (10:42)
[2016-12-09] MEDS: PROTONIX PO SCH (10:42)
[2016-12-09] MEDS: BACTRIM DS PO SCH (10:42)
[2016-12-09] MEDS: KEPPRA PO SCH (10:42)
[2016-12-09] MEDS: FEOSOL PO SCH (10:42)
[2016-12-09] MEDS: DIFLUCAN PO SCH (10:43)
[2016-12-09] MEDS: DECADRON IV SCH (10:43)
[2016-12-09] MEDS: MIRALAX 3350 PO SCH (10:47)
--- NOTE | 2016-12-09 12:32 | Progress Note ---
Assessment and Plan Current antibiotics: None Prophylactic antibiotics: Bactrim DS 1 tab PO daily Azithromycin 1200mg PO q week Fluconazole 100 mg PO daily Immunosuppressants: Decadron 4 mg IV every 6 hours Corticosteroids: Dexamethasone 10 mg IV 1 followed by 4 mg IV every 6 hours 11/20 --> ASSESSMENT: Alicia Pang is a 55-year-old female who moved to the [facility] from [facility] in 07/2016 and [facility] with a severe headache. MRI shows multiple brain lesions consistent with metastatic disease. Rapid HIV test is positive. Problem list: 1. Lung mass- Etiology remains unclear - Thin needle biopsy reported negative for Cancer -the clinical picture of lung mass with brain lesions is suspicious of malignancy. I believe the lung biopsy might not have been adequate -Patient will need a definitive surgical procedure to obtain adequate tissue either from the brain lesions or lung -lumbar punture cell count without significant findings, wbc 35 with 90% lymphs. --csf cytology with atypical cell, discussed with pathology. More CSF fluid needed to do flow cytometry 2. Brain mass, R/O mets. R/O opportunistic infection --toxoplasma Igm negative, IGG only indicates old exposure - histoplasma and blastomyces antibodies sent -doubt nocardia, doesnt fit the clinical picture -need tissue to guide treatment 3. Headache secondary to #2 4. HIV/AIDS - CD4 Ct. 80; HIV VL [id number] -genotype without resistance, would like to start treatment but would like to know underlying diagnosis of lung and brain lesions PLAN: 1. follow up fungal serologies 2. No new results available to aid with diagnosis 3. follow up CSF AFB, ADA, RYAN virus 4. continue bactrim, zithromax prophylaxis 5. reconstitution of immune-system will be important in this patient but will need to get to established clinic where ARVs can be supplied. 6. will need biopsy (tissue) for diagnosis 7. Awaits [place] transfer Rom Hough MD [facility] Office: [phone] Subjective Date of service: 12/09/16 Principal diagnosis: HIV, lung mass, brain mets Interval history: No complaints at present ROS: No subjective fever or chills. No nausea, vomiting or diarrhea. No shortness of breath, cough or pleuritic chest pain Objective - Exam Narrative Exam: GENERAL: Well-developed, thin somewhat chronically ill appearing female who is alert and in no acute distress. HEAD: Normocephalic. No lesions seen. EYES: Pupils are equal reactive to light and accommodation. There is no scleral icterus. Optic fundi are not examined. EARS: External ears are normal. THROAT: Oropharynx is normal with no evidence of oral candidiasis or pharyngitis. NECK: Supple. No enlargement of the thyroid gland. No significant cervical lymphadenopathy. No jugular venous distention at 30. LUNGS: Clear with no adventitious sounds. HEART: Regular rate. S1 and S2 are normal. There are no murmurs, gallops, clicks or rubs heard. ABDOMEN: Soft and nontender. Liver edge is felt approximately 2 cm below the right costal margin and is smooth and nontender. Spleen tip is palpable with deep inspiration just under the left upper costal margin. No other palpable masses. No clinical ascites. Bowel sounds are normoactive. EXTREMITIES: No rash, peripheral lymphadenopathy, clubbing or edema. : Not examined NEUROLOGIC: No focal findings. - Constitutional Vitals: Vital Signs Temp Pulse Resp BP Pulse Ox 98.5 F 74 18 122/70 98 12/09/16 08:00 12/09/16 08:00 12/09/16 08:00 12/09/16 08:00 12/09/16 08:00 Temperature -Last 24 Hours Temperature 98.5 F Temperature 98.2 F Temperature 98.3 F - Labs CBC & Chem 7: 12/01/16 05:53 12/04/16 05:12 Labs: Microbiology 12/01/16 08:45 Cerebral Spinal Fluid CSF Culture - Final 12/01/16 Unknown Cerebral Spinal Fluid Cryptococcal Antigen - Negative 11/23/16 13:02 Peripheral/Venous Blood Fungal Culture - Preliminary No Fungus Isolated At 1 week 11/23/16 13:02 Peripheral/Venous Blood Fungal Culture - No growth 11/23/16 Unknown Serum Cryptococcal Antigen - Negative Laboratory Tests 11/21/16 11/21/16 11/21/16 15:46 17:50 17:50 % CD4 Cells 16 L Absolute CD4 Count 80 L Hep Bs Antigen Non-reactive Hep B Core IgM Ab Non-reactive Hepatitis C Antibody Non-reactive HIV-1 RNA PCR copies/ml 33108 H Toxoplasma IgG Ab Toxoplasma IgM Ab TB (QFT) Gold In Tube 11/24/16 11/24/16 11/25/16 10:03 10:03 04:26 % CD4 Cells Absolute CD4 Count Hep Bs Antigen Hep B Core IgM Ab Hepatitis C Antibody HIV-1 RNA PCR copies/ml Toxoplasma IgG Ab 2.25 H Toxoplasma IgM Ab Negative TB (QFT) Gold In Tube Negative
[2016-12-09 17:58] VITALS: BP 116/70
== END 2016-12-09 21:30 | disposition short-term general hospital (02) | DRG 975 ==
LOC: ED 06:41 → CC1 12:45 → 3A 15:03
PROVIDERS: ADMIT Internal Medicine; ATTEND Internal Medicine
PROC: 0BBF3ZX Excision of Right Lower Lung Lobe, Percutaneous Approach, Diagnostic (ICD-10-PCS; principal; 2016-11-24)
PROC: 009U3ZX Drainage of Spinal Canal, Percutaneous Approach, Diagnostic (ICD-10-PCS; 2016-12-01)
PROC: B01B1ZZ Fluoroscopy of Spinal Cord using Low Osmolar Contrast (ICD-10-PCS; 2016-12-01)
PROC: 009U3ZX Drainage of Spinal Canal, Percutaneous Approach, Diagnostic (ICD-10-PCS; 2016-12-04)
PROC: B01B1ZZ Fluoroscopy of Spinal Cord using Low Osmolar Contrast (ICD-10-PCS; 2016-12-04)
DX: B20 Human immunodeficiency virus [HIV] disease (principal); C79.31 Secondary malignant neoplasm of brain; B37.0 Candidal stomatitis; C34.31 Malignant neoplasm of lower lobe, right bronchus or lung; C77.1 Secondary and unspecified malignant neoplasm of intrathoracic lymph nodes; E87.1 Hypo-osmolality and hyponatremia; G81.94 Hemiplegia, unspecified affecting left nondominant side; Z80.3 Family history of malignant neoplasm of breast; D50.9 Iron deficiency anemia, unspecified; Z98.890 Other specified postprocedural states; Z79.899 Other long term (current) drug therapy
CPT/HCPCS: 36415; 62270; 70450; 70553; 71010; 71260; 74177; 77003; 77012; 80048; 80053; 80074; 82024; 82164; 82728; 82947; 83550; 83605; 83615; 84160; 85007; 85025; 85045; 85610; 85730; 86300; 86403; 86689; 86777; 86778; 87103; 87116; 87535; 87536; 87799; 87806; 87901; 88112; 88172; 88173; 88177; 88184; 88185; 88305; 88312; 88333; 88341; 88342; 89051; 90686; 96374; 96375; A9577; J1100; J1170; J1650; J2250; J2270; J2405; J3010; J3246; Q9967